=== PATIENT | female | born 1970 | race Caucasian/White ===

== ENCOUNTER 2021-08-21 13:29 | Outpatient (CLI) | payer MEDICARE, SELFPAY ==
--- NOTE | 2021-08-21 | MR_ITS ---
WS: [id number] MRI RIGHT SHOULDER NONCONTRAST TECHNIQUE: Sagittal T2, coronal T1, T2 and proton density imaging. Axial gradient PDE imaging. CLINICAL INFORMATION: RIGHT SHOULDER CUFF SYNDROME COMPARISON: None. FINDINGS: Prior postoperative changes rotator cuff anchors. Small serpiginous area superior humeral head suspic ious for small area of avascular necrosis measuring 17 x 9 mm. Associated thin rim of surrounding patrice ma. Minimal degenerative arthritis at the AC joint. Small amount of subacromial/subdeltoid fluid. Garima or repair of the supraspinatus tendon distally. No evidence of recurrent tear. Postoperative changes in the distal tendon. Normal infraspinatus. Normal teres minor. Normal subscapularis. Normal biceps tendon in the bicipital groove. Normal biceps labral anchor. Glenoid labrum appears grossly normal. MR/MR shoulder RT wo con* [id number] IMPRESSION: 1. Prior postoperative changes rotator cuff anchors with repair of the suprasp inatus tendon. No evidence of recurrent tear. 2. Rotator cuff is otherwise intact. 3. Normal biceps tendon in the bicipital groove. 4. Suspected area of avascular necrosis in the superior humeral head with a sm all thin rim of surrounding edema. 5. Minimal degenerative arthritis AC joint with a small amount of subacromial/ subdeltoid fluid.
== END 2021-08-21 13:30 | disposition home or self-care (01) ==
PROVIDERS: PCP Nurse Practitioner Family; Visit Provider Nurse Practitioner Family
DX: M75.101 Unspecified rotator cuff tear or rupture of right shoulder, not specified as traumatic (principal); M19.011 Primary osteoarthritis, right shoulder
CPT/HCPCS: 73221

== ENCOUNTER → 2021-08-23 10:42 | Outpatient (BNVA) | payer MEDICARE, SELFPAY | PROVIDERS: PCP Nurse Practitioner Family; Referring Provider Nurse Practitioner Family; Visit Provider Internal Medicine | DX: M85.80 Other specified disorders of bone density and structure, unspecified site (principal); F17.200 Nicotine dependence, unspecified, uncomplicated | CPT/HCPCS: 99204 ==

== ENCOUNTER → 2021-10-12 08:17 | Outpatient (BNVA) | payer MEDICARE, SELFPAY | PROVIDERS: PCP Nurse Practitioner Family; Referring Provider Nurse Practitioner Family; Visit Provider Anesthesiology Pain Medicine | DX: M54.2 Cervicalgia (principal); M25.511 Pain in right shoulder; G43.909 Migraine, unspecified, not intractable, without status migrainosus; Z98.890 Other specified postprocedural states; Z87.891 Personal history of nicotine dependence | CPT/HCPCS: 99204 ==

== ENCOUNTER → 2021-10-23 11:33 | Outpatient (BNVA) | payer MEDICARE, SELFPAY | PROVIDERS: PCP Nurse Practitioner Family; Visit Provider Nurse Practitioner Family | DX: R39.9 Unspecified symptoms and signs involving the genitourinary system (principal); R44.3 Hallucinations, unspecified | CPT/HCPCS: 81000 ==

== ENCOUNTER 2021-10-25 12:39 | Inpatient (IN) | payer MEDICARE, SELFPAY ==
[2021-10-25 12:48] VITALS: BP 149/72; PULSE 123; RESP 19; TEMP 36.9; O2SAT 95; BMI 21.9
--- NOTE | 2021-10-25 13:02 | ED.C_ITS ---
HPI - Psych General: Chief Complaint: Psychiatric Symptoms Stated Complaint: Anxiety, Insomnia Time Seen by Provider: 10/25/21 13:02 Limitations: altered mental status History of Present Illness: Ms. Edwards is a 51-year-old lady with significant past medical history of anxiety, fibromyalgia, and asthma who presents the emergency department due to hallucinations and mental status change. Apparently symptoms began approximately 2 weeks ago initially with visual disturbances including with the patient reports was flashes of different ads in her vision. She subsequently developed seeing shapes and also possibly hearing things. She was seen by primary care provider on the and at that time referred to [facility] ED. The exact ED course is somewhat unclear though apparently she did receive a head CT and was ultimately possibly diagnosed with sleep deprivation induced hallucinations. The patient reports at baseline she does not sleep much however this has been worse lately. She has not slept now for approximately 4 days. She did receive 1 sleeping pill out of a prescription for 12. Unclear exactly what sleeping pill this was. returned home yesterday to find the rest of the pills missing though the patient has not slept ever had any apparent symptoms. She has been out wandering at night and not acting herself. It is unclear whether she has similar episodes in the past. She otherwise denies medical complaints. No other specific known exacerbating, provoking, or alleviating factors identified. History is somewhat limited by patient's mental status. Onset (ago): week(s) Relieving factors: none Exacerbating factors: none Associated psychiatric symptoms: racing thoughts, visual hallucinations and delusions Associated symptoms: Reports delusions Review of Systems General: Reports: 10 or more systems reviewed and unremarkable except in HPI and below PFS ED PFSH: Medical History Anxiety Bone loss Chronic pain Fibromyalgia Migraine Surgical History H/O neck surgery H/O shoulder surgery History of back surgery Family History Father No problems noted. Mother COPD (chronic obstructive pulmonary disease) Chronic emphysema syndrome Social History Smoking and tobacco status: former smoker Second hand smoke exposure: Yes Alcohol intake: never Adopted: No Caregiver/support person: No Lives independently: Yes Household members: spouse Housing: House Marital status: Number of children: 2 Highest education level completed: Bachelor's Degree service: No Current occupational status: disabled History of recent travel: No Physical Exam Const: COMMON NORMALS: alert GENERAL APPEARANCE: cooperative, well developed and anxious HENMT: COMMON NORMALS: normocephalic and atraumatic HEAD & SCALP: normocephalic and atraumatic THROAT: posterior oropharynx normal Eye: COMMON NORMALS: conjunctivae normal CONJUNCTIVA: Yes conjunctivae normal SCLERA: sclerae normal Neck/C-Spine: COMMON NORMALS: supple GENERAL: Yes trachea midline Resp: COMMON NORMALS: normal respiratory effort EFFORT & INSPECTION: Yes able to speak in complete sentences Cardio: COMMON NORMALS: regular rate and regular rhythm RATE: regular rate RHYTHM: regular rhythm GI: COMMON NORMALS: Soft to palpation PALPATION: Yes Soft to palpation and No Tenderness to palpation present (GI) PERCUSSION: normal to percussion Extremity: GENERAL: Yes normal exam except as noted and No edema Neuro: COMMON NORMALS: moves all extremities SENSORIUM/ORIENTATION: Yes alert and No Orientation impaired Psych: MOOD & AFFECT: Yes anxious THOUGHT PROCESS: Tangential thought process present and racing thoughts THOUGHT CONTENT: Yes delusions INSIGHT: Fair insight present (Psych) JUDGEMENT: Poor judgement present (Psych) Skin: NARRATIVE SKIN EXAM: scattered scratches on BLE reportedly from wandering outside Course ED course: - Patient was seen and evaluated by me at bedside - Vital signs obtained - Initial evaluation notable for exam as above, abnormal psychiatric exam - IV fluid bolus ordered given tachycardia. - Once outside records obtained. The patient was started on Zyprexa 5 mg tablets which was the 14 tablets as noted in HPI, clinically patient certainly does not appear to have taken 13 tablets though somewhat uncertain. There is also no record of head CT/CT imaging in fax documents. - Labs notable for no leukocytosis. Metabolic panel with mild evidence of dehydration. Urinalysis does appear concerning for urinary tract infection, will plan to treat with Keflex. - Imaging notable for no acute intracranial hemorrhage or mass identified on he ad CT. - Upon serial reexamination after treatment the patient was improved - Based on patient history, evaluation, labs, and imaging as interpreted the most likely cause of the patient's condition is psychosis and hallucinations of unclear etiology - Case discussed with psychiatry service, patient to be admitted to psychiatry service for further definitive management and treatment. - Based on ED evaluation to this point there is no obvious condition that would preclude the patient from inpatient management of psychiatric concerns. Note: Click bubbles or prepopulated mclain in note writing are used for assistance with data collection and billing and are inherently more limited than narrative and other text portions of this note. Please use narrative for additional clinical history and defer to narrative/free test for any case of contradictory information. If information appears in only free text or click bubble it should be considered present or absent as reported. Please contact note promotion writer for clarifications of clinical information or contradictory information. MDM is a brief summary, contradictory or erroneous seeming information should be clarified and full note should be reviewed. Vital Signs: Vital signs: Vital Signs Temperature 98.4 F 10/29/21 16:45 Pulse Rate 89 10/29/21 16:45 Respiratory Rate 17 10/29/21 16:45 Blood Pressure 117/78 10/29/21 16:45 Pulse Oximetry 98 10/29/21 16:45 MDM - Psych Medical Decision Making 51-year-old lady presenting with psychosis and hallucinations. Admitted for definitive management and treatment. Plan to treat UTI though I do not believe that this is the cause of the patient's symptoms. Medical Records I reviewed the patient's medical records. Lab Data I reviewed the patient's lab results. : 10/25/21 13:18 10/25/21 13:[address] 10/25/21 15:03 IMPRESSION: 1. No evidence of intracranial hemorrhage or mass effect. 2. Mild periventricular and subcortical low-attenuation changes nonspecific but likely due to small vessel disease. This can be followed up with MRI on an elective basis. 3. No significant parenchymal volume loss. 4. Paranasal sinuses and mastoid air cells well aerated. 5. No other acute findings. Laboratory Results WBC 8.8 10^3/uL (4.0-10.0) 10/25/21 13:18 RBC 4.19 10^6/uL (4.1-5.3) 10/25/21 13:18 Hgb 13.8 g/dL (11.5-15.3) 10/25/21 13:18 Hct 39.1 % (37.0-47.0) 10/25/21 13:18 MCV 93.3 fl (81-99) 10/25/21 13:18 MCH 32.9 pg (28.0-34.0) 10/25/21 13:18 MCHC 35.3 g/dL (30.0-36.0) 10/25/21 13:18 RDW 14.1 % (12.1-15.1) 10/25/21 13:18 Plt Count 247 10^3/cmm (130-400) 10/25/21 13:18 MPV 11.6 fL (7.4-10.4) H 10/25/21 13:18 Neut % (Auto) 64.9 % 10/25/21 13:18 Lymph % (Auto) 25.1 % 10/25/21 13:18 [place] % (Auto) 9.2 % 10/25/21 13:18 Eos % (Auto) 0.1 % 10/25/21 13:18 Baso % (Auto) 0.5 % 10/25/21 13:18 Neut # (Auto) 5.72 10^3/uL (1.8-7.7) 10/25/21 13:18 Lymph # (Auto) 2.2 10^3/uL (0.8-4.8) 10/25/21 13:18 [place] # (Auto) 0.8 10^3/uL (0.2-0.9) 10/25/21 13:18 Eos # (Auto) 0.0 10^3/uL (0.0-0.8) 10/25/21 13:18 Baso # (Auto) 0.0 10^3/uL (0.0-0.1) 10/25/21 13:18 Nucleated RBC % (auto) 0 % 10/25/21 13:18 Nucleated RBCs # 0.0 /100WBC 10/25/21 13:18 Sodium 138 mmol/L (136-145) 10/25/21 13:18 Potassium 3.7 mmol/L (3.5-5.1) 10/25/21 13:18 Chloride 97 mmol/L (98-107) L 10/25/21 13:18 Carbon Dioxide 22 mmol/L (22-29) 10/25/21 13:18 Anion Gap 22.7 (5-19) H 10/25/21 13:18 BUN 22 mg/dL (6-20) H 10/25/21 13:18 Creatinine 0.7 mg/dL (0.5-0.9) 10/25/21 13:18 GFR Calculation 87.9 mL/min (90-130) L 10/25/21 13:18 Glucose 136 mg/dL (65-115) H 10/25/21 13:18 Calculated Osmolality 291 mOsm/kg (285-295) 10/25/21 13:18 Calcium 10.6 mg/dL (8.5-10.5) H 10/25/21 13:18 Total Bilirubin 0.6 mg/dL (0.15-1.2) 10/25/21 13:18 AST 24 U/L (0-32) 10/25/21 13:18 ALT 16 U/L (0-33) 10/25/21 13:18 Alkaline Phosphatase 122 IU/L (35-105) H 10/25/21 13:18 Total Protein 8.4 g/dL (6.6-8.7) 10/25/21 13:18 Albumin 5.0 g/dL (3.5-5.2) 10/25/21 13:18 Globulin 3.4 g/dL (1.3-4.6) 10/25/21 13:18 TSH 2.18 uIU/mL (0.27-4.20) 10/25/21 13:18 Urine Color Yellow (Yellow) 10/25/21 15:20 Urine Appearance Cloudy (CLEAR) 10/25/21 15:20 Urine pH 5 (5-7) 10/25/21 15:20 Ur Specific [place] 1.015 (1.005-1.030) 10/25/21 15:20 Urine Protein Neg (Negative) 10/25/21 15:20 Urine Glucose (UA) Norm (Normal) 10/25/21 15:20 Urine Ketones Negative (Negative) 10/25/21 15:20 Urine Blood 3+ (Negative) H 10/25/21 15:20 Urine Nitrate Positive (Negative) H 10/25/21 15:20 Urine Bilirubin Neg (Negative) 10/25/21 15:20 Urine Urobilinogen Norm mg/dL (Negative) 10/25/21 15:20 Ur Leukocyte Esterase 2+ (Negative) H 10/25/21 15:20 Urine RBC None /hpf (0-2) 10/25/21 15:20 Urine WBC 15-25 /hpf (0-5) H 10/25/21 15:20 Ur Squamous Epith Cells 0-4 /hpf (0-5) H 10/25/21 15:20 Amorphous Sediment Not Reportable 10/25/21 15:20 Urine Bacteria 2+ /hpf (NONE) H 10/25/21 15:20 Salicylates < 0.3 mg/dL (3-10) L 10/25/21 13:18 Urine Opiates Screen Negative ng/mL (Negative) 10/25/21 15:20 Acetaminophen < 5.0 ug/mL (10-30) L 10/25/21 13:18 Ur Barbiturates Screen Negative ng/mL (Negative) 10/25/21 15:20 Ur Phencyclidine Scrn Negative ng/mL (Negative) 10/25/21 15:20 Ur Amphetamines Screen Negative ng/mL (Negative) 10/25/21 15:20 U Benzodiazepines Scrn Positive ng/mL (Negative) H 10/25/21 15:20 Urine Cocaine Screen Negative ng/mL (Negative) 10/25/21 15:20 U Marijuana (THC) Screen Negative ng/mL (Negative) 10/25/21 15:20 Ethyl Alcohol < 10 mg/dL (0-10) 10/25/21 13:18 EKG Data EKG 1: I personally reviewed and interpreted this EKG as follows: EKG interpretation date: 10/25/21 EKG interpretation time: 13:59 Interpretation: Twelve-lead EKG shows a regular rhythm at a rate of 110. MA interval 131, QRS duration 92, QTc 422. Normal axis. Interpretation: Sinus rhythm. Tachycardia. Discharge Plan Discharge Patient Disposition: Admitted As Inpatient Admit Provider: Manolo Lisa Clinical Impression: Psychosis, Hallucinations Condition: Stable Discharge Diet: Regular Discharge Activity: Resume usual activity Coding Level of Care Code ED Senior Property Manager for Berniceg Fwd Exam Comprehensive
--- NOTE | 2021-10-25 13:27 | ECG_ITS ---
[facility] Test Date: 2021-10-25 Pat Name: Kaylie Edwards Department: Room: Gender: Female Dairy Nutritionist: : 1970 Requested By: Kevin Clay Order Number: [id number] Holly MD: Elieser Robert M.D. Measurements Intervals [place] Rate: 110 P: 81 [place]: 131 QRS: 31 QRSD: 92 T: 39 QT: 357 QTc: 483 Interpretive Statements SINUS TACHYCARDIA POSSIBLE LEFT ATRIAL ENLARGEMENT [-0.1mV P-WAVE IN V1/V2] No previous ECG available for comparison Electronically Signed On 10-25-2021 15:59:37 LEGAL BILLING SPECIALIST by Elieser Robert M.D. [email or web address] [id number]
[2021-10-25] MEDS: sodium chloride 0.9% 1,000 ML 999 ML IV (13:48)
[2021-10-25 13:57] LABS: Basophils % 0.5 %; Eosinophils % 0.1 %; Hematocrit 39.1 % (37.0-47.0); Hemoglobin 13.8 g/dL (11.5-15.3); Lymphocytes # 2.2 10^3/uL (0.8-4.8); Lymphocytes % 25.1 %; Mean Corpuscular HGB Conc 35.3 g/dL (30.0-36.0); Mean Corpuscular Hemoglobin 32.9 pg (28.0-34.0); Mean Corpuscular Volume 93.3 fl (81-99); Mean Platelet Volume 11.6 fL (7.4-10.4); Monocytes # 0.8 10^3/uL (0.2-0.9); Monocytes % 9.2 %; Neutrophils # 5.72 10^3/uL (1.8-7.7); Neutrophils % 64.9 %; Nucleated Red Blood Cells % 0 %; Platelet Count 247 10^3/cmm (130-400); Red Blood Count 4.19 10^6/uL (4.1-5.3); Red Cell Distribution Width 14.1 % (12.1-15.1); White Blood Count 8.8 10^3/uL (4.0-10.0)
[2021-10-25 14:31] LABS: Alanine Aminotransferase 16 U/L (0-33); Alkaline Phosphatase 122 IU/L (35-105); Anion Gap 22.7 (5-19); Aspartate Amino Transferase 24 U/L (0-32); Blood Urea Nitrogen 22 mg/dL (6-20); Calcium 10.6 mg/dL (8.5-10.5); Carbon Dioxide 22 mmol/L (22-29); Chloride 97 mmol/L (98-107); Globulin 3.4 g/dL (1.3-4.6); Glomerular Filtration Rate 87.9 mL/min (90-130); Glucose 136 mg/dL (65-115); Osmolality Calculated 291 mOsm/kg (285-295); Potassium 3.7 mmol/L (3.5-5.1); Sodium 138 mmol/L (136-145); Total Bilirubin 0.6 mg/dL (0.15-1.2); Total Protein 8.4 g/dL (6.6-8.7)
[2021-10-25 14:32] LABS: Acetaminophen < 5.0 ug/mL (10-30); Alcohol Level < 10 mg/dL (0-10); Salicylate < 0.3 mg/dL (3-10)
--- NOTE | 2021-10-25 15:03 | CT_ITS ---
WS: [id number] CT HEAD TECHNIQUE: Noncontrast CT of the head obtained from the skullbase to the vertex. CLINICAL INFORMATION: ams COMPARISON: None. DLP: 927.[address] scans at [facility] use at least one of these dose optimization techniques: automated e xposure control; mA and/or kV adjustment per patient size (includes targeted exams where dose is matc hed to clinical indication); or iterative reconstruction. FINDINGS: No evidence of intracranial hemorrhage or mass effect. Ventricular system and basal cisterns are prater nt. Mild periventricular and subcortical low-attenuation changes likely due to small vessel disease. No significant parenchymal volume loss. No extra-axial fluid collections. No evidence of mass or mass effect. Paranasal sinuses and mastoid air cells are well aerated. .Normal visualized soft tissues. CT/CT head wo con* [id number] IMPRESSION: 1. No evidence of intracranial hemorrhage or mass effect. 2. Mild periventricular and subcortical low-attenuation changes nonspecific bu t likely due to small vessel disease. This can be followed up with MRI on an el ective basis. 3. No significant parenchymal volume loss. 4. Paranasal sinuses and mastoid air cells well aerated. 5. No other acute findings.
[2021-10-25 15:24] VITALS: BP 150/100; PULSE 105; RESP 16; O2SAT 97
[2021-10-25 15:25] LABS: Thyroid Stimulating Hormone 2.18 uIU/mL (0.27-4.20)
[2021-10-25 17:34] LABS: Add Urine Microscopic? YES; Bilirubin Urine Neg (Negative); Blood Urine 3+ (Negative); Glucose Urine UA Norm (Normal); Ketones Urine Negative (Negative); Leukocyte Esterase Urine 2+ (Negative); Nitrate Urine Positive (Negative); Protein Urine Neg (Negative); Specific Gravity, Urine 1.015 (1.005-1.030); Urine Appearance Cloudy (CLEAR); Urine Color Yellow (Yellow); Urobilinogen Urine Norm (Negative); pH Urine 5 (5-7)
[2021-10-25 17:36] LABS: Add Urine Culture? Yes; Bacteria Urine 2+ /hpf; Squamous Epithelial Cell Urine 0-4 /hpf (0-5); WBC Urine 15-25 /hpf (0-5)
[2021-10-25 17:39] LABS: Amphetamines Screen Urine Negative (Negative); Barbiturates Screen Urine Negative (Negative); Benzodiazepines Screen Urine Positive (Negative); Cocaine Screen Urine Negative (Negative); Opiate Screen Urine Negative (Negative); PCP Screen Urine Negative (Negative); THC Screen Urine Negative (Negative)
[2021-10-25] MEDS: cephALEXin 500 mg Capsule PO ×2 (18:02→23:14)
--- NOTE | 2021-10-25 18:27 | PC.NURSE ---
REPORT TO ADELINE CISNEROS
[2021-10-25 18:48] VITALS: BP 134/84; PULSE 98; RESP 20; TEMP 36.6; O2SAT 95
[2021-10-25] MEDS: hyDROXYzine 25 mg Capsule 50 MG PO ×2 (19:31→20:54)
--- NOTE | 2021-10-25 19:33 | PC.NURSE ---
Patient with anxiety. Rapidly pacing halls. Flights of ideas. Tearful and trying to leave unit through single door. Confused asking people to come out of their rooms. PRN hydroxizine 50 mg given for this.
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
[2021-10-25] MEDS: trazodone 50 mg Tablet PO (20:15)
--- NOTE | 2021-10-25 21:43 | PC.NURSE ---
Patient wanted medication to help her sleep. When ask to come up to the nurses station for the medication she stated I want chocolate, do you have chocolate? and then laughed out loud. Trazodone was given at 2014. Later on patient was repeatedly up at the nurses station with garbled speech. She was very tearful and anxious. She believed someone was dying. Visteril was given at 2053.
[2021-10-25 22:00] VITALS: BP 135/84; PULSE 98; RESP 20; TEMP 36.6; O2SAT 96
[2021-10-26] MEDS: haloperidol 5 mg Tablet PO (00:03)
--- NOTE | 2021-10-26 00:03 | PC.NURSE ---
Addendum entered by Sylvia Baugh RN 10/26/21 04:19: Patient continues to become agitated, going into other patients room, and unsteady, nurse sitting one to one with patient for safety and redirection. Patient has begun hallucinating, seeing things on floor and responding to them and to things in air. Having nonsensical conversations, addressing staff by random names. Laughing, then yelling, then crying at times. Patient will lay down for a few minutes then get right back up and walking around and attempting to go into other patients rooms again. Continuing to redirect often with little success. Addendum entered by Sylvia Baugh RN 10/26/21 02:21: Patient continues to become agitated, pacing the halls, going into other patients rooms, with nonsensical speech, unable to be redirected for any amount of time. Previous interventions and medications unsuccessful. Given PRN haldol, ativan, and benadryl as ordered. Original Note: PRN Admin Patient up pacing the halls, hollering out and getting agitated. Attempted to redirect and reorient patient. Patient has nonsensical speech and does not respond appropriately to conversation. PRN trazodone given earlier, then PRN zyprexa approx an hr later, with no noted effectiveness. PRN haldol given.
[2021-10-26] MEDS: haloperidol inj 5 mg/mL INJ 1 mL IM (02:20)
[2021-10-26] MEDS: diphenhydrAMINE 50 mg/mL SDV 1mL IM (02:20)
[2021-10-26] MEDS: LORazepam 2 mg/mL INJ 1 mL IM ×2 (02:20→05:27)
--- NOTE | 2021-10-26 02:23 | PC.NURSE ---
Patient continues to be poor historian, confused, with nonsensical, disorganized speech, and responding inappropriately to conversation. Unable to obtain assessment information due to patient condition.
[2021-10-26] MEDS: ziprasidone 20 mg/mL SDV IM (03:45)
--- NOTE | 2021-10-26 04:19 | PC.NURSE ---
0328 Patient continues to be severely agitated and delusional. Call made to Dr. Lisa for further care. He gave an order for Geodon 20mg IM x1. With assistance of 2 nurses and security stand by the Geodon was given IM in the right dorsogluteal. Patient tolerated well. Patient is not safe to be by herself. She is a high fall risk and a danger to herself as she tried to eat her blanket. Will continue to monitor the patient while one on one.
[2021-10-26] MEDS: cephALEXin 500 mg Capsule PO ×2 (05:27→13:20)
--- NOTE | 2021-10-26 06:40 | PC.NURSE ---
0435 Patient is still awake even after all of the medication. She is delusional with psychotic features. She is seeing things that are not there like picking at air in front of her, scooping up things off the floor, and picking at the blankets and sheets. She is a two person assist due to her high fall risk and inability to be redirected. A call was made to Dr. Lisa. He gave an order to give her Ativan 2mg IM thinking maybe she is going through benzo withdrawals. The Ativan was given. Patient tolerated it well.
--- NOTE | 2021-10-26 06:48 | PC.NURSE ---
0450 Patient is settling down. She is actually laying on the bed trying to sleep. She has a very bad cough. It is wet, producing lots of sputum that the patient is having trouble clearing. She finally clears it and is able to rest comfortably. Sitter is at the bedside.
--- NOTE | 2021-10-26 09:51 | PC.OT ---
OT EVALUATION HELD THIS DATE PER NURSING REQUEST. SEE NOTES IN CHART REGARDING PATIENT BEHAVIOR LAST EVENING. NURSING REPORTS THAT PATIENT IS FINALLY SLEEPING AND REQUESTS TO ALLOW HER TO CONTINUE TO SLEEP. WILL ATTEMPT EVALUATION AT ANOTHER TIME.
[2021-10-26] MEDS: OLANZapine 5 mg TABLET PO (10:00)
[2021-10-26] MEDS: pregabalin 100 mg Capsule 200 MG PO ×3 (10:51→22:00)
[2021-10-26] MEDS: venlafaxine ER (24HR) 150 mg Capsule PO (10:51)
[2021-10-26] MEDS: LORazepam 2 mg Tablet PO (13:20)
[2021-10-26 14:00] VITALS: BP 104/68; PULSE 90; RESP 17; TEMP 36.6; O2SAT 96
--- NOTE | 2021-10-26 14:34 | PC.NURSE ---
ADMISSION PER ED Ms. Edwards is a 51-year-old lady with significant past medical history of anxiety, fibromyalgia, and asthma who presents the emergency department due to hallucinations and mental status change. Apparently symptoms began approximately 2 weeks ago initially with visual disturbances including with the patient reports was flashes of different ads in her vision. She subsequently developed seeing shapes and also possibly hearing things. She was seen by primary care provider on the and at that time referred to [facility] ED. The exact ED course is somewhat unclear though apparently she did receive a head CT and was ultimately possibly diagnosed with sleep deprivation induced hallucinations. The patient reports at baseline she does not sleep much however this has been worse lately. She has not slept now for approximately 4 days. She did receive 1 sleeping pill out of a prescription for 12. Unclear exactly what sleeping pill this was. returned home yesterday to find the rest of the pills missing though the patient has not slept ever had any apparent symptoms. She has been out wandering at night and not acting herself. It is unclear whether she has similar episodes in the past. She otherwise denies medical complaints. No other specific known exacerbating, provoking, or alleviating factors identified. NPU AT THIS TIME PATIENT IS AWAKE AGAIN. REMAINS DELUSIONAL AND NEEDS FREQUENT REDIRECTION. UNABLE TO ANSWER ASSESSMENT QUESTIONS. DID EAT AND DRINK. NEED FOR ONE TO ONE SITTER CONTINUES. ATTEMPTING TO GO INTO OTHERS ROOMS.
--- NOTE | 2021-10-26 14:35 | PC.NURSE ---
MEDS- PATIENT GAVE NEW ORDERS TO GIVE ATIVAN 2 MG PO OR IM IF REFUSES FOR DELUSIONAL BEHAVIORS, WANDERING, OR INTRUSIVE BEHAVIORS. PATIENT UP AND DOWN. THOUGHT PROCESS CONFUSED AND DISORGANIZED. TOOK PO DOSE AT 1320. CURRENTLY RESTING IN BED CALMLY. REMAINS WITH ONE TO ONE SITTER.
--- NOTE | 2021-10-26 14:43 | W.PM.NPUH&PS ---
Providers/Chief Complaint Admitting Physician: Manolo Lisa MD Primary Care Provider: HERIBERTO Meza Chief Complaint: Anxiety, Insomnia HPI NPU History of Present Illness Kaylie Edwards is a 51 year old female who presented to the outpatient hospital with reports of a 2 week history of visual hallucinations, people in the room speaking with her, and seeing deer in the road that were concerning to her and not knowing why it happened. She was sent from a local clinic and brought by her nephew to the ER at the clinic?s suggestion. The identified at that time the symptoms began 2 days ago, reporting that she had filled her medication in the last week and they had a similar issue of that about 2 months ago but the symptoms resolved after stopping some unknown anxiety medication though the current symptoms are seeming worse than last time. She had been sleeping less and he reported her ?being manic at night?. They deny any other changes or any suicidal or homicidal ideation. She was evaluated at the outside hospital, transferred to [facility] and admitted to the neuropsychiatric unit for definitive treatment of those issues. She had a medical evaluation and concerns for a UTI also existed so the outside hospital had initiated Keflex which she has essentially had a day?s worth of doses at this time. The patient presented to the unit and began significant aimless behavior, walking into people?s rooms, knocking on doors, pulling at things and ultimately received PRN medications. Review of her chart, as she had not seen this entry writer at that time, lead to a working diagnosis that she was having benzodiazepine withdrawal which is probably what happened a couple months ago when she had these hallucinations and not some bipolar episode of some sort. The dose of her Valium is reportedly 2 mg twice a day but there is significant concern of her being out of her medication between 9 days to 2 weeks too early which is likely causing some issues on the intoxication side and some issues on the withdrawal side. Ultimately, she was able to be calmed down with doses of Ativan, further supporting the idea that this is withdrawal. She was unable to participate in a give and take evaluation at this time. Psychiatric History: As above. Substance Abuse History: As above Family History: As above. Developmental History: As above. Psychosocial History: As above. Legal History: As above. Medical History: COPD and hysterectomy. Meds NPU Home Medications Medication Instructions Recorded Confirmed Last Taken Type diazepam 5 mg tablet 5 mg PO BID PRN #20 tab 10/06/21 10/25/21 Unknown Rx pregabalin 200 mg capsule 200 mg PO TID #90 cap 10/06/21 10/25/21 Unknown Rx albuterol sulfate 90 mcg/actuation 2 puff INHALATION QID PRN 10/25/21 10/25/21 Unknown History aerosol inhaler baclofen 10 mg tablet 10 mg PO TID PRN 10/25/21 10/25/21 Unknown History budesonide 160 mcg-glycopyr 9 2 inh INHALATION BID 10/25/21 10/25/21 Unknown History mcg-formot 4.8 mcg/actuation HFA inhaler (Breztri Aerosphere) omcfpqxmmb-gtelszngibghv-fgsndfok 1 tab PO Q8H PRN 10/25/21 10/25/21 Unknown History 50 mg-325 mg-40 mg tablet galcanezumab-gnlm 120 mg/mL 120 mg SUBCUT .Q30D DIRECTED 10/25/21 10/25/21 Unknown History subcutaneous pen injector (Emgality Pen) ibuprofen 200 mg tablet 800 - 1,000 mg PO Q6H PRN 10/25/21 10/25/21 Unknown History olanzapine 5 mg tablet 5 mg PO BEDTIME 10/25/21 10/25/21 Unknown History quetiapine 100 mg tablet 100 mg PO BEDTIME 10/25/21 10/25/21 Unknown History venlafaxine 150 mg 150 mg PO DAILY 10/25/21 10/25/21 Unknown History capsule,extended release 24 hr Allergies Allergy/AdvReac Type Severity Reaction Status Date / Time amitriptyline [From avil] Allergy hallucenate Verified 10/25/21 14:02 Sulfa (Sulfonamide Allergy hives Verified 10/25/21 14:02 Antibiotics) PFSH NPU PFSH: Medical History Anxiety Bone loss Chronic pain Fibromyalgia Migraine Surgical History H/O neck surgery H/O shoulder surgery History of back surgery Family History Father No problems noted. Mother COPD (chronic obstructive pulmonary disease) Chronic emphysema syndrome Social History Smoking and tobacco status: former smoker Second hand smoke exposure: Yes Alcohol intake: never Adopted: No Caregiver/support person: No Lives independently: Yes Household members: spouse Housing: House Marital status: Number of children: 2 Highest education level completed: Bachelor's Degree service: No Current occupational status: disabled History of recent travel: No Mental Status Exam MSE Comments: This is a well-nourished, well-developed white female looking older than her stated age in hospital scrubs with limited grooming and no eye contact. No abnormal movements except for psychomotor retardation. Uncooperative with exam in no distress. Speech was nonexistent. Patient mood not described, affect sleeping. Thought process, unable to be obtained. Thought content: patient was sleeping and did not respond to any other questions at this time. She was not arousable to have a formal evaluation. Vitals/I&O/Wt Last Vital Signs Temp 97.8 F 10/26/21 14:00 Pulse 90 10/26/21 14:00 Resp 17 10/26/21 14:00 BP 104/68 10/26/21 14:00 Pulse Ox 96 10/26/21 14:00 Weight last 48 hrs Weight 58.06 kg Data NPU : 10/25/21 13:18 10/25/21 13:18 A&P Assessment and plan (1) Psychosis: Status: Acute (2) Hallucinations: Status: Acute (3) H/O shoulder surgery: Status: Acute (4) Migraine: Status: Acute (5) Asthma: Status: Acute (6) Anxiety: Status: Acute (7) Fibromyalgia: Status: Acute (8) Osteopenia: Status: Acute (9) Altered mental status: Status: Acute (10) Delirium: Status: Acute Plan This is a 51 year old white female with a history of anxiety, what appears to be recent benzodiazepine abuse and sequelae from intoxication versus withdrawal who presents in a delirium state. Continue current medications except will put on CIWA and use benzodiazepines to manage any behavioral issues to assist her with this likely withdrawal. Encourage individual, group and milieu therapy Continue q-15 minute check for safety Recommend sober living treatment at the highest level of care to which the patient is willing to commit. Involuntary Hold Information 96 Hour Hold: 96 Hour Involuntary Admission: No Attestations NPU Medical Necessity Statement*: Inpatient hospitalization is medically necessary and the clinically appropriate intervention at this time. We will monitor medications and make changes as indicated. Patient will be in the hospital for over two midnights. Likely length of stay is four to six days. We will consider a 96 hour hold if she demands discharge. Coding Level of Care Code Acute Business Rules Developer for [facility] Fwd Diagnoses Psychosis F29 Hallucinations R44.3 H/O shoulder surgery Z98.890 Migraine G43.909 Asthma J45.909 Anxiety F41.9 Fibromyalgia M79.7 Osteopenia M85.80 Altered mental status R41.82 Delirium R41.0
[2021-10-26 21:52] VITALS: BP 109/69; PULSE 88; RESP 22; TEMP 36.7; O2SAT 94
[2021-10-26] MEDS: quetiapine 100 mg Tablet PO (22:00)
[2021-10-27] MEDS: cephALEXin 500 mg Capsule PO ×4 (02:06→17:40)
[2021-10-27 06:00] VITALS: BP 106/66; PULSE 80; RESP 18; TEMP 36.4; O2SAT 96
[2021-10-27 08:01] VITALS: PULSE 101; RESP 16; O2SAT 92
[2021-10-27] MEDS: pregabalin 100 mg Capsule 200 MG PO ×3 (08:09→20:30)
[2021-10-27] MEDS: venlafaxine ER (24HR) 150 mg Capsule PO (08:09)
[2021-10-27] MEDS: ibuprofen 200 mg Tablet 600 MG PO (10:06)
--- NOTE | 2021-10-27 11:30 | DCPLANNER ---
IMM COMPLETED WITH PATIENT AND PATIENT WAS GIVEN A COPY.
--- NOTE | 2021-10-27 11:33 | DCPLANNER ---
IMM COMPLETED WITH PATIENT ON 10/26/21. PATEINT WAS GIVEN A COPY OF HER RIGHTS.
[2021-10-27 14:00] VITALS: BP 115/79; PULSE 109; RESP 17; TEMP 36.2; O2SAT 94
--- NOTE | 2021-10-27 17:00 | P.NPUPN_ITS ---
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 She had earlier suggested to the treatment team that we had a discussion that she is going to be leaving and expressing being upset about the fact that it did not appear to going to happen. I sat down with her and she was shocked at my report of what her behavior has been like before we began purposeful treatment of benzodiazepine overuse and withdrawal. She did not have a comment about that assessment adding credence to the position. We discussed the fact that we n eeded to continue to assess her now that she seems more cogent and gaining some clarity. Mental Status Exam MSE Comments: This is a slender, well-developed white female looking older than her stated age in hospital scrubs with limited grooming and improving eye contact. No abnormal movements except for mild psychomotor retardation. More cooperative with exam in no distress. Speech was noted and decreased rate and volume. Patient mood described as okay, affect subdued. Thought process linear. Thought content: patient denied suicidal or homicidal ideation, there were no delusions reported or noted, she denied any auditory or visual hallucinations and did not recall her clearly delirious behavior. Attention and concentration were intact and memory skills is unreliable but none were formally tested. She was alert and oriented x3. Insight and judgment still impaired, impulse control improving. Vitals/I&O/Wt Last Vital Signs Temp 98.9 F 10/27/21 20:55 Pulse 85 10/27/21 20:55 Resp 17 10/27/21 20:55 BP 115/71 10/27/21 20:55 Pulse Ox 94 10/27/21 20:55 Data NPU : 10/25/21 13:18 10/25/21 13:18 Micro: Microbiology 10/25/21 15:20 Urine Culture - Preliminary Urine,Clean Catch Gram Negative Rods Microbiology 10/25/21 15:20 Urine,Clean Catch Urine Culture - Preliminary Gram Negative Rods A&P Assessment and plan (1) Delirium: Status: Acute (2) Altered mental status: Status: Acute (3) Psychosis: Status: Acute (4) Hallucinations: Status: Acute (5) H/O shoulder surgery: Status: Acute (6) Migraine: Status: Acute (7) Asthma: Status: Acute (8) Anxiety: Status: Acute (9) Fibromyalgia: Status: Acute (10) Osteopenia: Status: Acute Plan This is a 51 year old white female with a history of anxiety, what appears to be recent benzodiazepine abuse and sequelae from intoxication versus withdrawal who presents in a delirium state. Continue current medications except will put on CIWA and use benzodiazepines to manage any behavioral issues to assist her with this likely withdrawal. Encourage individual, group and milieu therapy Continue q-15 minute check for safety Recommend sober living treatment at the highest level of care to which the patient is willing to commit. Involuntary Hold Information 96 Hour Hold: 96 Hour Involuntary Admission: No Attestations NPU Medical Necessity Statement*: Inpatient hospitalization is medically necessary and the clinically appropriate intervention at this time. We will monitor medications and make changes as indicated. Likely length of stay 3 to 5 days. Coding Level of Care Code Acute School Library Media Specialist for [facility] Diagnoses Delirium R41.0 Altered mental status R41.82 Psychosis F29 Hallucinations R44.3 H/O shoulder surgery Z98.890 Migraine G43.909 Asthma J45.909 Anxiety F41.9 Fibromyalgia M79.7 Osteopenia M85.80
--- NOTE | 2021-10-27 17:25 | PC.NURSE ---
PATIENT HAS REMAINED CALM THROUGHOUT DAY. NO LONGER WANDERING OR GOING INTO OTHERS ROOMS. IS DIRECTABLE BY STAFF. HAS MET WITH PT. TEAM FEELS PT IS NOW APPROPRIATE TO DISCONTINUE ONE TO ONE SITTER. ONE TO ONE DISCONTINUED AT 1645. NO ISSUES NOTED AT THIS TIME.
[2021-10-27] MEDS: OLANZapine 5 mg TABLET PO (20:30)
[2021-10-27] MEDS: quetiapine 100 mg Tablet PO (20:31)
[2021-10-27 20:55] VITALS: BP 115/71; PULSE 85; RESP 17; TEMP 37.2; O2SAT 94
[2021-10-28] MEDS: cephALEXin 500 mg Capsule PO ×5 (00:44→23:16)
[2021-10-28 06:00] VITALS: BP 121/90; PULSE 81; RESP 16; TEMP 37; O2SAT 97
--- NOTE | 2021-10-28 07:57 | PC.NURSE ---
Am Assessment Patient is up in room for assessment. Patient is alert and oriented in all aspects. She denies SI, Hi or hallucinations. Hr regular with ppp x 2, no edema noted. Lungs are clear with breathing even and non labored. Bowel sounds are active in all quads. Denies pain with urination. Denies all other pain. Skin is warm and dry.
[2021-10-28] MEDS: pregabalin 100 mg Capsule 200 MG PO ×3 (09:00→20:00)
[2021-10-28] MEDS: venlafaxine ER (24HR) 150 mg Capsule PO (09:00)
--- NOTE | 2021-10-28 09:35 | P.NPUPN_ITS ---
Subjective NPU Subjective: Interval history: Patient presents today looking much different than her presentation. She had her hair done and looks refreshed and was able to talk about the fact that she has little to no recollection of the events leading up to her admission. She reports that this relationship with Valium has probably gone back a couple years of possibly problematic use but we discussed the likelihood of the interplay of her UTI as well as intoxication followed by withdrawal of benzodiazepines leading to her delirious state. We agreed that we would talk to her and evaluate for discharge in the next 48 hours. Mental Status Exam MSE Comments: This is a slender, well-developed white female looking appropriate for age in hospital scrubs with appropriate grooming and eye contact. No abnormal movements.? Cooperative with exam in no distress. Speech was normal rate and volume. Patient mood described as better but a little confused, affect congruent. Thought process organized. Thought content: patient denied suicidal or homicidal ideation, there were no delusions reported or noted, she denied any auditory or visual hallucinations and did not recall her clearly delirious behavior.? Attention and concentration were intact and memory skills is unreliable but none were formally tested.? She was alert and oriented x3.? Insight and judgment is improving, impulse control improving. Vitals/I&O/Wt Last Vital Signs Temp 98.6 F 10/28/21 06:00 Pulse 81 10/28/21 06:00 Resp 16 10/28/21 06:00 BP 121/90 10/28/21 06:00 Pulse Ox 97 10/28/21 06:00 Data NPU : 10/25/21 13:18 10/25/21 13:18 Micro: Microbiology 10/25/21 15:20 Urine Culture - Preliminary Urine,Clean Catch Gram Negative Rods Microbiology 10/25/21 15:20 Urine,Clean Catch Urine Culture - Preliminary Gram Negative Rods A&P Assessment and plan (1) Delirium: Status: Acute (2) Altered mental status: Status: Acute (3) Psychosis: Status: Acute (4) Hallucinations: Status: Acute (5) H/O shoulder surgery: Status: Acute (6) Migraine: Status: Acute (7) Asthma: Status: Acute (8) Anxiety: Status: Acute (9) Fibromyalgia: Status: Acute (10) Osteopenia: Status: Acute Plan This is a 51 year old white female with a history of anxiety, what appears to be recent benzodiazepine abuse and sequelae from intoxication versus withdrawal who presents in a delirium state. Continue current medications. We will introduce propranolol 20 mg p.o. 3 times daily as needed and BuSpar 10 mg p.o. twice daily for anxiety. Encourage individual, group and milieu therapy Continue q-15 minute check for safety Recommend sober living treatment at the highest level of care to which the patient is willing to commit. Involuntary Hold Information 96 Hour Hold: 96 Hour Involuntary Admission: No Attestations NPU Medical Necessity Statement*: Inpatient hospitalization is medically necessary and the clinically appropriate intervention at this time. We will monitor medications and make changes as indicated.? Likely length of stay 1-3 days. Coding Level of Care Code Acute Secondary Set Up Man for [facility] Fwd Diagnoses Delirium R41.0 Altered mental status R41.82 Psychosis F29 Hallucinations R44.3 H/O shoulder surgery Z98.890 Migraine G43.909 Asthma J45.909 Anxiety F41.9 Fibromyalgia M79.7 Osteopenia M85.80
[2021-10-28 10:05] VITALS: PULSE 93; RESP 18; O2SAT 93
[2021-10-28 14:00] VITALS: BP 105/69; PULSE 87; RESP 17; TEMP 36.8; O2SAT 96
[2021-10-28] MEDS: OLANZapine 5 mg TABLET PO (20:00)
[2021-10-28] MEDS: quetiapine 100 mg Tablet PO (20:00)
[2021-10-28 20:23] VITALS: BP 102/66; PULSE 104; RESP 16; TEMP 37.2; O2SAT 94
[2021-10-29 05:26] VITALS: BP 102/66; PULSE 104; RESP 16; TEMP 37.2; O2SAT 94
[2021-10-29] MEDS: cephALEXin 500 mg Capsule PO ×2 (06:19→11:32)
[2021-10-29 06:40] VITALS: BP 113/64; PULSE 68; RESP 16; TEMP 36.5; O2SAT 94
[2021-10-29] MEDS: pregabalin 100 mg Capsule 200 MG PO ×2 (08:44→15:58)
[2021-10-29] MEDS: venlafaxine ER (24HR) 150 mg Capsule PO (08:44)
[2021-10-29 09:06] VITALS: PULSE 82; RESP 16; O2SAT 95
[2021-10-29] MEDS: BuSPIRONE 10 mg Tablet PO (11:31)
[2021-10-29 14:00] VITALS: BP 117/78; PULSE 89; RESP 17; TEMP 36.9; O2SAT 98
--- NOTE | 2021-10-29 16:42 | P.NPUDS_ITS ---
Diagnoses at Discharge Discharge Diagnosis (1) Delirium: Status: Resolved (2) Altered mental status: Status: Resolved (3) Psychosis: Status: Resolved (4) Hallucinations: Status: Resolved (5) H/O shoulder surgery: Status: Acute (6) Migraine: Status: Acute (7) Asthma: Status: Acute (8) Anxiety: Status: Acute (9) Fibromyalgia: Status: Acute (10) Osteopenia: Status: Acute Reason for Visit Reason for Visit: Anxiety, Insomnia Brief History: History of Present Illness Kaylie Edwards is a 51 year old female who presented to the outpatient hospital with reports of a 2 week history of visual hallucinations, people in the room speaking with her, and seeing deer in the road that were concerning to her and not knowing why it happened. She was sent from a local clinic and brought by her nephew to the ER at the clinic?s suggestion. The identified at that time the symptoms began 2 days ago, reporting that she had filled her medication in the last week and they had a similar issue of that about 2 months ago but the symptoms resolved after stopping some unknown anxiety medication though the current symptoms are seeming worse than last time. She had been sleeping less and he reported her ?being manic at night?. They deny any other changes or any suicidal or homicidal ideation. She was evaluated at the outside hospital, transferred to [facility] and admitted to the neuropsychiatric unit for definitive treatment of those issues. She had a medical evaluation and concerns for a UTI also existed so the outside hospital had initiated Keflex which she has essentially had a day?s worth of doses at this time. The patient presented to the unit and began significant aimless behavior, walking into people?s rooms, knocking on doors, pulling at things and ultimately received PRN medications. 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 The dose of her Valium is reportedly 2 mg twice a day but there is significant concern of her being out of her medication between 9 days to 2 weeks too early which is likely causing some issues on the intoxication side and some issues on the withdrawal side. Ultimately, she was able to be calmed down with doses of Ativan, further supporting the idea that this is withdrawal. She was unable to participate in a give and take evaluation at this time. Psychiatric History: As above. Substance Abuse History: As above Family History: As above. Developmental History: As above. Psychosocial History: As above. Legal History: As above. Medical History: COPD and hysterectomy. Hospital Course Hospital Course She slowly acclimated to the individual, group and milieu therapies provided. Initially she was quite delirious and even now has no recollection of the first days when she was needing as needed medication and walking around aimlessly trying to go into different peoples rooms. We identified the benzodiazepine/Valium as the offending agent and switch to a strategy to managing benzodiazepine withdrawal with significant success. She had medic improvement and we did not restart a benzodiazepine while she was inpatient. We advised against benzodiazepines for her moving forward for anxiety or any other circumstance. BuSpar as a scheduled medication and propranolol as a as needed medication was started and added to her regimen. She was able to contract for safety outside the hospital prior to discharge. During the hospitalization, patient had routine laboratory studies which were within normal limits except for few outliers. Additionally there was a general medical evaluation which was also within normal limits and revealed no new acute processes. Discharge Summary: At the time of discharge, she denied psychosis or lethality. Mood and anxiety were well managed. Patient endorsed a plan to avoid all drugs of abuse and follow-up with the aftercare recommendations of the treatment team. Patient was evaluated and deemed to be absent credible lethality, and had achieved the maximum benefit from an inpatient hospitalization, so was discharged. Involuntary Hold Information 96 Hour Hold: 96 Hour Involuntary Admission: No Mental Status Exam MSE Comments: This is a slender, well-developed white female looking appropriate for age in hospital scrubs with appropriate grooming and eye contact. No abnormal movements.? Cooperative with exam in no distress. Speech was normal rate and volume. Patient mood described as better, affect congruent. Thought process organized. Thought content: patient denied suicidal or homicidal ideation, there were no delusions reported or noted, she denied any auditory or visual hallucinations and did not recall her clearly delirious behavior.? Attention and concentration were intact and memory appears reliable but none were formally tested.? She was alert and oriented x3.? Insight and judgment is improving, impulse control improving. Discharge Data Studies Completed and Pending: Completed Studies During Hospitalization Category Date Time Status CT head wo con* [id number] Urgent Cat Scan 10/25/21 15:03 Completed Radiology Impressions Head CT 10/25/21 15:03 IMPRESSION: 1. No evidence of intracranial hemorrhage or mass effect. 2. Mild periventricular and subcortical low-attenuation changes nonspecific but likely due to small vessel disease. This can be followed up with MRI on an elective basis. 3. No significant parenchymal volume loss. 4. Paranasal sinuses and mastoid air cells well aerated. 5. No other acute findings. Laboratory Results WBC 8.8 10^3/uL (4.0- 10.0) 10/25/21 13:18 RBC 4.19 10^6/uL (4.1 -5.3) 10/25/21 13:18 Hgb 13.8 g/dL (11.5-1 5.3) 10/25/21 13:18 Hct 39.1 % (37.0-47.0 ) 10/25/21 13:18 MCV 93.3 fl (81-99) 10/25/21 13:18 MCH 32.9 pg (28.0-34. 0) 10/25/21 13:18 MCHC 35.3 g/dL (30.0-3 6.0) 10/25/21 13:18 RDW 14.1 % (12.1-15.1 ) 10/25/21 13:18 Plt Count 247 10^3/cmm (130 -400) 10/25/21 13:18 MPV 11.6 fL (7.4-10.4 ) H 10/25/21 13:18 Neut % (Auto) 64.9 % 10/25/21 13:18 Lymph % (Auto) 25.1 % 10/25/21 13:18 [place] % (Auto) 9.2 % 10/25/21 13:18 Eos % (Auto) 0.1 % 10/25/21 13:18 Baso % (Auto) 0.5 % 10/25/21 13:18 Neut # (Auto) 5.72 10^3/uL (1.8 -7.7) 10/25/21 13:18 Lymph # (Auto) 2.2 10^3/uL (0.8- 4.8) 10/25/21 13:18 [place] # (Auto) 0.8 10^3/uL (0.2- 0.9) 10/25/21 13:18 Eos # (Auto) 0.0 10^3/uL (0.0- 0.8) 10/25/21 13:18 Baso # (Auto) 0.0 10^3/uL (0.0- 0.1) 10/25/21 13:18 Nucleated RBC % (a uto) 0 % 10/25/21 13:18 Nucleated RBCs # 0.0 /100WBC 10/25/21 13:18 Sodium 138 mmol/L (136-1 45) 10/25/21 13:18 Potassium 3.7 mmol/L (3.5-5 .1) 10/25/21 13:18 Chloride 97 mmol/L (98-107 ) L 10/25/21 13:18 Carbon Dioxide 22 mmol/L (22-29) 10/25/21 13:18 Anion Gap 22.7 (5-19) H 10/25/21 13:18 BUN 22 mg/dL (6-20) H 10/25/21 13:18 Creatinine 0.7 mg/dL (0.5-0. 9) 10/25/21 13:18 GFR Calculation 87.9 mL/min (90-1 30) L 10/25/21 13:18 Glucose 136 mg/dL (65-115 ) H 10/25/21 13:18 Calculated Osmolal ity 291 mOsm/kg (285- 295) 10/25/21 13:18 Calcium 10.6 mg/dL (8.5-1 0.5) H 10/25/21 13:18 Total Bilirubin 0.6 mg/dL (0.15-1 .2) 10/25/21 13:18 AST 24 U/L (0-32) 10/25/21 13:18 ALT 16 U/L (0-33) 10/25/21 13:18 Alkaline Phosphata se 122 IU/L (35-105) H 10/25/21 13:18 Total Protein 8.4 g/dL (6.6-8.7 ) 10/25/21 13:18 Albumin 5.0 g/dL (3.5-5.2 ) 10/25/21 13:18 Globulin 3.4 g/dL (1.3-4.6 ) 10/25/21 13:18 TSH 2.18 uIU/mL (0.27 -4.20) 10/25/21 13:18 Urine Color Yellow (Yellow) 10/25/21 15:20 Urine Appearance Cloudy (CLEAR) 10/25/21 15:20 Urine pH 5 (5-7) 10/25/21 15:20 Ur Specific Gravit y 1.015 (1.005-1.0 30) 10/25/21 15:20 Urine Protein Neg (Negative) 10/25/21 15:20 Urine Glucose (UA) Norm (Normal) 10/25/21 15:20 Urine Ketones Negative (Negati ve) 10/25/21 15:20 Urine Blood 3+ (Negative) H 10/25/21 15:20 Urine Nitrate Positive (Negati ve) H 10/25/21 15:20 Urine Bilirubin Neg (Negative) 10/25/21 15:20 Urine Urobilinogen Norm mg/dL (Negat cari) 10/25/21 15:20 Ur Leukocyte Michelle ase 2+ (Negative) H 10/25/21 15:20 Urine RBC None /hpf (0-2) 10/25/21 15:20 Urine WBC 15-25 /hpf (0-5) H 10/25/21 15:20 Ur Squamous Epith Cells 0-4 /hpf (0-5) H 10/25/21 15:20 Amorphous Sediment Not Reportable 10/25/21 15:20 Urine Bacteria 2+ /hpf (NONE) H 10/25/21 15:20 Salicylates < 0.3 mg/dL (3-10 ) L 10/25/21 13:18 Urine Opiates Scre en Negative ng/mL (N egative) 10/25/21 15:20 Acetaminophen < 5.0 ug/mL (10-3 0) L 10/25/21 13:18 Ur Barbiturates Sc reen Negative ng/mL (N egative) 10/25/21 15:20 Ur Phencyclidine S crn Negative ng/mL (N egative) 10/25/21 15:20 Ur Amphetamines Sc reen Negative ng/mL (N egative) 10/25/21 15:20 U Benzodiazepines Scrn Positive ng/mL (N egative) H 10/25/21 15:20 Urine Cocaine Scre en Negative ng/mL (N egative) 10/25/21 15:20 U Marijuana (THC) Screen Negative ng/mL (N egative) 10/25/21 15:20 Ethyl Alcohol < 10 mg/dL (0-10) 10/25/21 13:18 Vitals: Last Vital Signs Temp 98.4 F 10/29/21 14:00 Pulse 89 10/29/21 14:00 Resp 17 10/29/21 14:00 BP 117/78 10/29/21 14:00 Pulse Ox 98 10/29/21 14:00 Discharge Plan Discharge Patient Disposition: Home Condition: Stable Prescriptions: New trazodone 50 mg Tablet 50 mg PO BEDTIME PRN (Reason: Sleep) 30 Days Qty: 30 1RF cephalexin 500 mg Capsule 500 mg PO Q6H 7 Days Qty: 26 0RF buspirone 10 mg Tablet 10 mg PO 0900,2100 30 Days Qty: 60 1RF propranolol 20 mg Tablet 20 mg PO TID PRN (Reason: Anxiety) 30 Days Qty: 90 1RF Continued pregabalin 200 mg capsule 200 mg PO TID Qty: 90 0RF olanzapine 5 mg tablet 5 mg PO BEDTIME 0RF venlafaxine 150 mg capsule,extended release 24hr 150 mg PO DAILY 0RF quetiapine 100 mg tablet 100 mg PO BEDTIME 0RF llkeqgunvh-iqfukkaaksrix-watl 50-325-40 mg tablet 1 tab PO Q8H PRN (Reason: Migraine Headache) 0RF baclofen 10 mg tablet 10 mg PO TID PRN (Reason: Muscle Pain) 0RF ibuprofen 200 mg Tablet 800 - 1,000 mg PO Q6H PRN (Reason: Pain) 0RF albuterol sulfate 90 mcg/actuation HFA aerosol inhaler 2 puff INHALATION QID PRN (Reason: Shortness Of Breath) 0RF Emgality Pen 120 mg/mL pen injector 120 mg SUBCUT .Q30D DIRECTED 0RF Breztri Aerosphere 160-9-4.8 mcg/actuation Hfa Aerosol Inhaler 2 inh INHALATION BID 0RF Discontinued diazepam 5 mg tablet 5 mg PO BID PRN (Reason: anxiety) Qty: 20 0RF Discharge Orders: Discharge Order (Routine); Ordered 10/29/21 Ordered By: Manolo Lisa Referrals: Renea Flood FNP [Primary Care Provider] - Discharge Diet: Regular Discharge Activity: Resume usual activity Patient Instructions: Cephalexin (By mouth), Propranolol (By mouth), Buspirone (By mouth), Trazodone (By mouth), Opioid Safety Discharge Attestations NPU Time Spent in Discharge Care*: less than 30 min Specific Discharge Activities: Specific discharge activities: educating patient, discussing with lining caser/social workers/dc planners, documenting/other paperwork and evaluating patient/reviewing data Coding Level of Care Code Acute g DC note Diagnoses Delirium R41.0 Altered mental status R41.82 Psychosis F29 Hallucinations R44.3 H/O shoulder surgery Z98.890 Migraine G43.909 Asthma J45.909 Anxiety F41.9 Fibromyalgia M79.7 Osteopenia M85.80
[2021-10-29 16:45] VITALS: BP 117/78; PULSE 89; RESP 17; TEMP 36.9; O2SAT 98
--- NOTE | 2021-10-30 09:27 | PC.OT ---
OT EVALUATION ORDERS RECEIVED. OT EVALUATION ATTEMPTED BUT PATIENT DISCHARGED BEFORE EVALUATION COULD BE COMPLETED.
== END 2021-10-29 16:53 | disposition home or self-care (01) | DRG 897 ==
LOC: ER 18:09 → NP 18:24
PROVIDERS: Admitting Provider Psychiatry & Neurology Psychiatry; Emergency Provider Emergency Medicine; PCP Nurse Practitioner Family; Visit Provider Psychiatry & Neurology Psychiatry
DX: F13.131 Sedative, hypnotic or anxiolytic abuse with withdrawal delirium (principal); N39.0 Urinary tract infection, site not specified; F41.9 Anxiety disorder, unspecified; M79.7 Fibromyalgia; J45.909 Unspecified asthma, uncomplicated; G89.29 Other chronic pain; Z87.891 Personal history of nicotine dependence; Z79.51 Long term (current) use of inhaled steroids
CPT/HCPCS: 70450; 80053; 80306; 80307; 81000; 81001; 84443; 85025; 87077; 87086; 87186; 93005; 96372; 99285; J1200; J1630; J2060; J3486; J7030

== ENCOUNTER 2021-11-12 15:11 | Inpatient (IN) | payer MEDICARE, SELFPAY ==
[2021-11-12] VITALS (36 sets, daily range): BP systolic 89–205; BP diastolic 63–113; PULSE 48–70; RESP 16–22; TEMP 35.7–36.2; O2SAT 95–100; BMI 24.0
[2021-11-12] MEDS: propofol 1,000 MG/100 ML INJ 1.91 MG IV (15:23)
--- NOTE | 2021-11-12 15:23 | XRR_ITS ---
PROCEDURE INFORMATION: Exam: XR Chest Exam date and time: 11/12/2021 2:24 PM Age: 51 years old Clinical indication: Device placement; Other: Et and ng placement; Additional info: Tube placement TECHNIQUE: Imaging protocol: XR of the chest. Views: 1 view. COMPARISON: MR shoulder RT wo con* [id number] 08/21/2021 2:04 PM FINDINGS: Tubes, catheters and devices: Endotracheal tube terminates 4.2 cm above the tani. Enteric tube terminates in the stomach. Lungs: Unremarkable. No consolidation. Pleural spaces: Unremarkable. No pleural effusion. No pneumothorax. Heart/Mediastinum: Unremarkable. No cardiomegaly. Bones/joints: Posterior spinal fusion hardware noted in the mid/lower cervical spine. Visualized osseous structures are intact. XR/XR chest 1V portable [id number] IMPRESSION: Proper positioning of endotracheal and enteric tubes.
--- NOTE | 2021-11-12 15:33 | W.ED.OVERDOS ---
HPI - Overdose General: Chief Complaint: Overdose Stated Complaint: OVERDOSE Time Seen by Provider: 11/12/21 15:31 Source: EMS Mode of arrival: EMS Limitations: altered mental status History of Present Illness: This patient was transported to our emergency department by air care. The patient apparently and allegedly took an unknown amount of an unknown substance at an unknown time. Apparently she was discovered by significant other who called ground EMS. Ground EMS discovered her to be somnolent and not responsive and notified air care for assistance. Air care transported the patient and accordingly in route had difficulty with airway protection and attempted to intubate at arrival at The patient is not able to provide history and we have no one else available other than EMS to provide us history at this time. MD complaint: intentional overdose Intent: unknown Treatments Prior to Arrival: oxygen, narcan and IV fluids Review of Systems General: Reports: ROS unobtainable due to mental status [facility] ED PFSH: Medical History Anxiety Bone loss Chronic pain Fibromyalgia Migraine Surgical History H/O neck surgery H/O shoulder surgery History of back surgery Family History Father No problems noted. Mother COPD (chronic obstructive pulmonary disease) Chronic emphysema syndrome Social History Smoking and tobacco status: former smoker Second hand smoke exposure: Yes Alcohol intake: never Adopted: No Caregiver/support person: No Lives independently: Yes Household members: spouse Housing: House Marital status: Number of children: 2 Highest education level completed: Bachelor's Degree service: No Current occupational status: disabled History of recent travel: No Physical Exam Narrative: EXAM NARRATIVE: Upon arrival the patient was noted to be unresponsive. She was receiving assisted bag mask ventilation. Const: EXAM LIMITATIONS: altered mental status NUTRITIONAL APPEARANCE: thin HENMT: COMMON NORMALS: normocephalic, atraumatic and Normal external nose present HEAD & SCALP: normocephalic and atraumatic FACE & SINUS: normal facial exam NOSE: Normal external nose present MOUTH: Normal oral and palatal mucosa present Eye: COMMON NORMALS: Equal, round and reactive pupils present and conjunctivae normal CONJUNCTIVA: Yes conjunctivae normal PUPIL: Yes Equal, round and reactive pupils present Neck/C-Spine: COMMON NORMALS: supple, no JVD and No carotid bruits Chest: COMMONS NORMALS: normal inspection of the chest and normal palpation of entire chest wall Resp: AUSCULTATION: rhonchi throughout Cardio: COMMON NORMALS: no JVD, regular rhythm and No murmurs present (Cardio) RHYTHM: regular rhythm GI: COMMON NORMALS: Normal to inspection, nondistended, normoactive bowel sounds present and Soft to palpation PALPATION: Yes Soft to palpation : COMMON NORMALS: Yes normal external appearance Back/Pelvis: THORACIC SPINE/UPPER BACK: Yes normal to inspection LUMBAR SPINE/LOWER BACK: Yes normal to inspection PELVIS: Yes buttocks normal Extremity: COMMON NORMALS: normal to inspection, capillary refill normal and no pedal edema Neuro: GAIL COMA SCALE: document GCS findings (It should be noted that the patient had received ketamine as well as rocuronium) Gail coma scale eye opening: None Gail coma scale verbal response: None Donahue coma scale motor response: None Donahue coma scale total score: 3 SENSORIUM/ORIENTATION: Yes obtunded Skin: WOUNDS: Yes wounds noted (Multiple superficial linear lacerations to her wrist bilaterally.) Procedures Intubation Time out performed: Yes sedative: other (Pt had received ketamine+rocuronium in aircraft prior to arrival in ED) Laryngoscope: fiber optic video scope ET Tube Size: 7.5 ET Tube Uncuffed: No Tube Secured Depth (cm): 22 Tube Secured Location: lips Tube Placement Confirmation: visualized tube passing through cords, equal breath sounds bilaterally and no breath sounds over epigastrium Intubation Complications: difficult intubation (Using initial video laryngoscope poor visualization but switching to glide scope improved visualization of the cords) Course Reevaluation(s): Reevaluation #1: Assumed care from EMS crew. The patient was given initial evaluation and was in need of airway control. Using visual laryngoscope initial attempt was made and it was abandoned due to fogging of the video screen. A second video laryngoscope system was used were able to visualize the cords. Was able to pass a 7.5 ET tube. It should be noted that she had a significant amount of liquid emesis that was suctioned before and during intubation. Bilateral breath sounds were noted. Fogging the tube was noted. Post intubation chest x-ray revealed the end of the ET tube was at the tani. She was started on mechanical ventilation and a propofol drip and started. Time: 15:47 Reevaluation #2: I spent some time discussing current presentation with her by telephone. He states that she had been feeling sad and depressed over the last several days and felt like that her last treatment of behavioral health was not improving her. He states he came home from work today and she shared with him that she was still feeling sad and depressed. He noted that she had cut her wrist and then she finally admitted him that if she had taken some pills she did not share exactly the names of those pills but he did fine propranolol quetiapine and baclofen close by but there were still pills remaining in those bottles. He did not see her other prescriptions. I shared with him her current clinical condition. He acknowledged discussion and was appreciative of the telephone call. Time: 16:32 Consultations: Consultation #1: Consulted with the hospitalist who agreed to accept the patient Time: 16:49 Vital Signs: Vital signs: Vital Signs Temperature 96.3 F L 11/12/21 20:00 Pulse Rate 55 L 11/12/21 20:15 Respiratory Rate 16 11/12/21 19:49 Blood Pressure 123/79 11/12/21 20:15 Pulse Oximetry 97 11/12/21 20:15 MDM - Overdose Medical Decision Making This patient with a history of depression is brought in with a unknown drug overdose. She received airway protection in the emergency department as well as a fluid medication administration and further diagnostic work-up. Her vital signs remained stable at this time but the concern is of the unknown quantity and type of medication that she has ingested. She did have some mild borderline bradycardia suggesting a possible beta-chiquita overdose and she does take beta-blockers prescribed for her on a regular basis. We will continue to provide supportive care and resuscitation and she will be admitted to the intensive care unit by the hospitalist. She will need additional mental health evaluation after she recovers from her overdose. Medical Records I reviewed the patient's medical records. Lab Data I reviewed the patient's lab results. : 11/12/21 14:10 11/12/21 14:10 Radiology Impressions Chest X-Ray 11/12/21 15:23 IMPRESSION: Proper positioning of endotracheal and enteric tubes. Head CT 11/12/21 15:38 IMPRESSION: No acute intracranial abnormality. Laboratory Results WBC Cancelled 11/12/21 15:19 Corrected WBC Cancelled 11/12/21 15:19 RBC Cancelled 11/12/21 15:19 Hgb Cancelled 11/12/21 15:19 Hct Cancelled 11/12/21 15:19 MCV Cancelled 11/12/21 15:19 MCH Cancelled 11/12/21 15:19 MCHC Cancelled 11/12/21 15:19 RDW Cancelled 11/12/21 15:19 Plt Count Cancelled 11/12/21 15:19 MPV Cancelled 11/12/21 15:19 Gran % Cancelled 11/12/21 15:19 Neut % (Auto) Cancelled 11/12/21 15:19 Lymph % (Auto) Cancelled 11/12/21 15:19 Hood % (Auto) Cancelled 11/12/21 15:19 Eos % (Auto) Cancelled 11/12/21 15:19 Baso % (Auto) Cancelled 11/12/21 15:19 Neut # (Auto) Cancelled 11/12/21 15:19 Lymph # (Auto) Cancelled 11/12/21 15:19 Hood # (Auto) Cancelled 11/12/21 15:19 Eos # (Auto) Cancelled 11/12/21 15:19 Baso # (Auto) Cancelled 11/12/21 15:19 Absolute Gran (auto) Cancelled 11/12/21 15:19 Nucleated RBC % (auto) Cancelled 11/12/21 15:19 Nucleated RBCs # Cancelled 11/12/21 15:19 Specimen Type Arterial 11/12/21 15:55 Sample Site Brachial, right 11/12/21 15:55 ABG pH 7.34 (7.35-7.45) L 11/12/21 15:55 ABG pCO2 54.1 mmHg (35-45) H 11/12/21 15:55 ABG pO2 226.0 mmHg (80.0-100.0) H 11/12/21 15:55 ABG HCO3 29.2 mmol/L (22-26) H 11/12/21 15:55 ABG O2 Saturation > 100.0 11/12/21 15:55 ABG Base Excess 2.2 mmol/L (-2.0-2.0) H 11/12/21 15:55 Fabrizio Test Pos 11/12/21 15:55 A-a O2 Gradient 17.4 mmHg (5-10) H 11/12/21 15:55 Hematocrit 43.0 % (37-47) 11/12/21 15:55 Hgb O2 Saturation 91.1 % (95-100) L 11/12/21 15:55 Carboxyhemoglobin 7.9 %THgb (0.4-20.1) 11/12/21 15:55 Methemoglobin 1.1 % (0.4-1.5) 11/12/21 15:55 Total Hemoglobin 14.0 g/dL (12-16) 11/12/21 15:55 Sodium 144.0 mmol/L (131-143) H 11/12/21 15:55 Potassium 3.6 mmol/L (3.5-5.0) 11/12/21 15:55 Glucose 127.0 mg/dL (70-115) H 11/12/21 15:55 Ionized Calcium 1.2 mmol/L (1.1-1.4) 11/12/21 15:55 O2 Delivery Device Vent 11/12/21 15:55 FiO2 60.0 % 11/12/21 15:55 Tidal Volume 0.40 11/12/21 15:55 PEEP 8.0 cmH20 11/12/21 15:55 Butcher Scullion ID Bd 11/12/21 15:55 Sodium Cancelled 11/12/21 15:19 Potassium Cancelled 11/12/21 15:19 Chloride Cancelled 11/12/21 15:19 Carbon Dioxide Cancelled 11/12/21 15:19 Anion Gap Cancelled 11/12/21 15:19 BUN Cancelled 11/12/21 15:19 Creatinine Cancelled 11/12/21 15:19 GFR Calculation Cancelled 11/12/21 15:19 Glucose Cancelled 11/12/21 15:19 Calculated Osmolality Cancelled 11/12/21 15:19 Calcium Cancelled 11/12/21 15:19 Total Bilirubin Cancelled 11/12/21 15:19 AST Cancelled 11/12/21 15:19 ALT Cancelled 11/12/21 15:19 Alkaline Phosphatase Cancelled 11/12/21 15:19 Total Protein Cancelled 11/12/21 15:19 Albumin Cancelled 11/12/21 15:19 Globulin Cancelled 11/12/21 15:19 HCG, Qual Negative (Negative) 11/12/21 15:39 Urine Color Yellow (Yellow) 11/12/21 15:39 Urine Appearance Clear (CLEAR) 11/12/21 15:39 Urine pH 6 (5-7) 11/12/21 15:39 Ur Specific Russell 1.015 (1.005-1.030) 11/12/21 15:39 Urine Protein Neg (Negative) 11/12/21 15:39 Urine Glucose (UA) Norm (Normal) 11/12/21 15:39 Urine Ketones Negative (Negative) 11/12/21 15:39 Urine Blood 2+ (Negative) H 11/12/21 15:39 Urine Nitrate Negative (Negative) 11/12/21 15:39 Urine Bilirubin Neg (Negative) 11/12/21 15:39 Urine Urobilinogen Norm mg/dL (Negative) 11/12/21 15:39 Ur Leukocyte Esterase Negative (Negative) 11/12/21 15:39 Urine RBC 5-10 /hpf (0-2) H 11/12/21 15:39 Urine WBC Rare /hpf (0-5) 11/12/21 15:39 Ur Squamous Epith Cells Rare /hpf (0-5) 11/12/21 15:39 Amorphous Sediment Not Reportable 11/12/21 15:39 Urine Bacteria Trace /hpf (NONE) 11/12/21 15:39 Hyaline Casts 0-4 /lpf H 11/12/21 15:39 Urine Mucus Trace /hpf 11/12/21 15:39 Salicylates Cancelled 11/12/21 15:19 Urine Opiates Screen Negative ng/mL (Negative) 11/12/21 15:39 Acetaminophen Cancelled 11/12/21 15:19 Ur Barbiturates Screen Positive ng/mL (Negative) H 11/12/21 15:39 Ur Phencyclidine Scrn Negative ng/mL (Negative) 11/12/21 15:39 Ur Amphetamines Screen Negative ng/mL (Negative) 11/12/21 15:39 U Benzodiazepines Scrn Negative ng/mL (Negative) 11/12/21 15:39 Urine Cocaine Screen Negative ng/mL (Negative) 11/12/21 15:39 U Marijuana (THC) Screen Negative ng/mL (Negative) 11/12/21 15:39 Ethyl Alcohol Cancelled 11/12/21 15:19 EKG Data EKG 1: I personally reviewed and interpreted this EKG as follows: Interpretation: Resting EKG reveals a ventricular rate of 45 bpm. Consistent with sinus bradycardia. He has normal MI interval normal QRS duration. Her QTC is less than 500 ms at 468 ms. She has normal axis. No acute ST-T wave changes noted. Critical Care Time Critical Care Time: Critical Care Time: Yes Total Critical Care Time: 45 (45 minutes of time was spent in ICU and critical care with evaluating the patient, talking to consultants, managing ventilator and other resuscitative interventions, speaking with family.) Attestation: Critical care time inclusive of management of airway, management of fluid resuscitation, consultation with family as well as management of ventilator, interpretation of laboratory values. 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
[2021-11-12] MEDS: ipratropium-albuterol 3 mL Neb INHALATION (15:34)
--- NOTE | 2021-11-12 15:38 | CTR_ITS ---
PROCEDURE INFORMATION: Exam: CT Head Without Contrast Exam date and time: 11/12/2021 4:14 PM Age: 51 years old Clinical indication: Other: Overdose; Additional info: AMS TECHNIQUE: Imaging protocol: Computed tomography of the head without contrast. Radiation optimization: All CT scans at this facility use at least one of these dose optimization techniques: automated exposure control; mA and/or kV adjustment per patient size (includes targeted exams where dose is matched to clinical indication); or iterative reconstruction. COMPARISON: CT head wo con* [id number] 10/25/2021 3:12 PM RADIATION DOSE METRICS: Total DLP (mGy-cm): 604.55 FINDINGS: Brain: No hemorrhage. Similar mild periventricular and deep white matter hypoattenuation likely secondary to chronic small vessel ischemic disease. No mass effect. Cerebral ventricles: No ventriculomegaly. Paranasal sinuses: Visualized sinuses are unremarkable. No fluid levels. Mastoid air cells: Visualized mastoid air cells are well aerated. Bones/joints: Unremarkable. No acute fracture. Soft tissues: Unremarkable. CT/CT head wo con* [id number] IMPRESSION: No acute intracranial abnormality.
[2021-11-12 15:56] LABS: ABG PCO2 54.1 mmHg (35-45); ABG PH Result 7.34 (7.35-7.45); Alveolar-Arterial Oxygen Gradi 17.4 mmHg (5-10); Base Excess ABG 2.2 mmol/L (-2.0-2.0); Blood Gas Allen Test Pos; Blood Gas Operator Identificat BD; Blood Gas Sample Site Brachial, right; Blood Gas Sample Type Arterial; Carboxyhemoglobin 7.9 %THgb (0.4-20.1); HCO3 ABG 29.2 mmol/L (22-26); HGB O2 Sat 91.1 % (95-100); Ionized Calcium Level - ABG 1.2 mmol/L (1.1-1.4); Methemoglobin 1.1 % (0.4-1.5); Oxygen Device VENT; Oxygen Saturation ABG > 100.0; Potassium Level - ABG 3.6 mmol/L (3.5-5.0)
[2021-11-12 16:02] LABS: HCG Qualitative Urine. Negative (Negative)
[2021-11-12 16:09] LABS: Add Urine Microscopic? YES; Bilirubin Urine Neg (Negative); Blood Urine 2+ (Negative); Glucose Urine UA Norm (Normal); Ketones Urine Negative (Negative); Leukocyte Esterase Urine Negative (Negative); Nitrate Urine Negative (Negative); Protein Urine Neg (Negative); Specific Gravity, Urine 1.015 (1.005-1.030); Urine Appearance Clear (CLEAR); Urine Color Yellow (Yellow); Urobilinogen Urine Norm (Negative); pH Urine 6 (5-7)
[2021-11-12 16:10] LABS: Amphetamines Screen Urine Negative (Negative); Barbiturates Screen Urine Positive (Negative); Benzodiazepines Screen Urine Negative (Negative); Cocaine Screen Urine Negative (Negative); Opiate Screen Urine Negative (Negative); PCP Screen Urine Negative (Negative); THC Screen Urine Negative (Negative)
[2021-11-12 16:11] LABS: Bacteria Urine TRACE /hpf; Hyaline Casts Urine 0-4 /lpf; Mucus Urine TRACE /hpf; Squamous Epithelial Cell Urine RARE /hpf (0-5); WBC Urine RARE /hpf (0-5)
[2021-11-12] MEDS: sodium chloride 0.9% 1,000 ML 200 ML IV (16:11)
[2021-11-12 16:12] LABS: Add Urine Culture? No
[2021-11-12] MEDS: calcium gluconate 0.9% NaCL 1 GM/50 ML PREMIX IV (16:30)
--- NOTE | 2021-11-12 16:54 | PM.HP ---
Providers/Chief Complaint Admitting Physician: Coleman Gonzalez MD Primary Care Provider: Peg Titus PACKING LINE WORKER-C Chief Complaint: OVERDOSE History of Present Illness Kaylie Edwards is a 51 year old female with past medical history of depression , anxiety , chronic pain, migraine, was brought in by air care after called the ambulance. I had a long conversation with his who works as a site project manager at [employer], according to him the patient was very upset today as he was experiencing severe mood swings after being discharged from the npu On sixth of this month, she wanted to see the psychiatrist today again, while the was trying to bring her to the hospital to see the psychiatrist, she told her that she has taken a bunch of pills, She also had injured her arms today by using glass, is not sure about what all pills she took At home she is on buspirone, baclofen, propanolol, quetiapine, Lyrica. While he was trying to get her to the hospital, she became extremely confused , initially ground ambulance was called but, she had to be transported finally with air ambulance because of the severity of the, paramedics of air ambulance try to secure her airway is en route as there was concern that she is not protecting her airways, but we are not able to do so. Patient was finally intubated upon arrival in the ER by the ER physician: Pertinent imaging studies: CT head without contrast; no acute intracranial pathology X-ray chest: No infiltrates no effusion no pneumothorax ET tube in place EKG: Pertinent labs: WBC : 12.8 H&H :13.9/41 PLT , 275 Serum Na: 144 k: 4.7 BUN/SCR : 12/0.6 ABG: pH 7.34 PCO2 54 PO2 226, FiO2:60% U tox positive for barbiturates Review of Systems General: Reports: ROS unobtainable due to endotracheal tube Medications/Allergies Home Medications Medication Instructions Recorded Confirmed Last Taken Type albuterol sulfate 90 mcg/actuation 2 puff INHALATION QID PRN 10/25/21 11/12/21 Unknown History aerosol inhaler baclofen 10 mg tablet 10 mg PO TID PRN 10/25/21 11/12/21 Unknown History budesonide 160 mcg-glycopyr 9 2 inh INHALATION BID 10/25/21 11/12/21 Unknown History mcg-formot 4.8 mcg/actuation HFA inhaler (Breztri Aerosphere) galcanezumab-gnlm 120 mg/mL 120 mg SUBCUT .Q30D DIRECTED 10/25/21 11/12/21 Unknown History subcutaneous pen injector (Emgality Pen) ibuprofen 200 mg tablet 800 - 1,000 mg PO Q6H PRN 10/25/21 11/12/21 Unknown History olanzapine 5 mg tablet 5 mg PO BEDTIME 10/25/21 11/12/21 Unknown History quetiapine 100 mg tablet 100 mg PO BEDTIME 10/25/21 11/12/21 Unknown History venlafaxine 150 mg 150 mg PO DAILY 10/25/21 11/12/21 Unknown History capsule,extended release 24 hr propranolol 20 mg tablet 20 mg PO TID PRN 30 Days #90 tab 10/29/21 11/12/21 Unknown Rx trazodone 50 mg tablet 50 mg PO BEDTIME PRN 30 Days #30 10/29/21 11/12/21 Unknown Rx tab scmscibryh-dmxdhvvrtybqq-tlkaxlcq 1 tab PO Q8H PRN #30 tab 11/06/21 11/12/21 Unknown Rx 50 mg-325 mg-40 mg tablet pregabalin 200 mg capsule 200 mg PO TID #90 cap 11/06/21 11/12/21 Unknown Rx buspirone 10 mg tablet 10 mg PO BID@0900,2100 11/12/21 11/12/21 Unknown History Allergies Allergy/AdvReac Type Severity Reaction Status Date / Time amitriptyline [From Elavil] Allergy hallucenate Verified 11/06/21 10:33 Sulfa (Sulfonamide Allergy hives Verified 11/06/21 10:33 Antibiotics) PFSH Acute PFSH: Medical History Anxiety Bone loss Chronic pain Fibromyalgia Migraine Surgical History H/O neck surgery H/O shoulder surgery History of back surgery Family History Father No problems noted. Mother COPD (chronic obstructive pulmonary disease) Chronic emphysema syndrome Social History Smoking and tobacco status: former smoker Second hand smoke exposure: Yes Alcohol intake: never Adopted: No Caregiver/support person: No Lives independently: Yes Household members: spouse Housing: House Marital status: Number of children: 2 Highest education level completed: Bachelor's Degree service: No Current occupational status: disabled History of recent travel: No Vitals/I&O/Wt Last Vital Signs Temp 97.2 F L 11/12/21 15:27 Pulse 58 L 11/12/21 15:59 Resp 16 11/12/21 15:59 BP 146/79 11/12/21 15:59 Pulse Ox 97 11/12/21 15:59 Weight last 48 hrs Weight 63.503 kg Physical Exam Narrative: Intubated sedated and on mechanical ventilation HENMT: COMMON NORMALS: normocephalic and atraumatic HEAD & SCALP: normocephalic and atraumatic Eye: GENERAL EYE: appearance normal, both eyes and all related structures Chest: COMMONS NORMALS: normal inspection of the chest and normal palpation of entire chest wall CHEST: Yes Symmetrical chest wall rise Resp: COMMON NORMALS: normal respiratory effort, No retractions, No use of accessory muscles and clear to auscultation bilaterally EFFORT & INSPECTION: Yes symmetric chest movement AUSCULTATION: clear to auscultation bilaterally Cardio: COMMON NORMALS: regular rate, regular rhythm, S1 normal heart sound present, S2 normal heart sound present, No gallops present (Cardio), No murmurs present (Cardio), No rub (Cardio) and Peripheral pulses 2+ throughout RATE: regular rate RHYTHM: regular rhythm HEART SOUNDS: S1 normal heart sound present and S2 normal heart sound present PERIPHERAL PULSES: Peripheral pulses 2+ throughout GI: COMMON NORMALS: Normal to inspection, nondistended, normoactive bowel sounds present, Soft to palpation, non-tender, No hepatosplenomegaly present and no masses AUSCULTATION: Yes normoactive bowel sounds PALPATION: Yes Soft to palpation and Yes No hepatosplenomegaly present RECTAL EXAM: deferred Extremity: COMMON NORMALS: no clubbing, cyanosis or edema and no pedal edema Neuro: COMMON NORMALS: patient oriented x3 Urinary Catheter Management: Rhodes: Cath Placed During This Visit: yes Urinary Catheter Date of Insertion: 11/12/21 Urinary Catheter Time of Insertion: 15:38 Data : 11/12/21 14:10 11/12/21 14:10 A&P Assessment and plan (1) Drug overdose: Status: Acute (2) Asthma: Status: Acute (3) Fibromyalgia: Status: Acute (4) Depression: Status: Acute (5) Migraine: Status: Acute (6) Anxiety: Status: Acute (7) Acute encephalopathy: Status: Acute Plan 51 year old female with past medical history of depression , anxiety , chronic pain, migraine. #Acute metabolic encephalopathy secondary to drug overdose: Neuro check every 2 hours Fall precaution Telemetry monitoring Continue IV hydration with normal saline #Intentional drug overdose: #History of depression: We will consult psych once she is extubated, for n.p.u. transfer #History of chronic pain #CODE STATUS: Full code #DVT PPX : On Lovenox Attestations Medical Necessity Statement*: Patient needs to be in hospital for the management of above defined problems.Anticipated LOS Greater then 2 midnights. Time Spent in Patient Care: Greater than 35 minutes (>than 50% of time spent in counselling and/or direct pt care on unit). 50 Critical Care Time: The high probability of a clinically significant, sudden or life threatening deterioration of the patient's [] system(s) required my full and direct attention, intervention and personal management. The critical care time is as shown. This time is in addition to time spent performing any reported procedures but includes the following: [x] Data and vital sign review and interpretation [x] Patient assessment, examination and intervention [x] Documentation [x] Medication orders and management Coding Level of Care Code Acute Plate Slitter And Inspector for [facility] Fwd Exam Comprehensive Diagnoses Drug overdose T50.901A Asthma J45.909 Fibromyalgia M79.7 Depression F32.A Migraine G43.909 Anxiety F41.9 Acute encephalopathy G93.40
[2021-11-12 17:08] LABS: Alanine Aminotransferase 17 U/L (0-33); Albumin Level 4.7 g/dL (3.5-5.2); Alkaline Phosphatase 112 IU/L (35-105); Anion Gap 17.7 (5-19); Aspartate Amino Transferase 20 U/L (0-32); Blood Urea Nitrogen 12 mg/dL (6-20); Carbon Dioxide 27 mmol/L (22-29); Chloride 104 mmol/L (98-107); Globulin 2.4 g/dL (1.3-4.6); Glucose 124 mg/dL (65-115); Osmolality Calculated 299 mOsm/kg (285-295); Potassium 4.7 mmol/L (3.5-5.1); Sodium 144 mmol/L (136-145); Total Bilirubin 0.2 mg/dL (0.15-1.2); Total Protein 7.1 g/dL (6.6-8.7)
[2021-11-12 17:09] LABS: Acetaminophen < 5.0 ug/mL (10-30); Alcohol Level < 10 mg/dL (0-10); Salicylate < 0.3 mg/dL (3-10)
--- NOTE | 2021-11-12 17:14 | ECG_ITS ---
[facility] Test Date: 2021-11-12 Pat Name: Kaylie Edwards Department: Room: [facility]05 Gender: Female Rib Knitter: : 1970 Requested By: Coleman Gonzalez Order Number: [id number] Avni MD: Sonia Murrell M.D. Measurements Intervals [place] Rate: 45 P: 76 NV: 134 QRS: 70 QRSD: 97 T: 68 QT: 513 QTc: 447 Interpretive Statements SINUS BRADYCARDIA POSSIBLE LEFT ATRIAL ENLARGEMENT [-0.1mV P-WAVE IN V1/V2] PROLONGED QT INTERVAL Compared to ECG 10/25/2021 13:56:43 Prolonged QT interval now present Sinus tachycardia no longer present Electronically Signed On 11-12-2021 17:47:33 CDT by Sonia Murrell M.D. [id number] f
[2021-11-12 17:29] LABS: Basophils # 0.1 10^3/uL (0.0-0.1); Basophils % 0.8 %; Eosinophils # 0.5 10^3/uL (0.0-0.8); Eosinophils % 3.8 %; Hematocrit 41.8 % (37.0-47.0); Hemoglobin 13.9 g/dL (11.5-15.3); Lymphocytes # 3.5 10^3/uL (0.8-4.8); Lymphocytes % 27.6 %; Mean Corpuscular HGB Conc 33.3 g/dL (30.0-36.0); Mean Corpuscular Hemoglobin 31.9 pg (28.0-34.0); Mean Corpuscular Volume 95.9 fl (81-99); Mean Platelet Volume 11.8 fL (7.4-10.4); Monocytes # 0.5 10^3/uL (0.2-0.9); Monocytes % 3.8 %; Neutrophils # 8.12 10^3/uL (1.8-7.7); Neutrophils % 63.5 %; Nucleated Red Blood Cells % 0 %; Platelet Count 275 10^3/cmm (130-400); Red Blood Count 4.36 10^6/uL (4.1-5.3); White Blood Count 12.8 10^3/uL (4.0-10.0)
[2021-11-12] MEDS: enoxaparin 40 mg/0.4 mL Syringe SUBCUT (18:14)
[2021-11-12] MEDS: dextrose 5%-sod chloride 0.9% 1,000 ML 75 ML IV (18:14)
--- NOTE | 2021-11-12 18:37 | PC.NURSE ---
Patient arrived to ICU via stretcher intubated, see RT note for vent settings and mar for sedation needs. RT and other nursing staff to assist with transfer at bedside. Patient transferred to bed in room 5, IV noted to be intact. Dr. Gonzalez at bedside. Superficial cuts to bilateral wrist noted. Heart rhythm noted to be SB with a BP WNL. Will continue to monitor closely.
[2021-11-12] MEDS: propofol 1,000 MG/100 ML INJ 11.43 MG IV (23:10)
[2021-11-13] VITALS (98 sets, daily range): BP systolic 75–152; BP diastolic 46–81; PULSE 37–80; RESP 16–27; TEMP 36–36.6; O2SAT 91–100; BMI 24.0
--- NOTE | 2021-11-13 00:30 | PC.NURSE ---
Change in Condition Went in with help from staff to turn/reposition patient, upon turning patient on right side blood pressure and MAP decreased. Titrated Propofol down, please see MAR for titration rates. Once blood pressure and MAP WNL, restarted Propofol. Upon restarting Propofol the blood pressure/MAP decreased again, Propofol held at this time.
--- NOTE | 2021-11-13 03:15 | ECG_ITS ---
[facility] Test Date: 2021-11-13 Pat Name: Kaylie Edwards Department: Room: [facility]05 Gender: Female Office Asst: : 1970 Requested By: Yang Miles Order Number: [id number] Reading MD: Sonia Murrell M.D. Measurements Intervals [place] Rate: 64 P: 86 PA: 150 QRS: 87 QRSD: 93 T: 83 QT: 462 QTc: 477 Interpretive Statements SINUS RHYTHM WITH SINUS ARRHYTHMIA PROLONGED QT INTERVAL Compared to ECG 11/12/2021 15:53:28 Sinus bradycardia no longer present Electronically Signed On 11-13-2021 20:17:17 CDT by Sonia Murrell M.D. [id number]
--- NOTE | 2021-11-13 03:18 | XRR_ITS ---
PROCEDURE INFORMATION: Exam: XR Chest Exam date and time: 11/13/2021 4:23 AM Age: 51 years old Clinical indication: Patient HX: Possible aspiration et and og in place; Additional info: Poss aspiration TECHNIQUE: Imaging protocol: XR of the chest. Views: 1 view. COMPARISON: CR XR chest 1V portable [id number] 11/12/2021 2:24 PM FINDINGS: Tubes, catheters and devices: Endotracheal tube terminates approximately 4.7 cm above the tani. NG tube passes into the stomach. Lungs: Unremarkable. No consolidation. Pleural spaces: Unremarkable. No pleural effusion. No pneumothorax. Heart/Mediastinum: Unremarkable. No cardiomegaly. Bones/joints: Unremarkable. XR/XR chest 1V portable [id number] IMPRESSION: 1. Endotracheal tube terminates approximately 4.7 cm above the tani. 2. NG tube passes into the stomach. 3. No focal airspace disease.
[2021-11-13] MEDS: lactated ringers 500 ML 999 ML IV (03:20)
[2021-11-13 03:32] LABS: ABG PCO2 48.3 mmHg (35-45); ABG PH Result 7.39 (7.35-7.45); Arterial Blood Gas Hematocrit 39.2 % (37-47); Base Excess ABG 3.3 mmol/L (-2.0-2.0); Blood Gas Allen Test Pos; Blood Gas Sample Site Radial, left; Blood Gas Sample Type Arterial; HCO3 ABG 29.1 mmol/L (22-26); Oxygen Device VENT; PO2 ABG 86.6 mmHg (80.0-100.0)
[2021-11-13 04:31] LABS: Basophils # 0.1 10^3/uL (0.0-0.1); Basophils % 0.6 %; Eosinophils # 0.3 10^3/uL (0.0-0.8); Eosinophils % 3.5 %; Hematocrit 33.1 % (37.0-47.0); Hemoglobin 12.4 g/dL (11.5-15.3); Lymphocytes # 4.3 10^3/uL (0.8-4.8); Lymphocytes % 43.4 %; Mean Corpuscular HGB Conc 37.5 g/dL (30.0-36.0); Mean Corpuscular Hemoglobin 38.2 pg (28.0-34.0); Mean Corpuscular Volume 101.8 fl (81-99); Mean Platelet Volume 12.1 fL (7.4-10.4); Monocytes # 0.6 10^3/uL (0.2-0.9); Monocytes % 6.4 %; Neutrophils # 4.52 10^3/uL (1.8-7.7); Neutrophils % 45.8 %; Nucleated Red Blood Cells % 0 %; Platelet Count 213 10^3/cmm (130-400); Red Blood Count 3.25 10^6/uL (4.1-5.3); Red Cell Distribution Width 14.3 % (12.1-15.1); White Blood Count 9.9 10^3/uL (4.0-10.0)
[2021-11-13 04:36] LABS: INR 0.96 (0.8-1.2)
[2021-11-13 04:38] LABS: Partial Thromboplastin Time 23.2 SECONDS (23.9-36.7)
[2021-11-13 04:45] LABS: Lactic Sepsis W/Reflex 3.2 mmol/L (0.5-2.2)
[2021-11-13] MEDS: piperacillin-tazobactam 3.375 GM in sodium chloride 0.9% (plus) 50 ML IV (04:54)
[2021-11-13] MEDS: lactated ringers 1,000 ML 500 ML (04:55)
--- NOTE | 2021-11-13 05:00 | PC.NURSE ---
New Orders Received new orders to perform NICOM while administering 500 ml LR bolus. NICOM results showed patient was not fluid responsive, provider informed. Also received new orders to perform EKG, discontinue continuous IVF, and flush meyer catheter. Orders given to start Levophed to maintain a MAP of 65.
[2021-11-13 05:19] LABS: Procalcitonin 0.02 ng/mL (0-0.5); Thyroid Stimulating Hormone 2.68 uIU/mL (0.27-4.20)
[2021-11-13 05:30] LABS: Alanine Aminotransferase 14 U/L (0-33); Albumin Level 3.8 g/dL (3.5-5.2); Alkaline Phosphatase 99 IU/L (35-105); Aspartate Amino Transferase 19 U/L (0-32); Blood Urea Nitrogen 14 mg/dL (6-20); Calcium 9.4 mg/dL (8.5-10.5); Carbon Dioxide 23 mmol/L (22-29); Chloride 105 mmol/L (98-107); Globulin 2.4 g/dL (1.3-4.6); Glomerular Filtration Rate 129.6 mL/min (90-130); Glucose 113 mg/dL (65-115); Magnesium 1.9 mg/dL (1.7-2.3); Osmolality Calculated 291 mOsm/kg (285-295); Phosphorus 3.7 mg/dL (2.5-4.5); Sodium 140 mmol/L (136-145); Total Bilirubin 0.2 mg/dL (0.15-1.2); Total Protein 6.2 g/dL (6.6-8.7)
[2021-11-13 05:32] LABS: Anion Gap 16.1 (5-19); Potassium 4.1 mmol/L (3.5-5.1)
--- NOTE | 2021-11-13 05:33 | PC.NURSE ---
Shift Note Frequent safety and comfort rounds continue. Orders and/or nursing care completed as indicated. Patient monitored for response to intervention and treatment(s). Education provided includes medications and vent compliance. Patient needs reinforcement teaching. Patient had an eventful shift, please see previous notes. Remains on ventilator settings are as follows; FiO2-35%, VT 400, PEEP-5, rate-16. Versed, Fentanyl, and Zosyn are infusing per protocol please see MAR for infusion rates. Rhodes catheter drained 400 mls of urine overnight. Patient has superficial cuts noted to bilateral wrists, open to air. Will continue to monitor.
[2021-11-13 05:41] LABS: Troponin(5th) Baseline 9 ng/L (0-10)
[2021-11-13 06:12] LABS: Reflex Lactate Order REFLEX LACTIC ORDERD
[2021-11-13 06:25] LABS: Troponin 5 2HR 8.87 ng/L (0-10)
[2021-11-13 06:30] LABS: Troponin 5 2HR Delta -0.13 ABS# (0-10)
[2021-11-13] MEDS: propofol 1,000 MG/100 ML INJ 11.44 MG IV ×2 (07:42→13:52)
--- NOTE | 2021-11-13 08:22 | PC.NURSE ---
Skin assessment Previous skin graft to left shoulder and left thigh with skin in tact.
--- NOTE | 2021-11-13 09:15 | ECG_ITS ---
[facility] Test Date: 2021-11-13 Pat Name: Kaylie Edwards Department: Room: [facility] Gender: Female Lead Electrical Engineer: : 1970 Requested By: Yang Miles Order Number: [id number] Avni MD: Sonia Murrell M.D. Measurements Intervals Roberts Rate: 42 P: 79 IN: 141 QRS: 82 QRSD: 91 T: 82 QT: 566 QTc: 475 Interpretive Statements SINUS BRADYCARDIA PROLONGED QT INTERVAL CRITICAL TEST RESULT Compared to ECG 11/13/2021 03:51:01 Sinus rhythm no longer present Sinus arrhythmia no longer present Electronically Signed On 11-13-2021 20:29:53 CDT by Sonia Murrell M.D. [email or web address]/[id number]
--- NOTE | 2021-11-13 09:50 | PC.CHAP ---
Pastoral Care Encounter/Spiritual Assessment Type of Contact [] Declined collection teller visit [] Patient/Family/Request visit [] Outpatient visit [] Follow-up visit [] Physician referral [] Code/Alert [x] Routine visit [] Staff referral [] Actively dying [] Patient sleeping [] Family support [] [] Out of room [] Palliative care [] [] Receiving care in room [] Pre-surgical visit [] Trauma [] Long length of stay [x] ICU visit [] Other: vent Relational/Emotional Strength [] Patient feels connected with others/family/visitors/staff [] Distress [] Loneliness/isolation [] Abandonment Spirituality of Patient [] Person of Gavi [] Attends Nondenominational of their Gavi [] Believes in Prayer [] Reads Bible or Scientology materials [] There are Spiritual issues to be addressed Space Systems Operations Craftsman Interventions [x] Prayer [] Active listening [] Non-anxious presence [] Spiritual/emotional support [] Crisis/trauma care [] Spiritual counseling [] Bereavement support [] Provided bereavement packet [] Provided Bible/devotional materials [] Provided toy/stuffed animal, coloring book to patient or family member [] Provided Communion [] Anointing/[place] [] Salvation [x] Completed spiritual assessment [] Other: Impact on Illness or Injury [] Angry [] Fearful [] Anxious [] Often cries [] Exhaustion [] Unable to work [] Unable to attend baptism [] Unable to walk/stand [] Unable to read [] Unable to drive [] Unable to eat/drink [] Unable to sleep [] Unable to be with family [] Patient intubated [] Other: Summary Time spent with patient
[2021-11-13] MEDS: amoxicillin-clav 875-125 mg Tablet 1 TAB PO ×2 (10:23→17:43)
[2021-11-13 10:29] LABS: Lactic Acid level (Lactate) 1.7 mmol/L (0.5-2.2)
[2021-11-13 10:31] LABS: Troponin 5 6HR 7.74 ng/L (0-10)
--- NOTE | 2021-11-13 10:41 | P.PN_ITS ---
Subjective Subjective: Patient was seen and examined this morning, continue to be intubated sedated on mechanical ventilation. off Sedation GCS is 20. Repeat chest x-ray done this morning: Shows no airspace disease. WBC count is coming down. Serial EKG done has shown; sinus bradycardia, corrected QTC of: 447-483 Medications: Medication Review Details: Generic Name Dose Route Start Last Admin Trade Name Jaeq PRN Reason Stop Dose Admin Amoxicillin/Clavul anate Potassium 1 tab 11/13/21 09:00 11/13/21 10:23 Amoxicillin-Clav 875-125 Mg Tablet PO 1 tab BID PORFIRIO Administration Protocol Enoxaparin Sodium 40 mg 11/12/21 17:00 11/12/21 18:14 Enoxaparin 40 Mg /0.4 Ml Syringe SUBCUT 40 mg Q24H PORFIRIO Administration Midazolam HCl 100 mg/ Sodium 100 mls @ 0 mls/h r 11/12/21 17:45 11/13/21 08:25 Chloride IV 0 mg/hr .Q0M PORFIRIO 0 mls/hr Titration Protocol Per Protocol Fentanyl 2,500 mcg / Sodium 250 mls @ 0 mls/h r 11/12/21 17:45 11/13/21 07:15 Chloride IV 75 mcg/hr .Q0M PORFIRIO 7.5 mls/hr Titration Protocol Per Protocol Norepinephrine Bit artrate 4 mg 254 mls @ 0 mls/h r 11/13/21 04:30 11/13/21 10:15 / Dextrose IV 2 mcg/min .Q0M PORFIRIO 7.62 mls/hr Titration Protocol Per Protocol Propofol 1,000 mg in 100 m ls @ 0 mls/hr 11/13/21 07:30 11/13/21 07:42 Diprivan IV 30 mcg/kg/min .Q0M PORFIRIO 11.44 mls/hr Administration Protocol Per Protocol Vitals/I&O/Wt Last Vital Signs Temp 97.5 F L 11/13/21 07:15 Pulse 44 L 11/13/21 10:00 Resp 16 11/13/21 09:36 BP 120/67 11/13/21 10:00 Pulse Ox 96 11/13/21 10:00 11/12/21 11/13/21 11/13/21 22:59 06:59 14:59 Intake Total 405.712 / 429.456 7123.821 / 2198.533 174.953 / 174.953 Output Total 400 / 400 300 / 300 Balance 405.712 / 179.393 1259.821 / 1798.533 -125.047 / -125.047 Weight last 48 hrs Weight 63.56 kg Weight 63.503 kg Weight 63.503 kg Physical Exam Narrative: Intubated sedated and on mechanical ventilation HENMT: COMMON NORMALS: normocephalic and atraumatic HEAD & SCALP: normocephalic and atraumatic Eye: GENERAL EYE: appearance normal, both eyes and all related structures Chest: COMMONS NORMALS: normal inspection of the chest and normal palpation of entire chest wall CHEST: Yes Symmetrical chest wall rise Resp: COMMON NORMALS: normal respiratory effort, No retractions, No use of accessory muscles and clear to auscultation bilaterally EFFORT & INSPECTION: Yes symmetric chest movement AUSCULTATION: clear to auscultation bilaterally Cardio: COMMON NORMALS: regular rate, regular rhythm, S1 normal heart sound present, S2 normal heart sound present, No gallops present (Cardio), No murmurs present (Cardio), No rub (Cardio) and Peripheral pulses 2+ throughout RATE: regular rate RHYTHM: regular rhythm HEART SOUNDS: S1 normal heart sound present and S2 normal heart sound present PERIPHERAL PULSES: Peripheral pulses 2+ throughout GI: COMMON NORMALS: Normal to inspection, nondistended, normoactive bowel sounds present, Soft to palpation, non-tender, No hepatosplenomegaly present and no masses AUSCULTATION: Yes normoactive bowel sounds PALPATION: Yes Soft to palpation and Yes No hepatosplenomegaly present RECTAL EXAM: deferred Extremity: COMMON NORMALS: no clubbing, cyanosis or edema and no pedal edema Urinary Catheter Management: Rhodes: Cath Placed During This Visit: yes Reason for Continuing Indwelling Catheter: Accurate Measurement of Urinary Output in Critically Ill Patients Urinary Catheter Date of Insertion: 11/12/21 Urinary Catheter Time of Insertion: 15:38 Data : 11/13/21 03:36 11/13/21 03:36 Micro: Microbiology 11/12/21 15:45 Gram Stain - Final Sputum - Endotracheal Wash Sputum Culture - Preliminary 11/12/21 18:28 Blood Culture - Preliminary Blood SPECIMEN COLLECTED 11/12/21 15:19 Blood Culture - Preliminary Blood SPECIMEN COLLECTED A&P Assessment and plan (1) Drug overdose: Status: Acute (2) Asthma: Status: Acute (3) Fibromyalgia: Status: Acute (4) Depression: Status: Acute (5) Migraine: Status: Acute (6) Anxiety: Status: Acute (7) Acute encephalopathy: Status: Acute Plan 51 year old female with past medical history of depression , anxiety , chronic pain, migraine. #Acute metabolic encephalopathy secondary to drug overdose: Currently she is intubated sedated on mechanical ventilation. On Augmentin for aspiration precaution Neuro check every 2 hours Telemetry monitoring Continue IV hydration with normal saline Patient is currently requiring little bit of Levophed likely secondary to propofol. Current plan is to try and extubate her tomorrow in the morning. Postextubation we will consult psychiatry. #Sinus bradycardia: Likely secondary to drug overdose #Prolonged QTc interval: Likely secondary to drug overdose Continue telemetry monitoring Continue EKG monitoring #Intentional drug overdose: #History of depression: We will consult psych once she is extubated, for n.p.u. transfer #History of chronic pain #CODE STATUS: Full code #DVT PPX : On Lovenox Attestations Medical Necessity Statement*: Patient is still in hospital for management of acute metabolic encephalopathy secondary to drug overdose. Time Spent in Patient Care: Greater than 35 minutes (>than 50% of time spent in counselling and/or direct pt care on unit) . 40 Critical Care Time: The high probability of a clinically significant, sudden or life threatening deterioration of the patient's [] system(s) required my full and direct attention, intervention and personal management. The critical care time is as shown. This time is in addition to time spent performing any reported procedures but includes the following: [x] Data and vital sign review and interpretation [x] Patient assessment, examination and intervention [x] Documentation [x] Medication orders and management Coding Level of Care Code Acute Technical Applications Scientist for g Fwd Exam Detailed Diagnoses Drug overdose T50.901A Asthma J45.909 Fibromyalgia M79.7 Depression F32.A Migraine G43.909 Anxiety F41.9 Acute encephalopathy G93.40
[2021-11-13 10:51] LABS: Troponin 5 6HR Delta -1.26 ng/L (0-12)
[2021-11-13] MEDS: enoxaparin 40 mg/0.4 mL Syringe SUBCUT (17:43)
[2021-11-13] MEDS: sodium chloride 0.9% 1,000 ML 100 ML IV (17:48)
[2021-11-13] MEDS: propofol 1,000 MG/100 ML INJ 19.07 MG IV (20:04)
[2021-11-14] VITALS (36 sets, daily range): BP systolic 114–173; BP diastolic 66–92; PULSE 37–78; RESP 16; TEMP 36.1–37.1; O2SAT 90–100; BMI 24.4; BMI 21.4
[2021-11-14] MEDS: propofol 1,000 MG/100 ML INJ 15.25 MG IV (00:30)
[2021-11-14] MEDS: sodium chloride 0.9% 1,000 ML 100 ML IV (03:11)
--- NOTE | 2021-11-14 05:00 | ECG_ITS ---
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 Measurements Intervals Sarah Rate: 75 P: 74 FL: 126 QRS: 61 QRSD: 102 T: 57 QT: 417 QTc: 467 Interpretive Statements SINUS RHYTHM Compared to ECG 11/13/2021 09:04:06 Sinus bradycardia no longer present Prolonged QT interval no longer present Electronically Signed On 11-14-2021 16:45:10 CDT by Althea Canales M.D. [id number]
[2021-11-14 05:12] LABS: Basophils # 0.1 10^3/uL (0.0-0.1); Basophils % 0.5 %; Eosinophils # 0.4 10^3/uL (0.0-0.8); Eosinophils % 4.2 %; Hematocrit 34.4 % (37.0-47.0); Hemoglobin 12.3 g/dL (11.5-15.3); Lymphocytes # 5.5 10^3/uL (0.8-4.8); Lymphocytes % 54.9 %; Mean Corpuscular HGB Conc 35.8 g/dL (30.0-36.0); Mean Corpuscular Hemoglobin 35.2 pg (28.0-34.0); Mean Corpuscular Volume 98.6 fl (81-99); Mean Platelet Volume 11.7 fL (7.4-10.4); Monocytes # 0.7 10^3/uL (0.2-0.9); Monocytes % 7.4 %; Neutrophils # 3.25 10^3/uL (1.8-7.7); Neutrophils % 32.8 %; Nucleated Red Blood Cells % 0 %; Platelet Count 246 10^3/cmm (130-400); Red Blood Count 3.49 10^6/uL (4.1-5.3); Red Cell Distribution Width 14.5 % (12.1-15.1); White Blood Count 9.9 10^3/uL (4.0-10.0)
[2021-11-14 05:30] LABS: Alanine Aminotransferase 15 U/L (0-33); Albumin Level 3.6 g/dL (3.5-5.2); Blood Urea Nitrogen 10 mg/dL (6-20); Glomerular Filtration Rate 129.6 mL/min (90-130); Osmolality Calculated 292 mOsm/kg (285-295); Sodium 141 mmol/L (136-145); Total Bilirubin 0.2 mg/dL (0.15-1.2)
[2021-11-14 05:33] LABS: Lactate (Lactic Acid level) 1.2 mmol/L (0.5-2.2)
[2021-11-14 05:39] LABS: Alkaline Phosphatase 100 IU/L (35-105); Anion Gap 14.5 (5-19); Aspartate Amino Transferase 16 U/L (0-32); Calcium 8.9 mg/dL (8.5-10.5); Carbon Dioxide 24 mmol/L (22-29); Chloride 106 mmol/L (98-107); Glucose 110 mg/dL (65-115); Potassium 3.5 mmol/L (3.5-5.1); Total Protein 5.6 g/dL (6.6-8.7)
[2021-11-14] MEDS: propofol 1,000 MG/100 ML INJ 11.44 MG IV (06:57)
--- NOTE | 2021-11-14 06:59 | PC.NURSE ---
Shift Note Frequent safety and comfort rounds continue. Orders and/or nursing care completed as indicated. Patient monitored for response to intervention and treatment(s). Education provided includes vent management. Patient needs reinforcement teaching. Patient had an uneventful shift. Vent settings are as follows; mode-VC-AC, FiO2-25%, Peep-5, rate-16, Vt-400. Propofol, Fentanyl, Levophed and NS are infusing per protocol. Please see MAR for infusion rates. Patient will open eyes and withdrawals from painful stimuli. Will continue to monitor.
--- NOTE | 2021-11-14 07:56 | PC.NURSE ---
Extubate Pt did well with the weaning trial and following commands. Per DR order; pt extubated with the help of RT and nursing staff. Pt placed on 2L/NC, is setting up and coughing well. Pt denies pain. Call light within reach.
[2021-11-14] MEDS: amoxicillin-clav 875-125 mg Tablet 1 TAB PO (09:48)
--- NOTE | 2021-11-14 10:24 | PC.NURSE ---
Room Air Pt placed on room air at 1015. Pt currently satting between 93-95%. Pt denied shortness of breath or pain.
--- NOTE | 2021-11-14 12:09 | PM.PN ---
Subjective Subjective: Patient was seen and examined this morning, no acute events overnight, vitals and labs are reviewed. She was successfully extubated, initially kept on 2 Ls oxygen through nasal cannula and later transitioned to room air. Patient currently denies any suicidal ideation, she wants to go to [facility] Medications: Medication Review Details: Generic Name Dose Route Start Last Admin Trade Name Marquise PRN Reason Stop Dose Admin Amoxicillin/Clavul anate Potassium 1 tab 11/13/21 09:00 11/13/21 10:23 Amoxicillin-Clav 875-125 Mg Tablet PO 1 tab BID PORFIRIO Administration Protocol Enoxaparin Sodium 40 mg 11/12/21 17:00 11/12/21 18:14 Enoxaparin 40 Mg /0.4 Ml Syringe SUBCUT 40 mg Q24H PORFIRIO Administration Midazolam HCl 100 mg/ Sodium 100 mls @ 0 mls/h r 11/12/21 17:45 11/13/21 08:25 Chloride IV 0 mg/hr .Q0M PORFIRIO 0 mls/hr Titration Protocol Per Protocol Fentanyl 2,500 mcg / Sodium 250 mls @ 0 mls/h r 11/12/21 17:45 11/13/21 07:15 Chloride IV 75 mcg/hr .Q0M PORFIRIO 7.5 mls/hr Titration Protocol Per Protocol Norepinephrine Bit artrate 4 mg 254 mls @ 0 mls/h r 11/13/21 04:30 11/13/21 10:15 / Dextrose IV 2 mcg/min .Q0M PORFIRIO 7.62 mls/hr Titration Protocol Per Protocol Propofol 1,000 mg in 100 m ls @ 0 mls/hr 11/13/21 07:30 11/13/21 07:42 Diprivan IV 30 mcg/kg/min .Q0M PORFIRIO 11.44 mls/hr Administration Protocol Per Protocol Vitals/I&O/Wt Last Vital Signs Temp 97.5 F L 11/14/21 10:00 Pulse 78 11/14/21 10:00 Resp 16 11/14/21 10:00 BP 132/74 11/14/21 10:00 Pulse Ox 98 11/14/21 10:00 11/13/21 11/14/21 11/14/21 22:59 06:59 14:59 Intake Total 217.477 / 295.142 2949.116 / 1828.093 0 / 0 Output Total 250 / 550 500 / 1050 250 / 250 Balance -32.523 / -87.023 865.116 / 778.093 -250 / -250 Weight last 48 hrs Weight 64.495 kg Weight 63.56 kg Weight 63.503 kg Weight 63.503 kg Physical Exam Narrative: Intubated sedated and on mechanical ventilation Const: COMMON NORMALS: patient oriented x3 HENMT: COMMON NORMALS: normocephalic and atraumatic HEAD & SCALP: normocephalic and atraumatic Eye: GENERAL EYE: appearance normal, both eyes and all related structures Chest: COMMONS NORMALS: normal inspection of the chest and normal palpation of entire chest wall CHEST: Yes Symmetrical chest wall rise Resp: COMMON NORMALS: normal respiratory effort, No retractions, No use of accessory muscles and clear to auscultation bilaterally EFFORT & INSPECTION: Yes symmetric chest movement AUSCULTATION: clear to auscultation bilaterally Cardio: COMMON NORMALS: regular rate, regular rhythm, S1 normal heart sound present, S2 normal heart sound present, No gallops present (Cardio), No murmurs present (Cardio), No rub (Cardio) and Peripheral pulses 2+ throughout RATE: regular rate RHYTHM: regular rhythm HEART SOUNDS: S1 normal heart sound present and S2 normal heart sound present PERIPHERAL PULSES: Peripheral pulses 2+ throughout GI: COMMON NORMALS: Normal to inspection, nondistended, normoactive bowel sounds present, Soft to palpation, non-tender, No hepatosplenomegaly present and no masses AUSCULTATION: Yes normoactive bowel sounds PALPATION: Yes Soft to palpation and Yes No hepatosplenomegaly present RECTAL EXAM: deferred Extremity: COMMON NORMALS: no clubbing, cyanosis or edema and no pedal edema Neuro: COMMON NORMALS: patient oriented x3 Urinary Catheter Management: Rhodes: Cath Placed During This Visit: yes Reason for Continuing Indwelling Catheter: Accurate Measurement of Urinary Output in Critically Ill Patients Urinary Catheter Date of Insertion: 11/12/21 Urinary Catheter Time of Insertion: 15:38 Data : 11/15/21 07:30 11/15/21 07:30 Micro: Microbiology 11/12/21 15:45 Gram Stain - Final Sputum - Endotracheal Wash Sputum Culture - Final 11/12/21 18:28 Blood Culture - Preliminary Blood NEGATIVE TO DATE 11/12/21 15:19 Blood Culture - Preliminary Blood NEGATIVE TO DATE A&P Assessment and plan (1) Drug overdose: Status: Acute (2) Asthma: Status: Acute (3) Fibromyalgia: Status: Acute (4) Depression: Status: Acute (5) Migraine: Status: Acute (6) Anxiety: Status: Acute (7) Acute encephalopathy: Status: Resolved Plan 51 year old female with past medical history of depression , anxiety , chronic pain, migraine. #Acute metabolic encephalopathy secondary to drug overdose: Currently she is intubated sedated on mechanical ventilation. On Augmentin for aspiration precaution Neuro check every 2 hours Telemetry monitoring Continue IV hydration with normal saline Patient is currently requiring little bit of Levophed likely secondary to propofol. Current plan is to try and extubate her tomorrow in the morning. Postextubation we will consult psychiatry. #Sinus bradycardia: Likely secondary to drug overdose #Prolonged QTc interval: Likely secondary to drug overdose Continue telemetry monitoring Continue EKG monitoring #Intentional drug overdose: #History of depression: We will consult psych once she is extubated, for n.p.u. transfer #History of chronic pain #CODE STATUS: Full code #DVT PPX : On Lovenox Attestations Medical Necessity Statement*: Patient is being transferred to [facility]. Coding Level of Care Code Acute Aoc Operations Intelligence Officer for Berniceg Fwd Exam Comprehensive Diagnoses Drug overdose T50.901A Asthma J45.909 Fibromyalgia M79.7 Depression F32.A Migraine G43.909 Anxiety F41.9 Acute encephalopathy G93.40
--- NOTE | 2021-11-14 13:33 | PC.NURSE ---
Report Pt has orders for transfer to [facility]. Pt is agreeable. Report called to Lacho in [facility], Pt will go to 153-2. Rhodes and IVs have been removed.
[2021-11-14] MEDS: trazodone 50 mg Tablet PO (21:31)
[2021-11-15 02:49] VITALS: BP 153/84; PULSE 70; RESP 19; TEMP 36.7; O2SAT 96
[2021-11-15] MEDS: acetaminophen 325 mg Tablet 650 MG PO (03:56)
--- NOTE | 2021-11-15 04:09 | PC.NURSE ---
0356 c/o headache tylenol given po
[2021-11-15 06:00] VITALS: BP 153/84; PULSE 70; RESP 19; TEMP 36.7; O2SAT 96; BMI 21.4
[2021-11-15 07:39] LABS: Basophils # 0.1 10^3/uL (0.0-0.1); Basophils % 0.8 %; Eosinophils # 0.2 10^3/uL (0.0-0.8); Eosinophils % 2.7 %; Hematocrit 37.9 % (37.0-47.0); Hemoglobin 14.2 g/dL (11.5-15.3); Lymphocytes # 2.1 10^3/uL (0.8-4.8); Lymphocytes % 27.7 %; Mean Corpuscular HGB Conc 37.5 g/dL (30.0-36.0); Mean Corpuscular Hemoglobin 36.2 pg (28.0-34.0); Mean Corpuscular Volume 96.7 fl (81-99); Mean Platelet Volume 10.9 fL (7.4-10.4); Monocytes # 0.4 10^3/uL (0.2-0.9); Monocytes % 5.5 %; Neutrophils # 4.66 10^3/uL (1.8-7.7); Nucleated Red Blood Cells % 0 %; Platelet Count 236 10^3/cmm (130-400); Red Blood Count 3.92 10^6/uL (4.1-5.3); Red Cell Distribution Width 14.1 % (12.1-15.1); White Blood Count 7.4 10^3/uL (4.0-10.0)
[2021-11-15 08:28] LABS: Alanine Aminotransferase 22 U/L (0-33); Albumin Level 4.6 g/dL (3.5-5.2); Alkaline Phosphatase 123 IU/L (35-105); Anion Gap 17.4 (5-19); Aspartate Amino Transferase 29 U/L (0-32); Blood Urea Nitrogen 9 mg/dL (6-20); Calcium 10.3 mg/dL (8.5-10.5); Carbon Dioxide 25 mmol/L (22-29); Chloride 99 mmol/L (98-107); Globulin 2.8 g/dL (1.3-4.6); Glomerular Filtration Rate 129.6 mL/min (90-130); Glucose 105 mg/dL (65-115); Osmolality Calculated 285 mOsm/kg (285-295); Potassium 3.4 mmol/L (3.5-5.1); Sodium 138 mmol/L (136-145); Total Bilirubin 0.5 mg/dL (0.15-1.2); Total Protein 7.4 g/dL (6.6-8.7)
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
[2021-11-15] MEDS: venlafaxine ER (24HR) 75 mg Capsule PO (10:21)
--- NOTE | 2021-11-15 11:36 | NPU.GN ---
[facility] Unit Group Topic:Positive Thoughts/ Negative Thoughts General Mood of Group:Kaylie did not attend group. Kaylie did meet with [facility] and discussed [facility] services after group. Kaylie was aided in completing the [facility] paperwork for [facility] services.
[2021-11-15 14:00] VITALS: BP 154/92; PULSE 69; RESP 16; TEMP 36.5; O2SAT 99
[2021-11-15 21:35] VITALS: BP 146/85; PULSE 79; RESP 16; TEMP 36.6; O2SAT 95
[2021-11-16 06:00] VITALS: BP 137/85; PULSE 74; RESP 17; TEMP 36.6; O2SAT 96; BMI 21.2
[2021-11-16] MEDS: venlafaxine ER (24HR) 75 mg Capsule PO (09:11)
--- NOTE | 2021-11-16 12:11 | NPU.GN ---
[facility] Unit Group Topic:Whine Barrel Activity General Mood of Group: Hemant did not attend group today.
[2021-11-16 14:00] VITALS: BP 168/92; PULSE 72; RESP 17; TEMP 36.2; O2SAT 98
[2021-11-16] MEDS: acetaminophen 325 mg Tablet 650 MG PO (15:28)
--- NOTE | 2021-11-16 15:41 | P.NPUPN_ITS ---
Subjective NPU Subjective: Patient known to this appeals writer through previous hospitalizations who presents after another suicide attempt this when causing an ICU stent prior to transfer to the neuropsychiatric unit. Patient resents today reporting that she is feeling somewhat better. Could not get a real explanation that was rational about what led up to the attempt. She reports that she think she is going to be fine. She gotten frustrated about her 's work schedule and lack of time to spend with her. She did not stand the concerned about such an arbitrary moment to do something that profound. We agreed we would speak with her tomorrow and start talk about safety plan. She endorsed some difficulty with sleep at night. Mental Status Exam MSE Comments: This is a slender, well-developed white female looking appropriate for age in hospital scrubs with appropriate grooming and eye contact. No abnormal movements.? Cooperative with exam in no distress. Speech was normal rate and volume. Patient mood described as better, affect congruent. Thought process organized. Thought content: patient denied suicidal or homicidal ideation, there were no delusions reported or noted, she denied any auditory or visual hallucinations.? Attention and concentration were intact and memory appears reliable but none were formally tested.? She was alert and oriented x3.? Insight and judgment is improving, impulse control limited. Vitals/I&O/Wt Last Vital Signs Temp 97.9 F 11/16/21 06:00 Pulse 74 11/16/21 06:00 Resp 17 11/16/21 06:00 BP 137/85 11/16/21 06:00 Pulse Ox 96 11/16/21 06:00 Weight last 48 hrs Weight 56.245 kg Weight 56.699 kg Physical Exam Urinary Catheter Management: Rhodes: Cath Placed During This Visit: yes Reason for Continuing Indwelling Catheter: Accurate Measurement of Urinary Output in Critically Ill Patients Urinary Catheter Date of Insertion: 11/12/21 Urinary Catheter Time of Insertion: 15:38 Data NPU : 11/15/21 07:30 11/15/21 07:30 A&P Assessment and plan (1) PTSD (post-traumatic stress disorder): Status: Acute (2) Benzodiazepine withdrawal with delirium: Status: Acute (3) Acute encephalopathy: Status: Acute (4) Drug overdose: Status: Acute (5) Depression: Status: Acute Plan This is a 51 year old white female with a history of anxiety, who presents after an overdose attempt which led to ICU level of care. Continue current medications.? We will consider additional sleep medicine possibilities. But likely will avoid benzodiazepines secondary to past hospitalizations. Encourage individual, group and milieu therapy Continue q-15 minute check for safety Recommend sober living treatment at the highest level of care to which the patient is willing to commit. Involuntary Hold Information 96 Hour Hold: 96 Hour Involuntary Admission: No Attestations NPU Medical Necessity Statement*: Inpatient hospitalization is medically necessary and the clinically appropriate intervention at this time.? We will initiate medications and make changes as indicated.? Likely length of stay 3-5 days Coding Level of Care Code Acute Sprayer Insecticide for g Fwd Diagnoses PTSD (post-traumatic stress disorder) F43.10 Benzodiazepine withdrawal with delirium F13.231 Acute encephalopathy G93.40 Drug overdose T50.901A Depression F32.A
--- NOTE | 2021-11-16 16:03 | PC.NURSE ---
PRN MEdication C/O neck pain 01/02 at 1525. Tylenol given as ordered at 1528. Reassessed 30 minutes later and reports medication is effective.
[2021-11-16 20:27] VITALS: BP 159/91; PULSE 70; RESP 14; O2SAT 95
[2021-11-16] MEDS: trazodone 50 mg Tablet PO (21:26)
--- NOTE | 2021-11-16 21:33 | PC.NURSE ---
50mg Trazodone given as requested by patient for sleep.
[2021-11-17 05:45] VITALS: BMI 21.2
[2021-11-17 06:00] VITALS: BP 130/87; PULSE 70; RESP 70; TEMP 36.6; O2SAT 98
[2021-11-17] MEDS: venlafaxine ER (24HR) 75 mg Capsule PO (09:29)
[2021-11-17 14:00] VITALS: BP 144/75; PULSE 75; RESP 17; TEMP 36.8; O2SAT 99
--- NOTE | 2021-11-17 15:14 | DCPLANNER ---
IMM was given to and explained to pt.
--- NOTE | 2021-11-17 15:31 | P.NPUPN_ITS ---
Subjective NPU Subjective: Patient presents today reporting that she is continuing to feel better and spent much of the time talking about her plans for how she will keep her self busy and active and hopefully prevent a repeat of what led to this hospitalization. was present and asked some fairly provocative qu estions to drug to the heart of what happened. We discussed his availability over the weekend and the possibility of discharge in the next 48 hours. Mental Status Exam MSE Comments: This is a slender, well-developed white female looking appropriate for age in hospital scrubs with appropriate grooming and eye contact. No abnormal movements.? Cooperative with exam in no distress. Speech was normal rate and volume. Patient mood described as pretty good, affect congruent. Thought process organized. Thought content: patient denied suicidal or homicidal ideation, there were no delusions reported or noted, she denied any auditory or visual hallucinations.? Attention and concentration were intact and memory appears reliable but none were formally tested.? She was alert and oriented x3.? Insight and judgment is improving, impulse control limited Vitals/I&O/Wt Last Vital Signs Temp 98.2 F 11/17/21 14:00 Pulse 75 11/17/21 14:00 Resp 17 11/17/21 14:00 BP 144/75 11/17/21 14:00 Pulse Ox 99 11/17/21 14:00 Weight last 48 hrs Weight 56.245 kg Weight 56.245 kg Physical Exam Urinary Catheter Management: Rhodes: Cath Placed During This Visit: yes Reason for Continuing Indwelling Catheter: Accurate Measurement of Urinary Output in Critically Ill Patients Urinary Catheter Date of Insertion: 11/12/21 Urinary Catheter Time of Insertion: 15:38 Data NPU : 11/15/21 07:30 11/15/21 07:30 Micro: Microbiology 11/12/21 18:28 Blood Culture - Final Blood NO GROWTH AFTER 5 DAYS 11/12/21 15:19 Blood Culture - Final Blood NO GROWTH AFTER 5 DAYS Microbiology 11/12/21 18:28 Blood Blood Culture - Final NO GROWTH AFTER 5 DAYS 11/12/21 15:19 Blood Blood Culture - Final NO GROWTH AFTER 5 DAYS A&P Assessment and plan (1) PTSD (post-traumatic stress disorder): Status: Acute (2) Benzodiazepine withdrawal with delirium: Status: Acute (3) Acute encephalopathy: Status: Acute (4) Drug overdose: Status: Acute (5) Depression: Status: Acute (6) H/O shoulder surgery: Status: Acute (7) Migraine: Status: Acute (8) Asthma: Status: Acute (9) Anxiety: Status: Acute (10) Fibromyalgia: Status: Acute (11) Osteopenia: Status: Acute Plan This is a 51 year old white female with a history of anxiety, who presents after an overdose attempt which led to ICU level of care. Continue current medications.? We will consider additional sleep medicine possibilities.? But likely will avoid benzodiazepines secondary to past hospitalizations. Encourage individual, group and milieu therapy Continue q-15 minute check for safety Recommend sober living treatment at the highest level of care to which the patient is willing to commit. We will consider discharge tomorrow. Involuntary Hold Information 96 Hour Hold: 96 Hour Involuntary Admission: No Attestations NPU Medical Necessity Statement*: Inpatient hospitalization is medically necessary and the clinically appropriate intervention at this time.? We will initiate medications and make changes as indicated.? Likely length of stay 1-3 days Coding Level of Care Code Acute Supervisor Stave Finishing for [facility] Fwd Diagnoses PTSD (post-traumatic stress disorder) F43.10 Benzodiazepine withdrawal with delirium F13.231 Acute encephalopathy G93.40 Drug overdose T50.901A Depression F32.A H/O shoulder surgery Z98.890 Migraine G43.909 Asthma J45.909 Anxiety F41.9 Fibromyalgia M79.7 Osteopenia M85.80
[2021-11-17] MEDS: trazodone 50 mg Tablet PO (20:20)
[2021-11-17 20:46] VITALS: BP 142/89; PULSE 63; RESP 18; TEMP 36.6; O2SAT 98
[2021-11-18 05:59] VITALS: BP 131/81; PULSE 77; RESP 18; TEMP 36.9; O2SAT 98
[2021-11-18 06:00] VITALS: BMI 21.2
[2021-11-18] MEDS: venlafaxine ER (24HR) 75 mg Capsule PO (08:55)
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
[2021-11-18 13:20] VITALS: BP 131/81; PULSE 77; RESP 18; TEMP 36.9; O2SAT 98
--- NOTE | 2021-11-18 13:46 | PC.NURSE ---
[employer] SALESPERSON CONTACTED PT'S REGARDING HER DISCHARGE. PT'S VOICES THAT HE IS AGREEABLE TO PT RETURNING TO THEIR HOME AND THAT HE WILL BE IN CONTROL OF DISPENSING HER MEDICATIONS AND THAT THE PT WILL NOT HAVE ACCESS TO THEM. PT'S WILL BE PICKING HER UP AROUND 1500 TODAY.
== END 2021-11-18 15:15 | disposition home or self-care (01) | DRG 917 ==
LOC: ER 16:49 → ICU 17:07 → NP 11-14 23:26 → ICU 11-16 11:33 → NP 11-16 11:33
PROVIDERS: Internal Medicine; Admitting Provider Internal Medicine; Emergency Provider Emergency Medicine; PCP Nurse Practitioner Family; Visit Provider Psychiatry & Neurology Psychiatry
DX: T50.902A Poisoning by unspecified drugs, medicaments and biological substances, intentional self-harm, initial encounter (principal); G92.8 Other toxic encephalopathy; F13.231 Sedative, hypnotic or anxiolytic dependence with withdrawal delirium; F43.10 Post-traumatic stress disorder, unspecified; M79.7 Fibromyalgia; Z87.891 Personal history of nicotine dependence; G89.29 Other chronic pain; J45.909 Unspecified asthma, uncomplicated; G43.909 Migraine, unspecified, not intractable, without status migrainosus
CPT/HCPCS: 36415; 36600; 51702; 70450; 71045; 80051; 80053; 80306; 80307; 81001; 81025; 82330; 82533; 82803; 82805; 83605; 83735; 84100; 84145; 84443; 84484; 85025; 85610; 85730; 87040; 87070; 87205; 93005; 94002; 94003; 94640; 94799; 96365; 96366; 96367; 96372; 97150; 97165; 99291; J0610; J1650; J2250; J2543; J2704; J3010; J7030; J7050

== ENCOUNTER → 2021-12-18 12:35 | Outpatient (BNVA) | payer MEDICARE, SELFPAY | PROVIDERS: PCP Nurse Practitioner Family; Visit Provider Nurse Practitioner Psychiatric/Mental Health | DX: F33.2 Major depressive disorder, recurrent severe without psychotic features (principal); F41.1 Generalized anxiety disorder | CPT/HCPCS: 90792 ==

== ENCOUNTER → 2022-02-20 14:42 | Outpatient (BNVA) | payer MEDICARE, SELFPAY | PROVIDERS: PCP Nurse Practitioner Family; Visit Provider Nurse Practitioner Psychiatric/Mental Health | DX: F32.A Depression, unspecified (principal); F41.9 Anxiety disorder, unspecified | CPT/HCPCS: 99213 ==

== ENCOUNTER → 2022-03-07 08:57 | Outpatient (BNVA) | payer MEDICARE, OTHER, SELFPAY | PROVIDERS: PCP Nurse Practitioner Family; Visit Provider Nurse Practitioner Psychiatric/Mental Health | DX: Z79.899 Other long term (current) drug therapy (principal) | CPT/HCPCS: 80053; 80061; 83036 ==

== ENCOUNTER 2022-07-15 20:40 | Inpatient (IN) | payer MEDICARE, SELFPAY ==
[2022-07-15 20:43] VITALS: BP 143/79; PULSE 58; RESP 13; O2SAT 96
[2022-07-15 20:44] VITALS: BMI 19.7
--- NOTE | 2022-07-15 20:50 | ECG_ITS ---
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 Measurements Intervals [place] Rate: 62 P: 79 TX: 136 QRS: 77 QRSD: 102 T: 73 QT: 424 QTc: 434 Interpretive Statements SINUS RHYTHM POSSIBLE LEFT ATRIAL ENLARGEMENT [-0.1mV P-WAVE IN V1/V2] MODERATE T-WAVE ABNORMALITY, CONSIDER INFERIOR ISCHEMIA [-0.1+ mV T-WAVE IN II/aVF] Compared to ECG 11/14/2021 09:25:09 T-wave abnormality now present Possible ischemia now present Electronically Signed On 07-16-2022 17:09:05 [employer]TING [employer] TENDER by Elieser Robert M.D. [email or web address]
--- NOTE | 2022-07-15 20:57 | ED_ITS ---
Documented by User: Bobby Vargas MD 07/16/22 10:05 HPI - Overdose General: Chief Complaint: Overdose Stated Complaint: OD Time Seen by Provider: 07/15/22 20:42 History of Present Illness: 52-year-old female presents by EMS with report of taking an excessive amount of Fioricet. The patient was minimally cooperative but states she did take all of them today. All of them consists of up to 90 tablets. It was filled on the and contained 220 pills. There are currently 30 pills left in the bottle. The patient was reported to be altered for EMS. She was maintaining her airway and oxygen saturation but had slurred speech and her interaction was slightly altered. They went ahead and gave Narcan as a precaution. The patient is not coming out and saying that she intended to commit suicide but did admit that its not reasonable to take 90 tabl ets even if you are having a severe headache. She denies any coingestants including alcohol. If she took 90 tablets of Fioricet which contains 50 mg of butalbital, 325 mg of Tylenol, and 40 mg of caffeine each that would equate to 4500 mg of butalbital, 29,250 mg of Tylenol, and 3600 mg of caffeine. The patient's heart rate is in the 50s and her respiratory rate is slow. Despite the butalbital, I would think that the caffeine would cause increased respiratory rate and heart rate. I went ahead and ordered a dose of N- acetylcysteine until we can obtain a Tylenol level and check to see if the patient truly did ingest a potentially lethal amount of acetaminophen. Patient doesn't know when she took the pills. Very likely to be >60 min since ingestion. Review of Systems General: Reports: ROS unobtainable due to medical condition and Other (poorly cooperative) [facility] ED PFSH: Medical History Anxiety Bone loss Chronic pain Fibromyalgia Migraine Psychiatric care Surgical History H/O neck surgery H/O shoulder surgery History of back surgery Family History Father No problems noted. Mother COPD (chronic obstructive pulmonary disease) Chronic emphysema syndrome Social History Smoking and tobacco status: current every day smoker Second hand smoke exposure: Yes Alcohol intake: never Adopted: No Caregiver/support person: No Lives independently: Yes Household members: spouse Housing: House Marital status: Number of children: 2 Highest education level completed: Bachelor's Degree service: No Current occupational status: disabled History of recent travel: No Physical Exam Const: COMMON NORMALS: patient oriented x3 and well nourished HENMT: COMMON NORMALS: normocephalic, atraumatic and external ears normal HEAD & SCALP: normocephalic and atraumatic EXTERNAL EAR: Yes external ears normal MOUTH: no muffled voice Eye: COMMON NORMALS: EOMs intact bilaterally, conjunctivae normal and no scleral icterus CONJUNCTIVA: Yes conjunctivae normal OTHER: Small, symmetric pupils Neck/C-Spine: COMMON NORMALS: no meningeal signs and no JVD GENERAL: Yes normal visual inspection and Yes trachea midline Resp: OTHER: bradypnea, no resp distress Cardio: COMMON NORMALS: no JVD and regular rhythm RATE: bradycardic RHYTHM: regular rhythm PERIPHERAL PULSES: other (1+ pulse) GI: COMMON NORMALS: Soft to palpation PALPATION: Yes Soft to palpation, No Tenderness to palpation present (GI) and No Guarding due to palpation present (GI) Extremity: COMMON NORMALS: normal to inspection Neuro: COMMON NORMALS: patient oriented x3 SENSORIUM/ORIENTATION: Yes somnolent MENINGEAL SIGNS: Yes no meningeal signs SPEECH: abnormal speech Details: slurred Skin: COMMON NORMALS: no rashes or lesions noted, turgor normal and no jaundice GENERAL SKIN EXAM: no rashes or lesions noted and turgor normal Course Vital Signs: Vital signs: Vital Signs Pulse Rate 77 07/17/22 10:30 Respiratory Rate 16 07/17/22 10:30 Blood Pressure 133/81 07/17/22 10:30 Pulse Oximetry 95 07/17/22 10:30 Oxygen Delivery Me thod 07/17/22 10:30 MDM - Overdose Medical Decision Making Potential overdose. The most imminent threat would be the acetaminophen, up to 29.25g total if she really took 90 tabs. N-acetylcysteine will be given empirically for the first dose until Tylenol level comes back. The patient will not give us the time that she took the medication but it has been at least 60 minutes. It is noted that the patient appeared drowsy, had slurred speech, and slow mentation on arrival with small pupils. Naloxone has already been given by EMS. Poison control will be contacted. Labs/ekg/uds pending. UPDATE: Tylenol level 14 (within normal parameters). Timing of ingestion unknown. However, this means it is quite unlikely that she took 90 tabs of fioricet. Will repeat level at 0100 (4 hrs) to be sure. Salicylates neg Alcohol neg UDS pending LFTs normal K, mild low. TSH normal Lab Data 07/15/22 20:53 07/15/22 20:53 Laboratory Results WBC 6.1 10^3/uL (4.0-10.0) 07/15/22 20:53 RBC 5.05 10^6/uL (4.1-5.3) 07/15/22 20:53 Hgb 16.3 g/dL (11.5-15.3) H 07/15/22 20:53 Hct 48.8 % (37.0-47.0) H 07/15/22 20:53 MCV 96.6 fl (81-99) 07/15/22 20:53 MCH 32.3 pg (28.0-34.0) 07/15/22 20:53 MCHC 33.4 g/dL (30.0-36.0) 07/15/22 20:53 RDW 12.3 % (12.1-15.1) 07/15/22 20:53 Plt Count 224 10^3/cmm (130-400) 07/15/22 20:53 MPV 11.1 fL (7.4-10.4) H 07/15/22 20:53 Neut % (Auto) 50.5 % 07/15/22 20:53 Lymph % (Auto) 35.3 % 07/15/22 20:53 [place] % (Auto) 10.1 % 07/15/22 20:53 Eos % (Auto) 2.8 % 07/15/22 20:53 Baso % (Auto) 1.1 % 07/15/22 20:53 Neut # (Auto) 3.10 10^3/uL (1.8-7.7) 07/15/22 20:53 Lymph # (Auto) 2.2 10^3/uL (0.8-4.8) 07/15/22 20:53 [place] # (Auto) 0.6 10^3/uL (0.2-0.9) 07/15/22 20:53 Eos # (Auto) 0.2 10^3/uL (0.0-0.8) 07/15/22 20:53 Baso # (Auto) 0.1 10^3/uL (0.0-0.1) 07/15/22 20:53 Nucleated RBC % (auto) 0 % 07/15/22 20:53 Nucleated RBCs # 0.0 /100WBC 07/15/22 20:53 Sodium 135 mmol/L (136-145) L 07/15/22 20:53 Potassium 3.2 mmol/L (3.5-5.1) L 07/15/22 20:53 Chloride 99 mmol/L (98-107) 07/15/22 20:53 Carbon Dioxide 24 mmol/L (22-29) 07/15/22 20:53 Anion Gap 15.2 (5-19) 07/15/22 20:53 BUN 20 mg/dL (6-20) 07/15/22 20:53 Creatinine 0.7 mg/dL (0.5-0.9) 07/15/22 20:53 GFR Calculation 87.5 mL/min (90-130) L 07/15/22 20:53 Glucose 150 mg/dL (65-115) H 07/15/22 20:53 Calculated Osmolality 285 mOsm/kg (285-295) 07/15/22 20:53 Calcium 9.5 mg/dL (8.5-10.5) 07/15/22 20:53 Total Bilirubin 0.2 mg/dL (0.15-1.2) 07/15/22 20:53 AST 20 U/L (0-32) 07/15/22 20:53 ALT 9 U/L (0-33) 07/15/22 20:53 Alkaline Phosphatase 132 U/L (35-105) H 07/15/22 20:53 Total Protein 7.0 g/dL (6.6-8.7) 07/15/22 20:53 Albumin 4.2 g/dL (3.5-5.2) 07/15/22 20:53 Globulin 2.8 g/dL (1.3-4.6) 07/15/22 20:53 TSH 2.49 uIU/mL (0.27-4.20) 07/15/22 20:53 Salicylates < 0.3 mg/dL (3-10) L 07/15/22 20:53 Urine Opiates Screen Negative ng/mL (Negative) 07/16/22 00:27 Acetaminophen < 5.0 ug/mL (10-30) L 07/16/22 00:58 Ur Barbiturates Screen Positive ng/mL (Negative) H 07/16/22 00:27 Ur Phencyclidine Scrn Negative ng/mL (Negative) 07/16/22 00:27 Ur Amphetamines Screen Negative ng/mL (Negative) 07/16/22 00:27 U Benzodiazepines Scrn Negative ng/mL (Negative) 07/16/22 00:27 Urine Cocaine Screen Negative ng/mL (Negative) 07/16/22 00:27 U Marijuana (THC) Screen Negative ng/mL (Negative) 07/16/22 00:27 Ethyl Alcohol < 10 mg/dL (0-10) 07/15/22 20:53 SARS-CoV-2 Ag (Rapid) negative (Negative) 07/16/22 12:20 Discharge Plan Discharge Patient Disposition: Admitted As Inpatient Clinical Impression: Intentional overdose, Suicide attempt by multiple drug overdose, Depression, PTSD (post-traumatic stress disorder) Condition: Stable Sign Out Sign Out Data: Patient Sign Out occurred on 07/16/22 at 07:27. Patient's care was discussed, and care was transferred from to Donaldo Kramer DO. Coding Level of Care Code ED Gas Or Petroleum Operator for Chg Fwd Exam Comprehensive Documented by User: Felice Jansen DO 07/16/22 03:55 HPI - Overdose General: Chief Complaint: Overdose Stated Complaint: OD Time Seen by Provider: 07/15/22 20:42 [facility] ED PFS: Medical History Anxiety Bone loss Chronic pain Fibromyalgia Migraine Psychiatric care Surgical History H/O neck surgery H/O shoulder surgery History of back surgery Family History Father No problems noted. Mother COPD (chronic obstructive pulmonary disease) Chronic emphysema syndrome Social History Smoking and tobacco status: current every day smoker Second hand smoke exposure: Yes Alcohol intake: never Adopted: No Caregiver/support person: No Lives independently: Yes Household members: spouse Housing: House Marital status: Number of children: 2 Highest education level completed: Bachelor's Degree service: No Current occupational status: disabled History of recent travel: No Course Vital Signs: Vital signs: Vital Signs Pulse Rate 77 07/17/22 10:30 Respiratory Rate 16 07/17/22 10:30 Blood Pressure 133/81 07/17/22 10:30 Pulse Oximetry 95 07/17/22 10:30 Oxygen Delivery Me thod 07/17/22 10:30 MDM - Overdose Medical Decision Making Potential overdose. The most imminent threat would be the acetaminophen, up to 29.25g total if she really took 90 tabs. N-acetylcysteine will be given empirically for the first dose until Tylenol level comes back. The patient will not give us the time that she took the medication but it has been at least 60 minutes. It is noted that the patient appeared drowsy, had slurred speech, and slow mentation on arrival with small pupils. Naloxone has already been given by EMS. Poison control will be contacted. Labs/ekg/uds pending. UPDATE: Tylenol level 14 (within normal parameters). Timing of ingestion unknown. However, this means it is quite unlikely that she took 90 tabs of fioricet. Will repeat level at 0100 (4 hrs) to be sure. Salicylates neg Alcohol neg UDS pending LFTs normal K, mild low. TSH normal 2:08 AM:52-year-old female checked out to me by the previous physician at shift change. This lady stated that she had taken multiple Fioricet which contains acetaminophen, caffeine, and butalbital. Her 4-hour Tylenol level is nondetectable indicating that she did no such thing. She still is exercising poor judgment. She will require admission to a neuropsychiatric facility. She is quite medically stable. No evidence of coingestions. Potassium was low, but was repleted prior. No beds are available at our facility in the neuropsychiatric unit. We have attempted to call around the state for other facility beds, but as a previous this evening/morning there has not been any availability in the state. 3:54 AM: Still no beds available. Patient will be checked out at shift change to the oncoming physician pending placement either here or somewhere else appropriate. She remains clinically stable. Lab Data 07/15/22 20:53 07/15/22 20:53 Laboratory Results WBC 6.1 10^3/uL (4.0-10.0) 07/15/22 20:53 RBC 5.05 10^6/uL (4.1-5.3) 07/15/22 20:53 Hgb 16.3 g/dL (11.5-15.3) H 07/15/22 20:53 Hct 48.8 % (37.0-47.0) H 07/15/22 20:53 MCV 96.6 fl (81-99) 07/15/22 20:53 MCH 32.3 pg (28.0-34.0) 07/15/22 20:53 MCHC 33.4 g/dL (30.0-36.0) 07/15/22 20:53 RDW 12.3 % (12.1-15.1) 07/15/22 20:53 Plt Count 224 10^3/cmm (130-400) 07/15/22 20:53 MPV 11.1 fL (7.4-10.4) H 07/15/22 20:53 Neut % (Auto) 50.5 % 07/15/22 20:53 Lymph % (Auto) 35.3 % 07/15/22 20:53 [place] % (Auto) 10.1 % 07/15/22 20:53 Eos % (Auto) 2.8 % 07/15/22 20:53 Baso % (Auto) 1.1 % 07/15/22 20:53 Neut # (Auto) 3.10 10^3/uL (1.8-7.7) 07/15/22 20:53 Lymph # (Auto) 2.2 10^3/uL (0.8-4.8) 07/15/22 20:53 [place] # (Auto) 0.6 10^3/uL (0.2-0.9) 07/15/22 20:53 Eos # (Auto) 0.2 10^3/uL (0.0-0.8) 07/15/22 20:53 Baso # (Auto) 0.1 10^3/uL (0.0-0.1) 07/15/22 20:53 Nucleated RBC % (auto) 0 % 07/15/22 20:53 Nucleated RBCs # 0.0 /100WBC 07/15/22 20:53 Sodium 135 mmol/L (136-145) L 07/15/22 20:53 Potassium 3.2 mmol/L (3.5-5.1) L 07/15/22 20:53 Chloride 99 mmol/L (98-107) 07/15/22 20:53 Carbon Dioxide 24 mmol/L (22-29) 07/15/22 20:53 Anion Gap 15.2 (5-19) 07/15/22 20:53 BUN 20 mg/dL (6-20) 07/15/22 20:53 Creatinine 0.7 mg/dL (0.5-0.9) 07/15/22 20:53 GFR Calculation 87.5 mL/min (90-130) L 07/15/22 20:53 Glucose 150 mg/dL (65-115) H 07/15/22 20:53 Calculated Osmolality 285 mOsm/kg (285-295) 07/15/22 20:53 Calcium 9.5 mg/dL (8.5-10.5) 07/15/22 20:53 Total Bilirubin 0.2 mg/dL (0.15-1.2) 07/15/22 20:53 AST 20 U/L (0-32) 07/15/22 20:53 ALT 9 U/L (0-33) 07/15/22 20:53 Alkaline Phosphatase 132 U/L (35-105) H 07/15/22 20:53 Total Protein 7.0 g/dL (6.6-8.7) 07/15/22 20:53 Albumin 4.2 g/dL (3.5-5.2) 07/15/22 20:53 Globulin 2.8 g/dL (1.3-4.6) 07/15/22 20:53 TSH 2.49 uIU/mL (0.27-4.20) 07/15/22 20:53 Salicylates < 0.3 mg/dL (3-10) L 07/15/22 20:53 Urine Opiates Screen Negative ng/mL (Negative) 07/16/22 00:27 Acetaminophen < 5.0 ug/mL (10-30) L 07/16/22 00:58 Ur Barbiturates Screen Positive ng/mL (Negative) H 07/16/22 00:27 Ur Phencyclidine Scrn Negative ng/mL (Negative) 07/16/22 00:27 Ur Amphetamines Screen Negative ng/mL (Negative) 07/16/22 00:27 U Benzodiazepines Scrn Negative ng/mL (Negative) 07/16/22 00:27 Urine Cocaine Screen Negative ng/mL (Negative) 07/16/22 00:27 U Marijuana (THC) Screen Negative ng/mL (Negative) 07/16/22 00:27 Ethyl Alcohol < 10 mg/dL (0-10) 07/15/22 20:53 SARS-CoV-2 Ag (Rapid) negative (Negative) 07/16/22 12:20 Discharge Plan Discharge Patient Disposition: Admitted As Inpatient Clinical Impression: Intentional overdose, Suicide attempt by multiple drug overdose, Depression, PTSD (post-traumatic stress disorder) Condition: Stable Sign Out Sign Out Data: Patient Sign Out occurred on 07/16/22 at 07:27. Patient's care was discussed, and care was transferred from to Donaldo Kramer DO. Coding Level of Care Code ED Gas Or Petroleum Operator for Nasima Fwalma Exam Comprehensive Documented by User: Donaldo Kramer DO 07/17/22 13:12 HPI - Overdose General: Chief Complaint: Overdose Stated Complaint: OD Time Seen by Provider: 07/15/22 20:42 [facility] ED PFSH: Medical History Anxiety Bone loss Chronic pain Fibromyalgia Migraine Psychiatric care Surgical History H/O neck surgery H/O shoulder surgery History of back surgery Family History Father No problems noted. Mother COPD (chronic obstructive pulmonary disease) Chronic emphysema syndrome Social History Smoking and tobacco status: current every day smoker Second hand smoke exposure: Yes Alcohol intake: never Adopted: No Caregiver/support person: No Lives independently: Yes Household members: spouse Housing: House Marital status: Number of children: 2 Highest education level completed: Bachelor's Degree service: No Current occupational status: disabled History of recent travel: No Course Vital Signs: Vital signs: Vital Signs Pulse Rate 77 07/17/22 10:30 Respiratory Rate 16 07/17/22 10:30 Blood Pressure 133/81 07/17/22 10:30 Pulse Oximetry 95 07/17/22 10:30 Oxygen Delivery Me thod 07/17/22 10:30 MDM - Overdose Medical Decision Making Potential overdose. The most imminent threat would be the acetaminophen, up to 29.25g total if she really took 90 tabs. N-acetylcysteine will be given empirically for the first dose until Tylenol level comes back. The patient will not give us the time that she took the medication but it has been at least 60 minutes. It is noted that the patient appeared drowsy, had slurred speech, and slow mentation on arrival with small pupils. Naloxone has already been given by EMS. Poison control will be contacted. Labs/ekg/uds pending. UPDATE: Tylenol level 14 (within normal parameters). Timing of ingestion unknown. However, this means it is quite unlikely that she took 90 tabs of fioricet. Will repeat level at 0100 (4 hrs) to be sure. Salicylates neg Alcohol neg UDS pending LFTs normal K, mild low. TSH normal 2:08 AM:52-year-old female checked out to me by the previous physician at shift change. This lady stated that she had taken multiple Fioricet which contains acetaminophen, caffeine, and butalbital. Her 4-hour Tylenol level is nondetectable indicating that she did no such thing. She still is exercising poor judgment. She will require admission to a neuropsychiatric facility. She is quite medically stable. No evidence of coingestions. Potassium was low, but was repleted prior. No beds are available at our facility in the neuropsychiatric unit. We have attempted to call around the state for other facility beds, but as a previous this evening/morning there has not been any availability in the state. 3:54 AM: Still no beds available. Patient will be checked out at shift change to the oncoming physician pending placement either here or somewhere else appropriate. She remains clinically stable. 07/17/2022. 1312. Bed became available in our MPU unit. I discussed Dr. torres is willing to take the patient she has been well behaved and shows an no sign of toxidrome while in the emergency room. Reviewed findings with Dr. Torres orders written. Medical Records I reviewed the patient's medical records. Lab Data I reviewed the patient's lab results. 07/15/22 20:53 07/15/22 20:53 Laboratory Results WBC 6.1 10^3/uL (4.0-10.0) 07/15/22 20:53 RBC 5.05 10^6/uL (4.1-5.3) 07/15/22 20:53 Hgb 16.3 g/dL (11.5-15.3) H 07/15/22 20:53 Hct 48.8 % (37.0-47.0) H 07/15/22 20:53 MCV 96.6 fl (81-99) 07/15/22 20:53 MCH 32.3 pg (28.0-34.0) 07/15/22 20:53 MCHC 33.4 g/dL (30.0-36.0) 07/15/22 20:53 RDW 12.3 % (12.1-15.1) 07/15/22 20:53 Plt Count 224 10^3/cmm (130-400) 07/15/22 20:53 MPV 11.1 fL (7.4-10.4) H 07/15/22 20:53 Neut % (Auto) 50.5 % 07/15/22 20:53 Lymph % (Auto) 35.3 % 07/15/22 20:53 [place] % (Auto) 10.1 % 07/15/22 20:53 Eos % (Auto) 2.8 % 07/15/22 20:53 Baso % (Auto) 1.1 % 07/15/22 20:53 Neut # (Auto) 3.10 10^3/uL (1.8-7.7) 07/15/22 20:53 Lymph # (Auto) 2.2 10^3/uL (0.8-4.8) 07/15/22 20:53 [place] # (Auto) 0.6 10^3/uL (0.2-0.9) 07/15/22 20:53 Eos # (Auto) 0.2 10^3/uL (0.0-0.8) 07/15/22 20:53 Baso # (Auto) 0.1 10^3/uL (0.0-0.1) 07/15/22 20:53 Nucleated RBC % (auto) 0 % 07/15/22 20:53 Nucleated RBCs # 0.0 /100WBC 07/15/22 20:53 Sodium 135 mmol/L (136-145) L 07/15/22 20:53 Potassium 3.2 mmol/L (3.5-5.1) L 07/15/22 20:53 Chloride 99 mmol/L (98-107) 07/15/22 20:53 Carbon Dioxide 24 mmol/L (22-29) 07/15/22 20:53 Anion Gap 15.2 (5-19) 07/15/22 20:53 BUN 20 mg/dL (6-20) 07/15/22 20:53 Creatinine 0.7 mg/dL (0.5-0.9) 07/15/22 20:53 GFR Calculation 87.5 mL/min (90-130) L 07/15/22 20:53 Glucose 150 mg/dL (65-115) H 07/15/22 20:53 Calculated Osmolality 285 mOsm/kg (285-295) 07/15/22 20:53 Calcium 9.5 mg/dL (8.5-10.5) 07/15/22 20:53 Total Bilirubin 0.2 mg/dL (0.15-1.2) 07/15/22 20:53 AST 20 U/L (0-32) 07/15/22 20:53 ALT 9 U/L (0-33) 07/15/22 20:53 Alkaline Phosphatase 132 U/L (35-105) H 07/15/22 20:53 Total Protein 7.0 g/dL (6.6-8.7) 07/15/22 20:53 Albumin 4.2 g/dL (3.5-5.2) 07/15/22 20:53 Globulin 2.8 g/dL (1.3-4.6) 07/15/22 20:53 TSH 2.49 uIU/mL (0.27-4.20) 07/15/22 20:53 Salicylates < 0.3 mg/dL (3-10) L 07/15/22 20:53 Urine Opiates Screen Negative ng/mL (Negative) 07/16/22 00:27 Acetaminophen < 5.0 ug/mL (10-30) L 07/16/22 00:58 Ur Barbiturates Screen Positive ng/mL (Negative) H 07/16/22 00:27 Ur Phencyclidine Scrn Negative ng/mL (Negative) 07/16/22 00:27 Ur Amphetamines Screen Negative ng/mL (Negative) 07/16/22 00:27 U Benzodiazepines Scrn Negative ng/mL (Negative) 07/16/22 00:27 Urine Cocaine Screen Negative ng/mL (Negative) 07/16/22 00:27 U Marijuana (THC) Screen Negative ng/mL (Negative) 07/16/22 00:27 Ethyl Alcohol < 10 mg/dL (0-10) 07/15/22 20:53 SARS-CoV-2 Ag (Rapid) negative (Negative) 07/16/22 12:20 Discharge Plan Discharge Patient Disposition: Admitted As Inpatient Clinical Impression: Intentional overdose, Suicide attempt by multiple drug overdose, Depression, PTSD (post-traumatic stress disorder) Condition: Stable Sign Out Sign Out Data: Patient Sign Out occurred on 07/16/22 at 07:27. Patient's care was discussed, and care was transferred from to Donaldo Kramer DO. Coding Level of Care Code ED Gas Or Petroleum Operator for Berniceg Fwd Exam Comprehensive
[2022-07-15] MEDS: sodium chloride 0.9% 1,000 ML 999 ML IV (21:10)
[2022-07-15 21:17] VITALS: BP 123/58; PULSE 66; RESP 17; O2SAT 96
--- NOTE | 2022-07-15 21:26 | PC.NURSE ---
Poison controlled contacted for pt tracking purposes
[2022-07-15 21:38] LABS: Acetaminophen 14.6 ug/mL (10-30); Alanine Aminotransferase 9 U/L (0-33); Albumin Level 4.2 g/dL (3.5-5.2); Alcohol Level < 10 mg/dL (0-10); Alkaline Phosphatase 132 U/L (35-105); Anion Gap 15.2 (5-19); Aspartate Amino Transferase 20 U/L (0-32); Blood Urea Nitrogen 20 mg/dL (6-20); Calcium 9.5 mg/dL (8.5-10.5); Carbon Dioxide 24 mmol/L (22-29); Chloride 99 mmol/L (98-107); Creatinine Clr Calc Pharmacy 78.7702; Globulin 2.8 g/dL (1.3-4.6); Glomerular Filtration Rate 87.5 mL/min (90-130); Glucose 150 mg/dL (65-115); Osmolality Calculated 285 mOsm/kg (285-295); Potassium 3.2 mmol/L (3.5-5.1); Salicylate < 0.3 mg/dL (3-10); Sodium 135 mmol/L (136-145); Thyroid Stimulating Hormone 2.49 uIU/mL (0.27-4.20); Total Bilirubin 0.2 mg/dL (0.15-1.2)
[2022-07-15 21:56] LABS: Basophils # 0.1 10^3/uL (0.0-0.1); Basophils % 1.1 %; Eosinophils # 0.2 10^3/uL (0.0-0.8); Eosinophils % 2.8 %; Hematocrit 48.8 % (37.0-47.0); Hemoglobin 16.3 g/dL (11.5-15.3); Lymphocytes # 2.2 10^3/uL (0.8-4.8); Lymphocytes % 35.3 %; Mean Corpuscular HGB Conc 33.4 g/dL (30.0-36.0); Mean Corpuscular Hemoglobin 32.3 pg (28.0-34.0); Mean Corpuscular Volume 96.6 fl (81-99); Mean Platelet Volume 11.1 fL (7.4-10.4); Monocytes # 0.6 10^3/uL (0.2-0.9); Monocytes % 10.1 %; Neutrophils % 50.5 %; Nucleated Red Blood Cells % 0 %; Platelet Count 224 10^3/cmm (130-400); Red Blood Count 5.05 10^6/uL (4.1-5.3); Red Cell Distribution Width 12.3 % (12.1-15.1); White Blood Count 6.1 10^3/uL (4.0-10.0)
[2022-07-15 22:30] VITALS: BP 133/82; PULSE 59; RESP 13; O2SAT 97
[2022-07-15 23:30] VITALS: BP 122/50; PULSE 61; RESP 15; O2SAT 97
[2022-07-16] VITALS (51 sets, daily range): BP systolic 104–149; BP diastolic 59–85; PULSE 69–99; RESP 13–25; O2SAT 91–100
[2022-07-16 01:05] LABS: Amphetamines Screen Urine Negative (Negative); Barbiturates Screen Urine Positive (Negative); Benzodiazepines Screen Urine Negative (Negative); Cocaine Screen Urine Negative (Negative); Opiate Screen Urine Negative (Negative); PCP Screen Urine Negative (Negative); THC Screen Urine Negative (Negative)
[2022-07-16 01:40] LABS: Acetaminophen < 5.0 ug/mL (10-30)
[2022-07-16] MEDS: potassium bicarb 25 mEq Tablet 50 MEQ PO (08:17)
--- NOTE | 2022-07-16 08:25 | PC.NURSE ---
pt sitting in bed, watching TV. Calm and cooperative. Remains in line of sight of sitter
--- NOTE | 2022-07-16 11:56 | PC.PHAR ---
pt states she takes care of her own medications-pt states still taking venlafaxine er 150mg and 37.5mg qayoung-[facility] states last filled 05/07/22 30d/s states has rx on hold from 06/15/22 14d/s-rx written 06/15/22 for quetiapine 100mg hs-ext med history shows 06/25/22 30/s for 100mg bid pt states was changed to 100mg hs-pt states still uses breztri 2p bid ext med history shows last filled 11/02/21 90d/s-notes are made in the pharmacy comments
[2022-07-16 12:46] LABS: SARS Covid-2 Antigen negative (Negative)
--- NOTE | 2022-07-16 19:03 | PC.NURSE ---
report given to ADELINE Lott to assume care
[2022-07-17] VITALS (22 sets, daily range): BP systolic 99–184; BP diastolic 67–100; PULSE 72–88; RESP 16–30; TEMP 36.6; O2SAT 89–99
--- NOTE | 2022-07-17 06:30 | PC.NURSE ---
pt resting in bed at this time. Denies needs. Pt has been calm and cooperative throughout shift. Sitter at bedside.
[2022-07-17] MEDS: venlafaxine 75 mg Tablet 187.5 MG PO (10:05)
[2022-07-17] MEDS: ondansetron 2 mg/ML SDV 2 mL 4 MG IVP (11:02)
--- NOTE | 2022-07-17 13:21 | PC.NURSE ---
report called to ADELINE Coleman on NPU
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
[2022-07-17] MEDS: pregabalin 100 mg Capsule 200 MG PO ×2 (14:34→20:43)
[2022-07-17] MEDS: nicotine 2 mg Gum BUCCAL ×2 (14:58→18:33)
[2022-07-17] MEDS: quetiapine 100 mg Tablet PO (20:43)
[2022-07-18 06:00] VITALS: BP 109/81; PULSE 93; RESP 19; TEMP 36.7; O2SAT 93
[2022-07-18] MEDS: nicotine 2 mg Gum BUCCAL ×7 (06:21→20:26)
[2022-07-18] MEDS: pregabalin 100 mg Capsule 200 MG PO ×3 (09:03→20:26)
[2022-07-18] MEDS: venlafaxine ER (24HR) 75 mg Capsule 225 MG PO (09:03)
[2022-07-18] MEDS: acetaminophen 325 mg Tablet 650 MG PO (11:51)
[2022-07-18 14:00] VITALS: BP 111/73; PULSE 85; RESP 18; TEMP 36.4; O2SAT 96
--- NOTE | 2022-07-18 15:14 | W.PM.NPUPNS ---
Subjective NPU Subjective: Kaylie is a 52-year-old white female admitted with an overdose with a history of PTSD generalized anxiety disorder and major depressive disorder. The patient had continued to minimize any suicidal thoughts at this time. She reports that she had not intended on overdosing but had simply sought to take those medications to manage her pain. Patient did not endorse any PTSD related triggers that had caused her to engage in the behavior that led to her hospitalization. She had reported an extended history of separate depressive episodes in the past that at times had complete remission but reports recurrence had occurred frequently over the last several years. She had reported pain as a significant trigger for her depression. She had been able to attend groups today and appeared to be appropriately engaged in her self-care. She had reported having chronic difficulties with managing her worry. Mental Status Exam MSE Comments: She is a casually dressed white female who appeared somewhat nonchalant in regards to her overdose and her reason for hospitalization. She was friendly and cooperative on interview. Her hygiene was good there was no evidence of any abnormal involuntary motor movements or tics appreciated. Her thought process was linear logical and goal-directed. Her thought content minimized any suicidal ideation and denied any homicidal ideation. She did not appear to be responding to internal stimuli. There was no evidence of any delusional thinking. Her attention was fair. Her concentration was adequate. Her insight is poor. Her judgment is poor. Her impulse control is poor as well. Vitals/I&O/Wt Last Vital Signs Temp 98.1 F 07/18/22 06:00 Pulse 93 07/18/22 06:00 Resp 19 H 07/18/22 06:00 BP 109/81 07/18/22 06:00 Pulse Ox 93 07/18/22 06:00 O2 Del Method 07/17/22 14:04 Data NPU 07/15/22 20:53 07/15/22 20:53 A&P Assessment and plan (1) Major depressive disorder, recurrent: (2) Fibromyalgia: (3) Generalized anxiety disorder: Plan The patient has a 52-year-old white female with depression and anxiety admitted after an overdose on medications with evidence of suicidal intent and continued evidence of worsening depression with poor impulse control and inability to manage her moods. She will continue to require inpatient psychiatric hospitalization. #1. Continue Seroquel 100mg at night and Effexor XR at 225 mg daily. #2. Encourage individual group and milieu therapy. #3. Continue 15-minute med minute checks for safety on the unit. #4. Recommend sober living treatment at the highest level of care to which the patient is willing to commit. Involuntary Hold Information 96 Hour Hold: 96 Hour Involuntary Admission: No Attestations NPU Medical Necessity Statement*: Inpatient hospitalization is medically necessary and clinically appropriate intervention at this time. Continue with medication changes and observation with a likely length of stay 4 to 6 days. 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
[2022-07-18] MEDS: hyDROXYzine 25 mg Capsule 50 MG PO (20:26)
[2022-07-18] MEDS: quetiapine 100 mg Tablet PO (20:26)
[2022-07-18 22:00] VITALS: BP 105/69; PULSE 83; RESP 18; TEMP 37.1; O2SAT 95
[2022-07-19 06:00] VITALS: BP 104/71; PULSE 81; RESP 15; TEMP 36.8; O2SAT 92
[2022-07-19] MEDS: nicotine 2 mg Gum BUCCAL ×6 (06:58→16:45)
[2022-07-19] MEDS: acetaminophen 325 mg Tablet 650 MG PO (06:58)
[2022-07-19] MEDS: venlafaxine ER (24HR) 75 mg Capsule 225 MG PO (08:05)
[2022-07-19] MEDS: pregabalin 100 mg Capsule 200 MG PO ×3 (08:05→19:21)
--- NOTE | 2022-07-19 12:45 | W.PM.NPUPNS ---
Subjective NPU Subjective: Kaylie is a 52-year-old white female admitted with an overdose with a history of PTSD generalized anxiety disorder and major depressive disorder. She had reported continued depressed mood but reported not having thoughts currently of hurting herself. She had reported a seasonal component to her depression stating that the winter months were marked by more severe and more frequent depressive episodes. Patient had reported considerable triggers to her depression including pain. She continued to minimize the significance of her overdose at this time. She reported having frequent flashbacks regarding trauma and reported occasional feelings of hopelessness. She stated occasional use of marijuana. She had been compliant and redirectable on the milieu. Mental Status Exam MSE Comments: She is a casually dressed white female who appeared to minimize the significance of her hospitalization. She was friendly and cooperative on interview. Her hygiene was good there was no evidence of any abnormal involuntary motor movements or tics appreciated. Her thought process was linear logical and goal-directed. Her thought content minimized any suicidal ideation and denied any homicidal ideation. Her thought content was superficial. She did not appear to be responding to internal stimuli. There was no evidence of any delusional thinking. Her attention was fair. Her concentration was adequate. Her insight is poor. Her judgment is poor. Her impulse control is poor as well. Vitals/I&O/Wt Last Vital Signs Temp 98.2 F 07/19/22 06:00 Pulse 81 07/19/22 06:00 Resp 15 07/19/22 06:00 BP 104/71 07/19/22 06:00 Pulse Ox 92 07/19/22 06:00 O2 Del Method 07/19/22 06:00 Data NPU 07/15/22 20:53 07/15/22 20:53 A&P Assessment and plan (1) Major depressive disorder, recurrent: (2) Fibromyalgia: (3) Generalized anxiety disorder: Plan The patient has a 52-year-old white female with depression and anxiety admitted after an overdose on medications with evidence of suicidal intent and continued evidence of worsening depression with poor impulse control and inability to manage her moods. She will continue to require inpatient psychiatric hospitalization. #1. Change to Seroquel XR 150mg at night and continue Effexor XR at 225 mg daily. #2. Encourage individual group and milieu therapy. #3. Continue 15-minute med minute checks for safety on the unit. #4. Recommend sober living treatment at the highest level of care to which the patient is willing to commit. Involuntary Hold Information 96 Hour Hold: 96 Hour Involuntary Admission: No Attestations NPU Medical Necessity Statement*: Inpatient hospitalization is medically necessary and clinically appropriate intervention at this time. Continue with medication changes and observation with a likely length of stay 4 to 6 days. Coding Level of Care Code Established Pt Acute Youth Corrections Officer for g Fwd Patient Type Established History Problem Focused Exam Problem Focused Medical Decision Making Straight Forward Diagnoses Major depressive disorder, recurrent F33.9 Fibromyalgia M79.7 Generalized anxiety disorder F41.1
[2022-07-19] MEDS: OLANZapine 5 mg ODT PO (13:02)
[2022-07-19 14:00] VITALS: BP 109/73; PULSE 77; RESP 18; TEMP 36.7; O2SAT 93
[2022-07-19] MEDS: hyDROXYzine 25 mg Capsule 50 MG PO (19:21)
[2022-07-19] MEDS: quetiapine XR (24HR) 50 mg Tablet 150 MG PO (19:21)
[2022-07-19 19:36] VITALS: BP 109/72; PULSE 96; RESP 16; TEMP 37; O2SAT 91
[2022-07-20] MEDS: nicotine 2 mg Gum BUCCAL ×6 (05:58→19:36)
[2022-07-20 06:00] VITALS: BP 103/71; PULSE 103; RESP 18; TEMP 36.7; O2SAT 90
[2022-07-20] MEDS: acetaminophen 325 mg Tablet 650 MG PO (06:04)
--- NOTE | 2022-07-20 06:30 | PC.NURSE ---
pt o2 running between 88-91%. listened to lung sounds left lower lobe crackles. pt has a wet cough with no results of mucus.
[2022-07-20 08:15] LABS: Influenza A by IFA Negative (Negative); Influenza B by IFA Negative (Negative)
[2022-07-20] MEDS: venlafaxine ER (24HR) 75 mg Capsule 225 MG PO (08:31)
[2022-07-20] MEDS: pregabalin 100 mg Capsule 200 MG PO ×3 (08:31→19:36)
[2022-07-20 09:31] LABS: Adenovirus Not Detected (NOT DETECT); Chlamydia Pneumoniae Not Detected (NOT DETECT); Coronavirus 229E,HKU1,NL63,OC4 Not Detected (NOT DETECT); Human Metapneumovirus Not Detected (NOT DETECT); Human Rhinovirus/Enterovirus Not Detected (NOT DETECT); Influenza A Not Detected (NOT DETECT); Influenza A H1 Not Detected (NOT DETECT); Influenza A H1-2009 Not Detected (NOT DETECT); Influenza A H3 Not Detected (NOT DETECT); Influenza B Not Detected (NOT DETECT); Mycoplasma Pneumoniae Not Detected (NOT DETECT); Parainfluenza Virus Type 1 Detected (NOT DETECT); Parainfluenza Virus Type 2 Not Detected (NOT DETECT); Parainfluenza Virus Type 3 Not Detected (NOT DETECT); Parainfluenza Virus Type 4 Not Detected (NOT DETECT); Respiratory Syncytial Virus A Not Detected (NOT DETECT); Respiratory Syncytial Virus B Not Detected (NOT DETECT); SARS-COV-2 Not Detected (NOT DETECT)
[2022-07-20 09:42] LABS: Parainfluenza Virus Type 1 Detected (NOT DETECT); Parainfluenza Virus Type 2 Not Detected (NOT DETECT); Parainfluenza Virus Type 3 Not Detected (NOT DETECT); Parainfluenza Virus Type 4 Not Detected (NOT DETECT); Results from Genmark
--- NOTE | 2022-07-20 09:58 | XRR_ITS ---
PROCEDURE INFORMATION: Exam: XR Chest Exam date and time: 07/20/2022 10:08 AM Age: 52 years old Clinical indication: Cough and wheezing; Additional info: Cough, wheezing TECHNIQUE: Imaging protocol: Radiologic exam of the chest. Views: 2 views. Total images: 1 COMPARISON: CR XR chest 1V portable [id number] 11/13/2021 4:23 AM FINDINGS: Lungs: Multiple small pulmonary nodules throughout the lungs bilaterally. Findings may represent pneumoconioses or old granulomatous disease (TB, fungal). Nodules appear slightly more numerous than on the prior exam. Density of nodule suggest granulomas but CT could be performed to further evaluate. No acute focal pulmonary opacities are detected. Pleural spaces: Unremarkable. No pleural effusion. No pneumothorax. Heart/Mediastinum: Unremarkable. No cardiomegaly. Bones/joints: Spinal fusion hardware noted. XR/XR chest 2V* [id number] IMPRESSION: 1. Multiple small pulmonary nodules throughout the lungs bilaterally. Findings may represent pneumoconioses or old granulomatous disease (TB, fungal). Nodules appear slightly more numerous than on the prior exam. Density of nodule suggest granulomas but CT could be performed to further evaluate. 2. No acute focal pulmonary opacities are detected.
[2022-07-20] MEDS: guaiFENesin 100 mg/5 mL UDC 10 mL 400 MG PO (10:19)
--- NOTE | 2022-07-20 12:21 | CT_ITS ---
WS: [id number] CT CHEST WITHOUT INTRAVENOUS CONTRAST HISTORY: sob TECHNIQUE: Contiguous 5 mm axial imaging performed on the thorax. Coronal and sagittal reformats are submitted. All CT scans at [facility] use at least one of these dose optimization techniques: automated exposure control; mA and/or kV adjustment per patient size (includes targeted exams where dose is matched to clinical indication); or iterative reconstruction. CONTRAST: None DLP: 247.65 mGy.cm COMPARISON: Chest radiograph 07/20/2022 Lungs and central airway: Lungs are reviewed. There are numerous very small, 2 to 3 mm calcified nodu les throughout both lungs. Some of these nodules are not definitely calcified. There is no mass. No s piculated mass or nodule. Pleura: Normal. No pleural effusion. Heart and pericardium: Normal size heart with no pericardial effusion. Mediastinum and carlitos: No mediastinum or hilar adenopathy. Vessels: Normal size aortic and pulmonary artery. No coronary artery calcifications. Chest wall and lower neck: No soft tissue masses. Upper abdomen: There is a large amount of food in the stomach. Mild atherosclerosis in the aorta. Non obstructing calcifications within each kidney. Osseous structures: No destructive process. CT/CT chest wo con [id number] IMPRESSION: 1. No pneumonia. 2. Nodules described on recent chest radiograph correspond to tiny granulomato us. No mass. No adenopathy.
--- NOTE | 2022-07-20 12:27 | P.HP_ITS ---
Providers/Chief Complaint Admitting Physician: Nicolas Madsen MD Primary Care Provider: Harpal Gross Chief Complaint: OD History of Present Illness Kaylie Edwards is a 52 year old female with a past medical history of COPD, smoker, who presents to [facility] admitted to [facility], who has complaints of shortness of breath, cough, wheezing. She tells me that since she has been here in [facility], she continues to have cough, shortness of breath, wheezing. She has a history of COPD, no fevers, she was parainfluenza positive. No chest pain, no palpitations, hemoptysis, no calf ankle or calf swelling Review of Systems Const: Reports: fever(s), chills, fatigue and malaise Resp: Reports: dyspnea and productive cough GI: Denies: abdominal pain : Denies: dysuria Skin/Breast: Denies: rash Medications/Allergies Home Medications Medication Instructions Recorded Confirmed Last Taken Type albuterol sulfate 90 mcg/actuation 2 puff inhalation QID PRN 10/25/21 07/16/22 Unknown History aerosol inhaler Shortness Of Breath budesonide 160 mcg-glycopyr 9 2 inh inhalation BID 10/25/21 07/16/22 Unknown History mcg-formot 4.8 mcg/actuation HFA inhaler (Breztri Aerosphere) ibuprofen 200 mg tablet 800 - 1,000 mg PO Q6H PRN Pain 10/25/21 07/16/22 Unknown History pregabalin 200 mg capsule 200 mg PO TID #90 caps 12/15/21 07/16/22 Unknown Rx trazodone 50 mg tablet 50 mg PO BEDTIME PRN Sleep #14 tabs 06/15/22 07/16/22 Unknown Rx baclofen 10 mg tablet 10 mg PO TID PRN Pain 07/16/22 07/16/22 Unknown History kcsfgsnzzf-snsszcvocvjvk-fmtiaiis 1 tab PO Q6H PRN Migraine Headache 07/16/22 07/16/22 07/15/22 History 50 mg-325 mg-40 mg tablet quetiapine 100 mg tablet 100 mg PO BEDTIME 07/16/22 07/16/22 Unknown History venlafaxine 150 mg 150 mg PO QAM 07/16/22 07/16/22 Unknown History capsule,extended release 24 hr venlafaxine 37.5 mg 37.5 mg PO QAM 07/16/22 07/16/22 Unknown History capsule,extended release 24 hr Allergies Allergy/AdvReac Type Severity Reaction Status Date / Time amitriptyline [From Elavil] Allergy hallucenate Verified 07/16/22 11:49 Sulfa (Sulfonamide Allergy hives Verified 07/16/22 11:49 Antibiotics) PFSH Acute PFSH: Medical History Anxiety Bone loss Chronic pain Fibromyalgia Migraine Psychiatric care Surgical History H/O neck surgery H/O shoulder surgery History of back surgery Family History Father No problems noted. Mother COPD (chronic obstructive pulmonary disease) Chronic emphysema syndrome Social History Smoking and tobacco status: current every day smoker Second hand smoke exposure: Yes Alcohol intake: never Adopted: No Caregiver/support person: No Lives independently: Yes Household members: spouse Housing: House Marital status: Number of children: 2 Highest education level completed: Bachelor's Degree service: No Current occupational status: disabled History of recent travel: No Vitals/I&O/Wt Last Vital Signs Temp 98.1 F 07/20/22 06:00 Pulse 103 H 07/20/22 06:00 Resp 18 07/20/22 06:00 BP 103/71 07/20/22 06:00 Pulse Ox 90 07/20/22 06:00 O2 Del Method 07/19/22 06:00 Physical Exam Const: COMMON NORMALS: no acute distress and patient oriented x3 HENMT: COMMON NORMALS: normocephalic HEAD & SCALP: normocephalic Resp: COMMON NORMALS: normal respiratory effort, No retractions and No use of accessory muscles AUSCULTATION: wheezes Cardio: COMMON NORMALS: no JVD, regular rate, regular rhythm, S1 normal heart sound present and S2 normal heart sound present RATE: regular rate RHYTHM: regular rhythm HEART SOUNDS: S1 normal heart sound present and S2 normal heart sound present GI: COMMON NORMALS: Normal to inspection, nondistended, normoactive bowel sounds present, Soft to palpation, non-tender, no masses and no bruits PALPATION: Yes Soft to palpation Extremity: COMMON NORMALS: no calf tenderness and no pedal edema Neuro: COMMON NORMALS: patient oriented x3, CN's II-XII intact bilaterally and moves all extremities Psych: COMMON NORMALS: mental status grossly normal Data 07/15/22 20:53 07/15/22 20:53 A&P Assessment and plan (1) COPD exacerbation: Plan COPD exacerbation 1. Multiple small pulmonary nodules throughout the lungs bilaterally. Findings may represent pneumoconioses or old granulomatous disease (TB, fungal). Nodules appear slightly more numerous than on the prior exam. Density of nodule suggest granulomas but CT could be performed to further evaluate. 2. No acute focal pulmonary opacities are detected. Parainfluenza positive Plan -We will do CT of the chest -CBC, CMP Pro-Royce, CRP -Prednisone, nebulizer treatments, budesonide, doxycycline -We will continue to monitor respiratory status -Afebrile not requiring oxygen Attestations Medical Necessity Statement*: Patient requires hospitalization patient requires hospitalization for COPD exacerbation Coding Level of Care Code Acute Carton Machine Operator for Nasima Sheriff Diagnoses COPD exacerbation J44.1
[2022-07-20] MEDS: predniSONE 20 mg Tablet 40 MG PO (12:31)
[2022-07-20] MEDS: hyDROXYzine 25 mg Capsule 50 MG PO ×2 (12:32→19:35)
[2022-07-20] MEDS: doxycycline 100 mg Tablet PO ×2 (12:32→19:35)
[2022-07-20 13:02] LABS: Procalcitonin 0.04 ng/mL (0-0.5)
[2022-07-20 13:11] LABS: Alanine Aminotransferase 38 U/L (0-33); Albumin Level 4.1 g/dL (3.5-5.2); Alkaline Phosphatase 125 U/L (35-105); Aspartate Amino Transferase 43 U/L (0-32); Blood Urea Nitrogen 14 mg/dL (6-20); Calcium 9.4 mg/dL (8.5-10.5); Carbon Dioxide 30 mmol/L (22-29); Chloride 95 mmol/L (98-107); Globulin 3.1 g/dL (1.3-4.6); Glomerular Filtration Rate 104.6 mL/min (90-130); Glucose 69 mg/dL (65-115); Osmolality Calculated 281 mOsm/kg (285-295); Sodium 136 mmol/L (136-145); Total Bilirubin 0.2 mg/dL (0.15-1.2); Total Protein 7.2 g/dL (6.6-8.7)
[2022-07-20 13:22] LABS: Anion Gap 15.4 (5-19); Potassium 4.4 mmol/L (3.5-5.1)
[2022-07-20 13:56] VITALS: BP 114/76; PULSE 87; RESP 16; TEMP 36.8; O2SAT 95
[2022-07-20 14:09] LABS: Basophils % 0.3 %; Eosinophils % 0.6 %; Hematocrit 50.7 % (37.0-47.0); Hemoglobin 16.6 g/dL (11.5-15.3); Lymphocytes # 2.7 10^3/uL (0.8-4.8); Lymphocytes % 41.5 %; Mean Corpuscular HGB Conc 32.7 g/dL (30.0-36.0); Mean Corpuscular Hemoglobin 31.8 pg (28.0-34.0); Mean Corpuscular Volume 97.1 fl (81-99); Mean Platelet Volume 12.7 fL (7.4-10.4); Monocytes # 0.4 10^3/uL (0.2-0.9); Monocytes % 6.2 %; Neutrophils # 3.31 10^3/uL (1.8-7.7); Neutrophils % 51.2 %; Nucleated Red Blood Cells % 0 %; Platelet Count 115 10^3/cmm (130-400); Red Blood Count 5.22 10^6/uL (4.1-5.3); White Blood Count 6.5 10^3/uL (4.0-10.0)
--- NOTE | 2022-07-20 15:12 | W.PM.NPUPNS ---
Subjective NPU Subjective: Kaylie is a 52-year-old white female admitted with an overdose with a history of PTSD generalized anxiety disorder and major depressive disorder. The patient had reported less frequent feelings of intense sadness. She had reported feeling somewhat sick today and had complained of a cough that she had recently developed. She reported low motivation and low energy but stated that she felt more optimistic with the medication change. She had continue to report some pain issues but stated that she was trying to work through it through distraction. She reported having spoken with her without incident. She continued to minimize the significance of her overdose and stated that she did not intend on hurting herself but was simply trying to manage pain. Mental Status Exam MSE Comments: She is a casually dressed white female who appeared to minimize the significance of her hospitalization. She was friendly and cooperative on interview. Her hygiene was good there was no evidence of any abnormal involuntary motor movements or tics appreciated. Her mood was described as okay. Her affect remained somewhat restricted in range. Her thought process was linear logical and goal-directed. Her thought content minimized any suicidal ideation and denied any homicidal ideation. Her thought content was superficial. She did not appear to be responding to internal stimuli. There was no evidence of any delusional thinking. Her attention was fair. Her concentration was adequate. Her insight is poor. Her judgment is poor. Her impulse control is poor as well. Vitals/I&O/Wt Last Vital Signs Temp 98.2 F 07/20/22 13:56 Pulse 87 07/20/22 13:56 Resp 16 07/20/22 13:56 BP 114/76 07/20/22 13:56 Pulse Ox 95 07/20/22 13:56 O2 Del Method 07/20/22 13:56 Data NPU 07/20/22 12:25 07/20/22 12:25 A&P Assessment and plan (1) Major depressive disorder, recurrent: (2) Fibromyalgia: (3) Generalized anxiety disorder: Plan The patient has a 52-year-old white female with depression and anxiety admitted after an overdose on medications with evidence of suicidal intent and continued evidence of worsening depression with poor impulse control and inability to manage her moods. She will continue to require inpatient psychiatric hospitalization. #1. Continue Seroquel XR 150mg at night and continue Effexor XR at 225 mg daily. #2. Encourage individual group and milieu therapy. #3. Continue 15-minute med minute checks for safety on the unit. #4. Recommend sober living treatment at the highest level of care to which the patient is willing to commit. #5. CXR completed, appreciate help from Medical team regarding current respiratory infection. Involuntary Hold Information 96 Hour Hold: 96 Hour Involuntary Admission: No Attestations NPU Medical Necessity Statement*: Inpatient hospitalization is medically necessary and clinically appropriate intervention at this time. Continue with medication changes and observation with a likely length of stay 3 to 5 days. Coding Level of Care Code Established Pt Acute Accredited Legal Secretary for Chg Fwd Patient Type Established History Problem Focused Exam Problem Focused Medical Decision Making Straight Forward Diagnoses Major depressive disorder, recurrent F33.9 Fibromyalgia M79.7 Generalized anxiety disorder F41.1
[2022-07-20 16:59] VITALS: PULSE 80; RESP 18; O2SAT 91
[2022-07-20] MEDS: ipratropium-albuterol 3 mL Neb INHALATION ×2 (16:59→22:12)
[2022-07-20 17:05] VITALS: PULSE 78
[2022-07-20] MEDS: OLANZapine 5 mg ODT PO (17:50)
[2022-07-20] MEDS: quetiapine XR (24HR) 50 mg Tablet 150 MG PO (19:35)
[2022-07-20 20:28] VITALS: BP 103/68; PULSE 85; RESP 17; TEMP 37; O2SAT 92
[2022-07-20 21:00] VITALS: PULSE 70; RESP 16; O2SAT 97
[2022-07-20] MEDS: budesonide 0.5 mg/2 mL Neb INHALATION (22:12)
[2022-07-21 06:00] VITALS: BP 92/60; PULSE 83; RESP 18; TEMP 36.4; O2SAT 94
[2022-07-21] MEDS: nicotine 2 mg Gum BUCCAL ×7 (06:22→19:56)
[2022-07-21] MEDS: budesonide 0.5 mg/2 mL Neb INHALATION (07:47)
[2022-07-21 07:48] VITALS: PULSE 74; RESP 16; O2SAT 96
[2022-07-21] MEDS: ipratropium-albuterol 3 mL Neb INHALATION ×3 (07:48→16:13)
[2022-07-21] MEDS: predniSONE 20 mg Tablet 40 MG PO (08:14)
[2022-07-21] MEDS: pregabalin 100 mg Capsule 200 MG PO ×3 (08:14→19:55)
[2022-07-21] MEDS: venlafaxine ER (24HR) 75 mg Capsule 225 MG PO (08:14)
[2022-07-21] MEDS: OLANZapine 5 mg ODT PO (10:36)
[2022-07-21 11:47] VITALS: PULSE 73; RESP 16; O2SAT 94
--- NOTE | 2022-07-21 11:47 | W.PM.NPUPNS ---
Subjective NPU Subjective: Kaylie is a 52-year-old white female admitted with an overdose with a history of PTSD, generalized anxiety disorder, and major depressive disorder. The patient reports improved mood. She reported no difficulties with sleep. She had reported that she had spoken with her and stated that she would be able to continue her medications. She had not reported any side effects from her increase in Effexor. She was informed of potential problems with immediate discontinuation of Effexor with withdrawal symptoms as a possibility. She reports that she continues at times to struggle with managing pain but states that she has no interest in consideration of opiates but would consider medical consultation for managing her pain. Patient has been cooperative on the milieu and reported having no suicidal thoughts today. Mental Status Exam MSE Comments: She is a casually dressed white female who appeared to minimize the significance of her hospitalization. She was friendly and cooperative on interview. Her hygiene was fair. There was no evidence of any abnormal involuntary motor movements or tics appreciated. Her mood was described as good. Her affect remained brighter. Her thought process was linear logical and goal-directed. Her thought content minimized any suicidal ideation and denied any homicidal ideation. Her thought content was superficial. She did not appear to be responding to internal stimuli. There was no evidence of any delusional thinking. Her attention was fair. Her concentration was adequate. Her insight is poor. Her judgment is poor. Her impulse control is poor as well. Vitals/I&O/Wt Last Vital Signs Temp 97.6 F 07/21/22 06:00 Pulse 74 07/21/22 07:48 Resp 16 07/21/22 07:48 BP 92/60 07/21/22 06:00 Pulse Ox 96 07/21/22 07:48 O2 Del Method 07/21/22 07:48 O2 Flow Rate 0 07/21/22 08:00 Data NPU 07/20/22 12:25 07/20/22 12:25 A&P Assessment and plan (1) Major depressive disorder, recurrent: (2) Fibromyalgia: (3) Generalized anxiety disorder: Plan The patient has a 52-year-old white female with depression and anxiety admitted after an overdose on medications with evidence of suicidal intent and continued evidence of worsening depression with poor impulse control and inability to manage her moods. She will continue to require inpatient psychiatric hospitalization. #1. Continue Seroquel XR 150mg at night and continue Effexor XR at 225 mg daily. #2. Encourage individual group and milieu therapy. #3. Continue 15-minute med minute checks for safety on the unit. #4. Recommend sober living treatment at the highest level of care to which the patient is willing to commit. #5. CXR completed, appreciate help from Medical team regarding current respiratory infection. Involuntary Hold Information 96 Hour Hold: 96 Hour Involuntary Admission: No Attestations NPU Medical Necessity Statement*: Inpatient hospitalization is medically necessary and clinically appropriate intervention at this time. Continue with medication changes and observation with a likely length of stay 1-3 days. Coding Level of Care Code Established Pt Acute Security Auditor for Nasima Sheriff Patient Type Established History Problem Focused Exam Problem Focused Medical Decision Making Straight Forward Diagnoses Major depressive disorder, recurrent F33.9 Fibromyalgia M79.7 Generalized anxiety disorder F41.1
[2022-07-21] MEDS: doxycycline 100 mg Tablet PO (12:59)
[2022-07-21 14:00] VITALS: BP 116/76; PULSE 91; RESP 17; TEMP 36.4; O2SAT 90
[2022-07-21] MEDS: hyDROXYzine 25 mg Capsule 50 MG PO ×2 (14:36→19:56)
--- NOTE | 2022-07-21 15:56 | PM.PN ---
Subjective Subjective: States that her breathing is improving today. CT of her chest without any consolidation. Perhaps old granulomatous disease, no acute events ongoing. Wheezing is better to auscultation today. Medications: Reviewed: Yes Vitals/I&O/Wt Last Vital Signs Temp 97.5 F L 07/21/22 14:00 Pulse 91 07/21/22 14:00 Resp 17 07/21/22 14:00 BP 116/76 07/21/22 14:00 Pulse Ox 90 07/21/22 14:00 O2 Del Method 07/21/22 11:47 O2 Flow Rate 0 07/21/22 08:00 Physical Exam Narrative: General: No acute distress, AO x3 HEENT: PERRLA, pupils bilaterally equal and reactive, pallors not present Chest: Normal vesicular breath sounds, no added sounds, equal good air entry bilaterally CVS: S1-S2 regular, no murmurs, no tachycardia, no gallops, no rubs Abdomen: Soft, nontender, no organomegaly, bowel sounds present Neuro: No focal deficits, no facial deformity, AO x3, power 5/5 in all limbs Data 07/20/22 12:25 07/20/22 12:25 A&P Assessment and plan (1) COPD exacerbation: (2) Parainfluenza infection: (3) Parainfluenza virus bronchitis: Plan COPD exacerbation likely as a result of acute viral illness with parainfluenza. CT chest without any gross consolidation or pneumonitis. No acute issues. Continue inhalation with budesonide 0.5 mg twice daily, DuoNeb inhalation 4 times a day. Discontinue doxycycline as no evidence of acute bacterial infection. Continue prednisone 40 mg daily for a short 5-day course. States that her breathing is improved today. No gross wheezing on auscultation noted today. She is saturating 94 to 97% on room air. Will order her a nebulizer for home use as patient has only been using inhalers on and off at home. She has used nebulizers in times of COPD flares in the past, however currently she is living of the grade therefore has not been using her nebulizer. She is requesting a battery-operated nebulizer. We will put in a request for DME, preferentially battery-operated if not available should be okay using and electrically operated nebulizer. Recommend home O2 evaluation prior to discharge to a certain any additional need for supplemental O2. Attestations Medical Necessity Statement*: per admitting Coding Level of Care Code Acute Attending Radiologist for g Fwd Diagnoses COPD exacerbation J44.1 Parainfluenza infection B34.8 Parainfluenza virus bronchitis J20.4
[2022-07-21 16:14] VITALS: PULSE 68; RESP 16; O2SAT 94
[2022-07-21] MEDS: quetiapine XR (24HR) 50 mg Tablet 150 MG PO (19:55)
[2022-07-21 20:38] VITALS: BP 119/79; PULSE 82; RESP 18; TEMP 36.4; O2SAT 91
[2022-07-22] VITALS (9 sets, daily range): BP systolic 104–129; BP diastolic 68–78; PULSE 76–102; RESP 16–18; TEMP -13.3–36.7; O2SAT 87–94
[2022-07-22] MEDS: nicotine 2 mg Gum BUCCAL ×7 (06:19→19:01)
[2022-07-22] MEDS: pregabalin 100 mg Capsule 200 MG PO ×3 (08:24→20:21)
[2022-07-22] MEDS: predniSONE 20 mg Tablet 40 MG PO (08:24)
[2022-07-22] MEDS: venlafaxine ER (24HR) 75 mg Capsule 225 MG PO (08:24)
[2022-07-22] MEDS: budesonide 0.5 mg/2 mL Neb INHALATION ×2 (08:58→19:55)
[2022-07-22] MEDS: ipratropium-albuterol 3 mL Neb INHALATION ×4 (08:58→19:55)
[2022-07-22] MEDS: OLANZapine 5 mg ODT PO (13:01)
[2022-07-22] MEDS: hyDROXYzine 25 mg Capsule 50 MG PO ×2 (14:10→20:21)
[2022-07-22] MEDS: calcium carbonate 500 mg Chew Tablet 1000 MG PO (16:26)
--- NOTE | 2022-07-22 17:29 | P.NPUPN_ITS ---
Subjective NPU Subjective: Kaylie is a 52-year-old white female admitted with an overdose with a history of PTSD, generalized anxiety disorder, and major depressive disorder. The patient had reported adequate sleep and reported no side effects from her Effexor. She reported improved mood. She states that she has not had any side effects from her sleep medication as well. She had endorsed a history of stress that had often led her to take excessive amounts of medication. She had expressed concern that she may hurt herself by taking too many medications and stated that she continues to need observation or support at home to help her better manage her mood. Mental Status Exam MSE Comments: She is a casually dressed white female who appeared in no acute distress. She was friendly and cooperative on interview. Her hygiene was fair. There was no evidence of any abnormal involuntary motor movements or tics appreciated. Her mood was described as better. Her affect remained brighter. Her thought process was linear logical and goal-directed. Her thought content minimized any suicidal ideation and denied any homicidal ideation. Her thought content was linear and logical. She did not appear to be responding to internal stimuli. There was no evidence of any delusional thinking. Her attention was fair. Her concentration was adequate. Her insight is poor. Her judgment is improving. Her impulse control also appears to be improving. Vitals/I&O/Wt Last Vital Signs Temp 8.1 F L 07/22/22 14:00 Pulse 89 07/22/22 15:27 Resp 16 07/22/22 15:27 BP 116/68 07/22/22 14:00 Pulse Ox 92 07/22/22 15:27 O2 Del Method 07/22/22 15:27 O2 Flow Rate 0 07/22/22 08:00 Weight last 48 hrs Weight 59.988 kg Data NPU 07/20/22 12:25 07/20/22 12:25 A&P Assessment and plan (1) Major depressive disorder, recurrent: (2) Fibromyalgia: (3) Generalized anxiety disorder: Plan The patient has a 52-year-old white female with depression and anxiety admitted after an overdose on medications with evidence of suicidal intent and continued evidence of worsening depression with poor impulse control and inability to manage her moods. She will continue to require inpatient psychiatric hospitalization. #1. Continue Seroquel XR 150mg at night and continue Effexor XR at 225 mg daily. #2. Encourage individual group and milieu therapy. #3. Continue 15-minute med minute checks for safety on the unit. #4. Recommend sober living treatment at the highest level of care to which the patient is willing to commit. #5. CXR completed, appreciate help from Medical team regarding current respiratory infection. Involuntary Hold Information 96 Hour Hold: 96 Hour Involuntary Admission: No Attestations NPU Medical Necessity Statement*: Inpatient hospitalization is medically necessary and clinically appropriate intervention at this time. Continue with medication changes and observation with a likely length of stay 1-3 days.-likely discharge tommorow. Coding Level of Care Code Established Pt Acute Music Minister for Berniceg Fwd Patient Type Established History Problem Focused Exam Problem Focused Medical Decision Making Straight Forward Diagnoses Major depressive disorder, recurrent F33.9 Fibromyalgia M79.7 Generalized anxiety disorder F41.1
[2022-07-22] MEDS: quetiapine XR (24HR) 50 mg Tablet 150 MG PO (20:21)
[2022-07-23 06:00] VITALS: BP 97/57; PULSE 83; RESP 14; TEMP 36.4; O2SAT 91
[2022-07-23] MEDS: nicotine 2 mg Gum BUCCAL ×4 (06:06→13:19)
[2022-07-23] MEDS: hyDROXYzine 25 mg Capsule 50 MG PO (08:21)
[2022-07-23] MEDS: predniSONE 20 mg Tablet 40 MG PO (08:21)
[2022-07-23] MEDS: venlafaxine ER (24HR) 75 mg Capsule 225 MG PO (08:22)
[2022-07-23] MEDS: pregabalin 100 mg Capsule 200 MG PO (08:22)
[2022-07-23] MEDS: budesonide 0.5 mg/2 mL Neb INHALATION (08:30)
[2022-07-23] MEDS: ipratropium-albuterol 3 mL Neb INHALATION ×2 (08:30→12:04)
[2022-07-23 08:32] VITALS: PULSE 87; RESP 19; O2SAT 91
[2022-07-23 08:40] VITALS: PULSE 84
--- NOTE | 2022-07-23 10:00 | DCPLANNER ---
IMM completed on 07/23/22 @ 8503. Pt stated she understood her rights and was given a copy of rights.
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
[2022-07-23 12:05] VITALS: PULSE 81; RESP 18; O2SAT 95
[2022-07-23 12:42] VITALS: PULSE 81; RESP 18; O2SAT 95
[2022-07-23] MEDS: calcium carbonate 500 mg Chew Tablet 1000 MG PO (13:15)
== END 2022-07-23 13:53 | disposition home or self-care (01) | DRG 918 ==
LOC: ER 07-17 12:31 → NP 07-17 13:16
PROVIDERS: Emergency Medicine; Family Medicine; Psychiatry & Neurology Psychiatry; Admitting Provider Psychiatry & Neurology Psychiatry; Emergency Provider Family Medicine; PCP Family Medicine; Visit Provider Psychiatry & Neurology Psychiatry
DX: T50.992A Poisoning by other drugs, medicaments and biological substances, intentional self-harm, initial encounter (principal); F33.9 Major depressive disorder, recurrent, unspecified; J44.1 Chronic obstructive pulmonary disease with (acute) exacerbation; J44.0 Chronic obstructive pulmonary disease with (acute) lower respiratory infection; M79.7 Fibromyalgia; F41.1 Generalized anxiety disorder; J20.4 Acute bronchitis due to parainfluenza virus; F17.200 Nicotine dependence, unspecified, uncomplicated
CPT/HCPCS: 36415; 51701; 71046; 71250; 80053; 80306; 80307; 84145; 84443; 85025; 86140; 87426; 87631; 87635; 87804; 93005; 94640; 94760; 97150; 97165; 99285; J0132; J2405; J7030; J7060; J7512; J7626

== ENCOUNTER 2022-07-27 18:35 | Inpatient (IN) | payer MEDICARE, SELFPAY ==
[2022-07-27 18:39] VITALS: BP 127/67; PULSE 106; RESP 14; TEMP 36.6; O2SAT 92; BMI 21.4
--- NOTE | 2022-07-27 19:09 | XRR_ITS ---
PROCEDURE INFORMATION: Exam: XR Chest Exam date and time: 07/27/2022 7:18 PM Age: 52 years old Clinical indication: Cough and shortness of breath; Additional info: Cough SOB TECHNIQUE: Imaging protocol: Radiologic exam of the chest. Views: 1 view. COMPARISON: CT chest con [id number] 07/20/2022 12:51 PM FINDINGS: Lungs: There are scattered tiny calcified pulmonary nodules corresponding to the findings on chest CT. There are large lung volumes consistent emphysema. There is no consolidation. Pleural spaces: There is no pleural effusion or pneumothorax. Heart/Mediastinum: Cardiomediastinal contours are unremarkable. Bones/joints: Bones are unremarkable. XR/XR chest 1V portable [id number] IMPRESSION: No acute findings.
--- NOTE | 2022-07-27 19:38 | ED.C_ITS ---
HPI - Psych General: Chief Complaint: Pediatric General Medical Stated Complaint: SI Time Seen by Provider: 07/27/22 18:45 Source: patient History of Present Illness: 52-year-old female who was recently discharged from the neuropsychiatric unit at this facility. She returns to the emergency department stating that she is still having problems, and is feeling like harming her self. She believes she would cut her wrist this time. She has had attempts in the past evidently, and has a significant history. She also states that she was diagnosed with the flu here, and has been on antibiotics and steroids, and is still having some coughing and wheezing. No fever. MD complaint: suicidal ideation and feels depressed Onset (ago): day(s) Duration: constant History of same: Yes Relieving factors: none Exacerbating factors: none Context: significant life stressor and other Associated psychiatric symptoms: depression Associated symptoms: Reports depression and suicidal ideation; Deny auditory hallucinations, visual hallucinations or homicidal ideation Treatments prior to arrival: none If self harm: admits thoughts of self harm Review of Systems Const: Denies: fever(s) or chills Eyes: Denies: change in vision ENMT: Denies: throat pain Card: Denies: chest pain Resp: Reports: dyspnea, non-productive cough and wheezing GI: Denies: abdominal pain, nausea or vomiting : Denies: flank pain Musc: Denies: neck pain Skin/Breast: Denies: rash Neuro: Denies: headache(s) Psych: Reports: depression and suicidal ideation; Denies: visual hallucinations, auditory hallucinations or homicidal ideation [facility] ED PFSH: Medical History Anxiety Bone loss Chronic pain Fibromyalgia Migraine Psychiatric care Surgical History H/O neck surgery H/O shoulder surgery History of back surgery Family History Father No problems noted. Mother COPD (chronic obstructive pulmonary disease) Chronic emphysema syndrome Social History Smoking and tobacco status: current every day smoker Second hand smoke exposure: Yes Alcohol intake: never Adopted: No Caregiver/support person: No Lives independently: Yes Household members: spouse Housing: House Marital status: Number of children: 2 Highest education level completed: Bachelor's Degree service: No Current occupational status: disabled History of recent travel: No Physical Exam Const: COMMON NORMALS: no acute distress GENERAL APPEARANCE: cooperative HENMT: COMMON NORMALS: normocephalic, atraumatic and Normal external nose present HEAD & SCALP: normocephalic and atraumatic FACE & SINUS: normal facial exam and face symmetric NOSE: Normal external nose present Eye: COMMON NORMALS: Equal, round and reactive pupils present and EOMs intact bilaterally PUPIL: Yes Equal, round and reactive pupils present Neck/C-Spine: GENERAL: Yes trachea midline Chest: CHEST: Yes Symmetrical chest wall rise Resp: COMMON NORMALS: normal respiratory effort, No retractions, No use of accessory muscles and clear to auscultation bilaterally AUSCULTATION: clear to auscultation bilaterally Cardio: COMMON NORMALS: regular rate and regular rhythm RATE: regular rate RHYTHM: regular rhythm GI: COMMON NORMALS: Normal to inspection, nondistended, normoactive bowel sounds present Extremity: COMMON NORMALS: no pedal edema Neuro: GAIL COMA SCALE: document GCS findings [place] coma scale eye opening: Spontaneous [place] coma scale verbal response: Orientated [place] coma scale motor response: Obey commands [place] coma scale total score: 15 SENSORY EXAM: Yes extremities (intact) Psych: COMMON NORMALS: speech normal SPEECH: Yes normal speech Skin: COMMON NORMALS: no rashes or lesions noted GENERAL SKIN EXAM: no rashes or lesions noted Course Vital Signs: Vital signs: Vital Signs Temperature 97.8 F 07/27/22 18:39 Pulse Rate 106 H 07/27/22 18:39 Respiratory Rate 14 07/27/22 18:39 Blood Pressure 127/67 07/27/22 18:39 Pulse Oximetry 92 07/27/22 18:39 Oxygen Delivery Me thod 07/27/22 18:39 MDM - Psych Medical Decision Making 52-year-old female here with suicidal ideation. She had recent psychiatric admission. She is medically quite stable. She is not hypoxic. She was given a breathing treatment here with some improvement in her wheezing White blood cell count is 12.3. Hemoglobin 15. Urine drug screen is positive for barbiturates which she is prescribed. Leukocyte Estrace is negative on her urine. CMP is not remarkable. We have a call out to psychiatry. Spoke with psychiatry. They are willing to admit. Orders are written. We will continue DuoNeb treatments on as-needed basis Lab Data 07/27/22 19:07/27/22: Radiology Impressions Chest X-Ray 07/27/22 19:09 IMPRESSION: No acute findings. Laboratory Results WBC 12.3 10^3/uL (4.0-10.0) H 07/27/22: RBC 4.14 10^6/uL (4.1-5.3) 07/27/22: Hgb 15.5 g/dL (11.5-15.3) H 07/27/22: Hct 41.7 % (37.0-47.0) 07/27/22: MCV 100.7 fl (81-99) H 07/27/22: MCH 37.4 pg (28.0-34.0) H 07/27/22: MCHC 37.2 g/dL (30.0-36.0) H 07/27/22: RDW 13.8 % (12.1-15.1) 07/27/22: Plt Count 274 10^3/cmm (130-400) 07/27/22: MPV 11.5 fL (7.4-10.4) H 07/27/22: Neut % (Auto) 53.1 % 07/27/22: Lymph % (Auto) 36.6 % 07/27/22: [place] % (Auto) 8.2 % 07/27/22: Eos % (Auto) 1.5 % 07/27/22: Baso % (Auto) 0.3 % 07/27/22: Neut # (Auto) 6.53 10^3/uL (1.8-7.7) 07/27/22 Lymph # (Auto) 4.5 10^3/uL (0.8-4.8) 07/27/22: [place] # (Auto) 1.0 10^3/uL (0.2-0.9) H 07/27/22: Eos # (Auto) 0.2 10^3/uL (0.0-0.8) 07/27/22 19:27 Baso # (Auto) 0.0 10^3/uL (0.0-0.1) 07/27/22 19: Nucleated RBC % (auto) 0 % 07/27/22 19: Nucleated RBCs # 0.0 /100WBC 07/27/22 19:27 Sodium 138 mmol/L (136-145) 07/27/22 19: Potassium 4.4 mmol/L (3.5-5.1) 07/27/22 19: Chloride 100 mmol/L (98-107) 07/27/22 19: Carbon Dioxide 26 mmol/L (22-29) 07/27/22: Anion Gap 16.4 (5-19) 07/27/22 19: BUN 17 mg/dL (6-20) 07/27/22 19: Creatinine 0.5 mg/dL (0.5-0.9) 07/27/22: GFR Calculation 129.1 mL/min (90-130) 07/27/22 19: Glucose 134 mg/dL (65-115) H 07/27/22 19: Calculated Osmolality 290 mOsm/kg (285-295) 07/27/22: Calcium 9.6 mg/dL (8.5-10.5) 07/27/22 19: Total Bilirubin 0.2 mg/dL (0.15-1.2) 07/27/22 19: AST 15 U/L (0-32) 07/27/22: ALT 18 U/L (0-33) 07/27/22 19: Alkaline Phosphatase 158 U/L (35-105) H 07/27/22 19:27 Total Protein 7.4 g/dL (6.6-8.7) 07/27/22 19: Albumin 3.6 g/dL (3.5-5.2) 07/27/22 19: Globulin 3.8 g/dL (1.3-4.6) 07/27/22 19:27 HCG, Qual Negative (Negative) 07/27/22 19:15 Urine Color Yellow (Yellow) 07/27/22 19:15 Urine Appearance Clear (CLEAR) 07/27/22 19:15 Urine pH 7 (5-7) 07/27/22 19:15 Ur Specific [place] 1.005 (1.005-1.030) 07/27/22 19:15 Urine Protein Neg (Negative) 07/27/22 19:15 Urine Glucose (UA) Norm (Normal) 07/27/22 19:15 Urine Ketones Negative (Negative) 07/27/22 19:15 Urine Blood 2+ (Negative) H 07/27/22 19:15 Urine Nitrate Negative (Negative) 07/27/22 19:15 Urine Bilirubin Neg (Negative) 07/27/22 19:15 Urine Urobilinogen Norm mg/dL (Negative) 07/27/22 19:15 Ur Leukocyte Esterase Negative (Negative) 07/27/22 19:15 Urine RBC 0-4 /hpf (0-2) H 07/27/22 19:15 Urine WBC 10-15 /hpf (0-5) H 07/27/22 19:15 Ur Squamous Epith Cells 5-10 /hpf (0-5) H 07/27/22 19:15 Amorphous Sediment Trace /hpf 07/27/22 19:15 Urine Bacteria None /hpf (NONE) 07/27/22 19:15 Salicylates < 0.3 mg/dL (3-10) L 07/27/22 19:27 Urine Opiates Screen Negative ng/mL (Negative) 07/27/22 19:15 Acetaminophen < 5.0 ug/mL (10-30) L 07/27/22 19:27 Ur Barbiturates Screen Positive ng/mL (Negative) H 07/27/22 19:15 Ur Phencyclidine Scrn Negative ng/mL (Negative) 07/27/22 19:15 Ur Amphetamines Screen Negative ng/mL (Negative) 07/27/22 19:15 U Benzodiazepines Scrn Negative ng/mL (Negative) 07/27/22 19:15 Urine Cocaine Screen Negative ng/mL (Negative) 07/27/22 19:15 U Marijuana (THC) Screen Negative ng/mL (Negative) 07/27/22 19:15 Ethyl Alcohol < 10 mg/dL (0-10) 07/27/22 19:27 Discharge Plan Discharge Patient Disposition: Admitted As Inpatient Clinical Impression: Major depressive disorder, recurrent, Suicidal ideation Condition: Stable Prescriptions: No Action pregabalin 200 mg capsule 200 mg PO TID Qty: 90 0RF ibuprofen 200 mg Tablet 800 - 1,000 mg PO Q6H PRN (Reason: Pain) albuterol sulfate 90 mcg/actuation HFA aerosol inhaler 2 puff INHALATION QID PRN (Reason: Shortness Of Breath) Breztri Aerosphere 160-9-4.8 mcg/actuation Hfa Aerosol Inhaler 2 inh INHALATION BID baclofen 10 mg tablet 10 mg PO TID PRN (Reason: Pain) gvdmlgkqsf-ksfkengrlimoq-kqpm 50-325-40 mg tablet 1 tab PO Q6H MDD 4 tabs PRN (Reason: Migraine Headache) venlafaxine 75 mg Capsule,Extended Release 24hr 225 mg PO DAILY 30 Days Qty: 90 1RF quetiapine 50 mg Tablet Extended Release 24 Hr 150 mg PO BEDTIME 30 Days Qty: 90 1RF Ventolin HFA 90 mcg/actuation Hfa Aerosol Inhaler 1 puff inhalation Q4H PRN (Reason: wheezing) Qty: 6.7 1RF budesonide 0.5 mg/2 mL Suspension For Nebulization 0.5 mg inhalation BID.RESPIRATORY 7 Days Qty: 28 0RF pregabalin 100 mg Capsule 200 mg PO TID 30 Days Qty: 90 1RF Referrals: Harpal Gross [Primary Care Provider] - Patient Instructions: Opioid Safety, Pain Management Coding Level of Care Code ED Wrapper Selector for Berniceg Fwd Exam Comprehensive
[2022-07-27 19:42] LABS: Basophils % 0.3 %; Eosinophils # 0.2 10^3/uL (0.0-0.8); Eosinophils % 1.5 %; Hematocrit 41.7 % (37.0-47.0); Hemoglobin 15.5 g/dL (11.5-15.3); Lymphocytes # 4.5 10^3/uL (0.8-4.8); Lymphocytes % 36.6 %; Mean Corpuscular HGB Conc 37.2 g/dL (30.0-36.0); Mean Corpuscular Hemoglobin 37.4 pg (28.0-34.0); Mean Corpuscular Volume 100.7 fl (81-99); Mean Platelet Volume 11.5 fL (7.4-10.4); Monocytes % 8.2 %; Neutrophils # 6.53 10^3/uL (1.8-7.7); Neutrophils % 53.1 %; Nucleated Red Blood Cells % 0 %; Platelet Count 274 10^3/cmm (130-400); Red Blood Count 4.14 10^6/uL (4.1-5.3); Red Cell Distribution Width 13.8 % (12.1-15.1); White Blood Count 12.3 10^3/uL (4.0-10.0)
[2022-07-27 19:45] LABS: HCG Qualitative Urine. Negative (Negative)
[2022-07-27 19:59] LABS: Alanine Aminotransferase 18 U/L (0-33); Albumin Level 3.6 g/dL (3.5-5.2); Alkaline Phosphatase 158 U/L (35-105); Aspartate Amino Transferase 15 U/L (0-32); Blood Urea Nitrogen 17 mg/dL (6-20); Calcium 9.6 mg/dL (8.5-10.5); Carbon Dioxide 26 mmol/L (22-29); Chloride 100 mmol/L (98-107); Globulin 3.8 g/dL (1.3-4.6); Glomerular Filtration Rate 129.1 mL/min (90-130); Glucose 134 mg/dL (65-115); Osmolality Calculated 290 mOsm/kg (285-295); Sodium 138 mmol/L (136-145); Total Bilirubin 0.2 mg/dL (0.15-1.2); Total Protein 7.4 g/dL (6.6-8.7)
[2022-07-27 20:04] LABS: Acetaminophen < 5.0 ug/mL (10-30); Alcohol Level < 10 mg/dL (0-10); Anion Gap 16.4 (5-19); Potassium 4.4 mmol/L (3.5-5.1); Salicylate < 0.3 mg/dL (3-10)
[2022-07-27 20:07] LABS: Bilirubin Urine Neg (Negative); Blood Urine 2+ (Negative); Glucose Urine UA Norm (Normal); Ketones Urine Negative (Negative); Leukocyte Esterase Urine Negative (Negative); Nitrate Urine Negative (Negative); Protein Urine Neg (Negative); Specific Gravity, Urine 1.005 (1.005-1.030); Urine Appearance Clear (CLEAR); Urine Color Yellow (Yellow); Urobilinogen Urine Norm (Negative); pH Urine 7 (5-7)
[2022-07-27 20:08] LABS: Add Urine Microscopic? YES; Amphetamines Screen Urine Negative (Negative); Barbiturates Screen Urine Positive (Negative); Benzodiazepines Screen Urine Negative (Negative); Cocaine Screen Urine Negative (Negative); Opiate Screen Urine Negative (Negative); PCP Screen Urine Negative (Negative); RBC Urine 0-4 /hpf (0-2); THC Screen Urine Negative (Negative)
[2022-07-27 20:09] LABS: Add Urine Culture? No; Amorphous Sediment Urine TRACE /hpf
[2022-07-27] MEDS: LORazepam 2 mg Tablet PO (20:59)
[2022-07-27 22:46] VITALS: BP 116/75; PULSE 88; RESP 16; O2SAT 90
[2022-07-27 23:29] VITALS: BP 112/79; PULSE 89; RESP 16; O2SAT 90
[2022-07-27 23:57] VITALS: BP 131/79; PULSE 87; RESP 16; TEMP 36.7; O2SAT 92
[2022-07-28] VITALS (10 sets, daily range): BP systolic 100–136; BP diastolic 61–81; PULSE 77–90; RESP 16–18; TEMP 36.4–36.7; O2SAT 90–97
[2022-07-28] MEDS: ipratropium-albuterol 3 mL Neb INHALATION ×4 (01:02→15:45)
[2022-07-28] MEDS: budesonide 0.5 mg/2 mL Neb INHALATION (07:30)
[2022-07-28] MEDS: pregabalin 100 mg Capsule 200 MG PO ×3 (08:27→21:58)
[2022-07-28] MEDS: venlafaxine ER (24HR) 75 mg Capsule PO (08:27)
[2022-07-28] MEDS: nicotine 2 mg Gum BUCCAL ×5 (08:27→18:13)
[2022-07-28] MEDS: acetaminophen 325 mg Tablet 650 MG PO (11:43)
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
[2022-07-28] MEDS: hyDROXYzine 25 mg Capsule 50 MG PO ×2 (14:41→22:00)
--- NOTE | 2022-07-28 14:43 | PC.NURSE ---
Addendum entered by Jaz Don RN 07/28/22 14:45: Pt rated anxiety 03/04 Original Note: Pt asking for something for anxiety; medicated with vistaril; pt non-specific about reason for anxiety; said it was just everything.
[2022-07-28] MEDS: guaiFENesin-dextromethorphan UDC 10 mL PO ×2 (15:29→22:01)
[2022-07-28] MEDS: venlafaxine ER (24HR) 150 mg Capsule PO (15:54)
[2022-07-28] MEDS: quetiapine XR (24HR) 50 mg Tablet 150 MG PO (21:58)
[2022-07-28] MEDS: baclofen 10 mg Tablet PO (22:00)
[2022-07-28] MEDS: trazodone 50 mg Tablet PO (22:00)
--- NOTE | 2022-07-28 22:50 | PC.NURSE ---
Patient given ordered Trazadone 50mg PO and Vistaril 50 mg PO for sleep and anxiety; Respectively, with good results. Patient was also given Baclofen 10mg PO for muscle spasams and Robitussin cough syrup for caugh. Also with good results.
[2022-07-29] VITALS (7 sets, daily range): BP systolic 106–130; BP diastolic 72–82; PULSE 80–99; RESP 16–18; TEMP 36.4–36.6; O2SAT 88–94
[2022-07-29] MEDS: nicotine 2 mg Gum BUCCAL ×6 (06:22→17:42)
[2022-07-29] MEDS: acetaminophen 325 mg Tablet 650 MG PO ×2 (06:35→13:03)
[2022-07-29] MEDS: ipratropium-albuterol 3 mL Neb INHALATION ×3 (07:47→15:16)
[2022-07-29] MEDS: budesonide 0.5 mg/2 mL Neb INHALATION (07:47)
[2022-07-29] MEDS: venlafaxine ER (24HR) 75 mg Capsule 225 MG PO (08:35)
[2022-07-29] MEDS: pregabalin 100 mg Capsule 200 MG PO ×3 (08:35→19:30)
[2022-07-29] MEDS: hyDROXYzine 25 mg Capsule 50 MG PO ×2 (11:09→19:31)
--- NOTE | 2022-07-29 13:59 | P.NPUPN_ITS ---
Subjective NPU Subjective: Patient presented today reporting that she is feeling better. Once again discussed her previous episodes during this time of year. Discussed considering using light box during the start of the year for presumptive SAD or at least exacerbation during the season. We will work with the treatment team in the morning to figure out the best options for discharge planning. Mental Status Exam MSE Comments: This is a slender, well-developed white female looking appropriate for age in hospital scrubs with appropriate grooming and eye contact. No abnormal movements except for mild psychomotor retardation.? Cooperative with exam in no acute distress. Speech was slightly decreased rate and volume. Mood described as a little better than yesterday, affect congruent. Thought process organized. Thought content: patient denied current suicidal or homicidal ideation, there were no delusions reported or noted, she denied any auditory or visual hallucinations.? Attention and concentration were intact and memory appears reliable but none were formally tested.? She was alert and oriented x3.? Insight and judgment appear fair, impulse control limited. Vitals/I&O/Wt Last Vital Signs Temp 97.7 F 07/29/22 06:00 Pulse 99 07/29/22 06:00 Resp 17 07/29/22 06:00 BP 130/82 07/29/22 06:00 Pulse Ox 88 L 07/29/22 06:00 O2 Del Method 07/29/22 06:00 Weight last 48 hrs Weight 58.604 kg Weight 56.699 kg Data NPU 07/27/22 19:27 07/27/22 19:27 A&P Assessment and plan (1) Major depressive disorder, recurrent: (2) Fibromyalgia: (3) Generalized anxiety disorder: Plan The patient has a 52-year-old white female with depression and anxiety admitted after thoughts to overdose after a discharge last week with an overdose on m edications with evidence of suicidal intent with reports that her depression and suicidality returned and she wanted to avoid allowing things to worsen to a dangerous place. 1. Continue current medication; continue Seroquel XR 150mg at night and continue Effexor XR at 225 mg daily. 2. Encourage individual group and milieu therapy. 3. Continue 15-minute med minute checks for safety on the unit. 4. Recommend sober living treatment at the highest level of care to which the patient is willing to commit. 5. Obtain collateral information on the triggering issues and consider initiation of light box therapy to investigate whether this has a seasonal component. Involuntary Hold Information 96 Hour Hold: 96 Hour Involuntary Admission: No Attestations NPU Medical Necessity Statement*: Inpatient hospitalization is medically necessary and clinically appropriate intervention at this time. We will monitor medications and make changes as indicated. Likely length of stay 2-4 days. Coding Level of Care Code Acute Passenger Service Representative for [facility] Fwd Diagnoses Major depressive disorder, recurrent F33.9 Fibromyalgia M79.7 Generalized anxiety disorder F41.1
[2022-07-29] MEDS: ibuprofen 800 mg tablet PO (16:11)
[2022-07-29] MEDS: quetiapine XR (24HR) 50 mg Tablet 150 MG PO (19:31)
[2022-07-30] VITALS (10 sets, daily range): BP systolic 103–119; BP diastolic 70–81; PULSE 84–109; RESP 16–22; TEMP 36.3–36.5; O2SAT 91–96
[2022-07-30] MEDS: nicotine 2 mg Gum BUCCAL ×7 (06:02→20:19)
[2022-07-30] MEDS: pregabalin 100 mg Capsule 200 MG PO ×3 (08:27→20:18)
[2022-07-30] MEDS: venlafaxine ER (24HR) 75 mg Capsule 225 MG PO (08:27)
[2022-07-30] MEDS: ipratropium-albuterol 3 mL Neb INHALATION ×4 (09:40→21:26)
[2022-07-30] MEDS: budesonide 0.5 mg/2 mL Neb INHALATION ×2 (09:40→21:26)
[2022-07-30] MEDS: ibuprofen 800 mg tablet PO (10:19)
[2022-07-30] MEDS: hyDROXYzine 25 mg Capsule 50 MG PO ×2 (12:33→20:20)
--- NOTE | 2022-07-30 18:48 | W.PM.NPUPNS ---
Subjective NPU Subjective: Patient presented today reporting that she is feeling better. She reports she has spoken to her and he is being supportive and wanting her to just get better. He is reportedly trying to obtain a light box for her but she reports that she will make sure that happens as soon as possible. We discussed see how she was doing into morning and the likelihood of discharge then. Mental Status Exam MSE Comments: This is a slender, well-developed white female looking appropriate for age in hospital scrubs with appropriate grooming and eye contact. No abnormal movements except for mild psychomotor retardation.? Cooperative with exam in no acute distress. Speech was slightly decreased rate and volume. Mood described as feeling better, affect congruent. Thought process organized. Thought content: patient denied current suicidal or homicidal ideation, there were no delusions reported or noted, she denied any auditory or visual hallucinations.? Attention and concentration were intact and memory appears reliable but none were formally tested.? She was alert and oriented x3.? Insight and judgment appear fair, impulse control limited. Vitals/I&O/Wt Last Vital Signs Temp 97.7 F 07/30/22 20:12 Pulse 87 07/30/22 21:26 Resp 16 07/30/22 21:26 BP 103/71 07/30/22 20:12 Pulse Ox 96 07/30/22 21:26 O2 Del Method 07/30/22 21:26 Data NPU 07/27/22 19:27 07/27/22 19:27 A&P Assessment and plan (1) Major depressive disorder, recurrent: (2) Fibromyalgia: (3) Generalized anxiety disorder: Plan The patient has a 52-year-old white female with depression and anxiety admitted after thoughts to overdose after a discharge last week with an overdose on medications with evidence of suicidal intent with reports that her depression and suicidality returned and she wanted to avoid allowing things to worsen to a dangerous place. 1. Continue current medication; continue Seroquel XR 150mg at night and continue Effexor XR at 225 mg daily. 2. Encourage individual group and milieu therapy. 3. Continue 15-minute med minute checks for safety on the unit. 4. Recommend sober living treatment at the highest level of care to which the patient is willing to commit. 5. Obtain collateral information on the triggering issues and consider initiation of light box therapy to investigate whether this has a seasonal component. Involuntary Hold Information 96 Hour Hold: 96 Hour Involuntary Admission: No Attestations NPU Medical Necessity Statement*: Inpatient hospitalization is medically necessary and clinically appropriate intervention at this time. We will monitor medications and make changes as indicated. Likely length of stay 1-3 days. 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
[2022-07-30] MEDS: quetiapine XR (24HR) 50 mg Tablet 150 MG PO (20:19)
[2022-07-31 06:00] VITALS: BP 107/71; PULSE 86; RESP 16; TEMP 36.4; O2SAT 93
[2022-07-31] MEDS: nicotine 2 mg Gum BUCCAL ×3 (06:20→10:28)
[2022-07-31] MEDS: ipratropium-albuterol 3 mL Neb INHALATION (07:50)
[2022-07-31] MEDS: budesonide 0.5 mg/2 mL Neb INHALATION (07:50)
[2022-07-31 07:52] VITALS: PULSE 80; RESP 18; O2SAT 92
[2022-07-31] MEDS: pregabalin 100 mg Capsule 200 MG PO (08:47)
[2022-07-31] MEDS: venlafaxine ER (24HR) 75 mg Capsule 225 MG PO (08:47)
[2022-07-31] MEDS: baclofen 10 mg Tablet PO (08:47)
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
--- NOTE | 2022-07-31 10:21 | DCPLANNER ---
IMM completed with pt. Pt was given a copy of rights and she stated she understood her rights.
[2022-07-31 11:01] VITALS: PULSE 80; RESP 18; O2SAT 92
== END 2022-07-31 12:40 | disposition home or self-care (01) | DRG 885 ==
LOC: ER 21:57 → NP 22:28
PROVIDERS: Admitting Provider Psychiatry & Neurology Psychiatry; Emergency Provider Emergency Medicine; PCP Family Medicine; Visit Provider Psychiatry & Neurology Psychiatry
DX: F33.9 Major depressive disorder, recurrent, unspecified (principal); R45.851 Suicidal ideations; M79.7 Fibromyalgia; F41.1 Generalized anxiety disorder; F17.200 Nicotine dependence, unspecified, uncomplicated; Z88.2 Allergy status to sulfonamides
CPT/HCPCS: 71045; 80053; 80306; 80307; 81001; 81025; 85025; 94640; 97150; 97165; 99285; J7626

== ENCOUNTER 2022-09-30 09:10 | Inpatient (IN) | payer MEDICARE, SELFPAY ==
[2022-09-30] VITALS (7 sets, daily range): BP systolic 118–142; BP diastolic 72–85; PULSE 75–93; RESP 14–18; TEMP 36.2–36.9; O2SAT 92–98; BMI 22.3
--- NOTE | 2022-09-30 09:24 | ECG_ITS ---
[facility] Test Date: 2022-09-30 Pat Name: Kaylie Edwards Department: Room: Gender: Female Financial Coordinator: : 1970 Requested By: Donaldo Alejandre Order Number: [id number] Avni MD: Althea Canales M.D. Measurements Intervals [place] Rate: 75 P: 71 [place]: 139 QRS: 67 QRSD: 92 T: 61 QT: 377 QTc: 424 Interpretive Statements SINUS RHYTHM POSSIBLE LEFT ATRIAL ENLARGEMENT [-0.1mV P-WAVE IN V1/V2] Compared to ECG 07/15/2022 20:52:57 T-wave abnormality no longer present Possible ischemia no longer present Electronically Signed On 10-01-2022 20:54:06 FEED WEIGHER by Althea Canales M.D. [email or web address]
--- NOTE | 2022-09-30 09:27 | ED_ITS ---
HPI - Overdose General: Chief Complaint: ER Hold Stated Complaint: possible OD Time Seen by Provider: 09/30/22 09:19 Source: patient Mode of arrival: ambulatory History of Present Illness: 52-year-old female presents emergency room after having taking Xarelto in 20-25 5 or 10 mg baclofen tablets last night around 1030. Patient is denying she did this in attempt to harm herself states she was just very anxious could not sleep and wanted to be able to sleep she is been hospitalized in the past after similar episodes which she admits were attempts to harm her self she has also done this in the past where she was not hospitali [facility]. She denies any injury at this time she is awake and alert answers questions appropriately. She denies taking anything else to harm herself complaint: intentional overdose Onset (ago): hour(s) Time: 22:30 Intent: wanted to go to sleep and wanted to escape Associated symptoms: depression Treatments Prior to Arrival: none Review of Systems Const: Denies: fever(s), chills, body aches, change in appetite, fatigue or malaise ENMT: Denies: throat pain, ear or mastoid pain, nasal discharge or nasal congestion Card: Denies: chest pain, edema, dyspnea on exertion or orthopnea Resp: Denies: dyspnea, productive cough or non-productive cough GI: Denies: abdominal pain, nausea, vomiting, hematemesis, coffee ground emesis, diarrhea, constipation, bloating, hematochezia or melena : Denies: flank pain, difficulty voiding, dysuria, urinary frequency or urinary urgency Skin/Breast: Denies: rash or pruritus PFSH ED PFSH: Medical History Anxiety Bone loss Chronic pain Fibromyalgia Migraine Psychiatric care Surgical History H/O neck surgery H/O shoulder surgery History of back surgery Family History Father No problems noted. Mother COPD (chronic obstructive pulmonary disease) Chronic emphysema syndrome Social History Smoking and tobacco status: current every day smoker Second hand smoke exposure: Yes Alcohol intake: never Adopted: No Caregiver/support person: No Lives independently: Yes Household members: spouse Housing: House Marital status: Number of children: 2 Highest education level completed: Bachelor's Degree service: No Current occupational status: disabled History of recent travel: No Physical Exam Const: COMMON NORMALS: no acute distress GENERAL APPEARANCE: cooperative and comfortable ORIENTATION/CONSCIOUSNESS: Yes awake, Yes oriented to person, Yes oriented to place and Yes oriented to time HENMT: COMMON NORMALS: normocephalic, atraumatic and hearing grossly normal bilaterally HEAD & SCALP: normocephalic and atraumatic Resp: COMMON NORMALS: normal respiratory effort, No retractions, No use of accessory muscles and clear to auscultation bilaterally AUSCULTATION: clear to auscultation bilaterally Cardio: COMMON NORMALS: regular rate, regular rhythm and No murmurs present (Cardio) RATE: regular rate RHYTHM: regular rhythm GI: COMMON NORMALS: Soft to palpation and No hepatosplenomegaly present AUSCULTATION: Yes normoactive bowel sounds PALPATION: Yes Soft to palpation, No Tenderness to palpation present (GI), No Guarding due to palpation present (GI) and Yes No hepatosplenomegaly present Extremity: COMMON NORMALS: normal to inspection, capillary refill normal, no clubbing, cyanosis or edema, no calf tenderness and no pedal edema Neuro: SENSORIUM/ORIENTATION: Yes oriented to person, Yes oriented to place and Yes oriented to time Skin: COMMON NORMALS: no rashes or lesions noted GENERAL SKIN EXAM: no rashes or lesions noted Course Vital Signs: Vital signs: Vital Signs Temperature 97.1 F L 09/30/22 09:15 Pulse Rate 76 09/30/22 09:30 Respiratory Rate 17 09/30/22 09:30 Blood Pressure 118/80 09/30/22 09:30 Pulse Oximetry 98 09/30/22 09:30 Oxygen Delivery Me thod 09/30/22 09:15 MDM - Overdose Medical Decision Making Patient presents with intentional overdose. No toxidrome noted she was observed for period of time in the emergency room reviewed with poison control they concur at this point she is 4-5 from ingestion no significant medical concerns. Patient agrees with admission. Discussed with Sloan monsalve written Medical Records I reviewed the patient's medical records. Lab Data I reviewed the patient's lab results. 09/30/22 09:20 09/30/22 09:20 Laboratory Results WBC 9.0 10^3/uL (4.0-10.0) 09/30/22 09:20 RBC 4.93 10^6/uL (4.1-5.3) 09/30/22 09:20 Hgb 15.9 g/dL (11.5-15.3) H 09/30/22 09:20 Hct 48.0 % (37.0-47.0) H 09/30/22 09:20 MCV 97.4 fl (81-99) 09/30/22 09:20 MCH 32.3 pg (28.0-34.0) 09/30/22 09:20 MCHC 33.1 g/dL (30.0-36.0) 09/30/22 09:20 RDW 12.5 % (12.1-15.1) 09/30/22 09:20 Plt Count 234 10^3/cmm (130-400) 09/30/22 09:20 MPV 11.4 fL (7.4-10.4) H 09/30/22 09:20 Neut % (Auto) 51.7 % 09/30/22 09:20 Lymph % (Auto) 37.1 % 09/30/22 09:20 Camp % (Auto) 7.4 % 09/30/22 09:20 Eos % (Auto) 2.8 % 09/30/22 09:20 Baso % (Auto) 0.7 % 09/30/22 09:20 Neut # (Auto) 4.66 10^3/uL (1.8-7.7) 09/30/22 09:20 Lymph # (Auto) 3.3 10^3/uL (0.8-4.8) 09/30/22 09:20 Camp # (Auto) 0.7 10^3/uL (0.2-0.9) 09/30/22 09:20 Eos # (Auto) 0.3 10^3/uL (0.0-0.8) 09/30/22 09:20 Baso # (Auto) 0.1 10^3/uL (0.0-0.1) 09/30/22 09:20 Nucleated RBC % (auto) 0 % 09/30/22 09:20 Nucleated RBCs # 0.0 /100WBC 09/30/22 09:20 Sodium 135 mmol/L (136-145) L 09/30/22 09:20 Potassium 3.7 mmol/L (3.5-5.1) 09/30/22 09:20 Chloride 96 mmol/L (98-107) L 09/30/22 09:20 Carbon Dioxide 32 mmol/L (22-29) H 09/30/22 09:20 Anion Gap 10.7 (5-19) 09/30/22 09:20 BUN 15 mg/dL (6-20) 09/30/22 09:20 Creatinine 0.5 mg/dL (0.5-0.9) 09/30/22 09:20 GFR Calculation 129.1 mL/min (90-130) 09/30/22 09:20 Glucose 62 mg/dL (65-115) L 09/30/22 09:20 Calculated Osmolality 279 mOsm/kg (285-295) L 09/30/22 09:20 Calcium 10.2 mg/dL (8.5-10.5) 09/30/22 09:20 Total Bilirubin 0.3 mg/dL (0.15-1.2) 09/30/22 09:20 AST 17 U/L (0-32) 09/30/22 09:20 ALT 10 U/L (0-33) 09/30/22 09:20 Alkaline Phosphatase 140 U/L (35-105) H 09/30/22 09:20 Total Protein 7.2 g/dL (6.6-8.7) 09/30/22 09:20 Albumin 4.5 g/dL (3.5-5.2) 09/30/22 09:20 Globulin 2.7 g/dL (1.3-4.6) 09/30/22 09:20 Urine Color Dark yellow (Yellow) 09/30/22 10:06 Urine Appearance Cloudy (CLEAR) A 09/30/22 10:06 Urine pH 7 (5-7) 09/30/22 10:06 Ur Specific [place] 1.010 (1.005-1.030) 09/30/22 10:06 Urine Protein Neg (Negative) 09/30/22 10:06 Urine Glucose (UA) Norm (Normal) 09/30/22 10:06 Urine Ketones Negative (Negative) 09/30/22 10:06 Urine Blood 3+ (Negative) H 09/30/22 10:06 Urine Nitrate Negative (Negative) 09/30/22 10:06 Urine Bilirubin Neg (Negative) 09/30/22 10:06 Urine Urobilinogen Norm mg/dL (Negative) 09/30/22 10:06 Ur Leukocyte Esterase Negative (Negative) 09/30/22 10:06 Urine RBC 0-4 /hpf (0-2) H 09/30/22 10:06 Urine WBC None /hpf (0-5) 09/30/22 10:06 Ur Squamous Epith Cells None /hpf (0-5) 09/30/22 10:06 Amorphous Sediment 3+ /hpf 09/30/22 10:06 Urine Bacteria Trace /hpf (NONE) 09/30/22 10:06 Salicylates < 0.3 mg/dL (3-10) L 09/30/22 09:20 Urine Opiates Screen Negative ng/mL (Negative) 09/30/22 10:06 Acetaminophen < 5.0 ug/mL (10-30) L 09/30/22 09:20 Ur Barbiturates Screen Negative ng/mL (Negative) 09/30/22 10:06 Ur Phencyclidine Scrn Negative ng/mL (Negative) 09/30/22 10:06 Ur Amphetamines Screen Negative ng/mL (Negative) 09/30/22 10:06 U Benzodiazepines Scrn Negative ng/mL (Negative) 09/30/22 10:06 Urine Cocaine Screen Negative ng/mL (Negative) 09/30/22 10:06 U Marijuana (THC) Screen Negative ng/mL (Negative) 09/30/22 10:06 Discharge Plan Discharge Patient Disposition: Admitted As Inpatient Admit Provider: Manolo Lisa Clinical Impression: Suicide attempt, Intentional overdose of baclofen Condition: Stable Coding Level of Care Code ED Professor Of Law for Nasima Sheriff
--- NOTE | 2022-09-30 09:30 | PC.NURSE ---
spoke with Caitlin RN at Poison Control. States typically with the dosage pt is reporting to have taken, pt would mostly likely be comatose. Reports expectant to be drowsy and have n/v. recommends pt to be on the monitoring tech and to monitor pt for the next couple hours. r/o co-ingestants with ASA and Tylenol lab test and urine drug screen. If labs and VS stable after a couple hours can try a PO challenge. Caitlin states she will fax information on medication. Dr. Kramer notified of conversation
[2022-09-30 09:52] LABS: Alanine Aminotransferase 10 U/L (0-33); Albumin Level 4.5 g/dL (3.5-5.2); Alkaline Phosphatase 140 U/L (35-105); Anion Gap 10.7 (5-19); Aspartate Amino Transferase 17 U/L (0-32); Blood Urea Nitrogen 15 mg/dL (6-20); Calcium 10.2 mg/dL (8.5-10.5); Carbon Dioxide 32 mmol/L (22-29); Chloride 96 mmol/L (98-107); Globulin 2.7 g/dL (1.3-4.6); Glomerular Filtration Rate 129.1 mL/min (90-130); Glucose 62 mg/dL (65-115); Osmolality Calculated 279 mOsm/kg (285-295); Potassium 3.7 mmol/L (3.5-5.1); Sodium 135 mmol/L (136-145); Total Bilirubin 0.3 mg/dL (0.15-1.2); Total Protein 7.2 g/dL (6.6-8.7)
[2022-09-30 10:01] LABS: Acetaminophen < 5.0 ug/mL (10-30); Salicylate < 0.3 mg/dL (3-10)
[2022-09-30 10:11] LABS: Basophils # 0.1 10^3/uL (0.0-0.1); Basophils % 0.7 %; Eosinophils # 0.3 10^3/uL (0.0-0.8); Eosinophils % 2.8 %; Hemoglobin 15.9 g/dL (11.5-15.3); Lymphocytes # 3.3 10^3/uL (0.8-4.8); Lymphocytes % 37.1 %; Mean Corpuscular HGB Conc 33.1 g/dL (30.0-36.0); Mean Corpuscular Hemoglobin 32.3 pg (28.0-34.0); Mean Corpuscular Volume 97.4 fl (81-99); Mean Platelet Volume 11.4 fL (7.4-10.4); Monocytes # 0.7 10^3/uL (0.2-0.9); Monocytes % 7.4 %; Neutrophils # 4.66 10^3/uL (1.8-7.7); Neutrophils % 51.7 %; Nucleated Red Blood Cells % 0 %; Platelet Count 234 10^3/cmm (130-400); Red Blood Count 4.93 10^6/uL (4.1-5.3); Red Cell Distribution Width 12.5 % (12.1-15.1)
[2022-09-30 10:48] LABS: Bilirubin Urine Neg (Negative); Blood Urine 3+ (Negative); Glucose Urine UA Norm (Normal); Ketones Urine Negative (Negative); Leukocyte Esterase Urine Negative (Negative); Nitrate Urine Negative (Negative); Protein Urine Neg (Negative); Urine Appearance Cloudy (CLEAR); Urine Color Dark Yellow (Yellow); Urobilinogen Urine Norm (Negative); pH Urine 7 (5-7)
[2022-09-30 10:49] LABS: Add Urine Culture? No; Add Urine Microscopic? YES; Amorphous Sediment Urine 3+ /hpf; Bacteria Urine TRACE /hpf; RBC Urine 0-4 /hpf (0-2)
--- NOTE | 2022-09-30 10:49 | PC.NURSE ---
took pts wallet,3 rings and phone
[2022-09-30 11:53] LABS: Amphetamines Screen Urine Negative (Negative); Barbiturates Screen Urine Negative (Negative); Benzodiazepines Screen Urine Negative (Negative); Cocaine Screen Urine Negative (Negative); Opiate Screen Urine Negative (Negative); PCP Screen Urine Negative (Negative); THC Screen Urine Negative (Negative)
[2022-09-30 13:25] LABS: Adenovirus Not Detected (NOT DETECT); Chlamydia Pneumoniae Not Detected (NOT DETECT); Coronavirus 229E,HKU1,NL63,OC4 Not Detected (NOT DETECT); Human Metapneumovirus Not Detected (NOT DETECT); Human Rhinovirus/Enterovirus Not Detected (NOT DETECT); Influenza A Not Detected (NOT DETECT); Influenza A H1 Not Detected (NOT DETECT); Influenza A H1-2009 Not Detected (NOT DETECT); Influenza A H3 Not Detected (NOT DETECT); Influenza B Not Detected (NOT DETECT); Mycoplasma Pneumoniae Not Detected (NOT DETECT); Parainfluenza Virus Type 1 Not Detected (NOT DETECT); Parainfluenza Virus Type 2 Not Detected (NOT DETECT); Parainfluenza Virus Type 3 Not Detected (NOT DETECT); Parainfluenza Virus Type 4 Not Detected (NOT DETECT); Respiratory Syncytial Virus A Not Detected (NOT DETECT); Respiratory Syncytial Virus B Not Detected (NOT DETECT); SARS-COV-2 Not Detected (NOT DETECT)
--- NOTE | 2022-09-30 16:48 | PC.NURSE ---
pt rested and watched TV all day, no problems
[2022-09-30] MEDS: nicotine 2 mg Gum BUCCAL ×2 (18:36→20:46)
[2022-09-30] MEDS: trazodone 50 mg Tablet PO (20:46)
[2022-09-30] MEDS: quetiapine 100 mg Tablet PO (21:16)
[2022-09-30] MEDS: pregabalin 100 mg Capsule 200 MG PO (21:16)
[2022-10-01] VITALS (8 sets, daily range): BP systolic 109–115; BP diastolic 66–81; PULSE 76–83; RESP 16–18; TEMP 36.6–36.8; O2SAT 90–98
[2022-10-01] MEDS: nicotine 2 mg Gum BUCCAL ×7 (05:35→20:00)
[2022-10-01] MEDS: acetaminophen 325 mg Tablet 650 MG PO (07:49)
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
[2022-10-01] MEDS: venlafaxine ER (24HR) 150 mg Capsule PO (09:24)
[2022-10-01] MEDS: pregabalin 100 mg Capsule 200 MG PO ×3 (09:24→20:00)
[2022-10-01] MEDS: venlafaxine ER (24HR) 75 mg Capsule PO (09:24)
[2022-10-01] MEDS: albuterol 2.5 mg/3 mL Neb INHALATION ×3 (11:39→20:02)
[2022-10-01] MEDS: ipratropium 0.5 mg/2.5 mL Neb INHALATION ×3 (11:39→20:02)
[2022-10-01] MEDS: quetiapine 100 mg Tablet PO (20:00)
[2022-10-01] MEDS: trazodone 50 mg Tablet PO (20:00)
[2022-10-02] VITALS (8 sets, daily range): BP systolic 110–137; BP diastolic 60–86; PULSE 80–92; RESP 16–18; TEMP 36.4–36.6; O2SAT 93–96
[2022-10-02] MEDS: nicotine 2 mg Gum BUCCAL (05:49)
[2022-10-02] MEDS: ipratropium 0.5 mg/2.5 mL Neb INHALATION ×3 (08:16→15:32)
[2022-10-02] MEDS: albuterol 2.5 mg/3 mL Neb INHALATION ×3 (08:16→15:32)
[2022-10-02] MEDS: venlafaxine ER (24HR) 150 mg Capsule PO (08:37)
[2022-10-02] MEDS: pregabalin 100 mg Capsule 200 MG PO ×3 (08:37→21:23)
[2022-10-02] MEDS: venlafaxine ER (24HR) 75 mg Capsule PO (08:37)
[2022-10-02] MEDS: nicotine 4 mg lozenge MUCOUS MEM ×5 (09:47→21:32)
--- NOTE | 2022-10-02 16:18 | P.NPUPN_ITS ---
Subjective NPU Subjective: Patient presented today reporting that she is feeling little better. We discussed how she is managing her symptoms at home including the light box. She now is less than regular adherence to using a light box for take in the morning and we reviewed ways that people often strategize to make sure they do it appropriately. She continues to have limited appreciation of the concerns surrounding her overdose. We discussed the risks, benefits alternatives of increasing her Effexor XR to 300 mg p.o. every morning and she understood and agreed to proceed as is documented in this note. Mental Status Exam MSE Comments: This is a slender, well-developed white female looking appropriate for age in hospital scrubs with appropriate grooming and eye contact. No abnormal movements except for mild psychomotor retardation.? Cooperative with exam in mild distress. Speech was slightly decreased rate and volume. Mood described as a little better, affect congruent. Thought process organized. Thought content: patient denied current suicidal or homicidal ideation, there were no delusions reported or noted, she denied any auditory or visual hallucinations.? Attention and concentration were intact and memory appears reliable but none were formally tested.? She was alert and oriented x3.? Insight and judgment appear fair, impulse control limited. Vitals/I&O/Wt Last Vital Signs Temp 97.8 F 10/02/22 14:00 Pulse 92 10/02/22 14:00 Resp 18 10/02/22 14:00 BP 112/76 10/02/22 14:00 Pulse Ox 96 10/02/22 14:00 O2 Del Method 10/02/22 14:00 Data NPU 09/30/22 09:20 09/30/22 09:20 A&P Assessment and plan (1) Major depressive disorder, recurrent: (2) Fibromyalgia: (3) Generalized anxiety disorder: Plan The patient has a 52-year-old white female with depression and anxiety admitted after thoughts to overdose after a discharge last week with an overdose on medications with evidence of suicidal intent with reports that her depression and suicidality returned and she wanted to avoid allowing things to worsen to a dangerous place. 1. Continue current medications. Except increase Effexor XR to 300 mg p.o. every morning. 2. Encourage individual group and milieu therapy. 3. Continue 15-minute med minute checks for safety on the unit. 4. Recommend sober living treatment at the highest level of care to which the patient is willing to commit. 5. Obtain collateral information on the triggering issues and consider ini tiation of light box therapy to investigate whether this has a seasonal component. Involuntary Hold Information 96 Hour Hold: 96 Hour Involuntary Admission: No Attestations NPU Medical Necessity Statement*: Inpatient hospitalization is medically necessary and clinically appropriate intervention at this time. We will monitor medications and make changes as indicated. Likely length of stay 3-5 days. Coding Level of Care Code Acute Code for [facility] Fwd Diagnoses Major depressive disorder, recurrent F33.9 Fibromyalgia M79.7 Generalized anxiety disorder F41.1
[2022-10-02] MEDS: cetylpyridinium Lozenge 1 EACH MUCOUS MEM (19:34)
[2022-10-02] MEDS: acetaminophen 325 mg Tablet 650 MG PO (19:34)
[2022-10-02] MEDS: ibuprofen 600 mg Tablet PO (20:50)
[2022-10-02] MEDS: trazodone 50 mg Tablet PO (21:23)
[2022-10-02] MEDS: quetiapine 100 mg Tablet PO (21:24)
--- NOTE | 2022-10-03 02:52 | PC.NURSE ---
pt has been refusing RT breathing treatments, pt reports sore throat. pt education provided on inhalers and rinsing her mouth and spitting out after each use. pt verbalized understanding.
[2022-10-03 06:00] VITALS: BP 79/53; PULSE 68; RESP 18; TEMP 36.3; O2SAT 96
[2022-10-03] MEDS: nicotine 2 mg Gum BUCCAL ×2 (06:58→09:02)
[2022-10-03] MEDS: pregabalin 100 mg Capsule 200 MG PO ×3 (09:00→20:38)
[2022-10-03] MEDS: venlafaxine ER (24HR) 150 mg Capsule 300 MG PO (09:01)
[2022-10-03 10:18] VITALS: PULSE 96; RESP 18; O2SAT 95
[2022-10-03] MEDS: acetaminophen 325 mg Tablet 650 MG PO (11:19)
[2022-10-03] MEDS: nicotine 4 mg lozenge MUCOUS MEM ×5 (11:19→19:32)
[2022-10-03 14:00] VITALS: BP 118/56; PULSE 85; RESP 17; TEMP 36.4; O2SAT 98
--- NOTE | 2022-10-03 18:53 | P.NPUPN_ITS ---
Subjective NPU Subjective: Patient presented today reporting that she is feeling somewhat better. We discussed the paradox of her presentations after the suicide since and how it does not seem to make sense that she is at such a level of despair and intolerance at the moment of the overdoses but seems to very quickly return to her place of seeming all right. Began a discussion about the possibility of cluster B pathology. She endorses tolerating the increase in Effexor XR to 300 mg. Mental Status Exam MSE Comments: This is a slender, well-developed white female looking appropriate for age in hospital scrubs with appropriate grooming and eye contact. No abnormal movements except for mild psychomotor retardation.? C ooperative with exam in mild distress. Speech was slightly decreased rate and volume. Mood described as okay, affect congruent. Thought process organized. Thought content: patient denied current suicidal or homicidal ideation, there were no delusions reported or noted, she denied any auditory or visual hallucinations.? Attention and concentration were intact and memory appears reliable but none were formally tested.? She was alert and oriented x3.? Insight and judgment appear fair, impulse control limited. Vitals/I&O/Wt Last Vital Signs Temp 97.8 F 10/03/22 21:27 Pulse 83 10/03/22 21:27 Resp 17 10/03/22 21:27 BP 110/73 10/03/22 21:27 Pulse Ox 96 10/03/22 21:27 O2 Del Method 10/03/22 21:27 Data NPU 09/30/22 09:20 09/30/22 09:20 A&P Assessment and plan (1) Major depressive disorder, recurrent: (2) Fibromyalgia: (3) Generalized anxiety disorder: Plan The patient has a 52-year-old white female with depression and anxiety admitted after thoughts to overdose after a discharge last week with an overdose on med ications with evidence of suicidal intent with reports that her depression and suicidality returned and she wanted to avoid allowing things to worsen to a dangerous place. 1. Continue current medications. Except increase Effexor XR to 300 mg p.o. every morning. 2. Encourage individual group and milieu therapy. 3. Continue 15-minute med minute checks for safety on the unit. 4. Recommend sober living treatment at the highest level of care to which the patient is willing to commit. 5. Obtain collateral information on the triggering issues and consider initiation of light box therapy to investigate whether this has a seasonal component. Involuntary Hold Information 96 Hour Hold: 96 Hour Involuntary Admission: No Attestations NPU Medical Necessity Statement*: Inpatient hospitalization is medically necessary and clinically appropriate intervention at this time. We will monitor medications and make changes as indicated. Likely length of stay 2-4 days. Coding Level of Care Code Acute Code for Chg Fwd Diagnoses Major depressive disorder, recurrent F33.9 Fibromyalgia M79.7 Generalized anxiety disorder F41.1
[2022-10-03] MEDS: quetiapine 100 mg Tablet PO (20:38)
[2022-10-03] MEDS: trazodone 50 mg Tablet PO (20:38)
[2022-10-03 21:27] VITALS: BP 110/73; PULSE 83; RESP 17; TEMP 36.6; O2SAT 96
[2022-10-04] MEDS: nicotine 4 mg lozenge MUCOUS MEM ×8 (05:55→20:23)
[2022-10-04 06:00] VITALS: BP 99/62; PULSE 105; RESP 18; TEMP 36.3; O2SAT 93
[2022-10-04 08:55] VITALS: PULSE 102; RESP 18; O2SAT 98
[2022-10-04] MEDS: pregabalin 100 mg Capsule 200 MG PO ×3 (09:05→20:19)
[2022-10-04] MEDS: venlafaxine ER (24HR) 150 mg Capsule 300 MG PO (09:05)
[2022-10-04] MEDS: hyDROXYzine 25 mg Capsule 50 MG PO (12:01)
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
[2022-10-04] MEDS: BuSPIRONE 10 mg Tablet PO ×2 (13:11→18:01)
[2022-10-04 14:00] VITALS: BP 115/80; PULSE 83; RESP 13; TEMP 36.9; O2SAT 98
[2022-10-04] MEDS: acetaminophen 325 mg Tablet 650 MG PO (16:45)
--- NOTE | 2022-10-04 17:28 | PC.NURSE ---
Pt reports acetaminophen is starting to help her neck pain.
[2022-10-04] MEDS: quetiapine 100 mg Tablet PO (20:19)
[2022-10-04] MEDS: trazodone 50 mg Tablet PO (20:19)
[2022-10-04 21:32] VITALS: BP 120/81; PULSE 64; RESP 18; TEMP 36.6; O2SAT 98
[2022-10-05] MEDS: nicotine 4 mg lozenge MUCOUS MEM ×9 (04:16→20:35)
[2022-10-05 06:00] VITALS: BP 112/74; PULSE 86; RESP 16; TEMP 37; O2SAT 96
[2022-10-05] MEDS: pregabalin 100 mg Capsule 200 MG PO ×3 (08:38→20:35)
[2022-10-05] MEDS: acetaminophen 325 mg Tablet 650 MG PO (08:38)
[2022-10-05] MEDS: venlafaxine ER (24HR) 150 mg Capsule 300 MG PO (08:38)
[2022-10-05] MEDS: BuSPIRONE 10 mg Tablet PO ×2 (08:38→18:21)
[2022-10-05 10:04] VITALS: PULSE 89; RESP 18
[2022-10-05] MEDS: hyDROXYzine 25 mg Capsule 50 MG PO (12:11)
[2022-10-05 14:00] VITALS: BP 113/78; PULSE 86; RESP 18; TEMP 36.6; O2SAT 97
--- NOTE | 2022-10-05 14:44 | W.PM.NPUPNS ---
Subjective NPU Subjective: Patient presented today she tolerated her first couple doses of the also cutting Effexor. He continues to struggle by the triggers that we have so quickly moved to the suicide attempts associated with her recent hospitalizations. She continues to report anxiety but we agreed it would take some time to efficacy. Mental Status Exam MSE Comments: This is a slender, well-developed white female looking appropriate for age in hospital scrubs with appropriate grooming and eye contact. No abnormal movements except for moderate psychomotor retardation.? Cooperative with exam in mild distress. Speech was slightly decreased rate and decrease in volume. Mood described as anxious. Her affect was incongruent and flat. Thought process organized. Thought content: patient denied current suicidal or homicidal ideation, there were no delusions reported or noted, she denied any auditory or visual hallucinations.? Attention and concentration were intact and memory appears reliable but none were formally tested.? She was alert and oriented x3.? Insight and judgment appear fair, impulse control limited. Vitals/I&O/Wt Last Vital Signs Temp 97.9 F 10/05/22 14:00 Pulse 86 10/05/22 14:00 Resp 18 10/05/22 14:00 BP 113/78 10/05/22 14:00 Pulse Ox 97 10/05/22 14:00 O2 Del Method 10/05/22 14:00 O2 Flow Rate 0 10/05/22 14:00 Data NPU 09/30/22 09:20 09/30/22 09:20 A&P Assessment and plan (1) Major depressive disorder, recurrent: (2) Fibromyalgia: (3) Generalized anxiety disorder: Plan The patient has a 52-year-old white female with depression and anxiety admitted after thoughts to overdose after a discharge last week with an overdose on medications with evidence of suicidal intent with reports that her depression and suicidality returned and she wanted to avoid allowing things to worsen to a dangerous place. 1. Continue current medications. Except increased Effexor XR to 300 mg p.o. every morning and start BuSpar 10 mg p.o. twice daily. 2. Encourage individual group and milieu therapy. 3. Continue 15-minute med minute checks for safety on the unit. 4. Recommend sober living treatment at the highest level of care to which the patient is willing to commit. 5. Obtain collateral information on the triggering issues and consider initiation of light box therapy to investigate whether this has a seasonal component. Involuntary Hold Information 96 Hour Hold: 96 Hour Involuntary Admission: No Attestations NPU Medical Necessity Statement*: Inpatient hospitalization is medically necessary and clinically appropriate intervention at this time. We will monitor medications and make changes as indicated. Likely length of stay 2-3 days. Coding Level of Care Code Acute Code for Chg Fwd Diagnoses Major depressive disorder, recurrent F33.9 Fibromyalgia M79.7 Generalized anxiety disorder F41.1
[2022-10-05 20:26] VITALS: BP 114/79; PULSE 82; RESP 17; TEMP 36.6; O2SAT 96
[2022-10-05] MEDS: quetiapine 100 mg Tablet PO (20:36)
[2022-10-05] MEDS: trazodone 50 mg Tablet PO (20:58)
--- NOTE | 2022-10-05 21:52 | PC.NURSE ---
PRN MED PT GIVEN 50MG TRAZADONE FOR INSOMNIA WILL CONTINUE TO MONITOR.
[2022-10-06] MEDS: nicotine 4 mg lozenge MUCOUS MEM ×7 (05:47→18:26)
[2022-10-06 05:49] VITALS: BP 115/70; PULSE 81; RESP 16; TEMP 36.3; O2SAT 96
[2022-10-06] MEDS: BuSPIRONE 10 mg Tablet PO ×2 (08:16→18:17)
[2022-10-06] MEDS: pregabalin 100 mg Capsule 200 MG PO ×3 (08:16→19:54)
[2022-10-06] MEDS: venlafaxine ER (24HR) 150 mg Capsule 300 MG PO (08:17)
[2022-10-06] MEDS: ibuprofen 600 mg Tablet PO (09:39)
[2022-10-06] MEDS: hyDROXYzine 25 mg Capsule 50 MG PO ×2 (11:18→19:54)
[2022-10-06 14:00] VITALS: BP 117/80; PULSE 73; RESP 17; TEMP 36.6; O2SAT 95
--- NOTE | 2022-10-06 18:28 | W.PM.NPUPNS ---
Subjective NPU Subjective: Patient presented today reporting that she is doing little better. Still having some anxiety but possibly little better. We talked about her medical safety plan and clarity with discharge planning given these suicide attempts. We discussed the fact that Dr. Madsen would be here tomorrow and he decisions regarding her discharge before I return. Mental Status Exam MSE Comments: This is a slender, well-developed white female looking appropriate for age in hospital scrubs with appropriate grooming and eye contact. No abnormal movements except for mild psychomotor retardation.? Cooperative with exam in mild distress. Speech was slightly decreased rate and decrease in volume. Mood described as anxious, but a little better. Her affect was incongruent and flat. Thought process organized. Thought content: patient denied current suicidal or homicidal ideation, there were no delusions reported or noted, she denied any auditory or visual hallucinations.? Attention and concentration were intact and memory appears reliable but none were formally tested.? She was alert and oriented x3.? Insight and judgment appear fair, impulse control limited. Vitals/I&O/Wt Last Vital Signs Temp 97.8 F 10/06/22 14:00 Pulse 81 10/06/22 21:00 Resp 16 10/06/22 21:00 BP 119/82 10/06/22 21:00 Pulse Ox 96 10/06/22 21:00 O2 Del Method 10/06/22 21:00 O2 Flow Rate 0 10/06/22 20:00 Weight last 48 hrs Weight 67.188 kg Weight 67.188 kg Data NPU 09/30/22 09:20 09/30/22 09:20 A&P Assessment and plan (1) Major depressive disorder, recurrent: (2) Fibromyalgia: (3) Generalized anxiety disorder: Plan The patient has a 52-year-old white female with depression and anxiety admitted after thoughts to overdose after a discharge last week with an overdose on medications with evidence of suicidal intent with reports that her depression and suicidality returned and she wanted to avoid allowing things to worsen to a dangerous place. 1. Continue current medications. Except increased Effexor XR to 300 mg p.o. every morning and started BuSpar 10 mg p.o. twice daily. 2. Encourage individual group and milieu therapy. 3. Continue 15-minute med minute checks for safety on the unit. 4. Recommend sober living treatment at the highest level of care to which the patient is willing to commit.. Involuntary Hold Information 96 Hour Hold: 96 Hour Involuntary Admission: No Attestations NPU Medical Necessity Statement*: Inpatient hospitalization is medically necessary and clinically appropriate intervention at this time. We will monitor medications and make changes as indicated. Likely length of stay 2-3 days. Coding Level of Care Code Acute Code for Chg Fwd Diagnoses Major depressive disorder, recurrent F33.9 Fibromyalgia M79.7 Generalized anxiety disorder F41.1
[2022-10-06] MEDS: nicotine 2 mg Gum BUCCAL (19:54)
[2022-10-06] MEDS: trazodone 50 mg Tablet PO (19:54)
[2022-10-06] MEDS: quetiapine 100 mg Tablet PO (19:55)
[2022-10-06 21:00] VITALS: BP 119/82; PULSE 81; RESP 16; O2SAT 96
--- NOTE | 2022-10-06 21:00 | PC.NURSE ---
PT REQUESTED MEDICATION FOR INSOMNIA AND ANXIETY REDUCTION. TRAZADONE AND VISTARIL WAS GIVEN ORDERED. SEE MAR FOR DETAILS.
[2022-10-07] MEDS: nicotine 4 mg lozenge MUCOUS MEM ×8 (03:07→20:38)
[2022-10-07 04:50] VITALS: BMI 25.4
[2022-10-07 06:00] VITALS: BP 105/74; PULSE 77; RESP 18; TEMP 37.6; O2SAT 97
[2022-10-07] MEDS: BuSPIRONE 10 mg Tablet PO ×2 (09:21→17:30)
[2022-10-07] MEDS: pregabalin 100 mg Capsule 200 MG PO ×3 (09:21→20:34)
[2022-10-07] MEDS: venlafaxine ER (24HR) 150 mg Capsule 300 MG PO (09:21)
[2022-10-07] MEDS: OLANZapine 5 mg ODT PO ×2 (09:21→13:49)
[2022-10-07 13:58] VITALS: BP 105/72; PULSE 84; RESP 16; TEMP 36.7; O2SAT 96
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
[2022-10-07] MEDS: trazodone 50 mg Tablet PO (20:34)
[2022-10-07] MEDS: quetiapine 100 mg Tablet PO (20:34)
[2022-10-07 22:00] VITALS: BP 117/80; PULSE 80; RESP 20; TEMP 36.5; O2SAT 96
[2022-10-08] MEDS: nicotine 4 mg lozenge MUCOUS MEM ×10 (03:46→23:50)
[2022-10-08 06:00] VITALS: BP 106/75; PULSE 86; RESP 18; TEMP 37.4; O2SAT 97
[2022-10-08] MEDS: pregabalin 100 mg Capsule 200 MG PO ×3 (07:53→19:58)
[2022-10-08] MEDS: venlafaxine ER (24HR) 150 mg Capsule 300 MG PO (07:54)
[2022-10-08] MEDS: BuSPIRONE 10 mg Tablet PO ×2 (07:54→17:17)
[2022-10-08] MEDS: ibuprofen 600 mg Tablet PO (12:55)
[2022-10-08 13:30] VITALS: BP 112/76; PULSE 85; RESP 17; TEMP 36.4; O2SAT 96
[2022-10-08] MEDS: hyDROXYzine 25 mg Capsule 50 MG PO (14:17)
--- NOTE | 2022-10-08 14:17 | PC.NURSE ---
prn VISTARIL 50 MG GIVEN PO PER PT C/O STATED ANXIETY
--- NOTE | 2022-10-08 15:10 | P.NPUPN_ITS ---
Subjective NPU Subjective: Is a 52-year-old white female admitted 3 times over the last year with impulsive overdose on medications with a history of major depressive disorder. She continues to report having struggles with identifying triggers that lead her to overdose. She reports that she is motivated to receive more intensive and frequent psychotherapy. Patient reports no side effects from her combination of Seroquel BuSpar and Effexor. She had been compliant and able to attend groups on the unit. She had continue to report feeling depressed but reports that she had not had any thoughts of hurting herself. She reports having good support from her stated that she was ready to go home. She had reported sleep had been adequate although she had reported having some pain at night. She had reported occasional headaches as well. Mental Status Exam MSE Comments: This is a slender, well-developed white female looking appropriate for age in hospital scrubs with appropriate grooming and eye contact. No abnormal movements except for moderate psychomotor retardation.? Cooperative with exam in mild distress. Speech was slightly decreased in rate and normal in volume. Mood described as okay. Her affect was incongruent and restricted in range. Thought process is linear and organized. Thought content: patient denied current suicidal or homicidal ideation, there were no delusions reported or noted, she denied any auditory or visual hallucinations.? Attention and concentration were intact and memory appears reliable but none were formally tested.? She was alert and oriented x3.? Insight and judgment appear fair, impulse control limited. Vitals/I&O/Wt Last Vital Signs Temp 97.5 F L 10/08/22 13:30 Pulse 85 10/08/22 13:30 Resp 17 10/08/22 13:30 BP 112/76 10/08/22 13:30 Pulse Ox 96 10/08/22 13:30 O2 Del Method 10/08/22 06:00 O2 Flow Rate 0 10/08/22 07:35 Weight last 48 hrs Weight 67.188 kg Weight 67.188 kg Data NPU 09/30/22 09:20 09/30/22 09:20 A&P Assessment and plan (1) Major depressive disorder, recurrent: (2) Fibromyalgia: (3) Generalized anxiety disorder: Plan The patient has a 52-year-old white female with depression and anxiety admitted after thoughts to overdose after a discharge last week with an overdose on medications with evidence of suicidal intent with reports that her depression and suicidality returned and she wanted to avoid allowing things to worsen to a dangerous place. 1. Continue current medications. Continue Effexor XR to 300 mg p.o. every morning and continue BuSpar 10 mg p.o. twice daily with increase in seroquel to 150mg at night. 2. Encourage individual group and milieu therapy. 3. Continue 15-minute med minute checks for safety on the unit. 4. Recommend sober living treatment at the highest level of care to which the patient is willing to commit. 5. Obtain collateral information on the triggering issues and consider initiation of light box therapy to investigate whether this has a seasonal component. Involuntary Hold Information 96 Hour Hold: 96 Hour Involuntary Admission: No Attestations NPU Medical Necessity Statement*: Inpatient hospitalization is medically necessary and clinically appropriate intervention at this time. We will monitor medica tions and make changes as indicated. Likely length of stay 3-5 days. Coding Level of Care Code Acute Code for Chg Fwd Diagnoses Major depressive disorder, recurrent F33.9 Fibromyalgia M79.7 Generalized anxiety disorder F41.1
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
[2022-10-08 19:55] VITALS: BP 123/80; PULSE 74; RESP 18; O2SAT 96
[2022-10-08] MEDS: trazodone 50 mg Tablet PO (19:59)
[2022-10-08] MEDS: quetiapine 100 mg Tablet 150 MG PO (19:59)
[2022-10-09] MEDS: nicotine 4 mg lozenge MUCOUS MEM ×9 (05:30→23:21)
[2022-10-09 06:00] VITALS: BP 121/76; PULSE 88; RESP 18; TEMP 36.6; O2SAT 95
[2022-10-09] MEDS: BuSPIRONE 10 mg Tablet PO ×2 (08:18→17:30)
[2022-10-09] MEDS: pregabalin 100 mg Capsule 200 MG PO ×3 (08:18→21:46)
[2022-10-09] MEDS: venlafaxine ER (24HR) 150 mg Capsule 300 MG PO (08:18)
[2022-10-09 14:00] VITALS: BP 104/66; PULSE 85; RESP 17; TEMP 36.3; O2SAT 98
--- NOTE | 2022-10-09 14:38 | P.NPUPN_ITS ---
Subjective NPU Subjective: Is a 52-year-old white female admitted 3 times over the last year with impulsive overdose on medications with a history of major depressive disorder. Patient had minimized any suicidal thoughts at this time. She had reported continued depression. Patient reported worsening depression in the winter months and had reported that she had a bright light therapy which she seen at home but she had not used it. She had reported that her previous overdoses had occurred when her was at work and she had reported that she had contemplated in groups about having her medications being managed by her to avoid the patient taking excessive amounts of medicine on overdose. She had reported having struggles with managing her mood and stated that case management services had been helpful. She did report having brief periods of time with intense anxiety here on the unit but states that she was able to manage it with without requiring any as needed medications yesterday. Mental Status Exam MSE Comments: This is a slender, well-developed white female looking appropriate for age in hospital scrubs with appropriate grooming and eye contact. No abnormal movements except for moderate psychomotor retardation.? Cooperative with exam in mild distress. Speech was slightly decreased in rate and normal in volume. Mood described as allright. Her affect was incongruent and restricted in range. Thought process is linear and organized. Thought content: patient denied current suicidal or homicidal ideation, there were no delusions reported or noted, she denied any auditory or visual hallucinations.? Attention and concentration were intact and memory appears reliable but none were formally tested.? She was alert and oriented x3.? Insight and judgment appear fair, impulse control limited. Vitals/I&O/Wt Last Vital Signs Temp 97.4 F L 10/09/22 14:00 Pulse 85 10/09/22 14:00 Resp 17 10/09/22 14:00 BP 104/66 10/09/22 14:00 Pulse Ox 98 10/09/22 14:00 O2 Del Method 10/08/22 06:00 O2 Flow Rate 0 10/09/22 08:00 10/08/22 10/09/22 10/09/22 22:59 06:59 14:59 Intake Total 900 / 900 Balance 900 / 900 Data NPU 09/30/22 09:20 09/30/22 09:20 A&P Assessment and plan (1) Major depressive disorder, recurrent: (2) Fibromyalgia: (3) Generalized anxiety disorder: Plan The patient has a 52-year-old white female with depression and anxiety admitted after thoughts to overdose after a discharge last week with an overdose on medications with evidence of suicidal intent with reports that her depression and suicidality returned and she wanted to avoid allowing things to worsen to a dangerous place. 1. Continue current medications. Continue Effexor XR to 300 mg p.o. every morning and continue BuSpar 10 mg p.o. twice daily and increase Seroquel to 2 00mg at night. Patient not candidate for lesser level of care such as partial program or IOP as suggested by Medical insurance peer reviewer as there is none available. 2. Encourage individual group and milieu therapy. 3. Continue 15-minute med minute checks for safety on the unit. 4. Recommend sober living treatment at the highest level of care to which the patient is willing to commit. 5. Obtain collateral information on the triggering issues and consider initiation of light box therapy to investigate whether this has a seasonal component. Involuntary Hold Information 96 Hour Hold: 96 Hour Involuntary Admission: No Attestations NPU Medical Necessity Statement*: Inpatient hospitalization is medically necessary and clinically appropriate intervention at this time. We will monitor medications and make changes as indicated. The patient's likely length of stay 1-2 days. Coding Level of Care Code Acute Code for [facility] Fwd Diagnoses Major depressive disorder, recurrent F33.9 Fibromyalgia M79.7 Generalized anxiety disorder F41.1
[2022-10-09] MEDS: trazodone 50 mg Tablet PO (19:44)
[2022-10-09] MEDS: quetiapine 100 mg Tablet 200 MG PO (21:46)
[2022-10-09 22:00] VITALS: BP 120/79; PULSE 75; RESP 18; TEMP 36.4; O2SAT 96
[2022-10-10] MEDS: nicotine 4 mg lozenge MUCOUS MEM ×6 (03:57→15:03)
[2022-10-10 06:00] VITALS: BP 102/70; PULSE 82; RESP 18; TEMP 36.6; O2SAT 94
[2022-10-10] MEDS: BuSPIRONE 10 mg Tablet PO (08:32)
[2022-10-10] MEDS: venlafaxine ER (24HR) 150 mg Capsule 300 MG PO (08:32)
[2022-10-10] MEDS: pregabalin 100 mg Capsule 200 MG PO ×2 (08:32→15:03)
--- NOTE | 2022-10-10 11:35 | DCPLANNER ---
IMM was printed and given to pt and a copy was placed in pts file.
--- NOTE | 2022-10-10 12:24 | W.PM.NPUDCS ---
Diagnoses at Discharge Discharge Diagnosis (1) Major depressive disorder, recurrent: Status: Acute (2) Fibromyalgia: Status: Resolved (3) Generalized anxiety disorder: Status: Acute Reason for Visit Reason for Visit: possible OD Brief History: History of Present Illness Kaylie Edwards is a 52 year old female who presented to the emergency department with the following report: Chief Complaint: ER Hold Stated Complaint: possible OD Time Seen by Provider: 09/30/22 09:19 Source: patient Mode of arrival: ambulatory History of Present Illness:?? 52-year-old female presents emergency room after having taking Xarelto in - 5 or 10 mg baclofen tablets last night around 1030.? Patient is denying she did this in attempt to harm herself states she was just very anxious could not sleep and wanted to be able to sleep she is been hospitalized in the past after similar episodes which she admits were attempts to harm her self she has also done this in the past where she was not hospitalized.? She denies any injury at this time she is awake and alert answers questions appropriately.? She denies taking anything else to harm herself MD complaint: intentional overdose Onset (ago): hour(s) Time: 22:30 ? Intent: wanted to go to sleep and wanted to escape? Associated symptoms: depression? Treatments Prior to Arrival: none She was admitted to the neuropsychiatric unit for definitive treatment of those issues. She is currently on Lyrica, Venlafaxine, Seroquel, Trazodone, and Baclofen three times a day. She presents today after her took her to the hospital after she told that she took a bunch of pills again and was presenting physical symptoms of an overdose. She has been psychiatrically hospitalized 4 times, last of which was July 2022 a week after she reports taking a bunch of pills. She has been to [facility] [place] for outpatient services, and has been on medications in the past. She endorses a pack of tobacco a day, denies alcohol, denies marijuana, and endorses opiates for 10 years before she quit in 2008. She has been to rehab 2 times, endorses having a DUI, and denies any other drug and alcohol related charges. Her specific mental health issues began presenting a week ago, and she reports being really down, irritated, and angry for no reason. She reports that her brain doesn?t shut off when she forgoes sleep for a few days. She endorses that the reason that she took so many pills was that she wanted to sleep and denies suicidal intent behind her recent overdose. She reports taking a quick look at the handful that she poured out and estimating it was about 20 pills before she threw them in her mouth at once. She denies telling her how many pills she took but thinks that he could tell that she was not feeling good and that she was having physical symptoms. She reports admitting that she had taken a lot of pills after which he took her to the hospital because he was worried. She endorses that her mind is always thinking negatively and she has a hard time being positive, and that her mind stays negative until it?s too late. She reports that her geriatric case manager is suggesting journaling to find out what?s triggering her. She reports that she lives in a camper with her and that living in such a confined space in the winter can be a stressor, but that they are moving into a cabin next week for more room. Excerpt from July, below for context denying substantive changes.. Psychiatric History: As above. Substance Abuse History: As above. Per her 07/31/2022 [facility] inpatient psychiatric discharge summary: Discharge Diagnosis (1) Major depressive disorder, recurrent: ? ? ? Status: Acute (2) Fibromyalgia: ? ? ? Status: Resolved (3) Generalized anxiety disorder: ? ? ? Status: Acute Reason for Visit Reason for Visit:?? SI? Brief History: History of Present Illness Kaylie Edwards is a 52 year old female who presented to the emergency department with the following report: Chief Complaint: Pediatric General Medical Stated Complaint: SI Time Seen by Provider: 07/27/22 18:45 Source: patient History of Present Illness:?? 52-year-old female who was recently discharged from the neuropsychiatric unit at this facility.? She returns to the emergency department stating that she is still having problems, and is feeling like harming her self.? She believes she would cut her wrist this time.? She has had attempts in the past evidently, and has a significant history. She also states that she was diagnosed with the flu here, and has been on antibiotics and steroids, and is still having some coughing and wheezing.? No fever. MD complaint: suicidal ideation and feels depressed Onset (ago): day(s) Duration: constant History of same: Yes Relieving factors: none Exacerbating factors: none Context: significant life stressor and other Associated psychiatric symptoms: depression Associated symptoms: Reports depression and suicidal ideation; Deny auditory hallucinations, visual hallucinations or homicidal ideation Treatments prior to arrival: none If self harm: admits thoughts of self harm. She was admitted to the neuropsychiatric unit for definitive treatment of those issues.? She is known to this production underwriter from past inpatient hospitalization earlier this year.? And had just left the hospital less than a week ago.? She presents today reporting that she continues to live in a camper with her off the grid. ? She reports that she was doing okay when she first left the hospital but very quickly she started having thoughts to commit suicide.? She reports she is having thoughts of taking her pills and that when she contacted a friend who suggested that she come back.? She referred to the geriatric case manager and a therapist.? Her is employed and she denies any clear marital or financial stressors.? She reports that she struggles this time of year currently.? We discussed people having seasonal aspects to the depression and the possibility of a light box.? Additionally we agreed to get some collateral information to try to understand why she is struggling with her depression and feelings and thoughts of lethality.? She denied any addiction issues and denied any substantive changes since her last day and so an excerpt of her discharge summary from last week is included below for context. Hospital Course Hospital Course Discharge Summary: During the hospitalization, patient had routine laboratory studies which were within normal limits except for few outliers. Additionally there was a general medical evaluation which was also within normal limits and revealed no new acute processes. At the time of discharge, lethality was denied and psychosis was resolving. Mood and anxiety were well managed. Patient endorsed a plan to avoid all drugs of abuse and follow-up with the aftercare recommendations of the treatment team. Patient was evaluated and deemed to be absent credible lethality, and had achieved the maximum benefit from an inpatient hospitalization, so was discharged. Changes made during her hospital stay was increasing Effexor to 300mg daily, adding Buspar 10mg twice a day and increasing Seroquel to 200mg at night. It was also recommended that the patient increase communication with geriatric case manager and increased attendance in afternoon program to help manage loneliness. Involuntary Hold Information 96 Hour Hold: 96 Hour Involuntary Admission: No Mental Status Exam MSE Comments: This is a slender, well-developed white female looking appropriate for age in hospital scrubs with appropriate grooming and eye contact. No abnormal involuntary motor movements were appreciated.? He was cooperative with exam in no acute distress. Speech was normal in rate and normal in volume. Mood described as good. Her affect was mood congruent and brighter. Thought process is linear and organized. Thought content: patient denied current suicidal or homicidal ideation, there were no delusions reported or noted, she denied any auditory or visual hallucinations.? Attention and concentration were intact and memory appears reliable but none were formally tested.? She was alert and oriented x3.? Insight and judgment appear fair, impulse control appeared fair on discharge. Discharge Data Studies Completed and Pending: Laboratory Results WBC 9.0 10^3/uL (4.0- 10.0) 09/30/22 09:20 RBC 4.93 10^6/uL (4.1 -5.3) 09/30/22 09:20 Hgb 15.9 g/dL (11.5-1 5.3) H 09/30/22 09:20 Hct 48.0 % (37.0-47.0 ) H 09/30/22 09:20 MCV 97.4 fl (81-99) 09/30/22 09:20 MCH 32.3 pg (28.0-34. 0) 09/30/22 09:20 MCHC 33.1 g/dL (30.0-3 6.0) 09/30/22 09:20 RDW 12.5 % (12.1-15.1 ) 09/30/22 09:20 Plt Count 234 10^3/cmm (130 -400) 09/30/22 09:20 MPV 11.4 fL (7.4-10.4 ) H 09/30/22 09:20 Neut % (Auto) 51.7 % 09/30/22 09:20 Lymph % (Auto) 37.1 % 09/30/22 09:20 [place] % (Auto) 7.4 % 09/30/22 09:20 Eos % (Auto) 2.8 % 09/30/22 09:20 Baso % (Auto) 0.7 % 09/30/22 09:20 Neut # (Auto) 4.66 10^3/uL (1.8 -7.7) 09/30/22 09:20 Lymph # (Auto) 3.3 10^3/uL (0.8- 4.8) 09/30/22 09:20 [place] # (Auto) 0.7 10^3/uL (0.2- 0.9) 09/30/22 09:20 Eos # (Auto) 0.3 10^3/uL (0.0- 0.8) 09/30/22 09:20 Baso # (Auto) 0.1 10^3/uL (0.0- 0.1) 09/30/22 09:20 Nucleated RBC % (a uto) 0 % 09/30/22 09:20 Nucleated RBCs # 0.0 /100WBC 09/30/22 09:20 Sodium 135 mmol/L (136-1 45) L 09/30/22 09:20 Potassium 3.7 mmol/L (3.5-5 .1) 09/30/22 09:20 Chloride 96 mmol/L (98-107 ) L 09/30/22 09:20 Carbon Dioxide 32 mmol/L (22-29) H 09/30/22 09:20 Anion Gap 10.7 (5-19) 09/30/22 09:20 BUN 15 mg/dL (6-20) 09/30/22 09:20 Creatinine 0.5 mg/dL (0.5-0. 9) 09/30/22 09:20 GFR Calculation 129.1 mL/min (90- 130) 09/30/22 09:20 Glucose 62 mg/dL (65-115) L 09/30/22 09:20 Calculated Osmolal ity 279 mOsm/kg (285- 295) L 09/30/22 09:20 Calcium 10.2 mg/dL (8.5-1 0.5) 09/30/22 09:20 Total Bilirubin 0.3 mg/dL (0.15-1 .2) 09/30/22 09:20 AST 17 U/L (0-32) 09/30/22 09:20 ALT 10 U/L (0-33) 09/30/22 09:20 Alkaline Phosphata se 140 U/L (35-105) H 09/30/22 09:20 Total Protein 7.2 g/dL (6.6-8.7 ) 09/30/22 09:20 Albumin 4.5 g/dL (3.5-5.2 ) 09/30/22 09:20 Globulin 2.7 g/dL (1.3-4.6 ) 09/30/22 09:20 Urine Color Dark yellow (Yel low) 09/30/22 10:06 Urine Appearance Cloudy (CLEAR) A 09/30/22 10:06 Urine pH 7 (5-7) 09/30/22 10:06 Ur Specific Gravit y 1.010 (1.005-1.0 30) 09/30/22 10:06 Urine Protein Neg (Negative) 09/30/22 10:06 Urine Glucose (UA) Norm (Normal) 09/30/22 10:06 Urine Ketones Negative (Negati ve) 09/30/22 10:06 Urine Blood 3+ (Negative) H 09/30/22 10:06 Urine Nitrate Negative (Negati ve) 09/30/22 10:06 Urine Bilirubin Neg (Negative) 09/30/22 10:06 Urine Urobilinogen Norm mg/dL (Negat cari) 09/30/22 10:06 Ur Leukocyte Michelle ase Negative (Negati ve) 09/30/22 10:06 Urine RBC 0-4 /hpf (0-2) H 09/30/22 10:06 Urine WBC None /hpf (0-5) 09/30/22 10:06 Ur Squamous Epith Cells None /hpf (0-5) 09/30/22 10:06 Amorphous Sediment 3+ /hpf 09/30/22 10:06 Urine Bacteria Trace /hpf (NONE) 09/30/22 10:06 Salicylates < 0.3 mg/dL (3-10 ) L 09/30/22 09:20 Urine Opiates Scre en Negative ng/mL (N egative) 09/30/22 10:06 Acetaminophen < 5.0 ug/mL (10-3 0) L 09/30/22 09:20 Ur Barbiturates Sc reen Negative ng/mL (N egative) 09/30/22 10:06 Ur Phencyclidine S crn Negative ng/mL (N egative) 09/30/22 10:06 Ur Amphetamines Sc reen Negative ng/mL (N egative) 09/30/22 10:06 U Benzodiazepines Scrn Negative ng/mL (N egative) 09/30/22 10:06 Urine Cocaine Scre en Negative ng/mL (N egative) 09/30/22 10:06 U Marijuana (THC) Screen Negative ng/mL (N egative) 09/30/22 10:06 Coronavirus 229E ( PCR) Not detected (NO T DETECT) 09/30/22 11:03 SARS-CoV-2 (PCR) Not detected (NO T DETECT) 09/30/22 11:03 Vitals: Last Vital Signs Temp 97.8 F 10/10/22 06:00 Pulse 82 10/10/22 06:00 Resp 18 10/10/22 06:00 BP 102/70 10/10/22 06:00 Pulse Ox 94 10/10/22 06:00 O2 Del Method 10/10/22 06:00 O2 Flow Rate 0 10/09/22 20:00 Discharge Plan Discharge Patient Disposition: Home Condition: Stable Prescriptions: New quetiapine 100 mg Tablet 200 mg PO BEDTIME 30 Days Qty: 60 1RF venlafaxine 150 mg Capsule,Extended Release 24hr 300 mg PO DAILY 30 Days Qty: 60 1RF buspirone 10 mg Tablet 10 mg PO BID 30 Days Qty: 60 1RF Continued pregabalin 200 mg capsule 200 mg PO TID Qty: 90 0RF albuterol sulfate 90 mcg/actuation HFA aerosol inhaler 2 puff INHALATION QID PRN (Reason: Shortness Of Breath) Breztri Aerosphere 160-9-4.8 mcg/actuation Hfa Aerosol Inhaler 2 inh INHALATION BID baclofen 10 mg tablet 10 mg PO TID PRN (Reason: Pain) beitauphwb-lqmbgjpbyplhw-spdb 50-325-40 mg tablet 1 tab PO Q6H MDD 4 tabs PRN (Reason: Migraine Headache) albuterol sulfate [Ventolin HFA] 90 mcg/actuation Hfa Aerosol Inhaler 1 puff inhalation Q4H PRN (Reason: wheezing) Qty: 6.7 1RF trazodone 50 mg Tablet 50 mg PO BEDTIME PRN (Reason: Sleep) 30 Days Qty: 30 1RF Discontinued venlafaxine 150 mg capsule,extended release 24hr 150 mg PO DAILY quetiapine 100 mg tablet 100 mg PO BEDTIME venlafaxine 75 mg capsule,extended release 24hr 75 mg PO DAILY 30 Days Qty: 90 1RF Discharge Orders: Discharge Order (Routine); Ordered 10/10/22 Ordered By: Nicolas Madsen Referrals: Yanci Hennessy APRN [Nurse Practitioner] - 10/15/22 1:45 pm (Follow up) Ezekiel Ibrahim LPC [Therapist] - 10/18/22 9:45 am (Appointment scheduled for 10/18/22 at 9:45 am.) Harpal Gross [Primary Care Provider] - 10/11/22 2:20 am (This visit is at [address] [place] [address]) Discharge Diet: Usual diet Discharge Activity: Resume usual activity Patient Instructions: Depression, Buspirone (By mouth), Venlafaxine (By mouth) (Effexor, Effexor XR), Quetiapine (By mouth) (Seroquel, Seroquel XR, Seroquel XR 14-Day..., Anxiety (DC), Opioid Safety Discharge Attestations NPU Time Spent in Discharge Care*: less than 30 min Coding Level of Care Code Acute Chg FW DC note Diagnoses Major depressive disorder, recurrent F33.9 Fibromyalgia M79.7 Generalized anxiety disorder F41.1
[2022-10-10 12:26] VITALS: BP 102/70; PULSE 82; RESP 18; TEMP 36.6; O2SAT 94
[2022-10-10 14:00] VITALS: BP 125/76; PULSE 79; RESP 18; TEMP 36.7; O2SAT 97
--- NOTE | 2022-10-10 16:47 | PC.NURSE ---
discharge instructions discussed with patient. pt left with spouse in pov.
== END 2022-10-10 16:48 | disposition home or self-care (01) | DRG 885 ==
LOC: ER 10:53 → ER IP 12:32 → NP 17:39
PROVIDERS: Admitting Provider Psychiatry & Neurology Psychiatry; Emergency Provider Family Medicine; PCP Family Medicine; Visit Provider Psychiatry & Neurology Psychiatry
DX: F33.9 Major depressive disorder, recurrent, unspecified (principal); R45.851 Suicidal ideations; T42.8X2A Poisoning by antiparkinsonism drugs and other central muscle-tone depressants, intentional self-harm, initial encounter; T45.512A Poisoning by anticoagulants, intentional self-harm, initial encounter; F41.1 Generalized anxiety disorder; M79.7 Fibromyalgia; F17.200 Nicotine dependence, unspecified, uncomplicated; Z91.51 Personal history of suicidal behavior; Z62.819 Personal history of unspecified abuse in childhood; Z62.898 Other specified problems related to upbringing
CPT/HCPCS: 80053; 80306; 80307; 81001; 85025; 87635; 90935; 93005; 94640; 97150; 97165; 99238; 99285; J7613; J7644

== ENCOUNTER → 2023-01-02 14:28 | Outpatient (BNVA) | payer OTHER, SELFPAY | PROVIDERS: PCP Family Medicine; Visit Provider Nurse Practitioner Psychiatric/Mental Health | DX: Z79.899 Other long term (current) drug therapy (principal) | CPT/HCPCS: 80061; 83036 ==

== ENCOUNTER 2023-03-08 15:31 | Inpatient (IN) | payer MEDICARE, SELFPAY ==
[2023-01-08 13:33] VITALS: BP 123/79; BMI 23.6
[2023-03-08] VITALS (28 sets, daily range): BP systolic 71–159; BP diastolic 47–85; PULSE 53–92; RESP 11–21; TEMP 37.2; O2SAT 78–98
--- NOTE | 2023-03-08 15:39 | XRR_ITS ---
PROCEDURE INFORMATION: Exam: XR Chest Exam date and time: 03/08/2023 5:17 PM Age: 52 years old Clinical indication: Pain; Other: Od; Additional info: Overdose TECHNIQUE: Imaging protocol: Radiologic exam of the chest. Views: 1 view. COMPARISON: CR XR chest 1V portable [id number] 07/27/2022 7:18 PM FINDINGS: Lungs: No consolidation. Pleural spaces: No pleural effusion. No pneumothorax. Heart/Mediastinum: No cardiomegaly. Bones/joints: Unremarkable. XR/XR chest 1V portable [id number] IMPRESSION: No acute abnormality demonstrated.
--- NOTE | 2023-03-08 15:44 | ECG_ITS ---
[facility] Test Date: 2023-03-08 Pat Name: Kaylie Edwards Department: Room: Gender: Female Oncology Social Work: : 1970 Requested By: Carlos Gallego Order Number: [id number] Holly MD: Althea Canales M.D. Measurements Intervals Edwards Rate: 83 P: 69 NV: 137 QRS: 76 QRSD: 94 T: 67 QT: 385 QTc: 454 Interpretive Statements SINUS RHYTHM POSSIBLE LEFT ATRIAL ENLARGEMENT [-0.1mV P-WAVE IN V1/V2] NONSPECIFIC T-WAVE ABNORMALITY Compared to ECG 09/30/2022 09:24:23 T-wave abnormality now present Electronically Signed On 03-08-2023 21:30:14 CDT by Althea Canales M.D. [email or web address]
--- NOTE | 2023-03-08 15:44 | W.ED.OVERDOS ---
HPI - Overdose General: Chief Complaint: Overdose Stated Complaint: overdose Time Seen by Provider: 03/08/23 15:39 History of Present Illness: Patient presents to the ER by EMS with complaints of baclofen overdose. This was called for patient for shortness of breath. When they arrived there they were told that patient took approximately 30 10 mg baclofen because she was anxious. EMS states patient did walk to the ambulance but when she got in the ambulance she started getting agitated and having abnormal behaviors. EMS then gave her 50 mg of ketamine IV to calm her down. When patient arrived at the ER she was in a sedated state. Patient is responsive to sternal rub and moves all extremities. Previous records show patient does have a history of acute encephalopathy, drug overdose, COPD, Review of Systems General: Reports: ROS unobtainable due to mental status [facility] ED PFSH: Medical History (Updated 03/08/23 @ 18:19 by Carlos Gallego DO) Anxiety Bone loss Chronic pain Fibromyalgia Major depressive disorder, recurrent episode, in partial remission Migraine Psychiatric care Surgical History H/O neck surgery H/O shoulder surgery History of back surgery Family History Father No problems noted. Mother COPD (chronic obstructive pulmonary disease) Chronic emphysema syndrome Social History Smoking and tobacco status: current every day smoker Second hand smoke exposure: Yes Alcohol intake: never Substance/Drug Use: never Adopted: No Caregiver/support person: No Lives independently: Yes Household members: spouse Housing: House Marital status: Number of children: 2 Highest education level completed: Bachelor's Degree service: No Current occupational status: disabled Physical Exam Const: EXAM LIMITATIONS: altered mental status HENMT: COMMON NORMALS: normocephalic, atraumatic, external ears normal, Normal external nose present and moist oral mucous membranes HEAD & SCALP: normocephalic and atraumatic NOSE: Normal external nose present EXTERNAL EAR: Yes external ears normal Neck/C-Spine: COMMON NORMALS: no JVD Chest: COMMONS NORMALS: normal inspection of the chest and normal palpation of entire chest wall Resp: COMMON NORMALS: normal respiratory effort, No retractions, No use of accessory muscles and clear to auscultation bilaterally AUSCULTATION: clear to auscultation bilaterally Cardio: COMMON NORMALS: no JVD, regular rate, regular rhythm, S1 normal heart sound present, S2 normal heart sound present, No gallops present (Cardio), No clicks present (Cardio), No murmurs present (Cardio) and No rub (Cardio) RATE: regular rate RHYTHM: regular rhythm HEART SOUNDS: S1 normal heart sound present and S2 normal heart sound present GI: COMMON NORMALS: Normal to inspection, nondistended, normoactive bowel sounds present, Soft to palpation, non-tender, No hepatosplenomegaly present and no masses PALPATION: Yes Soft to palpation and Yes No hepatosplenomegaly present Course Vital Signs: Vital signs: Vital Signs Temperature 98.9 F 03/08/23 15:41 Pulse Rate 61 03/08/23 16:36 Respiratory Rate 14 03/08/23 16:06 Blood Pressure 146/73 03/08/23 16:36 Pulse Oximetry 90 03/08/23 16:36 Oxygen Delivery Me thod Room Air 03/08/23 15:41 MDM - Overdose Medical Decision Making Patient presents to the ED by EMS with baclofen overdose. 3 to 400 mg of baclofen intentionally patient was responsive to sternal rub. And is alert and enough to keep her airway open. Patient is trying to crawl out of bed. Lab work was obtained as well as EKG chest x-ray and head CT. was consulted and agreed to take the patient for further evaluation and treatment. Patient be placed in the ICU secondary to her overdose. Differential Diagnosis Likely drug overdose; Unlikely cocaine intoxication, suicide attempt by multiple drug overdose, poisoning by opiate or related narcotic, acetaminophen overdose or accidental drug ingestion Medical Records I reviewed the patient's medical records. Lab Data I reviewed the patient's lab results. 03/08/23 16:05 03/08/23 16:05 Radiology Impressions Chest X-Ray 03/08/23 15:39 IMPRESSION: No acute abnormality demonstrated. Head CT 03/08/23 17:00 IMPRESSION: 1. Right frontal scalp swelling. No associated calvarial fracture. 2. No acute intracranial abnormality demonstrated. 3. There is no interval change from the prior examination. Laboratory Results WBC 11.8 10^3/uL (4.0-10.0) H 03/08/23 16:05 RBC 5.09 10^6/uL (4.1-5.3) 03/08/23 16:05 Hgb 16.3 g/dL (11.5-15.3) H 03/08/23 16:05 Hct 50.1 % (37.0-47.0) H 03/08/23 16:05 MCV 98.4 fl (81-99) 03/08/23 16:05 MCH 32.0 pg (28.0-34.0) 03/08/23 16:05 MCHC 32.5 g/dL (30.0-36.0) 03/08/23 16:05 RDW 14.1 % (12.1-15.1) 03/08/23 16:05 Plt Count 215 10^3/cmm (130-400) 03/08/23 16:05 MPV 12.1 fL (7.4-10.4) H 03/08/23 16:05 Neut % (Auto) 71.8 % 03/08/23 16:05 Lymph % (Auto) 18.9 % 03/08/23 16:05 Sutton % (Auto) 5.8 % 03/08/23 16:05 Eos % (Auto) 2.3 % 03/08/23 16:05 Baso % (Auto) 0.9 % 03/08/23 16:05 Neut # (Auto) 8.49 10^3/uL (1.8-7.7) H 03/08/23 16:05 Lymph # (Auto) 2.2 10^3/uL (0.8-4.8) 03/08/23 16:05 Sutton # (Auto) 0.7 10^3/uL (0.2-0.9) 03/08/23 16:05 Eos # (Auto) 0.3 10^3/uL (0.0-0.8) 03/08/23 16:05 Baso # (Auto) 0.1 10^3/uL (0.0-0.1) 03/08/23 16:05 Nucleated RBC % (auto) 0 % 03/08/23 16:05 Nucleated RBCs # 0.0 /100WBC 03/08/23 16:05 Sodium 141 mmol/L (136-145) 03/08/23 16:05 Potassium 4.8 mmol/L (3.5-5.1) 03/08/23 16:05 Chloride 101 mmol/L (98-107) 03/08/23 16:05 Carbon Dioxide 24 mmol/L (22-29) 03/08/23 16:05 Anion Gap 20.8 (5-19) H 03/08/23 16:05 BUN 24 mg/dL (6-20) H 03/08/23 16:05 Creatinine 0.7 mg/dL (0.5-0.9) 03/08/23 16:05 GFR Calculation 87.5 mL/min (90-130) L 03/08/23 16:05 Glucose 95 mg/dL (65-115) 03/08/23 16:05 Calculated Osmolality 296 mOsm/kg (285-295) H 03/08/23 16:05 Calcium 9.3 mg/dL (8.5-10.5) 03/08/23 16:05 Magnesium 2.5 mg/dL (1.7-2.3) H 03/08/23 16:05 Total Bilirubin 0.3 mg/dL (0.15-1.2) 03/08/23 16:05 AST 18 U/L (0-32) 03/08/23 16:05 ALT 13 U/L (0-33) 03/08/23 16:05 Alkaline Phosphatase 115 U/L (35-105) H 03/08/23 16:05 Creatine Kinase 46 U/L (26-192) 03/08/23 16:05 Total Protein 7.0 g/dL (6.6-8.7) 03/08/23 16:05 Albumin 4.1 g/dL (3.5-5.2) 03/08/23 16:05 Globulin 2.9 g/dL (1.3-4.6) 03/08/23 16:05 Salicylates < 0.3 mg/dL (3-10) L 03/08/23 16:05 Acetaminophen < 5.0 ug/mL (10-30) L 03/08/23 16:05 Ethyl Alcohol < 10 mg/dL (0-10) 03/08/23 16:05 EKG Data EKG 1: I personally reviewed and interpreted this EKG as follows: EKG interpretation date: 03/08/23 EKG interpretation time: 15:44 Prior EKG tracings: not available for review Interpretation: EKG reveals ventricular rate 83 bpm, AR interval 137, QRS duration, 94, QTc 425, sinus rhythm, nonspecific T wave abnormality Discharge Plan Discharge Patient Disposition: Admitted As Inpatient Clinical Impression: Baclofen overdose Condition: Stable Coding Level of Care Code ED Power System Electrical Engineer for Nasima Sheriff
--- NOTE | 2023-03-08 16:00 | PC.NURSE ---
POISON CONTROL CONTACTED REGARDING PT TAKING 300-400MG BACLOFEN. JOHN PHARMACIST STATES THAT OVER 120MG IS TOXIC LEVEL INGESTION AMOUNT. JOHN STATES PEAK 2-3 HOURS. MONITOR FOR DROWSINESS, LIGHTHEADEDNESS, SEIZURE ACTIVITY, TREMORS, N/V, AND POSSIBLE COMA LASTING 5-7 DAYS. PT CAN ALSO HAVE HALLUCINATIONS, DELUSIONS AND CARDIAC DEPRESSION. PHYSICIAN NOTIFIED.
[2023-03-08 16:35] LABS: Basophils # 0.1 10^3/uL (0.0-0.1); Basophils % 0.9 %; Eosinophils # 0.3 10^3/uL (0.0-0.8); Eosinophils % 2.3 %; Hematocrit 50.1 % (37.0-47.0); Hemoglobin 16.3 g/dL (11.5-15.3); Lymphocytes # 2.2 10^3/uL (0.8-4.8); Lymphocytes % 18.9 %; Mean Corpuscular HGB Conc 32.5 g/dL (30.0-36.0); Mean Corpuscular Volume 98.4 fl (81-99); Mean Platelet Volume 12.1 fL (7.4-10.4); Monocytes # 0.7 10^3/uL (0.2-0.9); Monocytes % 5.8 %; Neutrophils # 8.49 10^3/uL (1.8-7.7); Neutrophils % 71.8 %; Nucleated Red Blood Cells % 0 %; Platelet Count 215 10^3/cmm (130-400); Red Blood Count 5.09 10^6/uL (4.1-5.3); Red Cell Distribution Width 14.1 % (12.1-15.1); White Blood Count 11.8 10^3/uL (4.0-10.0)
[2023-03-08 16:42] LABS: Alanine Aminotransferase 13 U/L (0-33); Albumin Level 4.1 g/dL (3.5-5.2); Alkaline Phosphatase 115 U/L (35-105); Blood Urea Nitrogen 24 mg/dL (6-20); Calcium 9.3 mg/dL (8.5-10.5); Carbon Dioxide 24 mmol/L (22-29); Chloride 101 mmol/L (98-107); Creatine Phosphokinase 46 U/L (26-192); Globulin 2.9 g/dL (1.3-4.6); Glomerular Filtration Rate 87.5 mL/min (90-130); Glucose 95 mg/dL (65-115); Magnesium 2.5 mg/dL (1.7-2.3); Osmolality Calculated 296 mOsm/kg (285-295); Sodium 141 mmol/L (136-145); Total Bilirubin 0.3 mg/dL (0.15-1.2)
[2023-03-08 16:44] LABS: Acetaminophen < 5.0 ug/mL (10-30); Alcohol Level < 10 mg/dL (0-10); Salicylate < 0.3 mg/dL (3-10)
[2023-03-08 16:48] LABS: Anion Gap 20.8 (5-19); Potassium 4.8 mmol/L (3.5-5.1)
[2023-03-08 16:49] LABS: Aspartate Amino Transferase 18 U/L (0-32)
--- NOTE | 2023-03-08 16:57 | PC.NURSE ---
UNABLE TO ASSESS FALL RISK. PT UNABLE TO VERIFY FALL HX
--- NOTE | 2023-03-08 17:00 | CTR_ITS ---
PROCEDURE INFORMATION: Exam: CT Head Without Contrast Exam date and time: 03/08/2023 5:08 PM Age: 52 years old Clinical indication: Injury or trauma; Fall; Blunt trauma (contusions or hematomas); Consciousness not specified; Additional info: Fall, head trauma TECHNIQUE: Imaging protocol: Computed tomography of the head without contrast. Radiation optimization: All CT scans at this facility use at least one of these dose optimization techniques: automated exposure control; mA and/or kV adjustment per patient size (includes targeted exams where dose is matched to clinical indication); or iterative reconstruction. REPORTING DATA: Count of CT and Cardiac NM exams in prior 12 months: This patient has received [address] and 0 known cardiac nuclear medicine studies in the 12 months prior to the current study. COMPARISON: CT head wo con* [id number] 11/12/2021 4:14 PM RADIATION DOSE METRICS: Total DLP (mGy-cm): 1112.88 FINDINGS: Brain: Mild parenchymal volume loss noted. There is decreased attenuation of the periventricular white matter, consistent with mild chronic microangiopathic white matter disease. No parenchymal edema identified. No intracranial hemorrhage noted. Cerebral ventricles: No ventriculomegaly. Paranasal sinuses: Visualized sinuses are unremarkable. No air fluid levels. Mastoid air cells: Unremarkable as visualized. No mastoid effusion. Bones/joints: Unremarkable. No acute fracture. Soft tissues: Right frontal scalp swelling. CT/CT head wo con* [id number] IMPRESSION: 1. Right frontal scalp swelling. No associated calvarial fracture. 2. No acute intracranial abnormality demonstrated. 3. There is no interval change from the prior examination.
[2023-03-08] MEDS: sodium chloride 0.9% 1,000 ML 999 ML IV ×2 (17:25→23:35)
--- NOTE | 2023-03-08 18:08 | PM.HP ---
Providers/Chief Complaint Primary Care Provider: Harpal Gross Chief Complaint: overdose History of Present Illness Kaylie Edwards is a 52 year old female with history of anxiety took 30 tablets of 10mg baclofen, EMS had to give ketamine because for constant hyperactive delirium, she is arousable but drowsy in the ER. Review of Systems General: Reports: ROS unobtainable due to medical condition Medications/Allergies Home Medications Medication Instructions Recorded Confirmed Last Taken Type albuterol sulfate 90 mcg/actuation 2 puff inhalation QID PRN 10/25/21 03/08/23 Unknown History aerosol inhaler Shortness Of Breath budesonide 160 mcg-glycopyr 9 2 inh inhalation BID 10/25/21 03/08/23 09/29/22 History mcg-formot 4.8 mcg/actuation HFA inhaler (Breztri Aerosphere) pregabalin 200 mg capsule 200 mg PO TID #90 caps 12/15/21 03/08/23 09/29/22 Rx baclofen 10 mg tablet 10 mg PO TID PRN Pain 07/16/22 03/08/23 09/30/22 History 20-25 albuterol sulfate 90 mcg/actuation 1 puff inhalation Q4H PRN wheezing 07/23/22 03/08/23 Unknown Rx aerosol inhaler (Ventolin HFA) #6.7 grams buspirone 10 mg tablet 10 mg PO BID #60 tabs 02/14/23 03/08/23 Unknown Rx quetiapine 100 mg tablet 200 mg PO BEDTIME #60 tabs 02/14/23 03/08/23 Unknown Rx trazodone 50 mg tablet 50 mg PO BEDTIME PRN Sleep #30 tabs 02/14/23 03/08/23 Unknown Rx venlafaxine 150 mg 300 mg PO DAILY #60 caps 02/14/23 03/08/23 Unknown Rx capsule,extended release 24 hr Allergies Allergy/AdvReac Type Severity Reaction Status Date / Time amitriptyline [From Elavil] Allergy hallucenate Verified 02/14/23 12:54 Sulfa (Sulfonamide Allergy hives Verified 02/14/23 12:54 Antibiotics) PFSH Acute PFSH: Medical History Anxiety Bone loss Chronic pain Fibromyalgia Major depressive disorder, recurrent episode, in partial remission Migraine Psychiatric care Surgical History H/O neck surgery H/O shoulder surgery History of back surgery Family History Father No problems noted. Mother COPD (chronic obstructive pulmonary disease) Chronic emphysema syndrome Social History Smoking and tobacco status: current every day smoker Second hand smoke exposure: Yes Alcohol intake: never Substance/Drug Use: never Adopted: No Caregiver/support person: No Lives independently: Yes Household members: spouse Housing: House Marital status: Number of children: 2 Highest education level completed: Bachelor's Degree service: No Current occupational status: disabled Vitals/I&O/Wt Last Vital Signs Temp 98.9 F 03/08/23 15:41 Pulse 61 03/08/23 16:36 Resp 14 03/08/23 16:06 BP 146/73 03/08/23 16:36 Pulse Ox 90 03/08/23 16:36 O2 Del Method Room Air 03/08/23 15:41 Physical Exam Narrative: Thin lean female Agitated Received sedatives, drowsy Arousable to sternal rub Able to protect airway in the ER Saturating well Abdomen soft S1, S2 Hemodynamically stable Neuro exam is limited Data 03/09/23 00:40 03/09/23 00:40 A&P Assessment and plan (1) Baclofen overdose: Qualifiers: Encounter type: initial encounter (2) Major depressive disorder, recurrent episode, in partial remission: (3) Generalized anxiety disorder: (4) Major depressive disorder, recurrent: Qualifiers: Active/Remission status: currently active Major depression episode severity: moderate Qualified Code(s): F33.1 - Major depressive disorder, recurrent, moderate (5) PTSD (post-traumatic stress disorder): (6) Drug overdose: Plan Baclofen accidental overdose Monitor in icu Pt was given Ketamine by the EMS for agitation, able to protect airways Npo IVF overnight Frequent neuro checks DVT PPX GI PPX Aspiration precaution/: Empiric rx with zosyn Precedex for PRN USE Echo and series troponin Full code Check TSH Obtain UA Monitor QTc interval Most of the information has been taken from the collaterals Close monitoring is needed overnight with frequent neurochecks as patient is high risk for intubation, for now she is able to protect airway which might change in next few hours, will update the hand crown pouncer Attestations Medical Necessity Statement*: more than 2 midnights anticipated Coding Level of Care Code Critical Care >/= 30 minutes Critical care time (in minutes): 35 The high probability of a clinically significant, sudden or life threatening deterioration, as referenced in this documentation, required my full and direct attention, intervention and personal management. The critical care time shown is in addition to time spent performing any reported separately billable procedures and includes the following: [x] Data and vital sign review and interpretation [x] Patient assessment, examination and intervention [x] Medication orders and management [x] Patient/Family updates as able [x] Care Coordination and Documentation. Diagnoses Baclofen overdose T42.8X1A Encounter type: initial encounter Major depressive disorder, recurrent episode, in partial remission F33.41 Generalized anxiety disorder F41.1 Major depressive disorder, recurrent F33.1 Active/Remission status: currently active Major depression episode severity: moderate PTSD (post-traumatic stress disorder) F43.10 Drug overdose T50.901A
--- NOTE | 2023-03-08 18:21 | ECG_ITS ---
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 Measurements Intervals [place] Rate: 73 P: 78 ME: 147 QRS: 81 QRSD: 98 T: 66 QT: 368 QTc: 406 Interpretive Statements SINUS RHYTHM POSSIBLE LEFT ATRIAL ENLARGEMENT [-0.1mV P-WAVE IN V1/V2] NONSPECIFIC T-WAVE ABNORMALITY Compared to ECG 03/08/2023 15:44:05 No significant changes Electronically Signed On 03-08-2023 21:29:42 CDT by Althea Canales M.D. [id number]
[2023-03-08 18:43] LABS: Magnesium 2.6 mg/dL (1.7-2.3)
[2023-03-08 18:44] LABS: Troponin(5th) Baseline 8 ng/L (0-10)
[2023-03-08] MEDS: ziprasidone 20 mg/mL SDV IM (19:09)
[2023-03-08] MEDS: dexmedetomidine 400 MCG in sodium chloride 0.9% (100 ml) 100 ML IV (19:29)
[2023-03-08 19:57] LABS: Thyroid Stimulating Hormone 1.45 uIU/mL (0.27-4.20)
[2023-03-08] MEDS: dextrose 5%-sod chloride 0.9% 1,000 ML 100 ML IV (20:08)
--- NOTE | 2023-03-08 20:13 | ECG_ITS ---
[facility] Test Date: 2023-03-08 Pat Name: Kaylie Edwards Department: Room: [facility] Gender: Female Health Aid: : 1970 Requested By: Mckay Woods Order Number: [id number] Avni MD: Althea Canales M.D. Measurements Intervals [place] Rate: 60 P: 79 CO: 154 QRS: 80 QRSD: 90 T: 82 QT: 461 QTc: 463 Interpretive Statements SINUS RHYTHM POSSIBLE LEFT ATRIAL ENLARGEMENT [-0.1mV P-WAVE IN V1/V2] Compared to ECG 03/08/2023 18:21:29 T-wave abnormality no longer present Electronically Signed On 03-08-2023 21:33:01 CDT by Althea Canales M.D. [id number]
[2023-03-08 20:14] LABS: Amphetamines Screen Urine Negative (Negative); Barbiturates Screen Urine Negative (Negative); Benzodiazepines Screen Urine Negative (Negative); Cocaine Screen Urine Negative (Negative); Opiate Screen Urine Negative (Negative); PCP Screen Urine Negative (Negative); THC Screen Urine Positive (Negative)
[2023-03-08 20:25] LABS: Add Urine Microscopic? YES; Bilirubin Urine 1+ (Negative); Blood Urine 2+ (Negative); Glucose Urine UA Trace (Normal); Ketones Urine Negative (Negative); Leukocyte Esterase Urine 2+ (Negative); Nitrate Urine Positive (Negative); Protein Urine 2+ (Negative); Specific Gravity, Urine 1.025 (1.005-1.030); Urine Appearance Clear (CLEAR); Urine Color Yellow (Yellow); Urobilinogen Urine 1 mg/dL (Negative); pH Urine 6.5 (5-7)
--- NOTE | 2023-03-08 20:26 | PM.CCNAC ---
Critical Care Event Note Got call from the nurse that patient is agitated and trying to climb up the bed and bite people, pull on the lines. Patient was given Geodon 20 mg IM. After getting Geodon patient having apneic spells with heart rate down of 60. On review patient's blood pressure 92 systolic. Patient not waking up to sternal rub. Decision made to intubate to protect airway as once Geodon's effect wears off patient is globally agitated again given baclofen overdose. While waiting for intubation patient waking up with increased oral secretions with gurgling sounds with concerns for unsafe airway. Plan: Intubation. Requested ER physician for mechanical ventilation. Propofol, fentanyl for sedation. ABG postintubation along with chest x-ray. ABG in a.m., chest x-ray a.m. NPO. Give 1.5 L IV fluid bolus. Continue D5 NS at 100 cc/h. Sputum culture The high probability of a clinically significant, sudden or life threatening deterioration of the patient's [] system(s) required my full and direct attention, intervention and personal management. The critical care time is as shown. This time is in addition to time spent performing any reported procedures but includes the following: [x] Data and vital sign review and interpretation [x] Patient assessment, examination and intervention [x] Documentation [x] Medication orders and management Critical Care Time Code activated: No Critical Care Time (min): 50 Coding Level of Care Code Critical Care Other Coding Information Prolonged care (total time indicated above or notated here)
[2023-03-08 20:28] LABS: Mucus Urine 4+ /hpf
[2023-03-08 20:29] LABS: Add Urine Culture? Yes
[2023-03-08] MEDS: succinylcholine 20 mg/mL SDV 10mL 100 MG IVP (20:29)
[2023-03-08] MEDS: etomidate 2 mg/mL INJ SDV 10 mL 20 MG IVP (20:30)
[2023-03-08 20:41] LABS: Troponin 5 2HR Delta -2 ABS# (0-10)
--- NOTE | 2023-03-08 21:04 | XRR_ITS ---
PROCEDURE INFORMATION: Exam: XR Chest Exam date and time: 03/08/2023 8:48 PM Age: 52 years old Clinical indication: Device placement; Ett placement (vent status); Patient HX: Check S/P ett placement; Additional info: Intubation TECHNIQUE: Imaging protocol: Radiologic exam of the chest. Views: 1 view. COMPARISON: CR (CHEST, ) 03/08/2023 5:17 PM FINDINGS: Tubes, catheters and devices: There is an endotracheal tube present, with distal tip 3 cm above the tani. Nasogastric tube with distal tip in the stomach. The side port is approximally 5 cm above the GE junction. Lungs: No consolidative pulmonary infiltrates are noted. Pleural spaces: No pleural effusion. No pneumothorax. Heart/Mediastinum: No cardiomegaly. Bones/joints: Unremarkable. XR/XR chest 1V portable [id number] IMPRESSION: 1. There is an endotracheal tube present, with distal tip 3 cm above the tani. 2. Nasogastric tube with distal tip in the stomach. The side port is approximally 5 cm above the GE junction. 3. No consolidative pulmonary infiltrates are noted. The lungs appear unchanged from the previous study.
[2023-03-08] MEDS: propofol 1,000 MG/100 ML INJ 1.78 MG IV (21:07)
[2023-03-08] MEDS: heparin 5,000 unit/mL INJ 1 mL 5000 UNIT SUBCUT (21:17)
[2023-03-08] MEDS: piperacillin-tazobactam 3.375 GM in sodium chloride 0.9% (plus) 50 ML IV (21:26)
[2023-03-08] MEDS: ipratropium-albuterol 3 mL Neb INHALATION (21:34)
[2023-03-08 22:20] LABS: ABG PH Result 7.26 (7.35-7.45); Alveolar-Arterial Oxygen Gradi 14.4 mmHg (5-10); Arterial Blood Gas Hematocrit 42.8 % (37-47); Base Excess ABG -1.2 mmol/L (-2.0-2.0); Blood Gas Operator Identificat JB; Blood Gas Sample Site Brachial, left; Blood Gas Sample Type Arterial; Carboxyhemoglobin 6.3 %THgb (0.4-20.1); HCO3 ABG 27.2 mmol/L (22-26); HGB O2 Sat 84.2 % (95-100); Ionized Calcium Level - ABG 1.2 mmol/L (1.1-1.4); Methemoglobin 0.8 % (0.4-1.5); Oxygen Device VENT; Oxygen Saturation ABG 90.6; PO2 ABG 64.1 mmHg (80.0-100.0)
--- NOTE | 2023-03-08 23:21 | XRR_ITS ---
PROCEDURE INFORMATION: Exam: XR Chest Exam date and time: 03/08/2023 11:27 PM Age: 52 years old Clinical indication: Device placement; Patient HX: Check S/P picc placement TECHNIQUE: Imaging protocol: Radiologic exam of the chest. Views: 1 view. COMPARISON: CR XR chest 1V portable [id number] 03/08/2023 8:48 PM FINDINGS: Tubes, catheters and devices: Right-sided PICC line with distal tip overlying SVC. Endotracheal tube and nasogastric tube are unchanged. Lungs: No infiltrates are demonstrated. Pleural spaces: No pleural effusion. No pneumothorax. Heart/Mediastinum: No cardiomegaly. Bones/joints: Unremarkable. XR/XR chest 1V portable [id number] IMPRESSION: 1. New right-sided PICC line with distal tip overlying SVC. 2. No infiltrates are demonstrated. The lungs are unchanged.
--- NOTE | 2023-03-08 23:55 | PC.NURSE ---
Consulted for PICC placement on a pt who has poor peripheral veins and many drips ordered. Upon arrival pt is intubated and sedated and staff cannot locate a guardian, therefore, physician okayed placement and ER physician signed consent. Assessed RUE and noted brachial vein is good target vessel at 5.6 mm in diameter and free of evidence of thrombus or stenosis. Using US guidance, MST, and sterile technique the R brachial vein was accessed x 1 stick. Device fed easily. All 3 ports aspirate and flush. Device secured and dressed. EBL 5 ml. Pt tolerated well. Device length 38 cm. At skin line is at 0 janett. RUE is 28 cm in circumference. Chest xray ordered and performed. Report to ADELINE Bazan.
[2023-03-09] VITALS (73 sets, daily range): BP systolic 75–123; BP diastolic 51–81; PULSE 48–97; RESP 16–24; TEMP 35.7–37.1; O2SAT 93–100
[2023-03-09 00:49] LABS: Basophils % 0.4 %; Eosinophils # 0.2 10^3/uL (0.0-0.8); Eosinophils % 1.9 %; Hematocrit 39.9 % (37.0-47.0); Hemoglobin 12.9 g/dL (11.5-15.3); Lymphocytes # 2.4 10^3/uL (0.8-4.8); Lymphocytes % 28.3 %; Mean Corpuscular HGB Conc 32.3 g/dL (30.0-36.0); Mean Corpuscular Hemoglobin 31.8 pg (28.0-34.0); Mean Corpuscular Volume 98.3 fl (81-99); Mean Platelet Volume 11.2 fL (7.4-10.4); Monocytes # 0.6 10^3/uL (0.2-0.9); Monocytes % 7.3 %; Neutrophils # 5.21 10^3/uL (1.8-7.7); Neutrophils % 61.9 %; Nucleated Red Blood Cells % 0 %; Platelet Count 183 10^3/cmm (130-400); Red Blood Count 4.06 10^6/uL (4.1-5.3); Red Cell Distribution Width 13.9 % (12.1-15.1); White Blood Count 8.4 10^3/uL (4.0-10.0)
[2023-03-09 01:05] LABS: Alanine Aminotransferase 10 U/L (0-33); Albumin Level 3.2 g/dL (3.5-5.2); Alkaline Phosphatase 80 U/L (35-105); Anion Gap 8.9 (5-19); Aspartate Amino Transferase 13 U/L (0-32); Blood Urea Nitrogen 21 mg/dL (6-20); Calcium 7.3 mg/dL (8.5-10.5); Carbon Dioxide 24 mmol/L (22-29); Chloride 113 mmol/L (98-107); Globulin 1.8 g/dL (1.3-4.6); Glomerular Filtration Rate 129.1 mL/min (90-130); Glucose 97 mg/dL (65-115); Osmolality Calculated 297 mOsm/kg (285-295); Potassium 3.9 mmol/L (3.5-5.1); Sodium 142 mmol/L (136-145); Total Bilirubin 0.3 mg/dL (0.15-1.2)
[2023-03-09 01:09] LABS: Troponin 5 6HR Delta -2 ng/L (0-12)
--- NOTE | 2023-03-09 01:44 | PM.CCN ---
Critical Care Event Note Called to bedside regarding the need for patient intubation due to low GCS. The patient was in ICU 4, for baclofen overdose. Intubation proceeded without complication. RSI technique was used. Critical Care Time Code activated: No Critical Care Time (min): 0 Procedures Intubation Time out performed: No Sedative: etomidate Mg given: 20 Paralytic: succinylcholine Mg given: 100 ET tube size: 8 ET tube uncuffed: No Tube secured depth (cm): 24 Tube secured location: lips Tube placement confirmation: visualized tube passing through cords, equal breath sounds bilaterally and color change noted Patient tolerated procedure: well and no complications Intubation complications: none Coding Level of Care Code Acute Code for Chg Fwd
[2023-03-09] MEDS: sodium chloride 0.9% 1,000 ML 999 ML IV (01:47)
--- NOTE | 2023-03-09 02:44 | PC.NURSE ---
Patient arrived in the ICU at 184 from ER after patient overdosed on Baclofen. Patient had on bilateral soft wrist restraints. Patient was trying to kick and also trying to get out of bed. Patient recieved 20 mg of Geodon for agitation and that helped the patient to calm down. Patient was not maintaining airway protection and was starting to form a lot of sputum. Hospitalist examined patient and determined intubation was needed for the protection of airway. Patient was successfully intubated at 2031. Patient recieved 20 mg of etomidate and 100 mg of succinylcholine. ET tube measures 25 to the lip with no complications. ET and OG placement was confirmed by X-ray.
--- NOTE | 2023-03-09 03:10 | PC.NURSE ---
Addendum entered by Beni Cordero RN 03/09/23 03:16: 38 Baclofen tablets counted with Beni Cárdenas RN and placed in pyxis Original Note: Patient arrived with 38 tabs of Baclofen. Confirmed with this nurse and another nurse. Medication placed in pixis.
[2023-03-09] MEDS: ipratropium-albuterol 3 mL Neb INHALATION ×6 (03:15→23:29)
[2023-03-09] MEDS: piperacillin-tazobactam 3.375 GM in sodium chloride 0.9% (plus) 50 ML IV ×3 (04:15→19:46)
[2023-03-09 05:07] LABS: ABG PCO2 60.6 mmHg (35-45)
[2023-03-09 05:40] LABS: ABG PCO2 56.7 mmHg (35-45); ABG PH Result 7.24 (7.35-7.45); Alveolar-Arterial Oxygen Gradi 18.6 mmHg (5-10); Arterial Blood Gas Hematocrit 44.7 % (37-47); Base Excess ABG -3.9 mmol/L (-2.0-2.0); Blood Gas Allen Test Pos; Blood Gas Operator Identificat JB; Blood Gas Sample Site Radial, right; Blood Gas Sample Type Arterial; Carboxyhemoglobin 3.4 %THgb (0.4-20.1); HCO3 ABG 24.4 mmol/L (22-26); HGB O2 Sat 88.6 % (95-100); Ionized Calcium Level - ABG 1.2 mmol/L (1.1-1.4); Methemoglobin 0.7 % (0.4-1.5); Oxygen Device VENT; Oxygen Saturation ABG 92.4; PO2 ABG 72.2 mmHg (80.0-100.0); Potassium Level - ABG 3.6 mmol/L (3.5-5.0); Total Hemoglobin 14.6 g/dL (12-16)
--- NOTE | 2023-03-09 06:00 | XRR_ITS ---
PROCEDURE INFORMATION: Exam: XR Chest Exam date and time: 03/09/2023 6:18 AM Age: 52 years old Clinical indication: Device placement; Ett placement (vent status); Additional info: Intubated TECHNIQUE: Imaging protocol: Radiologic exam of the chest. Views: 1 view. COMPARISON: CR (CHEST, ) 03/08/2023 11:27 PM FINDINGS: Tubes, catheters and devices: ET tube present, tip about 4 cm above the tani. Gastric tube passes beneath the diaphragm, tip probably in the fundus of the stomach, just below the GE junction. The side port of the tube is still in the lower esophagus, not significantly changed. Essentially stable position of right arm PICC catheter. Lungs: No CHF/pulmonary edema. Visible lungs appear essentially clear. Pleural spaces: No visible pneumothorax. No definite pleural fluid. Heart/Mediastinum: Heart size is within normal limits. Bones/joints: No significant acute finding. XR/XR chest 1V portable [id number] IMPRESSION: 1. Tube documentation as above. 2. No definite pneumonia or CHF. 3. Other findings discussed above.
[2023-03-09] MEDS: propofol 1,000 MG/100 ML INJ 8.91 MG IV ×2 (06:36→13:55)
[2023-03-09] MEDS: dextrose 5%-sod chloride 0.9% 1,000 ML 100 ML IV ×2 (06:51→13:54)
[2023-03-09] MEDS: heparin 5,000 unit/mL INJ 1 mL 5000 UNIT SUBCUT ×2 (06:53→17:50)
[2023-03-09] MEDS: pantoprazole 40 mg SDV IVP ×2 (08:57→17:50)
[2023-03-09 09:55] LABS: ABG PCO2 49.4 mmHg (35-45); ABG PH Result 7.29 (7.35-7.45); Arterial Blood Gas Hematocrit 42.1 % (37-47); Base Excess ABG -3.3 mmol/L (-2.0-2.0); Blood Gas Allen Test Pos; Blood Gas Operator Identificat MONRO; Blood Gas Sample Site Radial, right; Blood Gas Sample Type Arterial; HCO3 ABG 23.7 mmol/L (22-26); Oxygen Device VENT; PO2 ABG 79.5 mmHg (80.0-100.0)
[2023-03-09 15:09] LABS: ABG PCO2 41.2 mmHg (35-45); ABG PH Result 7.35 (7.35-7.45); Arterial Blood Gas Hematocrit 42.5 % (37-47); Base Excess ABG -2.9 mmol/L (-2.0-2.0); Blood Gas Allen Test Pos; Blood Gas Operator Identificat MONRO; Blood Gas Sample Site Radial, left; Blood Gas Sample Type Arterial; Blood Gas Tidal Volume 0.45; Carboxyhemoglobin 1.3 %THgb (0.4-20.1); HCO3 ABG 22.7 mmol/L (22-26); HGB O2 Sat 95.8 % (95-100); Ionized Calcium Level - ABG 1.2 mmol/L (1.1-1.4); Methemoglobin 0.4 % (0.4-1.5); Oxygen Device VENT; Oxygen Saturation ABG 97.5; PO2 ABG 90.2 mmHg (80.0-100.0); Potassium Level - ABG 3.3 mmol/L (3.5-5.0); Total Hemoglobin 13.9 g/dL (12-16)
--- NOTE | 2023-03-09 15:15 | P.PN_ITS ---
Subjective Subjective: This morning patient is intubated and sedated Overnight events noted Patient is on 2 sedatives As per the nursing staff she was still agitated trying to get up No fever Patient was given succinylcholine along sedative Patient is also requiring Levophed at 4 mics Her sedatives dose has been increased to ventilator 160 and propofol running at 40 Vitals/I&O/Wt Last Vital Signs Temp 96.9 F L 03/09/23 07:00 Pulse 54 L 03/09/23 15:00 Resp 17 03/09/23 15:00 BP 98/63 03/09/23 11:00 Pulse Ox 100 03/09/23 15:00 O2 Del Method Mechanical Ventilation 03/09/23 15:00 O2 Flow Rate 40 03/09/23 03:00 FiO2 35 03/09/23 15:00 03/09/23 03/09/23 03/09/23 06:59 14:59 22:59 Intake Total 3043.804 / 3056.543 1093.317 / 1093.317 Output Total 400 / 400 Balance 2643.804 / 2656.543 1093.317 / 1093.317 Weight last 48 hrs Weight 59.421 kg Physical Exam Narrative: Patient is intubated and sedated Dependent on mechanical ventilator Riding the vent Clinically looks euvolemic Bilateral assisted breath sounds Abdomen soft Rhodes catheter with dilute urine Neuro exam limited Currently on sedatives, Urinary Catheter Management: Rhodes: Cath Placed During This Visit: yes Reason for Continuing Indwelling Catheter: Accurate Measurement of Urinary Output in Critically Ill Patients Urinary Catheter Date of Insertion: 03/08/23 Urinary Catheter Time of Insertion: 18:32 Data 03/09/23 00:40 03/09/23 00:40 A&P Assessment and plan (1) Baclofen overdose: Qualifiers: Encounter type: initial encounter (2) Major depressive disorder, recurrent episode, in partial remission: (3) Generalized anxiety disorder: (4) Drug overdose: (5) Depression: (6) Migraine: Plan Respiratory failure for airway protection Requiring mechanical ventilation We had to increase her sedatives because patient was still agitated breathing above the vent however with increased dose of sedatives now she is riding the vent and ABG shows improvement as well I have escalated antibiotics at the time of admission to [facility] because my concern is related to aspiration pneumonia she has not spiked fever so far Her low blood pressure seems to be related to polypharmacy use of propofol with underlying baclofen overdose There is also concern for UTI Baclofen: Poison control has been notified today as well I have not seen myoclonus during my examination on 2 sedatives patient is afebrile Hypotension related to polypharmacy Wean off Levophed I have asked ICU nurse to increase fentanyl dose so we can t itrate off propofol slowly Patient is intubated for airway protection my plan is to do a weaning trial tomorrow morning and by that time hopefully her mentation would improve as well I do not see any myoclonus to put neuro malignant syndrome in my differentials. UTI continue antibiotics Blood and urine culture will be obtained Acute hyperactive delirium related to baclofen overdose Drug screen positive for marijuana Most of the information has been taken from the collaterals, has been has been notified Full code Started D5 half-normal saline IV fluid hydration for now Avoid tube feeds because patient is on 4 mics of levo, weaning trial tomorrow Bradycardia: Sinus in rhythm TSH normal Likely related to polypharmacy as well Monitor closely for now QTc is not prolonged Full code N.p.o. Attestations Medical Necessity Statement*: Continue ICU management Coding Level of Care Code Critical Care >/= 30 minutes Critical care time (in minutes): 40 The high probability of a clinically significant, sudden or life threatening deterioration, as referenced in this documentation, required my full and direct attention, intervention and personal management. The critical care time shown is in addition to time spent performing any reported separately billable procedures and includes the following: [x] Data and vital sign review and interpretation [x ] Patient assessment, examination and intervention [x] Medication orders and management [x] Patient/Family updates as able [x] Care Coordination and Documentation. Diagnoses Baclofen overdose T42.8X1A Encounter type: initial encounter Major depressive disorder, recurrent episode, in partial remission F33.41 Generalized anxiety disorder F41.1 Drug overdose T50.901A Depression F32.A Migraine G43.909
--- NOTE | 2023-03-09 18:58 | USCV_ITS ---
Kaylie Edwards Age: 52 Gender: F : 1970 Exam Date: 03/09/2023 12:52 Ordering Phys: Mckay Woods MD Technologist: CHRISTINA [place] [facility] [place]: od BP: / HR: 54 Rhythm: Sinus Technical Quality: Adequate MEASUREMENTS (Male / Female) Normal Values 2D ECHO LV Diastolic Diameter PLAX 4.2 cm 4.2 - 5.9 / 3.9 - 5.3 cm LV Systolic Diameter PLAX 3.1 cm IVS Diastolic Thickness 0.7 cm 0.6 - 1.0 / 0.6 - 0.9 cm IVS Systolic Thickness 1.1 cm LVPW Diastolic Thickness 0.8 cm 0.6 - 1.0 / 0.6 - 0.9 cm LVPW Systolic Thickness 1.0 cm LVOT Diameter 1.8 cm LV Ejection Fraction 2D Teich 53.3 % LV Ejection Fraction MOD 2C 61.4 % LV Ejection Fraction 2C AL 63.4 % LA Diameter 3.9 cm IVC Diameter 2.9 cm M-MODE Aortic Annulus Diameter 2.6 cm LA Ao Ratio MM 1.6 MV E Point Septal Separation 0.5 cm DOPPLER AV Peak Velocity 171.0 cm/s LVOT Peak Velocity 119.0 cm/s AV Area Cont Eq vti 1.8 cm squared AV Area Cont Eq pk 1.8 cm squared MV Area PHT 5.0 cm squared Mitral E to A Ratio 1.1 MV E' Velocity 45.5 cm/s Mitral E to MV E' Ratio 9.3 Mitral E to LV E' Lateral Ratio 8.6 Mitral E to LV E' Septal Ratio 10.3 TV Peak E Velocity 63.0 cm/s PV Peak Velocity 65.0 cm/s FINDINGS Left Ventricle Normal left ventricular size and systolic function, EF 58 %. No regional wall motion abnormalities. Right Ventricle Mildly increased right ventricular size. Normal right ventricular systolic function. Right Atrium Mildly increased right atrial size. Left Atrium Normal left atrial size. Mitral Valve No gross abnormalities noted Aortic Valve No gross abnormalities noted Tricuspid Valve No gross abnormalities noted Pulmonic Valve Pulmonic valve not well visualized. Pericardium No pericardial effusion. Aorta Normal aortic annulus size. IVC Normal inferior vena cava. Inferior vena cava not visualized. CONCLUSIONS Normal left ventricular size and systolic function, EF 58 %. No regional wall motion abnormalities. Normal cardiac chamber sizes. No significant valvular abnormalities. There is no pericardial effusion. Dr Sonia Murrell MD FACC (Electronically Signed) Final Date: 09 March 2023 15:24 S
[2023-03-09 20:01] LABS: Glucose Point of Care 130 mg/dL (70-110)
[2023-03-09] MEDS: propofol 1,000 MG/100 ML INJ 24.96 MG IV (21:55)
[2023-03-10] VITALS (73 sets, daily range): BP systolic 84–135; BP diastolic 53–83; PULSE 60–96; RESP 17–28; TEMP 36.4–37.1; O2SAT 90–100; BMI 25.5
[2023-03-10] MEDS: chlorhexidine gluconate 4% Btl 118 mL 1 APPLIC TOPICAL (01:55)
[2023-03-10] MEDS: propofol 1,000 MG/100 ML INJ 21.39 MG IV ×5 (02:24→21:35)
[2023-03-10] MEDS: dextrose 5%-sod chloride 0.9% 1,000 ML 100 ML IV ×2 (02:24→12:21)
[2023-03-10] MEDS: ipratropium-albuterol 3 mL Neb INHALATION ×6 (03:59→23:09)
[2023-03-10] MEDS: piperacillin-tazobactam 3.375 GM in sodium chloride 0.9% (plus) 50 ML IV ×2 (04:26→11:50)
[2023-03-10 05:59] LABS: ABG PCO2 49.7 mmHg (35-45); ABG PH Result 7.28 (7.35-7.45); Arterial Blood Gas Hematocrit 44.1 % (37-47); Base Excess ABG -3.9 mmol/L (-2.0-2.0); Blood Gas Operator Identificat JB; Blood Gas Sample Site Brachial, left; Blood Gas Sample Type Arterial; Blood Gas Tidal Volume 0.45; Carboxyhemoglobin 1.2 %THgb (0.4-20.1); HCO3 ABG 23.3 mmol/L (22-26); HGB O2 Sat 93.6 % (95-100); Ionized Calcium Level - ABG 1.3 mmol/L (1.1-1.4); Methemoglobin 0.2 % (0.4-1.5); Oxygen Device VENT; PO2 ABG 73.5 mmHg (80.0-100.0); Potassium Level - ABG 3.3 mmol/L (3.5-5.0); Total Hemoglobin 14.4 g/dL (12-16)
--- NOTE | 2023-03-10 06:00 | XRR_ITS ---
PROCEDURE INFORMATION: Exam: XR Chest Exam date and time: 03/10/2023 5:46 AM Age: 52 years old Clinical indication: Patient HX: F/u resp failure. Intubated. TECHNIQUE: Imaging protocol: Radiologic exam of the chest. Views: 1 view. COMPARISON: CR (CHEST, ) 03/09/2023 6:18 AM FINDINGS: Tubes, catheters and devices: Endotracheal tube, nasogastric tube, and right PICC line are in place Lungs: Unremarkable. No consolidation. Pleural spaces: Unremarkable. No pleural effusion. No pneumothorax. Heart/Mediastinum: Unremarkable. No cardiomegaly. Bones/joints: Unremarkable. XR/XR chest 1V portable [id number] IMPRESSION: Lines and tubes in stable position. No acute pulmonary disease process
[2023-03-10] MEDS: heparin 5,000 unit/mL INJ 1 mL 5000 UNIT SUBCUT ×2 (06:02→18:31)
[2023-03-10 06:12] LABS: Hemoglobin 15.2 g/dL (11.5-15.3); Red Blood Count 4.44 10^6/uL (4.1-5.3); White Blood Count 5.5 10^3/uL (4.0-10.0)
[2023-03-10 06:13] LABS: Basophils # 0.1 10^3/uL (0.0-0.1); Basophils % 1.5 %; Eosinophils # 0.2 10^3/uL (0.0-0.8); Eosinophils % 2.9 %; Hematocrit 44.9 % (37.0-47.0); Lymphocytes # 2.4 10^3/uL (0.8-4.8); Lymphocytes % 44.8 %; Mean Corpuscular HGB Conc 33.9 g/dL (30.0-36.0); Mean Corpuscular Hemoglobin 34.2 pg (28.0-34.0); Mean Corpuscular Volume 101.1 fl (81-99); Mean Platelet Volume 9.2 fL (7.4-10.4); Monocytes # 0.3 10^3/uL (0.2-0.9); Monocytes % 6.2 %; Neutrophils # 2.42 10^3/uL (1.8-7.7); Neutrophils % 44.4 %; Nucleated Red Blood Cells % 0 %; Platelet Count 253 10^3/cmm (130-400); Red Cell Distribution Width 11.9 % (12.1-15.1)
[2023-03-10 06:40] LABS: Alanine Aminotransferase 15 U/L (0-33); Alkaline Phosphatase 87 U/L (35-105); Anion Gap 10.5 (5-19); Aspartate Amino Transferase 20 U/L (0-32); Blood Urea Nitrogen 9 mg/dL (6-20); Calcium 7.5 mg/dL (8.5-10.5); Carbon Dioxide 22 mmol/L (22-29); Chloride 112 mmol/L (98-107); Globulin 2.2 g/dL (1.3-4.6); Glucose 97 mg/dL (65-115); Osmolality Calculated 291 mOsm/kg (285-295); Potassium 3.5 mmol/L (3.5-5.1); Sodium 141 mmol/L (136-145); Total Bilirubin 0.2 mg/dL (0.15-1.2); Total Protein 5.2 g/dL (6.6-8.7)
--- NOTE | 2023-03-10 06:42 | PC.NURSE ---
CBC/CMP No cbc or cmp ordered for this morning. Dr. Jacobs contacted and orders received for these labs.
[2023-03-10] MEDS: pantoprazole 40 mg SDV IVP ×2 (08:08→17:18)
--- NOTE | 2023-03-10 08:46 | PC.NURSE ---
when sedation lowered has jerking movents arms and legs sits upright in bed but not follow commands thrashing around noted . moves all extremities pupils reactive agitated with any stimulation
--- NOTE | 2023-03-10 14:09 | P.PN_ITS ---
Subjective Subjective: Patient was showing signs of agitation, biting the tube, ABG reviewed FiO2 30% PEEP 8 Levophed running at 2 mics Propofol running at 60, fentanyl at 100 Patient is stacking her breath Tried to contact for an update it is going straight to voicemail Vitals/I&O/Wt Last Vital Signs Temp 97.5 F L 03/10/23 11:30 Pulse 86 03/10/23 11:30 Resp 18 03/10/23 13:48 BP 104/69 03/10/23 11:30 Pulse Ox 98 03/10/23 13:48 O2 Del Method Mechanical Ventilation 03/10/23 11:24 O2 Flow Rate 40 03/09/23 03:00 FiO2 35 03/10/23 14:00 03/09/23 03/10/23 03/10/23 22:59 06:59 14:59 Intake Total 337.295 / 4788.617 6206.406 / 2760.406 1379.194 / 1379.194 Output Total 650 / 650 Balance 337.295 / 1437.000 673.406 / 2110.406 1379.194 / 1379.194 Weight last 48 hrs Weight 67.495 kg Weight 59.421 kg Physical Exam Narrative: Patient is intubated and sedated Arousable Clinically euvolemic Assisted bilateral breath sounds Levophed running at 2 mics Propofol and fentanyl at the bedside PEEP 8 FiO2 30% Tidal volume 450-minute ventilation 7-8 Looks dry Abdomen soft Neuro exam limited S1, S2 sinus rhythm Urinary Catheter Management: Rhodes: Cath Placed During This Visit: yes Reason for Continuing Indwelling Catheter: Accurate Measurement of Urinary Out put in Critically Ill Patients Urinary Catheter Date of Insertion: 03/08/23 Urinary Catheter Time of Insertion: 18:32 Data 03/10/23 05:55 03/10/23 05:55 Micro: Microbiology 03/08/23 21:10 Gram Stain - Final Sputum - Endotracheal Tube Aspirate Sputum Culture - Preliminary 03/08/23 18:31 Urine Culture - Final Urine,Clean Catch A&P Assessment and plan (1) Baclofen overdose: Qualifiers: Encounter type: initial encounter (2) Major depressive disorder, recurrent episode, in partial remission: (3) Generalized anxiety disorder: (4) Drug overdose: (5) Migraine: Plan Respiratory failure required mechanical ventilation for airway protection after baclofen overdose Patient still trying to fight the vent I have asked ICU nurse to increase dose of fentanyl She is checking her breath which shows hypercapnic findings Yesterday with better sedation her ABG improved Afebrile, no worsening of leukocytosis Sedation vacation, weaning trial starting today Avoid putting tube feeding because patient is requiring Levophed I am hoping will be able to extubate her in next 24 hours Hypovolemic shock Patient clinically looks dehydrated Start normal saline wean off Levophed No active signs of sepsis, no signs of heart failure, it is a combination of hypovolemia and polypharmacy Patient has been requiring Levophed since intubation She received Zosyn from day 1 Concern for aspiration pneumonia: Continue Zosyn for now, chest x-ray does not show active consolidation I will keep her on IV antibiotics until the day of extubation I will change her antibiotics to meropenem since she carries history of ESBL UTI Hypokalemia: Replenish potassium Preserved ejection fraction EF 58% no regional wall motion abnormality cultures negative to date Full code N.p.o. Sedation location, weaning trial starting today Patient will go to n.p.u. after extubation , it was considered an accidental overdose of baclofen Attestations Medical Necessity Statement*: Patient will go to n.p.u. likely next 24 to 48 hours Diagnoses Baclofen overdose T42.8X1A Encounter type: initial encounter Major depressive disorder, recurrent episode, in partial remission F33.41 Generalized anxiety disorder F41.1 Drug overdose T50.901A Migraine G43.909
[2023-03-10] MEDS: meropenem 500 MG in sodium chloride 0.9% (plus) 50 ML 100 MG IV ×2 (15:36→22:02)
[2023-03-10] MEDS: sodium chloride 0.9% 1,000 ML 100 ML IV (15:36)
[2023-03-10 16:57] LABS: ABG PCO2 43.6 mmHg (35-45); ABG PH Result 7.35 (7.35-7.45); Alveolar-Arterial Oxygen Gradi 11.8 mmHg (5-10); Arterial Blood Gas Hematocrit 41.9 % (37-47); Base Excess ABG -1.6 mmol/L (-2.0-2.0); Blood Gas Operator Identificat AMH; Blood Gas Sample Site Brachial, left; Blood Gas Sample Type Arterial; Carboxyhemoglobin 1.3 %THgb (0.4-20.1); HCO3 ABG 24.1 mmol/L (22-26); Ionized Calcium Level - ABG 1.2 mmol/L (1.1-1.4); Methemoglobin 0.7 % (0.4-1.5); Oxygen Device VENT; Oxygen Saturation ABG 94.9; PO2 ABG 68.6 mmHg (80.0-100.0); Potassium Level - ABG 3.1 mmol/L (3.5-5.0); Total Hemoglobin 13.7 g/dL (12-16)
[2023-03-11] VITALS (61 sets, daily range): BP systolic 88–153; BP diastolic 56–82; PULSE 75–96; RESP 14–22; TEMP 36.7–37.2; O2SAT 88–97; BMI 26.5
[2023-03-11] MEDS: propofol 1,000 MG/100 ML INJ 21.39 MG IV (02:39)
[2023-03-11] MEDS: sodium chloride 0.9% 1,000 ML 100 ML IV ×2 (03:09→10:48)
[2023-03-11 03:21] LABS: ABG PCO2 36.8 mmHg (35-45); ABG PH Result 7.42 (7.35-7.45); Arterial Blood Gas Hematocrit 41.9 % (37-47); Base Excess ABG -0.6 mmol/L (-2.0-2.0); Blood Gas Allen Test Pos; Blood Gas Sample Site Radial, right; Blood Gas Sample Type Arterial; HCO3 ABG 23.6 mmol/L (22-26); Oxygen Device VENT; PO2 ABG 63.3 mmHg (80.0-100.0)
[2023-03-11 04:07] LABS: Basophils % 0.4 %; Eosinophils # 0.4 10^3/uL (0.0-0.8); Eosinophils % 3.8 %; Hemoglobin 12.5 g/dL (11.5-15.3); Lymphocytes # 2.1 10^3/uL (0.8-4.8); Lymphocytes % 22.8 %; Mean Corpuscular HGB Conc 34.7 g/dL (30.0-36.0); Mean Corpuscular Hemoglobin 34.5 pg (28.0-34.0); Mean Corpuscular Volume 99.4 fl (81-99); Mean Platelet Volume 11.7 fL (7.4-10.4); Monocytes # 0.9 10^3/uL (0.2-0.9); Monocytes % 9.6 %; Neutrophils # 5.79 10^3/uL (1.8-7.7); Neutrophils % 63.3 %; Nucleated Red Blood Cells % 0 %; Platelet Count 177 10^3/cmm (130-400); Red Blood Count 3.62 10^6/uL (4.1-5.3); White Blood Count 9.2 10^3/uL (4.0-10.0)
[2023-03-11 04:28] LABS: Anion Gap 11.1 (5-19); Blood Urea Nitrogen 7 mg/dL (6-20); Calcium 7.8 mg/dL (8.5-10.5); Carbon Dioxide 23 mmol/L (22-29); Chloride 106 mmol/L (98-107); Glucose 68 mg/dL (65-115); Osmolality Calculated 280 mOsm/kg (285-295); Potassium 3.1 mmol/L (3.5-5.1); Sodium 137 mmol/L (136-145)
--- NOTE | 2023-03-11 06:00 | XR_ITS ---
WS: [id number] Exam: XR chest 1V portable [id number] Date/Time of Exam: 03/11/2023 5:27 AM Reason For Exam: intubated Comparison 03/10/2023. The lungs are clear and fully expanded. Normal cardiomediastinal silhouette. ET tube ends about 4 cm above the tani in satisfactory position. An NG tube in place barely entering the stomach. The side- port of the tube ends in the lower esophagus. Right-sided PICC line ends in the lower one third of th e SVC. XR/XR chest 1V portable [id number] IMPRESSION: 1. No acute cardiopulmonary finding. 2. NG tube barely entering the stomach. The side-port of the tube ends in the l ower esophagus. It is recommended to be advanced another 5 to 6 cm for optimal position.
[2023-03-11] MEDS: heparin 5,000 unit/mL INJ 1 mL 5000 UNIT SUBCUT ×2 (06:09→18:17)
[2023-03-11] MEDS: meropenem 500 MG in sodium chloride 0.9% (plus) 50 ML 100 MG IV ×3 (06:09→22:04)
--- NOTE | 2023-03-11 07:08 | PC.NURSE ---
Potassium Patient's potassium level 3.1. Dr. Jacobs notified and order received for 40 meq potassium chloride IV once. See MAR
[2023-03-11] MEDS: potassium chloride premix 200 ML 50 MEQ IV (07:47)
[2023-03-11] MEDS: ipratropium-albuterol 3 mL Neb INHALATION ×4 (07:57→19:24)
[2023-03-11] MEDS: propofol 1,000 MG/100 ML INJ 17.83 MG IV ×2 (08:08→12:35)
[2023-03-11] MEDS: pantoprazole 40 mg SDV IVP ×2 (08:35→17:11)
--- NOTE | 2023-03-11 10:08 | PC.CHAP ---
Pastoral Care Encounter/Spiritual Assessment Type of Contact [] Declined match up worker visit [] Patient/Family/Request visit [] Outpatient visit [] Follow-up visit [] Physician referral [] Code/Alert [x] Routine visit [] Staff referral [] Actively dying [x] Patient sleeping [] Family support [] [] Out of room [] Palliative care [] [] Receiving care in room [] Pre-surgical visit [] Trauma [] Long length of stay [] ICU visit [x] Other: vetn... setter waiting for vent to be removed... and will remain with patient Relational/Emotional Strength [] Patient feels connected with others/family/visitors/staff [] Distress [] Loneliness/isolation [] Abandonment Spirituality of Patient [] Person of Gavi [] Attends Zoroastrianism of their Gavi [] Believes in Prayer [] Reads Bible or Synagogue materials [] There are Spiritual issues to be addressed Balloon Artist Interventions [x] Prayer [] Active listening [] Non-anxious presence [] Spiritual/emotional support [] Crisis/trauma care [] Spiritual counseling [] Bereavement support [] Provided bereavement packet [] Provided Bible/devotional materials [] Provided toy/stuffed animal, coloring book to patient or family member [] Provided Communion [] Anointing/[place] [] Salvation [x] Completed spiritual assessment [] Other: Impact on Illness or Injury [] Angry [] Fearful [] Anxious [] Often cries [] Exhaustion [] Unable to work [] Unable to attend episcopal [] Unable to walk/stand [] Unable to read [] Unable to drive [] Unable to eat/drink [] Unable to sleep [] Unable to be with family [] Patient intubated [] Other: Summary Time spent with patient
--- NOTE | 2023-03-11 10:29 | PC.SOCIAL ---
IMM update IMM updated. Copy PG 2 at bedside. Patient currently intubated. Initialled, dated, timed, and placed in chart.
[2023-03-11] MEDS: dexmedetomidine 400 MCG in sodium chloride 0.9% (100 ml) 100 ML IV (11:05)
--- NOTE | 2023-03-11 16:33 | PC.NURSE ---
Patient extubated at 1615 without complication per physician order. Patient then placed on 3L NC
--- NOTE | 2023-03-11 17:33 | PC.NURSE ---
Addendum entered by Lizandro Jones RN 03/11/23 17:44: Witnessed Waste Original Note: Fentanyl 26ml and Propofol 82 ml wasted witnessed by Lizandro Jones RN
[2023-03-11] MEDS: dexmedetomidine 400 MCG in sodium chloride 0.9% (100 ml) 100 ML 9.28 MCG IV (17:39)
[2023-03-11] MEDS: acetaminophen 500 mg Tablet PO (19:18)
--- NOTE | 2023-03-11 20:02 | P.PN_ITS ---
Subjective Subjective: Earlier this morning, agitated still requiring sedation. Later on in the early afternoon calmer, initially lethargic, then waking up, following directions. Denies pain. Squeezes both hands. Discussed with her consideration of extubation in case things continue to improve. Vitals/I&O/Wt Last Vital Signs Temp 98.1 F 03/11/23 19:57 Pulse 88 03/11/23 19:57 Resp 16 03/11/23 19:57 BP 102/56 03/11/23 19:57 Pulse Ox 90 03/11/23 19:57 O2 Del Method Nasal Cannula 03/11/23 19:57 O2 Flow Rate 3 03/11/23 19:57 FiO2 30 03/11/23 16:02 03/11/23 03/11/23 03/11/23 06:59 14:59 22:59 Intake Total 1284.300 / 3099.785 1227.085 / 1227.085 82.701 / 1309.786 Output Total 525 / 1925 1700 / 1700 Balance 759.300 / 8875.805 4515.085 / 1227.085 -1617.299 / -390.214 Weight last 48 hrs Weight 70.216 kg Weight 67.495 kg Physical Exam Const: GENERAL APPEARANCE: cooperative and patient mechanically ventilated HENMT: COMMON NORMALS: oropharynx normal Neck/C-Spine: COMMON NORMALS: no JVD Resp: COMMON NORMALS: normal respiratory effort and clear to auscultation bilaterally AUSCULTATION: clear to auscultation bilaterally Cardio: COMMON NORMALS: no JVD, regular rhythm, S1 normal heart sound present, S2 normal heart sound present and No murmurs present (Cardio) RHYTHM: regular rhythm HEART SOUNDS: S1 normal heart sound present and S2 normal heart sound present GI: COMMON NORMALS: Normal to inspection, nondistended, normoactive bowel sounds present, Soft to palpation and non-tender PALPATION: Yes Soft to palpation Extremity: COMMON NORMALS: no pedal edema Neuro: COMMON NORMALS: moves all extremities Urinary Catheter Management: Rhodes: Cath Placed During This Visit: yes Reason for Continuing Indwelling Catheter: Accurate Measurement of Urinary Output in Critically Ill Patients Urinary Catheter Date of Insertion: 03/08/23 Urinary Catheter Time of Insertion: 18:32 Data 03/11/23 03:35 03/11/23 03:35 Micro: Microbiology 03/08/23 21:10 Gram Stain - Final Sputum - Endotracheal Tube Aspirate Sputum Culture - Final A&P Assessment and plan (1) Baclofen overdose: Qualifiers: Encounter type: initial encounter (2) Major depressive disorder, recurrent episode, in partial remission: (3) Generalized anxiety disorder: (4) Drug overdose: (5) Migraine: Plan Respiratory failure required mechanical ventilation for airway protection after baclofen overdose Respiratory failure with improvement, she is down on 30% FiO2 during the time of my visit. Does have some rhonchi, with consideration of possible aspiration pneumonitis/pneumonia, although is without leukocytosis, afebrile. Pulmonary toilet performed by RT. Continues empirically on meropenem for now. Acute encephalopathy with agitation this morning, possibly weaning from sedation, possibly related to medication overdose, later during early afternoon, waking up, calm, following directions. Did well during breathing trial. Extubated to 3 L nasal cannula. Medication overdose: Resulting in acute toxic encephalopathy on presentation. Encephalopathy currently with improvement. Discussed with psychiatry. Consu ltation placed. Hypovolemic shock: Resolved. Weaned off pressor. Hold further IV fluid. Monitor blood pressure. Echocardiogram noted with normal EF, no RWMA, unremarkable. Concern for aspiration pneumonia: Continue meropenem for now Possible UTI: History of ESBL infection. Was started on on meropenem. Urine culture without growth. Low likelihood of UTI. Hypokalemia: Received additional potassium. Follow-up potassium, magnesium. Preserved ejection fraction EF 58% no regional wall motion abnormality Attestations Medical Necessity Statement*: Continue for assessment/management following acute encephalopathy, agitation with medication overdose, aspiration pneumonitis, respiratory failure. Coding Level of Care Code Critical Care >/= 30 minutes Critical care time (in minutes): 45 The high probability of a clinically significant, sudden or life threatening deterioration, as referenced in this documentation, required my full and direct attention, intervention and personal management. The critical care time shown is in addition to time spent performing any reported separately billable procedures and includes the following: [x] Data and vital sign review and interpretation [x ] Patient assessment, examination and intervention [x] Medication orders and management [x] Patient/Family updates as able [x] Care Coordination and Documen tation. Diagnoses Baclofen overdose T42.8X1A Encounter type: initial encounter Major depressive disorder, recurrent episode, in partial remission F33.41 Generalized anxiety disorder F41.1 Drug overdose T50.901A Migraine G43.909
[2023-03-11 22:45] LABS: Glucose Point of Care 86 mg/dL (70-110)
[2023-03-11 22:54] LABS: Glucose Point of Care 94 mg/dL (70-110)
[2023-03-12] VITALS (57 sets, daily range): BP systolic 107–152; BP diastolic 61–90; PULSE 78–103; RESP 14–36; TEMP 36.4–37.2; O2SAT 90–96
[2023-03-12] MEDS: trazodone 50 mg Tablet PO ×2 (01:00→20:58)
[2023-03-12 03:21] LABS: Glucose Point of Care 87 mg/dL (70-110)
[2023-03-12] MEDS: acetaminophen 500 mg Tablet PO ×2 (04:26→16:14)
[2023-03-12 04:42] LABS: Basophils % 0.2 %; Eosinophils # 0.3 10^3/uL (0.0-0.8); Hemoglobin 13.4 g/dL (11.5-15.3); Lymphocytes # 1.1 10^3/uL (0.8-4.8); Lymphocytes % 10.4 %; Mean Corpuscular HGB Conc 37.2 g/dL (30.0-36.0); Mean Corpuscular Hemoglobin 36.6 pg (28.0-34.0); Mean Corpuscular Volume 98.4 fl (81-99); Mean Platelet Volume 11.6 fL (7.4-10.4); Monocytes # 0.8 10^3/uL (0.2-0.9); Monocytes % 7.5 %; Neutrophils # 8.24 10^3/uL (1.8-7.7); Neutrophils % 78.6 %; Nucleated Red Blood Cells % 0 %; Platelet Count 188 10^3/cmm (130-400); Red Blood Count 3.66 10^6/uL (4.1-5.3); Red Cell Distribution Width 14.6 % (12.1-15.1); White Blood Count 10.5 10^3/uL (4.0-10.0)
[2023-03-12 05:15] LABS: Alanine Aminotransferase 12 U/L (0-33); Albumin Level 2.8 g/dL (3.5-5.2); Alkaline Phosphatase 100 U/L (35-105); Anion Gap 15.3 (5-19); Aspartate Amino Transferase 16 U/L (0-32); Blood Urea Nitrogen 6 mg/dL (6-20); Calcium 8.2 mg/dL (8.5-10.5); Carbon Dioxide 23 mmol/L (22-29); Chloride 106 mmol/L (98-107); Glucose 72 mg/dL (65-115); Magnesium 1.8 mg/dL (1.7-2.3); Osmolality Calculated 288 mOsm/kg (285-295); Potassium 3.3 mmol/L (3.5-5.1); Sodium 141 mmol/L (136-145); Total Bilirubin 0.8 mg/dL (0.15-1.2); Total Protein 4.8 g/dL (6.6-8.7)
[2023-03-12] MEDS: meropenem 500 MG in sodium chloride 0.9% (plus) 50 ML 100 MG IV ×3 (06:04→22:25)
[2023-03-12] MEDS: heparin 5,000 unit/mL INJ 1 mL 5000 UNIT SUBCUT ×2 (06:14→18:06)
[2023-03-12] MEDS: potassium chloride ER 20 mEq Tablet 40 MEQ PO (06:15)
--- NOTE | 2023-03-12 08:56 | P.PN_ITS ---
Subjective Subjective: She reports she feels she is improving. She is coughing some. But breathing has been improving. Coming down on oxygen requirement. Requests to restart her home medications. Vitals/I&O/Wt Last Vital Signs Temp 98.4 F 03/12/23 04:42 Pulse 90 03/12/23 06:30 Resp 18 03/12/23 05:30 BP 140/81 03/12/23 06:30 Pulse Ox 91 03/12/23 06:30 O2 Del Method Nasal Cannula 03/12/23 05:30 O2 Flow Rate 4 03/12/23 05:30 FiO2 30 03/11/23 16:02 03/11/23 03/12/23 03/12/23 22:59 06:59 14:59 Intake Total 124.189 / 1351.274 105.800 / 1457.074 Output Total 2100 / 2100 2325 / 4425 Balance -1975.811 / -748.726 -2219.200 / -2967.926 Weight last 48 hrs Weight 61.235 kg Weight 70.216 kg Physical Exam Narrative: Sitting up in chair. Const: GENERAL APPEARANCE: cooperative and patient mechanically ventilated HENMT: COMMON NORMALS: oropharynx normal Neck/C-Spine: COMMON NORMALS: no JVD Resp: COMMON NORMALS: normal respiratory effort and clear to auscultation bilaterally AUSCULTATION: clear to auscultation bilaterally Cardio: COMMON NORMALS: no JVD, regular rhythm, S1 normal heart sound present, S2 normal heart sound present and No murmurs present (Cardio) RHYTHM: regular rhythm HEART SOUNDS: S1 normal heart sound present and S2 normal heart sound present GI: COMMON NORMALS: Normal to inspection, nondistended, normoactive bowel sounds present, Soft to palpation and non-tender PALPATION: Yes Soft to palpation Extremity: COMMON NORMALS: no pedal edema Neuro: COMMON NORMALS: moves all extremities Urinary Catheter Management: Rhodes: Cath Placed During This Visit: yes Reason for Continuing Indwelling Catheter: Accurate Measurement of Urinary Output in Critically Ill Patients Urinary Catheter Date of Insertion: 03/08/23 Urinary Catheter Time of Insertion: 18:32 Data 03/12/23 04:09 03/12/23 04:09 Micro: Microbiology 03/08/23 21:10 Gram Stain - Final Sputum - Endotracheal Tube Aspirate Sputum Culture - Final A&P Assessment and plan (1) Baclofen overdose: Qualifiers: Encounter type: initial encounter (2) Major depressive disorder, recurrent episode, in partial remission: (3) Generalized anxiety disorder: (4) Drug overdose: (5) Migraine: Plan Respiratory failure required mechanical ventilation for airway protection after baclofen overdose Improving. Extubated last night, maintain on 2 L nasal cannula, currently maintaining saturation well in mid 90s. May have room to go down on oxygen supplementation. Continue to wean as tolerating. We will discontinue her ICU medications no longer used, sedatives, pressor. Noted WBC 10.5, predominantly neutrophilic 8.24. She is otherwise afebrile. Meropenem for now but should be able to transition to Augmentin in case of admission to neuropsychiatric unit for aspiration pneumonia. Acute encephalopathy with agitation resolved. Medication overdose: Resulting in acute toxic encephalopathy on presentation. Possibly secondary to severe anxiety, however, pending psychiatric evaluation to assess for any possible suicidal intent. Would benefit from psychiatric evaluation on neuropsychiatric unit. Encephalopathy currently resolved. Discussed with her pending psychiatric evaluation to which she is agreeable. Requesting to confirm home medications to allow for resumption. Hypovolemic shock: Resolved. Weaned off pressor. Hold further IV fluid. Monitor blood pressure. Echocardiogram noted with normal EF, no RWMA, unremarkable. Concern for aspiration pneumonia: meropenem, transition to Augmentin in case of admission to neuropsychiatric unit. Possible UTI: History of ESBL infection. Was started on on meropenem. Urine culture without growth. Low likelihood of UTI. Hypokalemia: Potassium noted 3.3. Received additional potassium. Follow-up c hemistry requested. Magnesium noted 1.8. We will give 1 g IV replacement. Preserved ejection fraction EF 58% no regional wall motion abnormality Discussed with case management. Attestations Medical Necessity Statement*: Continue admission for assessment management following baclofen overdose, aspiration pneumonitis/possible pneumonia. Diagnoses Baclofen overdose T42.8X1A Encounter type: initial encounter Major depressive disorder, recurrent episode, in partial remission F33.41 Generalized anxiety disorder F41.1 Drug overdose T50.901A Migraine G43.909
[2023-03-12] MEDS: ipratropium-albuterol 3 mL Neb INHALATION ×5 (09:20→23:20)
[2023-03-12] MEDS: pantoprazole 40 mg SDV IVP ×2 (09:37→18:05)
--- NOTE | 2023-03-12 11:03 | PC.NURSE ---
1000 Discontinued meyer catheter as ordered. Keya well.
--- NOTE | 2023-03-12 15:57 | PC.NURSE ---
1530 Patient up to bedside commode,voided and had moderate soft bm. Ambulated in room x 20 foot with assistance. No c/o's. Back to bedside chair and diet cola given. Tolerating liquids well.
--- NOTE | 2023-03-12 17:54 | P.NPUHP_ITS ---
Providers/Chief Complaint Admitting Physician: Mckay Woods MD Primary Care Provider: Harpal Gross Chief Complaint: overdose HPI NPU History of Present Illness Kaylie Edwards is a 52 year old female who presented to the emergency department with the following report: Chief Complaint: Overdose Stated Complaint: overdose Time Seen by Provider: 03/08/23 15:39 History of Present Illness: Patient presents to the ER by EMS with complaints of baclofen overdose. This was called for patient for shortness of breath. When they arrived there they were told that patient took approximately 30 10 mg baclofen because she was anxious. EMS states patient did walk to the ambulance but when she got in the ambulance she started getting agitated and having abnormal behaviors. EMS then gave her 50 mg of ketamine IV to calm her down. When patient arrived at the ER she was in a sedated state. Patient is responsive to sternal rub and moves all extremities. Previous records show patient does have a history of acute encephalopathy, drug overdose, COPD. She was admitted to the ICU for definitive treatment of those issues. After she was extubated a psychiatric consult was requested for definitive treatment of those issues. Patient presents today reporting that she is feeling tired but acknowledging that she had what was a intentional intake of the medication but not seeming to want to discuss whether it was the fact an overdose attempt. We discussed the need for us to restart her medications as appropriate and work with her on safety measures for discharge. We discussed the risk benefits and alternatives of transferring her to the neuropsychiatric unit for definitive treatment of these issues and she understood and agreed to proceed as is documented in this note. An excerpt of the discharge summary from earlier this year is included below for historical context as she denies any significant changes. Per her 10/10/2022 [facility] inpatient psychiatric discharge summary: Discharge Diagnosis (1) Major depressive disorder, recurrent: Status: Acute (2) Fibromyalgia: Status: Resolved (3) Generalized anxiety disorder: Status: Acute Reason for Visit Reason for Visit: possible OD Brief History: History of Present Illness Kaylie Edwards is a 52 year old female who presented to the emergency department with the following report: Chief Complaint: ER Hold Stated Complaint: possible OD Time Seen by Provider: 09/30/22 09:19 Source: patient Mode of arrival: ambulatory History of Present Illness: 52-year-old female presents emergency room after having taking Xarelto in 20-25 5 or 10 mg baclofen tablets last night around 1030. Patient is denying she did this in attempt to harm herself states she was just very anxious could not sleep and wanted to be able to sleep she is been ho spitalized in the past after similar episodes which she admits were attempts to harm her self she has also done this in the past where she was not hospitalized. She denies any injury at this time she is awake and alert answers questions appropriately. She denies taking anything else to harm herself MD complaint: intentional overdose Onset (ago): hour(s) Time: 22:30 Intent: wanted to go to sleep and wanted to escape Associated symptoms: depression Treatments Prior to Arrival: none She was admitted to the neuropsychiatric unit for definitive treatment of those issues. She is currently on Lyrica, Venlafaxine, Seroquel, Trazodone, and Baclofen three times a day. She presents today after her took her to the hospital after she told that she took a bunch of pills again and was presenting physical symptoms of an overdose. She has been psychiatrically hospitalized 4 times, last of which was July 2022 a week after she reports taking a bunch of pills. She has been to [facility] for outpatient services, and has been on medications in the past. She endorses a pack of tobacco a day, denies alcohol, denies marijuana, and endorses opiates for 10 years before she quit in 2008. She has been to rehab 2 times, endorses having a DUI, and denies any other drug and alcohol related charges. Her specific mental health issues began presenting a week ago, and she reports being really down, irritated, and angry for no reason. She reports that her brain doesn?t shut off when she forgoes sleep for a few days. She endorses that the reason that she took so many pills was that she wanted to sleep and denies suicidal intent behind her recent overdose. She reports taking a quick look at the handful that she poured out and estimating it was about 20 pills before she threw them in her mouth at once. She denies telling her how many pills she took but thinks that he could tell that she was not feeling good and that she was having physical symptoms. She reports admitting that she had taken a lot of pills after which he took her to the hospital because he was worried. She endorses that her mind is always thinking negatively and she has a hard time being positive, and that her mind stays negative until it?s too late. She reports that her wrapper caser is suggesting journaling to find out what?s triggering her. She reports that she lives in a camper with her and that living in such a confined space in the winter can be a stressor, but that they are moving into a cabin next week for more room. Excerpt from July, below for context denying substantive changes.. Psychiatric History: As above. Substance Abuse History: As above. Per her 07/31/2022 [facility] inpatient psychiatric discharge summary: Discharge Diagnosis (1) Major depressive disorder, recurrent: Status: Acute (2) Fibromyalgia: Status: Resolved (3) Generalized anxiety disorder: Status: Acute Reason for Visit Reason for Visit: SI Brief History: History of Present Illness Kaylie Edwards is a 52 year old female who presented to the emergency department with the following report: Chief Complaint: Pediatric General Medical Stated Complaint: SI Time Seen by Provider: 07/27/22 18:45 Source: patient History of Present Illness: 52-year-old female who was recently discharged from the neuropsychiatric unit at this facility. She returns to the emergency department stating that she is still having problems, and is feeling like harming her self. She believes she would cut her wrist this time. She has had attempts in the past evidently, and has a significant history. She also states that she was diagnosed with the flu here, and has been on antibiotics and steroids, and is still having some coughing and wheezing. No fever. MD complaint: suicidal ideation and feels depressed Onset (ago): day(s) Duration: constant History of same: Yes Relieving factors: none Exacerbating factors: none Context: significant life stressor and other Associated psychiatric symptoms: depression Associated symptoms: Reports depression and suicidal ideation; Deny auditory hallucinations, visual hallucinations or homicidal ideation Treatments prior to arrival: none If self harm: admits thoughts of self harm. She was admitted to the neuropsychiatric unit for definitive treatment of those issues. She is known to this instructional writer from past inpatient hospitalization earlier this year. And had just left the hospital less than a week ago. She presents today reporting that she continues to live in a camper with her off the grid. She reports that she was doing okay when she first left the hospital but very quickly she started having thoughts to commit suicide. She reports she is having thoughts of taking her pills and that when she contacted a friend who suggested that she come back. She referred to the wrapper caser and a therapist. Her is employed and she denies any clear marital or financial stressors. She reports that she struggles this time of year currently. We discussed people having seasonal aspects to the depression and the possibility of a light box. Additionally we agreed to get some collateral information to try to understand why she is struggling with her depression and feelings and thoughts of lethality. She denied any addiction issues and denied any substantive changes since her last day and so an excerpt of her discharge summary from last week is included below for context. Hospital Course Discharge Summary: During the hospitalization, patient had routine laboratory studies which were within normal limits except for few outliers. Additionally there was a general medical evaluation which was also within normal limits and revealed no new acute processes. At the time of discharge, lethality was denied and psychosis was resolving. Mood and anxiety were well managed. Patient endorsed a plan to avoid all drugs of abuse and follow-up with the aftercare recommendations of the treatment team. Patient was evaluated and deemed to be absent credible lethality, and had achieved the maximum benefit from an inpatient hospitalization, so was discharged. Changes made during her hospital stay was increasing Effexor to 300mg daily, adding Buspar 10mg twice a day and increasing Seroquel to 200mg at night. It was also recommended that the patient increase communication with wrapper caser and increased attendance in afternoon program to help manage loneliness. Meds NPU Home Medications Medication Instructions Recorded Confirmed Last Taken Type albuterol sulfate 90 mcg/actuation 2 puff inhalation QID PRN 10/25/21 03/08/23 Unknown History aerosol inhaler Shortness Of Breath budesonide 160 mcg-glycopyr 9 2 inh inhalation BID 10/25/21 03/08/23 09/29/22 History mcg-formot 4.8 mcg/actuation HFA inhaler (Breztri Aerosphere) pregabalin 200 mg capsule 200 mg PO TID #90 caps 12/15/21 03/08/23 09/29/22 Rx baclofen 10 mg tablet 10 mg PO TID PRN Pain 07/16/22 03/08/23 09/30/22 History 20-25 albuterol sulfate 90 mcg/actuation 1 puff inhalation Q4H PRN wheezing 07/23/22 03/08/23 Unknown Rx aerosol inhaler (Ventolin HFA) #6.7 grams buspirone 10 mg tablet 10 mg PO BID #60 tabs 02/14/23 03/08/23 Unknown Rx quetiapine 100 mg tablet 200 mg PO BEDTIME #60 tabs 02/14/23 03/08/23 Unknown Rx trazodone 50 mg tablet 50 mg PO BEDTIME PRN Sleep #30 tabs 02/14/23 03/08/23 Unknown Rx venlafaxine 150 mg 300 mg PO DAILY #60 caps 02/14/23 03/08/23 Unknown Rx capsule,extended release 24 hr Allergies Allergy/AdvReac Type Severity Reaction Status Date / Time amitriptyline [From Elavil] Allergy hallucenate Verified 02/14/23 12:54 Sulfa (Sulfonamide Allergy hives Verified 02/14/23 12:54 Antibiotics) PFSH NPU PFSH: Medical History Anxiety Bone loss Chronic pain Fibromyalgia Major depressive disorder, recurrent episode, in partial remission Migraine Psychiatric care Surgical History H/O neck surgery H/O shoulder surgery History of back surgery Family History Father No problems noted. Mother COPD (chronic obstructive pulmonary disease) Chronic emphysema syndrome Social History Smoking and tobacco status: current every day smoker Second hand smoke exposure: Yes Alcohol intake: never Substance/Drug Use: never Adopted: No Caregiver/support person: No Lives independently: Yes Household members: spouse Housing: House Marital status: Number of children: 2 Highest education level completed: Bachelor's Degree service: No Current occupational status: disabled Mental Status Exam MSE Comments: This is a slender, well-developed white female looking older than her stated age with hospital gown on sitting out of the ICU with limited grooming and adequate eye contact. No abnormal movements except for psychomotor retardation.? Cooperative with exam in mild distress. Speech was decreased rate and volume. Mood described as tired, affect congruent. Thought process organized. Thought content: patient denied current suicidal or homicidal ideation, there were no delusions reported or noted, she denied any auditory or visual hallucinations.? Attention and concentration were intact and memory appears mostly reliable but none were formally tested.? She was alert and oriented x3.? Insight and judgment appear limited, impulse control impaired. Vitals/I&O/Wt Last Vital Signs Temp 98.9 F 03/12/23 19:00 Pulse 91 03/12/23 19:00 Resp 20 H 03/12/23 19:00 BP 129/80 03/12/23 19:00 Pulse Ox 94 03/12/23 19:00 O2 Del Method Nasal Cannula 03/12/23 19:00 O2 Flow Rate 2 03/12/23 19:00 FiO2 30 03/11/23 16:02 l Weight last 48 hrs Weight 61.235 kg Weight 61.235 kg Physical Exam Urinary Catheter Management: Rhodes: Cath Placed During This Visit: yes, but has since been removed by the nurse Reason for Continuing Indwelling Catheter: Accurate Measurement of Urinary Output in Critically Ill Patients Urinary Catheter Date of Insertion: 03/08/23 Urinary Catheter Time of Insertion: 18:32 Date Urinary Catheter Removed: 03/12/23 Time Urinary Catheter Discontinued: 10:00 Data NPU 03/13/23 03:33 03/13/23 03:33 Micro: Microbiology 03/10/23 15:45 Urine Culture - Final Urine Catheterized Microbiology 03/10/23 15:45 Urine Catheterized Urine Culture - Final A&P Assessment and plan (1) Major depressive disorder, recurrent: Qualifiers: Active/Remission status: currently active Major depression episode severity: moderate Qualified Code(s): F33.1 - Major depressive disorder, recurrent, moderate (2) Fibromyalgia: (3) Generalized anxiety disorder: Plan The patient has a 52-year-old white female with history of depression and anxiety and previous overdoses on medications with evidence of suicidal intent who presented to the ICU after an overdose of questionable intent after a reported panic attack. 1. Continue current medications. Transfer to NPU for medication management and stabilization. 2. Encourage individual group and milieu therapy. 3. Start 15-minute med minute checks for safety on the unit. 4. Recommend sober living treatment at the highest level of care to which the patient is willing to commit. 5. Obtain collateral information on the triggering issues. Involuntary Hold Information 96 Hour Hold: 96 Hour Involuntary Admission: No Attestations NPU 2 Medical Necessity Statement*: Inpatient hospitalization is medically necessary and clinically appropriate intervention at this time. We will monitor medications and make changes as indicated. The patient will be in the hospital for at least 2 midnights. Pili bean length of stay 3-5 days. Coding Level of Care Code Acute Code for [facility] Diagnoses Major depressive disorder, recurrent F33.1 Active/Remission status: currently active Major depression episode severity: moderate Fibromyalgia M79.7 Generalized anxiety disorder F41.1
[2023-03-13] VITALS (54 sets, daily range): BP systolic 111–139; BP diastolic 58–81; PULSE 20–102; RESP 14–34; O2SAT 87–98
[2023-03-13] MEDS: ipratropium-albuterol 3 mL Neb INHALATION ×4 (03:11→21:59)
[2023-03-13 03:59] LABS: Basophils % 0.2 %; Eosinophils # 0.1 10^3/uL (0.0-0.8); Eosinophils % 0.7 %; Hematocrit 37.2 % (37.0-47.0); Hemoglobin 12.9 g/dL (11.5-15.3); Lymphocytes # 1.2 10^3/uL (0.8-4.8); Lymphocytes % 12.8 %; Mean Corpuscular HGB Conc 34.7 g/dL (30.0-36.0); Mean Corpuscular Hemoglobin 32.2 pg (28.0-34.0); Mean Corpuscular Volume 92.8 fl (81-99); Mean Platelet Volume 11.1 fL (7.4-10.4); Monocytes # 0.9 10^3/uL (0.2-0.9); Monocytes % 9.4 %; Neutrophils # 7.22 10^3/uL (1.8-7.7); Neutrophils % 76.5 %; Nucleated Red Blood Cells % 0 %; Platelet Count 205 10^3/cmm (130-400); Red Blood Count 4.01 10^6/uL (4.1-5.3); Red Cell Distribution Width 13.6 % (12.1-15.1); White Blood Count 9.5 10^3/uL (4.0-10.0)
[2023-03-13 04:37] LABS: Alanine Aminotransferase 11 U/L (0-33); Albumin Level 3.3 g/dL (3.5-5.2); Alkaline Phosphatase 103 U/L (35-105); Anion Gap 15.1 (5-19); Aspartate Amino Transferase 16 U/L (0-32); Blood Urea Nitrogen 7 mg/dL (6-20); Calcium 8.6 mg/dL (8.5-10.5); Carbon Dioxide 26 mmol/L (22-29); Chloride 103 mmol/L (98-107); Globulin 1.9 g/dL (1.3-4.6); Glucose 90 mg/dL (65-115); Magnesium 1.8 mg/dL (1.7-2.3); Osmolality Calculated 290 mOsm/kg (285-295); Potassium 3.1 mmol/L (3.5-5.1); Sodium 141 mmol/L (136-145); Total Bilirubin 0.6 mg/dL (0.15-1.2); Total Protein 5.2 g/dL (6.6-8.7)
--- NOTE | 2023-03-13 05:43 | PC.NURSE ---
Patient has remained calm and cooperative through this nurse's shift. Patient was able to perform self bath from chair without issue. Patient is able to ambulate to bathroom however Sp02 does drop into the low 80s upon ambulation. Patient Saturates well with 2L NC at rest.
[2023-03-13] MEDS: meropenem 500 MG in sodium chloride 0.9% (plus) 50 ML 100 MG IV ×3 (06:24→21:49)
[2023-03-13] MEDS: heparin 5,000 unit/mL INJ 1 mL 5000 UNIT SUBCUT ×2 (06:24→18:17)
[2023-03-13] MEDS: pantoprazole 40 mg SDV IVP ×2 (07:57→17:33)
[2023-03-13] MEDS: pregabalin 100 mg Capsule 200 MG PO ×3 (10:48→21:50)
[2023-03-13] MEDS: potassium chloride ER 20 mEq Tablet 40 MEQ PO (10:49)
[2023-03-13] MEDS: BuSPIRONE 10 mg Tablet PO ×2 (10:49→17:33)
[2023-03-13] MEDS: magnesium oxide 400 mg tablet PO (10:49)
--- NOTE | 2023-03-13 12:08 | PC.SOCIAL ---
IMM update IMM updated with patient. Verbalized an understanding. Copy pg 2 provided. Initialled, dated, timed, and placed in chart.
--- NOTE | 2023-03-13 17:20 | P.PN_ITS ---
Subjective Subjective: Having productive cough. Has been seen by psychiatry. She is agreeable with admission to neuropsychiatric unit for additional assessment and management. Vitals/I&O/Wt Last Vital Signs Temp 98.9 F 03/12/23 19:00 Pulse 88 03/13/23 15:55 Resp 16 03/13/23 15:40 BP 118/70 03/13/23 06:00 Pulse Ox 92 03/13/23 15:40 O2 Del Method Nasal Cannula 03/13/23 15:40 O2 Flow Rate 3 03/13/23 15:40 FiO2 30 03/11/23 16:02 03/13/23 03/13/23 03/13/23 06:59 14:59 22:59 Intake Total 450 / 1082 600 / 600 Output Total 1000 / 1950 Balance -550 / -868 600 / 600 Weight last 48 hrs Weight 61.235 kg Weight 61.235 kg Physical Exam Narrative: Sitting up in chair. Const: GENERAL APPEARANCE: cooperative and patient mechanically ventilated HENMT: COMMON NORMALS: oropharynx normal Neck/C-Spine: COMMON NORMALS: no JVD Resp: COMMON NORMALS: normal respiratory effort and clear to auscultation bilaterally AUSCULTATION: clear to auscultation bilaterally Cardio: COMMON NORMALS: no JVD, regular rhythm, S1 normal heart sound present, S2 normal heart sound present and No murmurs present (Cardio) RHYTHM: regular rhythm HEART SOUNDS: S1 normal heart sound present and S2 normal heart sound present GI: COMMON NORMALS: Normal to inspection, nondistended, normoactive bowel sounds present, Soft to palpation and non-tender PALPATION: Yes Soft to palpation Extremity: COMMON NORMALS: no pedal edema Neuro: COMMON NORMALS: moves all extremities Urinary Catheter Management: Rhodes: Cath Placed During This Visit: yes, but has since been removed by the nurse Reason for Continuing Indwelling Catheter: Accurate Measurement of Urinary Output in Critically Ill Patients Urinary Catheter Date of Insertion: 03/08/23 Urinary Catheter Time of Insertion: 18:32 Date Urinary Catheter Removed: 03/12/23 Time Urinary Catheter Discontinued: 10:00 Data 03/13/23 03:33 03/13/23 03:33 A&P Assessment and plan (1) Baclofen overdose: Qualifiers: Encounter type: initial encounter (2) Major depressive disorder, recurrent episode, in partial remission: (3) Generalized anxiety disorder: (4) Drug overdose: (5) Migraine: Plan Respiratory failure required mechanical ventilation for airway protection after baclofen overdose Gradually improving. Still on 2-3 L nasal cannula. Does desaturate with exertion. At rest she is doing well. Continue antibiotic coverage for as piration pneumonia. Discussed with psychiatry, consideration of transfer to neuropsychiatric unit ve rsus going to medical surgical floor with one-to-one sitter before moving to neuropsychiatric unit, psychiatrist is looking into staffing to make sure her needs can be accommodated. As per discussion also okay to resume her home medications. Resumed venlafaxine, quetiapine, continue buspirone, trazodone. Leukocytosis noted resolved. She is otherwise afebrile. Meropenem for now but should be able to transition to Augmentin in case of admission to neuropsychiatric unit for aspiration pneumonia. Acute encephalopathy with agitation resolved. Discussed with case management. Medication overdose: Resulting in acute toxic encephalopathy on presentation. Possibly secondary to severe anxiety, however, pending psychiatric evaluation to assess for any possible suicidal intent. Psychiatry documentation reviewed. Would benefit from additional psychiatric assessment management. In case moving to medical surgical floor would need one-to-one sitter. Discussed with nursing staff, she is agreeable with admission to the psychiatric unit. In case this is changed should not discharged without approval by psychiatrist. Encephalopathy currently resolved. Hypovolemic shock: Resolved. Weaned off pressor. Hold further IV fluid. Monitor blood pressure. Echocardiogram noted with normal EF, no RWMA, unremarkable. Concern for aspiration pneumonia: meropenem, transition to Augmentin in case of admission to neuropsychiatric unit. Possible UTI: History of ESBL infection. Was started on on meropenem. Urine culture without growth. Low likelihood of UTI. Hypokalemia: Potassium noted 3.1. Given additional potassium. Follow-up chemistry requested. Magnesium noted 1.8. Add oral mag oxide replacement. Recheck magnesium. Preserved ejection fraction EF 58% no regional wall motion abnormality Attestations Medical Necessity Statement*: Continue admission for assessment management following baclofen overdose, aspiration pneumonitis/possible pneumonia. Diagnoses Baclofen overdose T42.8X1A Encounter type: initial encounter Major depressive disorder, recurrent episode, in partial remission F33.41 Generalized anxiety disorder F41.1 Drug overdose T50.901A Migraine G43.909
--- NOTE | 2023-03-13 18:46 | W.PM.NPUPNS ---
Subjective NPU Subjective: Patient presented today reporting that she is still having shortness of breath and that she understands why they did not transfer her today. She reports that she is okay with being transferred once she is medically cleared. We discussed restarting her medications and beginning the process of trying to understand the circumstance that continues to create this challenge. Otherwise she reports she is doing much better than when she arrived. Mental Status Exam MSE Comments: This is a slender, well-developed white female looking older than her stated age with hospital gown on sitting out of the ICU with limited grooming and adequate eye contact. No abnormal movements except for psychomotor retardation.? Cooperative with exam in mild distress. Speech was decreased rate and volume. Mood described as tired, affect congruent. Thought process organized. Thought content: patient denied current suicidal or homicidal ideation, there were no delusions reported or noted, she denied any auditory or visual hallucinations.? Attention and concentration were intact and memory appears mostly reliable but none were formally tested.? She was alert and oriented x3.? Insight and judgment appear limited, impulse control impaired. Vitals/I&O/Wt Last Vital Signs Temp 98.9 F 03/12/23 19:00 Pulse 88 03/13/23 21:30 Resp 27 03/13/23 21:30 BP 124/81 03/13/23 19:00 Pulse Ox 96 03/13/23 21:30 O2 Del Method Nasal Cannula 03/13/23 21:30 O2 Flow Rate 2 03/13/23 21:30 FiO2 30 03/11/23 16:02 03/13/23 14:59 Intake Total 650 / 650 Output Total Balance 650 / 650 Weight last 48 hrs Weight 61.235 kg Weight 61.235 kg Physical Exam Urinary Catheter Management: Rhodes: Cath Placed During This Visit: yes, but has since been removed by the nurse Reason for Continuing Indwelling Catheter: Accurate Measurement of Urinary Output in Critically Ill Patients Urinary Catheter Date of Insertion: 03/08/23 Urinary Catheter Time of Insertion: 18:32 Date Urinary Catheter Removed: 03/12/23 Time Urinary Catheter Discontinued: 10:00 Data NPU 03/14/23 03:48 03/14/23 03:48 A&P Assessment and plan (1) Major depressive disorder, recurrent: Qualifiers: Active/Remission status: currently active Major depression episode severity: moderate Qualified Code(s): F33.1 - Major depressive disorder, recurrent, moderate (2) Fibromyalgia: (3) Generalized anxiety disorder: Plan The patient has a 52-year-old white female with history of depression and anxiety and previous overdoses on medications with evidence of suicidal intent who presented to the ICU after an overdose of questionable intent after a reported panic attack. 1. Continue current medications. Transfer to NPU for medication management and stabilization once she is medically cleared. Restart home medications. 2. Encourage individual group and milieu therapy. 3. Start 15-minute med minute checks for safety on the unit. 4. Recommend sober living treatment at the highest level of care to which the patient is willing to commit. 5. Obtain collateral information on the triggering issues. Involuntary Hold Information 96 Hour Hold: 96 Hour Involuntary Admission: No Attestations NPU Medical Necessity Statement*: Inpatient hospitalization is medically necessary and clinically appropriate intervention at this time. We will monitor medications and make changes as indicated. Likely length of stay 3-5 days. Coding Level of Care Code Acute Code for [facility] Diagnoses Major depressive disorder, recurrent F33.1 Active/Remission status: currently active Major depression episode severity: moderate Fibromyalgia M79.7 Generalized anxiety disorder F41.1
[2023-03-13] MEDS: quetiapine 100 mg Tablet 200 MG PO (21:50)
[2023-03-13] MEDS: trazodone 50 mg Tablet PO (21:56)
[2023-03-14] VITALS (39 sets, daily range): BP systolic 108–121; BP diastolic 67–81; PULSE 83–101; RESP 18–47; TEMP 36.6–36.8; O2SAT 83–95; BMI 23.1
[2023-03-14 04:42] LABS: Alanine Aminotransferase 10 U/L (0-33); Albumin Level 3.1 g/dL (3.5-5.2); Alkaline Phosphatase 86 U/L (35-105); Anion Gap 14.3 (5-19); Aspartate Amino Transferase 14 U/L (0-32); Blood Urea Nitrogen 9 mg/dL (6-20); Calcium 8.5 mg/dL (8.5-10.5); Carbon Dioxide 29 mmol/L (22-29); Chloride 103 mmol/L (98-107); Glucose 74 mg/dL (65-115); Magnesium 1.9 mg/dL (1.7-2.3); Osmolality Calculated 293 mOsm/kg (285-295); Potassium 3.3 mmol/L (3.5-5.1); Sodium 143 mmol/L (136-145); Total Bilirubin 0.3 mg/dL (0.15-1.2); Total Protein 5.1 g/dL (6.6-8.7)
--- NOTE | 2023-03-14 04:59 | PC.NURSE ---
Patient has remained calm and cooperative throughout shift. Still reliant on 2L nasal cannula. Dr. Lisa rounded and stated he was good to admit patient if cleared medical provided there is a sitter if oxygen is still required.
[2023-03-14 05:09] LABS: Basophils % 0.4 %; Eosinophils # 0.1 10^3/uL (0.0-0.8); Eosinophils % 1.5 %; Hematocrit 39.1 % (37.0-47.0); Hemoglobin 13.2 g/dL (11.5-15.3); Lymphocytes # 2.5 10^3/uL (0.8-4.8); Lymphocytes % 32.3 %; Mean Corpuscular HGB Conc 33.8 g/dL (30.0-36.0); Mean Corpuscular Hemoglobin 31.3 pg (28.0-34.0); Mean Corpuscular Volume 92.7 fl (81-99); Mean Platelet Volume 11.6 fL (7.4-10.4); Monocytes # 1.2 10^3/uL (0.2-0.9); Monocytes % 15.1 %; Neutrophils % 50.3 %; Nucleated Red Blood Cells % 0 %; Platelet Count 230 10^3/cmm (130-400); Red Blood Count 4.22 10^6/uL (4.1-5.3); Red Cell Distribution Width 13.9 % (12.1-15.1); White Blood Count 7.8 10^3/uL (4.0-10.0)
[2023-03-14] MEDS: meropenem 500 MG in sodium chloride 0.9% (plus) 50 ML 100 MG IV ×2 (06:16→14:50)
[2023-03-14] MEDS: heparin 5,000 unit/mL INJ 1 mL 5000 UNIT SUBCUT ×2 (06:17→20:04)
[2023-03-14] MEDS: BuSPIRONE 10 mg Tablet PO ×2 (08:16→18:29)
[2023-03-14] MEDS: pregabalin 100 mg Capsule 200 MG PO ×3 (08:16→20:04)
[2023-03-14] MEDS: pantoprazole 40 mg SDV IVP (08:16)
[2023-03-14] MEDS: venlafaxine ER (24HR) 150 mg Capsule 300 MG PO (08:16)
[2023-03-14] MEDS: magnesium oxide 400 mg tablet PO (08:16)
[2023-03-14] MEDS: ipratropium-albuterol 3 mL Neb INHALATION ×3 (09:25→19:30)
--- NOTE | 2023-03-14 11:06 | PM.PN ---
Subjective Subjective: She states she feels she is improving. She still having some cough, but she is now not quite as dyspneic with getting around the room. Feels better after taking a bath this morning. Vitals/I&O/Wt Last Vital Signs Temp 97.9 F 03/14/23 08:00 Pulse 97 03/14/23 09:33 Resp 18 03/14/23 09:25 BP 116/75 03/14/23 08:00 Pulse Ox 95 03/14/23 09:25 O2 Del Method Nasal Cannula 03/14/23 09:25 O2 Flow Rate 2 03/14/23 09:25 FiO2 30 03/11/23 16:02 03/13/23 03/14/23 03/14/23 22:59 06:59 14:59 Intake Total 530 / 1180 180 / 1360 240 / 240 Output Total 400 / 400 Balance 130 / 780 180 / 960 240 / 240 Weight last 48 hrs Weight 61.235 kg Weight 61.235 kg Physical Exam Narrative: Sitting up in chair. Const: GENERAL APPEARANCE: cooperative and patient mechanically ventilated HENMT: COMMON NORMALS: oropharynx normal Neck/C-Spine: COMMON NORMALS: no JVD Resp: COMMON NORMALS: normal respiratory effort and clear to auscultation bilaterally AUSCULTATION: clear to auscultation bilaterally Cardio: COMMON NORMALS: no JVD, regular rhythm, S1 normal heart sound present, S2 normal heart sound present and No murmurs present (Cardio) RHYTHM: regular rhythm HEART SOUNDS: S1 normal heart sound present and S2 normal heart sound present GI: COMMON NORMALS: Normal to inspection, nondistended, normoactive bowel sounds present, Soft to palpation and non-tender PALPATION: Yes Soft to palpation Extremity: COMMON NORMALS: no pedal edema Neuro: COMMON NORMALS: moves all extremities Urinary Catheter Management: Rhodes: Cath Placed During This Visit: yes, but has since been removed by the nurse Reason for Continuing Indwelling Catheter: Accurate Measurement of Urinary Output in Critically Ill Patients Urinary Catheter Date of Insertion: 03/08/23 Urinary Catheter Time of Insertion: 18:32 Date Urinary Catheter Removed: 03/12/23 Time Urinary Catheter Discontinued: 10:00 Data 03/14/23 03:48 03/14/23 03:48 A&P Assessment and plan (1) Baclofen overdose: Qualifiers: Encounter type: initial encounter (2) Major depressive disorder, recurrent episode, in partial remission: (3) Generalized anxiety disorder: (4) Drug overdose: (5) Migraine: Plan Respiratory failure required mechanical ventilation for airway protection after baclofen overdose Respiratory failure resolved. Aspiration pneumonia continues to gradually improve. Still on 2 L nasal cannula but not getting quite as dyspneic with exertion. Reports still some coughing, but lungs now sound clear. Continues to wean oxygen. Switch antibiotic to Augmentin. Discussed with psychiatry, transfer for continued care on NPU. Discussed with case management. Mild leukocytosis noted resolved, WBC now normal. Acute encephalopathy with agitation resolved. Medication overdose: Resulting in acute toxic encephalopathy on presentation. Possibly secondary to severe anxiety, however, pending psychiatric evaluation to assess for any possible suicidal intent. Psychiatry note from today reviewed. Would benefit from additional psychiatric assessment management due to possible risk to self. Hypovolemic shock: Resolved. Weaned off pressor. Hold further IV fluid. Monitor blood pressure. Kidney function noted WNL, BUN 9, creatinine 0.9. Transaminases WNL. Echocardiogram noted with normal EF, no RWMA, unremarkable. Concern for aspiration pneumonia: Switch to Augmentin with admission to neuropsychiatric unit. Possible UTI: History of ESBL infection. Was started on on meropenem. Urine culture without growth. Low likelihood of UTI. Hypokalemia: Potassium today 3.3. Give additional replacement. Magnesium noted at 1.9, continue oral replacement. Follow-up chemistry requested. Magnesium noted 1.9. Continue oral replacement. Preserved ejection fraction EF 58% no regional wall motion abnormality Attestations Medical Necessity Statement*: Continue admission on neuropsychiatric unit for additional evaluation following medication overdose, severe anxiety, concern for possible self-harm, treatment of pneumonia. Diagnoses Baclofen overdose T42.8X1A Encounter type: initial encounter Major depressive disorder, recurrent episode, in partial remission F33.41 Generalized anxiety disorder F41.1 Drug overdose T50.901A Migraine G43.909
[2023-03-14] MEDS: potassium chloride ER 20 mEq Tablet 40 MEQ PO (14:51)
--- NOTE | 2023-03-14 16:56 | PC.NURSE ---
PT taken to NPU on 2L NC with all belongings including, rings, bracelet, necklace, phone, books, pen and shoes.
[2023-03-14] MEDS: nicotine 2 mg Gum BUCCAL ×2 (18:01→20:02)
--- NOTE | 2023-03-14 18:19 | PC.NURSE ---
Patient states she was at home, helping her put up a wire fence around the garden when she began having a panic attack. She says she is unsure why the panic attack started and wasn't able to list anything she thought may have triggered it. Patient states she then took 30 tablets of 10mg baclofen in a panic because she just wanted the panic attack to stop. She denies that it was in an attempt to end her life, but does say she understands why it might look that way. Patient states she attends a psychosocial rehab in [place] and has a piano case maker named Kevin. She denies avh and si/hi at this time. Patient calm and cooperative. Patient is on 1L of O2 via nasal cannula and currently has a sitter with her.
[2023-03-14] MEDS: amoxicillin-clav 875-125 mg Tablet 1 TAB PO (18:29)
--- NOTE | 2023-03-14 18:36 | P.NPUPN_ITS ---
Subjective NPU Subjective: Patient presented today reporting that she is doing okay. We have a long discussion about her suicide attempts and whether or not she is figured out how to avoid these situations. We discussed the issue with her and she reports that he now does not drive truck across the road but has a job in town in the local [facility]. We discussed that that previously had been considered the main issue in his absence but she does report that he was in the cabin and she was in the RV/trailer and that she had this panic attack that was overwhelming but she reports that he is agreeing to manage her medications. We discussed the fact that it is a challenge that the only way for her to avoid suicide attempt is for someone to hold her medication. 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 Mental Status Exam MSE Comments: This is a slender, well-developed white female looking older than her stated age in hospital scrubs with adequate and eye contact. No abnormal movements except for mild psychomotor retardation.? Cooperative with exam in mild distress. Speech was decreased rate and volume. Mood described as a little better, affect congruent. Thought process organized. Thought content: patient denied current suicidal or homicidal ideation, there were no delusions reported or noted, she denied any auditory or visual hallucinations.? Attention and concentration were intact and memory appears mostly reliable but none were formally tested.? She was alert and oriented x3.? Insight and judgment appear limited, impulse control impaired. Vitals/I&O/Wt Last Vital Signs Temp 98.3 F 03/14/23 16:57 Pulse 86 03/14/23 20:42 Resp 18 03/14/23 20:42 BP 112/75 03/14/23 16:57 Pulse Ox 91 03/14/23 20:42 O2 Del Method Nasal Cannula 03/14/23 20:42 O2 Flow Rate 1 03/14/23 20:42 FiO2 30 03/11/23 16:02 03/14/23 14:59 Intake Total 480 / 480 Balance 480 / 480 Weight last 48 hrs Weight 61.235 kg Weight 61.235 kg Physical Exam Urinary Catheter Management: Rhodes: Cath Placed During This Visit: yes, but has since been removed by the nurse Reason for Continuing Indwelling Catheter: Accurate Measurement of Urinary Out put in Critically Ill Patients Urinary Catheter Date of Insertion: 03/08/23 Urinary Catheter Time of Insertion: 18:32 Date Urinary Catheter Removed: 03/12/23 Time Urinary Catheter Discontinued: 10:00 Data NPU 03/14/23 03:48 03/14/23 03:48 A&P Assessment and plan (1) Major depressive disorder, recurrent: Qualifiers: Active/Remission status: currently active Major depression episode severity: moderate Qualified Code(s): F33.1 - Major depressive disorder, recurrent, moderate (2) Fibromyalgia: (3) Generalized anxiety disorder: Plan The patient has a 52-year-old white female with history of depression and anxiety and previous overdoses on medications with evidence of suicidal intent who presented to the ICU after an overdose of questionable intent after a reported panic attack. 1. Continue current medications. 2. Encourage individual group and milieu therapy. 3. Start 15-minute med minute checks for safety on the unit. 4. Recommend sober living treatment at the highest level of care to which the patient is willing to commit. 5. Obtain collateral information on the triggering issues. Involuntary Hold Information 96 Hour Hold: 96 Hour Involuntary Admission: No Attestations NPU Medical Necessity Statement*: Inpatient hospitalization is medically necessary and clinically appropriate intervention at this time. We will monitor medications and make changes as indicated. Likely length of stay 3-5 days. Coding Level of Care Code Acute Code for [facility] Fwd Diagnoses Major depressive disorder, recurrent F33.1 Active/Remission status: currently active Major depression episode severity: moderate Fibromyalgia M79.7 Generalized anxiety disorder F41.1
[2023-03-14] MEDS: quetiapine 100 mg Tablet 200 MG PO (20:03)
[2023-03-14] MEDS: trazodone 50 mg Tablet PO (20:04)
[2023-03-15 04:33] VITALS: PULSE 89; RESP 18; O2SAT 81
[2023-03-15] MEDS: nicotine 2 mg Gum BUCCAL ×7 (05:19→19:40)
[2023-03-15 06:00] VITALS: BP 129/80; PULSE 95; RESP 16; TEMP 36.9; O2SAT 90
[2023-03-15] MEDS: heparin 5,000 unit/mL INJ 1 mL 5000 UNIT SUBCUT (06:13)
[2023-03-15] MEDS: magnesium oxide 400 mg tablet PO (09:02)
[2023-03-15] MEDS: BuSPIRONE 10 mg Tablet PO ×2 (09:02→17:26)
[2023-03-15] MEDS: pregabalin 100 mg Capsule 200 MG PO ×3 (09:02→20:16)
[2023-03-15] MEDS: amoxicillin-clav 875-125 mg Tablet 1 TAB PO ×2 (09:02→17:26)
[2023-03-15] MEDS: pantoprazole DR 40 mg Tablet PO ×2 (09:02→17:26)
[2023-03-15] MEDS: venlafaxine ER (24HR) 150 mg Capsule 300 MG PO (09:03)
[2023-03-15 10:26] LABS: Basophils % 0.5 %; Eosinophils # 0.3 10^3/uL (0.0-0.8); Eosinophils % 3.6 %; Hematocrit 32.7 % (37.0-47.0); Lymphocytes # 2.2 10^3/uL (0.8-4.8); Lymphocytes % 26.1 %; Mean Corpuscular HGB Conc 42.8 g/dL (30.0-36.0); Mean Corpuscular Hemoglobin 42.7 pg (28.0-34.0); Mean Corpuscular Volume 99.7 fl (81-99); Mean Platelet Volume 10.9 fL (7.4-10.4); Monocytes # 0.7 10^3/uL (0.2-0.9); Monocytes % 8.1 %; Neutrophils % 61.5 %; Nucleated Red Blood Cells % 0 %; Platelet Count 250 10^3/cmm (130-400); Red Blood Count 3.28 10^6/uL (4.1-5.3); Red Cell Distribution Width 14.3 % (12.1-15.1); White Blood Count 8.3 10^3/uL (4.0-10.0)
[2023-03-15 10:37] LABS: Anion Gap 13.7 (5-19); Blood Urea Nitrogen 14 mg/dL (6-20); Calcium 9.4 mg/dL (8.5-10.5); Carbon Dioxide 29 mmol/L (22-29); Chloride 102 mmol/L (98-107); Glomerular Filtration Rate 129.1 mL/min (90-130); Glucose 115 mg/dL (65-115); Osmolality Calculated 293 mOsm/kg (285-295); Potassium 3.7 mmol/L (3.5-5.1); Sodium 141 mmol/L (136-145)
[2023-03-15 10:45] LABS: Slide Review Slide Review Perform
[2023-03-15] MEDS: acetaminophen 325 mg Tablet 650 MG PO ×2 (12:46→17:26)
[2023-03-15 13:52] VITALS: PULSE 94; RESP 16; O2SAT 94
[2023-03-15] MEDS: ipratropium-albuterol 3 mL Neb INHALATION ×2 (13:52→21:25)
[2023-03-15 14:00] VITALS: BP 119/75; PULSE 91; RESP 20; TEMP 36.9; O2SAT 90
--- NOTE | 2023-03-15 18:10 | P.NPUPN_ITS ---
Subjective NPU Subjective: Patient presented today reporting that she is feeling better in general. She continues to be incapable of explaining how she gets to these suicidal events. Staff spoke with and he continues to be confused in the fondled about these continued events and seems to have some level of exasperation as to what to do next. We discussed discharge likely at the beginning of the week but ou tside of instituting a locked box significant concern over providing enough outpatient support given what she is currently doing to constitute a increase in the level of care. Mental Status Exam MSE Comments: This is a slender, well-developed white female looking older than her stated age in hospital scrubs with adequate and eye contact. No abnormal movements except for mild psychomotor retardation.? Cooperative with exam in no acute distress. Speech was decreased rate and volume. Mood described as a little better, affect congruent. Thought process organized. Thought content: patient denied current suicidal or homicidal ideation, there were no delusions reported or noted, she denied any auditory or visual hallucinations.? Attention and concentration were intact and memory appears mostly reliable but none were formally tested.? She was alert and oriented x3.? Insight and judgment appear limited, impulse control impaired. Vitals/I&O/Wt Last Vital Signs Temp 98.1 F 03/15/23 20:30 Pulse 91 03/15/23 20:30 Resp 18 03/15/23 20:30 BP 101/70 03/15/23 20:30 Pulse Ox 92 03/15/23 20:30 O2 Del Method Nasal Cannula 03/15/23 20:30 O2 Flow Rate 2 03/15/23 20:30 FiO2 30 03/11/23 16:02 Weight last 48 hrs Weight 61.235 kg Physical Exam Urinary Catheter Management: Rhodes: Cath Placed During This Visit: yes, but has since been removed by the nurse Reason for Continuing Indwelling Catheter: Accurate Measurement of Urinary Output in Critically Ill Patients Urinary Catheter Date of Insertion: 03/08/23 Urinary Catheter Time of Insertion: 18:32 Date Urinary Catheter Removed: 03/12/23 Time Urinary Catheter Discontinued: 10:00 Data NPU 03/15/23 10:04 03/15/23 10:04 A&P Assessment and plan (1) Major depressive disorder, recurrent: Qualifiers: Active/Remission status: currently active Major depression episode severity: moderate Qualified Code(s): F33.1 - Major depressive disorder, recurrent, moderate (2) Fibromyalgia: (3) Generalized anxiety disorder: Plan The patient has a 52-year-old white female with history of depression and anxiety and previous overdoses on medications with evidence of suicidal intent who presented to the ICU after an overdose of questionable intent after a reported panic attack. 1. Continue current medications. 2. Encourage individual group and milieu therapy. 3. Continue one-to-one on unit given need for oxygen tubing 4. Recommend sober living treatment at the highest level of care to which the patient is willing to commit. 5. Obtain collateral information on the triggering issues. Involuntary Hold Information 96 Hour Hold: 96 Hour Involuntary Admission: No Attestations NPU Medical Necessity Statement*: Inpatient hospitalization is medically necessary and clinically appropriate intervention at this time. We will monitor medications and make changes as indicated. Likely length of stay 3-5 days. Coding Level of Care Code Acute Code for [facility] Fwd Diagnoses Major depressive disorder, recurrent F33.1 Active/Remission status: currently active Major depression episode severity: moderate Fibromyalgia M79.7 Generalized anxiety disorder F41.1
[2023-03-15] MEDS: trazodone 50 mg Tablet PO (20:16)
[2023-03-15] MEDS: quetiapine 100 mg Tablet 200 MG PO (20:16)
[2023-03-15 20:30] VITALS: BP 101/70; PULSE 91; RESP 18; TEMP 36.7; O2SAT 92
--- NOTE | 2023-03-15 20:32 | P.PN_ITS ---
Subjective Subjective: Overall better compared to several days ago but she is still coughing. Gets dyspneic with exertion. Later on in the day saturation without oxygen at room air noted 87%, with exertion down to 82%. Vitals/I&O/Wt Last Vital Signs Temp 98.1 F 03/15/23 20:30 Pulse 91 03/15/23 20:30 Resp 18 03/15/23 20:30 BP 101/70 03/15/23 20:30 Pulse Ox 92 03/15/23 20:30 O2 Del Method Room Air 03/15/23 20:30 O2 Flow Rate 2 03/15/23 14:00 FiO2 30 03/11/23 16:02 Weight last 48 hrs Weight 61.235 kg Weight 61.235 kg Physical Exam Narrative: Ambulates with portable oxygen tank. Const: GENERAL APPEARANCE: cooperative and patient mechanically ventilated HENMT: COMMON NORMALS: oropharynx normal Neck/C-Spine: COMMON NORMALS: no JVD Resp: COMMON NORMALS: normal respiratory effort and clear to auscultation bilaterally AUSCULTATION: clear to auscultation bilaterally Cardio: COMMON NORMALS: no JVD, regular rhythm, S1 normal heart sound present, S2 normal heart sound present and No murmurs present (Cardio) RHYTHM: regular rhythm HEART SOUNDS: S1 normal heart sound present and S2 normal heart sound present GI: COMMON NORMALS: Normal to inspection, nondistended, normoactive bowel lonnie nds present, Soft to palpation and non-tender PALPATION: Yes Soft to palp ation Extremity: COMMON NORMALS: no pedal edema Neuro: COMMON NORMALS: moves all extremities Urinary Catheter Management: Rhodes: Cath Placed During This Visit: yes, but has since been removed by the nurse Reason for Continuing Indwelling Catheter: Accurate Measurement of Urinary Output in Critically Ill Patients Urinary Catheter Date of Insertion: 03/08/23 Urinary Catheter Time of Insertion: 18:32 Date Urinary Catheter Removed: 03/12/23 Time Urinary Catheter Discontinued: 10:00 Data 03/15/23 10:04 03/15/23 10:04 A&P Assessment and plan (1) Baclofen overdose: Qualifiers: Encounter type: initial encounter (2) Major depressive disorder, recurrent episode, in partial remission: (3) Generalized anxiety disorder: (4) Drug overdose: (5) Migraine: Plan Respiratory failure required mechanical ventilation for airway protection after baclofen overdose resolved. Aspiration pneumonia versus, still coughing, productive cough. Still requiring oxygen desaturating down to 87% without oxygen on room air, down to 82% with exertion. Discussing with nursing staff we are adding incentive spirometer, as well as adding scheduled DuoNebs. Noted afebrile, WBC normal. Continue Augmentin. Medication overdose: Continue assessment and management on NPU with concern for risk to self, suicidal intent. Psychiatry documentation noted. Hypovolemic shock: Resolved. Weaned off pressor. Monitor blood pressure. Kidney function noted WNL, BUN 14, creatinine 0.5. Echocardiogram noted with normal EF, no RWMA, unremarkable. Possible UTI: History of ESBL infection. Was started on on meropenem. Urine culture without growth. Low likelihood of UTI. Hypokalemia: Potassium noted, hypokalemia resolved. Follow-up chemistry requested. Will not repeat magnesium for now. Preserved ejection fraction EF 58% no regional wall motion abnormality Attestations Medical Necessity Statement*: Continue admission for assessment management following medication overdose, suicidal intent, treatment of aspiration pneumonia, hypoxia. Diagnoses Baclofen overdose T42.8X1A Encounter type: initial encounter Major depressive disorder, recurrent episode, in partial remission F33.41 Generalized anxiety disorder F41.1 Drug overdose T50.901A Migraine G43.909
--- NOTE | 2023-03-15 21:01 | PC.NURSE ---
CONTINUES TO HAVE ONE ON ONE SITTER AT BEDSIDE FOR CONTINOUS OXYGEN USE TO ENSURE PATIENT SAFETY. PT IS ON 2L O2 VIA NC AND ON PORTABLE TANK. SPO2 93%. DENIES PAIN. DENIES SI/HI AND AVH AT THIS TIME. LAST BM 03/17/23. LUNGS DIMINISHED THROUGHOUT, RIGHT SIDE WORSE THAN LEFT. EXPIRATORY WHEEZES NOTED IN UPPER BILAT LUNG LOBES, COUGHS EVERYTIME SHE IS ASKED TO BREATH IN WHILE LISTENING TO LUNGS. COUGHING UP WHITE/YELLOW TINGED SPUTUM. NEEDS MET.
[2023-03-15 21:25] VITALS: PULSE 84; RESP 16; O2SAT 90
--- NOTE | 2023-03-15 22:27 | PC.NURSE ---
PT REQUESTED TRAZODONE TO HELP WITH SLEEP TONIGHT. TRAZODONE 50 MG WAS GIVEN ORDERED WITH PTS NIGHT MEDICATIONS. PT HAS BEEN IN BED SLEEPING SINCE APPROXIMATELY 2144. MEDICATION EFFECTIVE.
[2023-03-16] VITALS (7 sets, daily range): BP systolic 104–120; BP diastolic 70–78; PULSE 57–96; RESP 16–18; TEMP 36.6–36.9; O2SAT 90–95
[2023-03-16] MEDS: acetaminophen 500 mg Tablet PO ×2 (04:57→20:15)
[2023-03-16] MEDS: nicotine 2 mg Gum BUCCAL ×8 (04:57→20:16)
[2023-03-16] MEDS: venlafaxine ER (24HR) 150 mg Capsule 300 MG PO (07:40)
[2023-03-16] MEDS: magnesium oxide 400 mg tablet PO (07:40)
[2023-03-16] MEDS: pregabalin 100 mg Capsule 200 MG PO ×3 (07:40→20:16)
[2023-03-16] MEDS: amoxicillin-clav 875-125 mg Tablet 1 TAB PO ×2 (07:41→16:59)
[2023-03-16] MEDS: pantoprazole DR 40 mg Tablet PO ×2 (07:41→16:59)
--- NOTE | 2023-03-16 08:16 | W.PM.NPUPNS ---
Subjective NPU Subjective: Patient presented today reporting that things are going fine. She reported that she and her have been in communication and he reported that this is not going to happen again. It was unclear whether this meant he had a plan or he was not going to tolerate it. She continued to have limited explanation for her behaviors and much like her previous hospitalizations does not look like a person who recently tried to kill herself. We discussed making it through the weekend and working with the social work team at the beginning of the week to look at discharge planning and to consider if there are any increases in services, i.e. [facility] or partial hospital programs that might decrease risk and help work on this impulsivity. Mental Status Exam MSE Comments: This is a slender, well-developed white female looking older than her stated age in hospital scrubs with adequate and eye contact. No abnormal movements except for mild psychomotor retardation.? Cooperative with exam in no acute distress. Speech was decreased rate and volume. Mood described as a little better, affect congruent. Thought process organized. Thought content: patient denied current suicidal or homicidal ideation, there were no delusions reported or noted, she denied any auditory or visual hallucinations.? Attention and concentration were intact and memory appears mostly reliable but none were formally tested.? She was alert and oriented x3.? Insight and judgment appear limited, impulse control impaired. Vitals/I&O/Wt Last Vital Signs Temp 98.1 F 03/15/23 20:30 Pulse 82 03/16/23 06:00 Resp 17 03/16/23 06:00 BP 104/70 03/16/23 06:00 Pulse Ox 90 03/16/23 06:00 O2 Del Method Nasal Cannula 03/16/23 06:00 O2 Flow Rate 2 03/16/23 07:50 FiO2 30 03/11/23 16:02 Weight last 48 hrs Weight 61.235 kg Physical Exam Urinary Catheter Management: Rhodes: Cath Placed During This Visit: yes, but has since been removed by the nurse Reason for Continuing Indwelling Catheter: Accurate Measurement of Urinary Output in Critically Ill Patients Urinary Catheter Date of Insertion: 03/08/23 Urinary Catheter Time of Insertion: 18:32 Date Urinary Catheter Removed: 03/12/23 Time Urinary Catheter Discontinued: 10:00 Data NPU 03/15/23 10:04 03/16/23 18:43 A&P Assessment and plan (1) Major depressive disorder, recurrent: Qualifiers: Active/Remission status: currently active Major depression episode severity: moderate Qualified Code(s): F33.1 - Major depressive disorder, recurrent, moderate (2) Fibromyalgia: (3) Generalized anxiety disorder: Plan The patient has a 52-year-old white female with history of depression and anxiety and previous overdoses on medications with evidence of suicidal intent who presented to the ICU after an overdose of questionable intent after a reported panic attack. 1. Continue current medications. 2. Encourage individual group and milieu therapy. 3. Continue one-to-one on unit given need for oxygen tubing 4. Recommend sober living treatment at the highest level of care to which the patient is willing to commit. 5. Obtain collateral information on the triggering issues. Involuntary Hold Information 96 Hour Hold: 96 Hour Involuntary Admission: No Attestations NPU Medical Necessity Statement*: Inpatient hospitalization is medically necessary and clinically appropriate intervention at this time. We will monitor medications and make changes as indicated. Likely length of stay 2-4 days. Coding Level of Care Code Acute Code for [facility] Diagnoses Major depressive disorder, recurrent F33.1 Active/Remission status: currently active Major depression episode severity: moderate Fibromyalgia M79.7 Generalized anxiety disorder F41.1
[2023-03-16] MEDS: BuSPIRONE 10 mg Tablet PO ×2 (09:09→16:59)
[2023-03-16] MEDS: acetaminophen 325 mg Tablet 650 MG PO (09:36)
--- NOTE | 2023-03-16 09:39 | PC.NURSE ---
Patient reporting pain behind her right knee. This nurse looked at back of leg and palpated area. No heat, swelling or tenderness. Patient suspects pain is from sitting on the chairs in the dayroom with the back of her knees pressed against the seat of the chairs.
[2023-03-16] MEDS: ipratropium-albuterol 3 mL Neb INHALATION ×3 (13:30→19:54)
[2023-03-16 19:32] LABS: Anion Gap 18.2 (5-19); Blood Urea Nitrogen 14 mg/dL (6-20); Calcium 9.6 mg/dL (8.5-10.5); Carbon Dioxide 28 mmol/L (22-29); Chloride 94 mmol/L (98-107); Glomerular Filtration Rate 104.6 mL/min (90-130); Glucose 107 mg/dL (65-115); Osmolality Calculated 283 mOsm/kg (285-295); Potassium 4.2 mmol/L (3.5-5.1); Sodium 136 mmol/L (136-145)
[2023-03-16] MEDS: trazodone 50 mg Tablet PO (20:16)
[2023-03-16] MEDS: quetiapine 100 mg Tablet 200 MG PO (20:16)
--- NOTE | 2023-03-16 21:13 | PM.PN ---
Subjective Subjective: She is doing better today. Still coughing. Still bringing up phlegm. Comfortable getting around the unit with portable oxygen. No other new complaints. Vitals/I&O/Wt Last Vital Signs Temp 98.4 F 03/16/23 20:32 Pulse 91 03/16/23 20:32 Resp 18 03/16/23 20:32 BP 120/78 03/16/23 20:32 Pulse Ox 94 03/16/23 20:32 O2 Del Method Room Air 03/16/23 20:32 O2 Flow Rate 2 03/16/23 20:00 FiO2 30 03/11/23 16:02 03/16/23 03/16/23 03/16/23 06:59 14:59 22:59 Intake Total 240 / 240 Output Total 925 / 925 Balance -685 / -685 Weight last 48 hrs Weight 70.035 kg Physical Exam Narrative: Ambulates with portable oxygen tank. Const: GENERAL APPEARANCE: cooperative and patient mechanically ventilated HENMT: COMMON NORMALS: oropharynx normal Neck/C-Spine: COMMON NORMALS: no JVD Resp: COMMON NORMALS: normal respiratory effort and clear to auscultation bilaterally AUSCULTATION: clear to auscultation bilaterally Cardio: COMMON NORMALS: no JVD, regular rhythm, S1 normal heart sound present, S2 normal heart sound present and No murmurs present (Cardio) RHYTHM: regular rhythm HEART SOUNDS: S1 normal heart sound present and S2 normal heart sound present GI: COMMON NORMALS: Normal to inspection, nondistended, normoactive bowel sounds present, Soft to palpation and non-tender PALPATION: Yes Soft to palpation Extremity: COMMON NORMALS: no pedal edema Neuro: COMMON NORMALS: moves all extremities Urinary Catheter Management: Rhodes: Cath Placed During This Visit: yes, but has since been removed by the nurse Reason for Continuing Indwelling Catheter: Accurate Measurement of Urinary Output in Critically Ill Patients Urinary Catheter Date of Insertion: 03/08/23 Urinary Catheter Time of Insertion: 18:32 Date Urinary Catheter Removed: 03/12/23 Time Urinary Catheter Discontinued: 10:00 Data 03/15/23 10:04 03/16/23 18:43 A&P Assessment and plan (1) Baclofen overdose: Qualifiers: Encounter type: initial encounter (2) Major depressive disorder, recurrent episode, in partial remission: (3) Generalized anxiety disorder: (4) Drug overdose: (5) Migraine: Plan Aspiration pneumonia versus, still coughing, productive cough. Continue nasal cannula oxygen support, continue to wean down over next several days anticipate should continue to improve. Continue Augmentin, continue breathing treatments, add guaifenesin. Noted afebrile, WBC normal. Continue Augmentin. Medication overdose: Psychiatry note reviewed. Continue treatment on n.p.u. Continue assessment and management on NPU with concern for risk to self, suicidal intent. Psychiatry documentation noted. Respiratory failure required mechanical ventilation for airway protection after baclofen overdose resolved. Hypovolemic shock: Resolved. Weaned off pressor. Monitor blood pressure. Kidney function noted WNL, BUN 14, creatinine 0.6. Echocardiogram noted with normal EF, no RWMA, unremarkable. Possible UTI: History of ESBL infection. Was started on on meropenem. Urine culture without growth. Low likelihood of UTI. Hypokalemia: Resolved. Follow-up chemistry requested. Preserved ejection fraction EF 58% no regional wall motion abnormality Attestations Medical Necessity Statement*: Continue admission for assessment management following medication overdose, suicidal intent, treatment of aspiration pneumonia, hypoxia. Diagnoses Baclofen overdose T42.8X1A Encounter type: initial encounter Major depressive disorder, recurrent episode, in partial remission F33.41 Generalized anxiety disorder F41.1 Drug overdose T50.901A Migraine G43.909
[2023-03-16] MEDS: guaiFENesin 600 mg Tablet PO (22:34)
[2023-03-17] VITALS (7 sets, daily range): BP systolic 116–127; BP diastolic 73–80; PULSE 79–90; RESP 16–20; TEMP 36.6–37; O2SAT 92–98
[2023-03-17] MEDS: acetaminophen 500 mg Tablet PO ×2 (05:37→19:41)
[2023-03-17] MEDS: nicotine 2 mg Gum BUCCAL ×8 (05:37→19:41)
[2023-03-17] MEDS: ipratropium-albuterol 3 mL Neb INHALATION ×3 (07:34→20:53)
--- NOTE | 2023-03-17 08:08 | P.NPUPN_ITS ---
Subjective NPU Subjective: Patient presented today reporting that she is feeling better. Still having some shortness of breath and we discussed the possibility of turning down her O2 to 1 L sometime tomorrow. She reports she is religiously using the incentive spirometer. She reports she can tell that it is helpful but she is having some shortness of breath as she is walking in the hallway with the one-to-one staff. We continue to discuss the challenges with her situation and asked reaching out to the outpatient team to make sure we have some sense about how we will do this differently to avoid another suicide attempt. We discussed the likelihood that we should meet with her prior to discharge. Mental Status Exam MSE Comments: This is a slender, well-developed white female looking older than her stated age in hospital scrubs with adequate and eye contact. No abnormal movements except for resolving mild psychomotor retardation.? Cooperative with exam in no acute distress. Speech was decreased rate and volume. Mood described as better, affect congruent. Thought process organized. Thought content: patient denied current suicidal or homicidal ideation, there were no delusions reported or noted, she denied any auditory or visual hallucinations.? Attention and concentration were intact and memory appears mostly reliable but none were formally tested.? She was alert and oriented x3.? Insight and judgment appear limited, impulse control impaired. Vitals/I&O/Wt Last Vital Signs Temp 98.4 F 03/16/23 20:32 Pulse 79 03/17/23 07:42 Resp 16 03/17/23 07:36 BP 124/75 03/17/23 06:00 Pulse Ox 92 03/17/23 06:00 O2 Del Method Nasal Cannula 03/17/23 07:36 O2 Flow Rate 95 03/17/23 07:36 FiO2 2 03/17/23 07:36 Weight last 48 hrs Weight 70.035 kg Physical Exam Urinary Catheter Management: Rhodes: Cath Placed During This Visit: yes, but has since been removed by the nurse Reason for Continuing Indwelling Catheter: Accurate Measurement of Urinary Output in Critically Ill Patients Urinary Catheter Date of Insertion: 03/08/23 Urinary Catheter Time of Insertion: 18:32 Date Urinary Catheter Removed: 03/12/23 Time Urinary Catheter Discontinued: 10:00 Data NPU 03/15/23 10:04 03/17/23 12:47 A&P Assessment and plan (1) Major depressive disorder, recurrent: Qualifiers: Active/Remission status: currently active Major depression episode severity: moderate Qualified Code(s): F33.1 - Major depressive disorder, recurrent, moderate (2) Fibromyalgia: (3) Generalized anxiety disorder: Plan The patient has a 52-year-old white female with history of depression and anxie ty and previous overdoses on medications with evidence of suicidal intent who presented to the ICU after an overdose of questionable intent after a reported panic attack. 1. Continue current medications. 2. Encourage individual group and milieu therapy. 3. Continue one-to-one on unit given need for oxygen tubing 4. Recommend sober living treatment at the highest level of care to which the p atient is willing to commit. 5. Obtain collateral information on the triggering issues. Involuntary Hold Information 96 Hour Hold: 96 Hour Involuntary Admission: No Attestations NPU Medical Necessity Statement*: Inpatient hospitalization is medically necessary and clinically appropriate intervention at this time. We will monitor medications and make changes as indicated. Likely length of stay 1-3 days. Coding Level of Care Code Acute Code for [facility] Diagnoses Major depressive disorder, recurrent F33.1 Active/Remission status: currently active Major depression episode severity: moderate Fibromyalgia M79.7 Generalized anxiety disorder F41.1
[2023-03-17] MEDS: BuSPIRONE 10 mg Tablet PO ×2 (08:24→17:25)
[2023-03-17] MEDS: pantoprazole DR 40 mg Tablet PO ×2 (08:24→17:25)
[2023-03-17] MEDS: guaiFENesin 600 mg Tablet PO ×2 (08:24→17:25)
[2023-03-17] MEDS: pregabalin 100 mg Capsule 200 MG PO ×3 (08:24→20:47)
[2023-03-17] MEDS: ibuprofen 600 mg Tablet PO ×2 (08:24→16:47)
[2023-03-17] MEDS: magnesium oxide 400 mg tablet PO (08:24)
[2023-03-17] MEDS: amoxicillin-clav 875-125 mg Tablet 1 TAB PO ×2 (08:24→17:25)
[2023-03-17] MEDS: venlafaxine ER (24HR) 150 mg Capsule 300 MG PO (08:24)
[2023-03-17 14:18] LABS: Blood Urea Nitrogen 15 mg/dL (6-20); Calcium 9.2 mg/dL (8.5-10.5); Carbon Dioxide 30 mmol/L (22-29); Chloride 96 mmol/L (98-107); Glomerular Filtration Rate 104.6 mL/min (90-130); Glucose 92 mg/dL (65-115); Osmolality Calculated 280 mOsm/kg (285-295); Sodium 135 mmol/L (136-145)
[2023-03-17 14:40] LABS: Anion Gap 13.2 (5-19); Potassium 4.2 mmol/L (3.5-5.1)
[2023-03-17] MEDS: quetiapine 100 mg Tablet 200 MG PO (20:47)
[2023-03-17] MEDS: trazodone 50 mg Tablet PO (20:47)
--- NOTE | 2023-03-17 21:24 | PC.NURSE ---
PT DENIES SI/HI AND AVH AT TIME OF ASSESSMENT. PT DOES REPORT RIGHT KNEE PAIN 6/10 AND WAS GIVEN TYLENOL ORDERED. PT KNEE WAS ASSESSED AND IT IS OBSERVED TO HAVE SWELLING. PT CONTINUES O2 AT 2L VIA NC AND HAS SITTER AT SIDE. PT REQUEST MEDS TO ASSIST WITH HER SLEEP. PT WAS GIVEN TRAZODONE 50 MG ORDERED FOR SLEEP. RESPIRATORY RATE EVEN AND UNLABORED. LUNG LOBES THROUGHOUT ARE NOTED TO BE COARSE WITH EXPIRATORY WHEEZES, DIMINISHED IN THE BASES. PT HAS AN INCENTIVE SPIROMETER AND IS ENCOURAGE DO IT HOURLY WELL COUGH AND DEEP BREATH. PT VERBALIZED UNDERSTANDING AND DEMONSTRATES USE OF SPIROMETER. PT HAS GOTTEN UP TO 2700 ENCOURAGED TO REACH 3000. EDUCATION ON QUITTING SMOKING WAS ALSO GIVEN AND RECEIVED. PT STATES SHE IS GOING TO CONTINUE WITH THE NICOTINE GUM AND NOT SMOKE WHEN SHE LEAVES. ALL QUESTIONS ANSWERED AND SUPPORT WAS VOICED.
[2023-03-18] MEDS: nicotine 2 mg Gum BUCCAL ×8 (05:08→19:17)
[2023-03-18 06:00] VITALS: BP 117/78; PULSE 77; RESP 16; O2SAT 93
[2023-03-18] MEDS: ibuprofen 600 mg Tablet PO (06:12)
[2023-03-18] MEDS: pregabalin 100 mg Capsule 200 MG PO ×3 (08:13→20:31)
[2023-03-18] MEDS: pantoprazole DR 40 mg Tablet PO ×2 (08:13→17:09)
[2023-03-18] MEDS: magnesium oxide 400 mg tablet PO (08:13)
[2023-03-18] MEDS: BuSPIRONE 10 mg Tablet PO ×2 (08:13→20:32)
[2023-03-18] MEDS: amoxicillin-clav 875-125 mg Tablet 1 TAB PO ×2 (08:13→20:31)
[2023-03-18] MEDS: guaiFENesin 600 mg Tablet PO ×2 (08:13→20:31)
[2023-03-18] MEDS: venlafaxine ER (24HR) 150 mg Capsule 300 MG PO (08:13)
[2023-03-18] MEDS: ipratropium-albuterol 3 mL Neb INHALATION ×2 (09:02→13:34)
[2023-03-18 09:04] VITALS: PULSE 77; RESP 18; O2SAT 96
--- NOTE | 2023-03-18 12:18 | W.PM.NPUPNS ---
Subjective NPU Subjective: Patient presented today reporting that she is feeling better. She is open to discharge but we discussed in treatment team and with her that we would like to have a family meeting with her and the social work case manager so that we can make sure that there is nothing that were missing that there is nothing there were not understanding as a contributing factor and to try to plan for her discharge with as much greater support as possible. She seemed to be open to this idea and she denied any issues with her medication and still having some difficulty with breathing on 2 L of O2 but we discussed the possibility of trying a 1 L in hopes of being close to being off of the O2 at discharge. Mental Status Exam MSE Comments: This is a slender, well-developed white female looking older than her stated age in hospital scrubs with adequate and eye contact. No abnormal movements except for resolving mild psychomotor retardation.? Cooperative with exam in no acute distress. Speech was decreased rate and volume. Mood described as better, affect congruent. Thought process organized. Thought content: patient denied current suicidal or homicidal ideation, there were no delusions reported or noted, she denied any auditory or visual hallucinations.? Attention and concentration were intact and memory appears mostly reliable but none were formally tested.? She was alert and oriented x3.? Insight and judgment appear limited, impulse control impaired. Vitals/I&O/Wt Last Vital Signs Temp 97.9 F 03/17/23 19:36 Pulse 77 03/18/23 09:04 Resp 18 03/18/23 09:04 BP 117/78 03/18/23 06:00 Pulse Ox 96 03/18/23 09:04 O2 Del Method Room Air 03/18/23 09:04 O2 Flow Rate 2 03/18/23 02:13 FiO2 2 03/17/23 07:36 Weight last 48 hrs Weight 70.035 kg Physical Exam Urinary Catheter Management: Rhodes: Cath Placed During This Visit: yes, but has since been removed by the nurse Reason for Continuing Indwelling Catheter: Accurate Measurement of Urinary Output in Critically Ill Patients Urinary Catheter Date of Insertion: 03/08/23 Urinary Catheter Time of Insertion: 18:32 Date Urinary Catheter Removed: 03/12/23 Time Urinary Catheter Discontinued: 10:00 Data NPU 03/15/23 10:04 03/17/23 12:47 A&P Assessment and plan (1) Major depressive disorder, recurrent: Qualifiers: Active/Remission status: currently active Major depression episode severity: moderate Qualified Code(s): F33.1 - Major depressive disorder, recurrent, moderate (2) Fibromyalgia: (3) Generalized anxiety disorder: Plan The patient has a 52-year-old white female with history of depression and anxiety and previous overdoses on medications with evidence of suicidal intent who presented to the ICU after an overdose of questionable intent after a reported panic attack. 1. Continue current medications. 2. Encourage individual group and milieu therapy. 3. Continue one-to-one on unit given need for oxygen tubing 4. Recommend sober living treatment at the highest level of care to which the patient is willing to commit. 5. Obtain collateral information on the triggering issues. Involuntary Hold Information 96 Hour Hold: 96 Hour Involuntary Admission: No Attestations NPU Medical Necessity Statement*: Inpatient hospitalization is medically necessary and clinically appropriate intervention at this time. We will monitor medications and make changes as indicated. Likely length of stay 1-3 days. Coding Level of Care Code Acute Code for [facility] Diagnoses Major depressive disorder, recurrent F33.1 Active/Remission status: currently active Major depression episode severity: moderate Fibromyalgia M79.7 Generalized anxiety disorder F41.1
[2023-03-18 13:34] VITALS: PULSE 86; RESP 18; O2SAT 94
[2023-03-18 14:00] VITALS: BP 115/58; PULSE 84; RESP 16; TEMP 36.5; O2SAT 94
[2023-03-18 19:45] VITALS: BP 139/85; PULSE 85; RESP 16; TEMP 36.9; O2SAT 91
[2023-03-18] MEDS: trazodone 50 mg Tablet PO (20:30)
[2023-03-18] MEDS: quetiapine 100 mg Tablet 200 MG PO (20:31)
[2023-03-19] VITALS (8 sets, daily range): BP systolic 116–127; BP diastolic 77–95; PULSE 76–100; RESP 15–18; TEMP 36.4–36.6; O2SAT 91–97
[2023-03-19] MEDS: nicotine 2 mg Gum BUCCAL ×8 (05:41→19:42)
[2023-03-19] MEDS: amoxicillin-clav 875-125 mg Tablet 1 TAB PO ×2 (07:43→19:41)
[2023-03-19] MEDS: pantoprazole DR 40 mg Tablet PO ×2 (07:44→17:50)
[2023-03-19] MEDS: venlafaxine ER (24HR) 150 mg Capsule 300 MG PO (07:44)
[2023-03-19] MEDS: guaiFENesin 600 mg Tablet PO ×2 (07:44→19:41)
[2023-03-19] MEDS: BuSPIRONE 10 mg Tablet PO ×2 (07:44→19:42)
[2023-03-19] MEDS: pregabalin 100 mg Capsule 200 MG PO ×3 (07:44→19:41)
[2023-03-19] MEDS: magnesium oxide 400 mg tablet PO (07:45)
[2023-03-19] MEDS: ipratropium-albuterol 3 mL Neb INHALATION ×2 (09:11→13:01)
--- NOTE | 2023-03-19 12:10 | W.PM.NPUPNS ---
Subjective NPU Subjective: Patient presented today continuing to report improvement. We discussed having a family meeting with her and the case maker later today if possible. She seemed to be open to this idea and she denied any issues with her medication and still having some difficulty with breathing on 2 L of O2 she may have to do continued O2 after discharge. Mental Status Exam MSE Comments: This is a slender, well-developed white female looking older than her stated age in hospital scrubs with adequate and eye contact. No abnormal movements except for resolving mild psychomotor retardation.? Cooperative with exam in no acute distress. Speech was decreased rate and volume. Mood described as better, affect congruent. Thought process organized. Thought content: patient denied current suicidal or homicidal ideation, there were no delusions reported or noted, she denied any auditory or visual hallucinations.? Attention and concentration were intact and memory appears mostly reliable but none were formally tested.? She was alert and oriented x3.? Insight and judgment appear limited, impulse control impaired. Vitals/I&O/Wt Last Vital Signs Temp 98.5 F 03/18/23 19:45 Pulse 77 03/19/23 09:14 Resp 16 03/19/23 09:11 BP 118/84 03/19/23 06:00 Pulse Ox 97 03/19/23 09:12 O2 Del Method Nasal Cannula 03/19/23 09:12 O2 Flow Rate 2 03/19/23 09:12 FiO2 2 03/17/23 07:36 Physical Exam Urinary Catheter Management: Rhodes: Cath Placed During This Visit: yes, but has since been removed by the nurse Reason for Continuing Indwelling Catheter: Accurate Measurement of Urinary Output in Critically Ill Patients Urinary Catheter Date of Insertion: 03/08/23 Urinary Catheter Time of Insertion: 18:32 Date Urinary Catheter Removed: 03/12/23 Time Urinary Catheter Discontinued: 10:00 Data NPU 03/15/23 10:04 03/17/23 12:47 A&P Assessment and plan (1) Major depressive disorder, recurrent: Qualifiers: Active/Remission status: currently active Major depression episode severity: moderate Qualified Code(s): F33.1 - Major depressive disorder, recurrent, moderate (2) Fibromyalgia: (3) Generalized anxiety disorder: Plan The patient has a 52-year-old white female with history of depression and anxiety and previous overdoses on medications with evidence of suicidal intent who presented to the ICU after an overdose of questionable intent after a reported panic attack. 1. Continue current medications. 2. Encourage individual group and milieu therapy. 3. Continue one-to-one on unit given need for oxygen tubing 4. Recommend sober living treatment at the highest level of care to which the patient is willing to commit. 5. We will work on a family meeting for today or tomorrow. Involuntary Hold Information 96 Hour Hold: 96 Hour Involuntary Admission: No Attestations NPU Medical Necessity Statement*: Inpatient hospitalization is medically necessary and clinically appropriate intervention at this time. We will monitor medications and make changes as indicated. Likely length of stay 1-3 days. Coding Level of Care Code Acute Code for [facility] Diagnoses Major depressive disorder, recurrent F33.1 Active/Remission status: currently active Major depression episode severity: moderate Fibromyalgia M79.7 Generalized anxiety disorder F41.1
[2023-03-19] MEDS: quetiapine 100 mg Tablet 200 MG PO (19:42)
[2023-03-20 02:00] VITALS: PULSE 72; RESP 16; O2SAT 95
[2023-03-20] MEDS: ipratropium-albuterol 3 mL Neb INHALATION ×3 (04:56→14:18)
[2023-03-20 06:00] VITALS: BP 100/66; PULSE 76; RESP 14; O2SAT 92
[2023-03-20] MEDS: nicotine 2 mg Gum BUCCAL ×4 (06:31→14:22)
[2023-03-20 08:00] VITALS: PULSE 88; RESP 16; O2SAT 93
[2023-03-20] MEDS: pregabalin 100 mg Capsule 200 MG PO ×2 (08:36→14:22)
[2023-03-20] MEDS: pantoprazole DR 40 mg Tablet PO (08:36)
[2023-03-20] MEDS: magnesium oxide 400 mg tablet PO (08:37)
[2023-03-20] MEDS: venlafaxine ER (24HR) 150 mg Capsule 300 MG PO (08:37)
[2023-03-20] MEDS: amoxicillin-clav 875-125 mg Tablet 1 TAB PO (09:04)
[2023-03-20] MEDS: guaiFENesin 600 mg Tablet PO (09:04)
[2023-03-20] MEDS: BuSPIRONE 10 mg Tablet PO (09:04)
[2023-03-20 14:00] VITALS: BP 127/79; PULSE 86; PULSE 87; RESP 16; TEMP 36.7; O2SAT 91; O2SAT 93
[2023-03-20 14:20] VITALS: O2SAT 91; O2SAT 93
--- NOTE | 2023-03-20 14:56 | P.NPUDS_ITS ---
Diagnoses at Discharge Discharge Diagnosis (1) Major depressive disorder, recurrent: Status: Chronic Qualifiers: Active/Remission status: currently active Major depression episode severity: moderate Qualified Code(s): F33.1 - Major depressive disorder, recurrent, moderate (2) Fibromyalgia: Status: Resolved (3) Generalized anxiety disorder: Status: Chronic Reason for Visit Reason for Visit: overdose Brief History: History of Present Illness Kaylie Edwards is a 52 year old female who presented to the emergency department with the following report: Chief Complaint: Overdose Stated Complaint: overdose Time Seen by Provider: 03/08/23 15:39 History of Present Illness: ? Patient presents to the ER by EMS with complaints of baclofen overdose.? This was called for patient for shortness of breath.? When they arrived there they were told that patient took approximately 30 10 mg baclofen because she was anxious.? EMS states patient did walk to the ambulance but when she got in the ambulance she started getting agitated and having abnormal behaviors.? EMS then gave her 50 mg of ketamine IV to calm her down.? When patient arrived at the ER she was in a sedated state.? Patient is responsive to sternal rub and moves all extremities.? Previous records show patient does have a history of acute encephalopathy, drug overdose, COPD. She was admitted to the ICU for definitive treatment of those issues.? After she was extubated a psychiatric consult was requested for definitive treatment of those issues.? Patient presents today reporting that she is feeling tired but acknowledging that she had what was a intentional intake of the medication but not seeming to want to discuss whether it was the fact an overdose attempt.? We discussed the need for us to restart her medications as appropriate and work with her on safety measures for discharge.? We discussed the risk benefits and alternatives of transferring her to the neuropsychiatric unit for definitive treatment of these issues and she understood and agreed to proceed as is documented in this note.? An excerpt of the discharge summary from earlier this year is included below for historical context as she denies any significant changes. Per her 10/10/2022 [facility] inpatient psychiatric discharge summary: Discharge Diagnosis (1) Major depressive disorder, recurrent: ? ? ? Status: Acute (2) Fibromyalgia: ? ? ? Status: Resolved (3) Generalized anxiety disorder: ? ? ? Status: Acute Reason for Visit Reason for Visit: ? possible OD? Brief History: History of Present Illness Kaylie Edwards is a 52 year old female who presented to the emergency department with the following report: Chief Complaint: ER Hold Stated Complaint: possible OD Time Seen by Provider: 09/30/22 09:19 Source: patient Mode of arrival: ambulatory History of Present Illness: ? 52-year-old female presents emergency room after having taking Xarelto in 20-25 5 or 10 mg baclofen tablets last night around 1030.? Patient is denying she did this in attempt to harm herself states she was just very anxious could not sleep and wanted to be able to sleep she is been hospitalized in the past after similar episodes which she admits were attempts to harm her self she has also done this in the past where she was not hospitalized.? She denies any injury at this time she is awake and alert answers questions appropriately.? She denies taking anything else to harm herself MD complaint: intentional overdose Onset (ago): hour(s) Time: 22:30 ? Intent: wanted to go to sleep and wanted to escape? Associated symptoms: depression? Treatments Prior to Arrival: none She was admitted to the neuropsychiatric unit for definitive treatment of those issues. She is currently on Lyrica, Venlafaxine, Seroquel, Trazodone, and Baclofen three times a day. She presents today after her took her to the hospital after she told that she took a bunch of pills again and was presenting physical symptoms of an overdose. She has been psychiatrically hospitalized 4 times, last of which was July 2022 a week after she reports taking a bunch of pills. She has been to [facility] [place] for outpatient services, and has been on medications in the past. She endorses a pack of tobacco a day, denies alcohol, denies marijuana, and endorses opiates for 10 years before she quit in 2008. She has been to rehab 2 times, endorses having a DUI, and denies any other drug and alcohol related charges. Her specific mental health issues began presenting a week ago, and she reports being really down, irritated, and angry for no reason. She reports that her brain doesn?t shut off when she forgoes sleep for a few days. She endorses that the reason that she took so many pills was that she wanted to sleep and denies suicidal intent behind her recent overdose. She reports taking a quick look at the handful that she poured out and estimating it was about 20 pills before she threw them in her mouth at once. She denies telling her how many pills she took but thinks that he could tell that she was not feeling good and that she was having physical symptoms. She reports admitting that she had taken a lot of pills after which he took her to the hospital because he was worried. She endorses that her mind is always thinking negatively and she has a hard time being positive, and that her mind stays negative until it?s too late. She reports that her shoe parts caser is suggesting journaling to find out what?s triggering her. She reports that she lives in a camper with her and that living in such a confined space in the winter can be a stressor, but that they are moving into a cabin next week for more room. Excerpt from July, below for context denying substantive changes.. Psychiatric History: As above. Substance Abuse History: As above. Per her 07/31/2022 [facility] inpatient psychiatric discharge summary: Discharge Diagnosis (1) Major depressive disorder, recurrent: ? ? ? Status: Acute (2) Fibromyalgia: ? ? ? Status: Resolved (3) Generalized anxiety disorder: ? ? ? Status: Acute Reason for Visit Reason for Visit: ? SI? Brief History: History of Present Illness Kaylie Edwards is a 52 year old female who presented to the emergency department with the following report: Chief Complaint: Pediatric General Medical Stated Complaint: SI Time Seen by Provider: 07/27/22 18:45 Source: patient History of Present Illness: ? 52-year-old female who was recently discharged from the neuropsychiatric unit at this facility.? She returns to the emergency department stating that she is still having problems, and is feeling like harming her self.? She believes she would cut her wrist this time.? She has had attempts in the past evidently, and has a significant history. She also states that she was diagnosed with the flu here, and has been on antibiotics and steroids, and is still having some coughing and wheezing.? No fever. MD complaint: suicidal ideation and feels depressed Onset (ago): day(s) Duration: constant History of same: Yes Relieving factors: none Exacerbating factors: none Context: significant life stressor and other Associated psychiatric symptoms: depression Associated symptoms: Reports depression and suicidal ideation; Deny auditory hallucinations, visual hallucinations or homicidal ideation Treatments prior to arrival: none If self harm: admits thoughts of self harm. She was admitted to the neuropsychiatric unit for definitive treatment of those issues.? She is known to this pattern chart writer from past inpatient hospitalization earlier this year.? And had just left the hospital less than a week ago.? She presents today reporting that she continues to live in a camper with her off the grid. ? She reports that she was doing okay when she first left the hospital but very quickly she started having thoughts to commit suicide.? She reports she is having thoughts of taking her pills and that when she contacted a friend who suggested that she come back.? She referred to the shoe parts caser and a therapist.? Her is employed and she denies any clear marital or financial stressors.? She reports that she struggles this time of year currently.? We discussed people having seasonal aspects to the depression and the possibility of a light box.? Additionally we agreed to get some collateral information to try to understand why she is struggling with her depression and feelings and thoughts of lethality.? She denied any addiction issues and denied any substantive changes since her last day and so an excerpt of her discharge summary from last week is included below for context. Hospital Course Discharge Summary: During the hospitalization, patient had routine laboratory studies which were within normal limits except for few outliers.? Additionally there was a general medical evaluation which was also within normal limits and revealed no new acute processes. At the time of discharge, lethality was denied and psychosis was resolving.? Mood and anxiety were well managed.? Patient endorsed a plan to avoid all drugs of abuse and follow-up with the aftercare recommendations of the treatment team.? Patient was evaluated and deemed to be absent credible lethality, and had achieved the maximum benefit from an inpatient hospitalization, so was discharged.? Changes made during her hospital stay was increasing Effexor to 300mg daily, adding Buspar 10mg twice a day and increasing Seroquel to 200mg at night.? It was also recommended that the patient increase communication with shoe parts caser and increased attendance in afternoon program to help manage loneliness. Hospital Course Hospital Course She slowly acclimated to the individual, group milieu therapies provided.? She presented struggling with mood dysregulation and suicidality. She presented much like she had from previous hospitalizations with a suicide attempt that felt out of the blue and not predictable. She identified that she was having a panic attack and that she cannot manage panic attacks which led to the suicide attempt by overdose. After stay in [facility] ICU [facility] Medications were not changed except for not including baclofen which was the source of the overdose in her medications. After a prolonged stay with significant psychosocial interventions and work with the different therapy modalities on the unit we did conclude with a family meeting to make sure that all providers inpatient, outpatient and supports which included her are on the same page as to what the triggers are and what the appropriate measures would be to combat those triggers. We also has a significant discussion to ensure there were not any unknowns that were not acknowledged this across all teams. She did endorse significant reduction in symptoms and worked with the social work team on her aftercare and follow-up treatment. She had significant improvement during the stay and they were able to get her appropriate follow-up. She was able to contract for safety outside of the hospital prior to discharge.? During the hospitalization, patient had ro utine laboratory studies which were within normal limits except for few outliers.? Additionally there was a general medical evaluation which was also within normal limits and revealed no new acute processes. All issues stemming from the overdose and problematic labs were managed by the hospitalist both during her ICU stay and on the neuropsychiatric unit. At the time of discharge, she denies psychosis or lethality.? Mood and anxiety were well managed.? Patient endorsed a plan to avoid all drugs of abuse and follow-up with the aftercare recommendations of the treatment team.? Patient was evaluated and deemed to be absent credible lethality, and was a voluntary patient no longer desiring inpatient hospitalization, so she was discharged. Involuntary Hold Information 96 Hour Hold: 96 Hour Involuntary Admission: No Mental Status Exam MSE Comments: This is a slender, well-developed white female looking older than her stated age in hospital scrubs with adequate and eye contact. No abnormal movements except for resolving mild psychomotor retardation.? Cooperative with exam in no acute distress. Speech was decreased rate and volume. Mood described as better, affect congruent. Thought process organized. Thought content: patient denied current suicidal or homicidal ideation, there were no delusions reported or noted, she denied any auditory or visual hallucinations.? Attention and concentration were intact and memory appears mostly reliable but none were formally tested.? She was alert and oriented x3.? Insight and judgment appear limited, impulse control limited. Physical Exam Urinary Catheter Management: Rhodes: Cath Placed During This Visit: yes, but has since been removed by the nurse Reason for Continuing Indwelling Catheter: Accurate Measurement of Urinary Output in Critically Ill Patients Urinary Catheter Date of Insertion: 03/08/23 Urinary Catheter Time of Insertion: 18:32 Date Urinary Catheter Removed: 03/12/23 Time Urinary Catheter Discontinued: 10:00 Discharge Data Studies Completed and Pending: Completed Studies During Hospitalization Category Date Time Status CT head wo con* [id number] Stat Cat Scan 03/08/23 17:00 Completed XR chest 1V rony ble [id number] QAM Exams 03/09/23 06:00 Completed XR chest 1V rony ble [id number] QAM Exams 03/10/23 06:00 Completed XR chest 1V rony ble [id number] QAM Exams 03/11/23 06:00 Completed XR chest 1V rony ble [id number] Stat Exams 03/08/23 15:39 Completed XR chest 1V rony ble [id number] Stat Exams 03/08/23 21:04 Completed XR chest 1V rony ble [id number] Stat Exams 03/08/23 23:21 Completed CV. echo complete * [id number] Routine Ultrasound 03/09/23 18:58 Completed Radiology Impressions Head CT 03/08/23 17:00 IMPRESSION: 1. Right frontal scalp swelling. No associated calvarial fracture. 2. No acute intracranial abnormality demonstrated. 3. There is no interval change from the prior examination. Chest X-Ray 03/11/23 06:00 IMPRESSION: 1. No acute cardiopulmonary finding. 2. NG tube barely entering the stomach. The side-port of the tube ends in the lower esophagus. It is recommended to be advanced another 5 to 6 cm for optimal position. Laboratory Results WBC 8.3 10^3/uL (4.0- 10.0) 03/15/23 10:04 RBC 3.28 10^6/uL (4.1 -5.3) L 03/15/23 10:04 Hgb 14.0 g/dL (11.5-1 5.3) 03/15/23 10:04 Hct 32.7 % (37.0-47.0 ) L 03/15/23 10:04 MCV 99.7 fl (81-99) H 03/15/23 10:04 MCH 42.7 pg (28.0-34. 0) H 03/15/23 10:04 MCHC 42.8 g/dL (30.0-3 6.0) H 03/15/23 10:04 RDW 14.3 % (12.1-15.1 ) 03/15/23 10:04 Plt Count 250 10^3/cmm (130 -400) 03/15/23 10:04 MPV 10.9 fL (7.4-10.4 ) H 03/15/23 10:04 Neut % (Auto) 61.5 % 03/15/23 10:04 Lymph % (Auto) 26.1 % 03/15/23 10:04 [place] % (Auto) 8.1 % 03/15/23 10:04 Eos % (Auto) 3.6 % 03/15/23 10:04 Baso % (Auto) 0.5 % 03/15/23 10:04 Neut # (Auto) 5.10 10^3/uL (1.8 -7.7) 03/15/23 10:04 Lymph # (Auto) 2.2 10^3/uL (0.8- 4.8) 03/15/23 10:04 [place] # (Auto) 0.7 10^3/uL (0.2- 0.9) 03/15/23 10:04 Eos # (Auto) 0.3 10^3/uL (0.0- 0.8) 03/15/23 10:04 Baso # (Auto) 0.0 10^3/uL (0.0- 0.1) 03/15/23 10:04 Nucleated RBC % (a uto) 0 % 03/15/23 10:04 Nucleated RBCs # 0.0 /100WBC 03/15/23 10:04 Specimen Type Arterial 03/11/23 04:00 Sample Site Radial, right 03/11/23 04:00 ABG pH 7.42 (7.35-7.45) 03/11/23 04:00 ABG pCO2 36.8 mmHg (35-45) 03/11/23 04:00 ABG pO2 63.3 mmHg (80.0-1 00.0) L 03/11/23 04:00 ABG HCO3 23.6 mmol/L (22-2 6) 03/11/23 04:00 ABG O2 Saturation 94.9 03/10/23 16:45 ABG Base Excess -0.6 mmol/L (-2.0 -2.0) 03/11/23 04:00 Fabrizio Test Pos 03/11/23 04:00 A-a O2 Gradient 11.8 mmHg (5-10) H 03/10/23 16:45 Hematocrit 41.9 % (37-47) 03/11/23 04:00 Hgb O2 Saturation 93.0 % (95-100) L 03/10/23 16:45 Carboxyhemoglobin 1.3 %THgb (0.4-20 .1) 03/10/23 16:45 Methemoglobin 0.7 % (0.4-1.5) 03/10/23 16:45 Total Hemoglobin 13.7 g/dL (12-16) 03/10/23 16:45 Sodium 138.0 mmol/L (131 -143) 03/10/23 16:45 Potassium 3.1 mmol/L (3.5-5 .0) L 03/10/23 16:45 Glucose 85.0 mg/dL (70-11 5) 03/10/23 16:45 Ionized Calcium 1.2 mmol/L (1.1-1 .4) 03/10/23 16:45 O2 Delivery Device Vent 03/11/23 04:00 FiO2 30.0 % 03/11/23 04:00 Tidal Volume 0.50 03/11/23 04:00 PEEP 8.0 cmH20 03/11/23 04:00 Boiler Water Tester ID berna 03/11/23 04:00 Sodium 135 mmol/L (136-1 45) L 03/17/23 12:47 Potassium 4.2 mmol/L (3.5-5 .1) 03/17/23 12:47 Chloride 96 mmol/L (98-107 ) L 03/17/23 12:47 Carbon Dioxide 30 mmol/L (22-29) H 03/17/23 12:47 Anion Gap 13.2 (5-19) 03/17/23 12:47 BUN 15 mg/dL (6-20) 03/17/23 12:47 Creatinine 0.6 mg/dL (0.5-0. 9) 03/17/23 12:47 GFR Calculation 104.6 mL/min (90- 130) 03/17/23 12:47 Glucose 92 mg/dL (65-115) 03/17/23 12:47 POC Glucose 87 mg/dL (70-110) 03/12/23 03:17 Calculated Osmolal ity 280 mOsm/kg (285- 295) L 03/17/23 12:47 Calcium 9.2 mg/dL (8.5-10 .5) 03/17/23 12:47 Magnesium 1.9 mg/dL (1.7-2. 3) 03/14/23 03:48 Total Bilirubin 0.3 mg/dL (0.15-1 .2) 03/14/23 03:48 AST 14 U/L (0-32) 03/14/23 03:48 ALT 10 U/L (0-33) 03/14/23 03:48 Alkaline Phosphata se 86 U/L (35-105) 03/14/23 03:48 Creatine Kinase 46 U/L (26-192) 03/08/23 16:05 Troponin T Baselin e 8 ng/L (0-10) 03/08/23 16:05 Troponin T 120 Min [place] 6.00 ng/L (0-10) 03/08/23 20:03 Delta Troponin T -2 ABS# (0-10) L 03/08/23 20:03 Troponin T Hi Sens 6Hr 6.00 ng/L (0-10) 03/09/23 00:40 Troponin T Hi Sens 6Hr Delta -2 ng/L (0-12) L 03/09/23 00:40 C-Reactive Protein 3.0 mg/L (0.0-4.9 ) 03/09/23 00:40 Total Protein 5.1 g/dL (6.6-8.7 ) L 03/14/23 03:48 Albumin 3.1 g/dL (3.5-5.2 ) L 03/14/23 03:48 Globulin 2.0 g/dL (1.3-4.6 ) 03/14/23 03:48 TSH 1.45 uIU/mL (0.27 -4.20) 03/08/23 16:05 Urine Color Yellow (Yellow) 03/08/23 18:31 Urine Appearance Clear (CLEAR) 03/08/23 18:31 Urine pH 6.5 (5-7) 03/08/23 18:31 Ur Specific Gravit y 1.025 (1.005-1.0 30) 03/08/23 18:31 Urine Protein 2+ (Negative) H 03/08/23 18:31 Urine Glucose (UA) Trace (Normal) H 03/08/23 18:31 Urine Ketones Negative (Negati ve) 03/08/23 18:31 Urine Blood 2+ (Negative) H 03/08/23 18:31 Urine Nitrate Positive (Negati ve) H 03/08/23 18:31 Urine Bilirubin 1+ (Negative) H 03/08/23 18:31 Urine Urobilinogen 1 mg/dL (Negative ) H 03/08/23 18:31 Ur Leukocyte Michelle ase 2+ (Negative) H 03/08/23 18:31 Urine RBC 5-10 /hpf (0-2) H 03/08/23 18:31 Urine WBC 5-10 /hpf (0-5) H 03/08/23 18:31 Ur Squamous Epith Cells None /hpf (0-5) 03/08/23 18:31 Amorphous Sediment Not Reportable 03/08/23 18:31 Urine Bacteria None /hpf (NONE) 03/08/23 18:31 Hyaline Casts 10-15 /lpf H 03/08/23 18:31 Urine Mucus 4+ /hpf 03/08/23 18:31 Salicylates < 0.3 mg/dL (3-10 ) L 03/08/23 16:05 Urine Opiates Scre en Negative ng/mL (N egative) 03/08/23 18:31 Acetaminophen < 5.0 ug/mL (10-3 0) L 03/08/23 16:05 Ur Barbiturates Sc reen Negative ng/mL (N egative) 03/08/23 18:31 Ur Phencyclidine S crn Negative ng/mL (N egative) 03/08/23 18:31 Ur Amphetamines Sc reen Negative ng/mL (N egative) 03/08/23 18:31 U Benzodiazepines Scrn Negative ng/mL (N egative) 03/08/23 18:31 Urine Cocaine Scre en Negative ng/mL (N egative) 03/08/23 18:31 U Marijuana (THC) Screen Positive ng/mL (N egative) H 03/08/23 18:31 Ethyl Alcohol < 10 mg/dL (0-10) 03/08/23 16:05 Vitals: Last Vital Signs Temp 98.0 F 03/20/23 14:00 Pulse 87 03/20/23 14:00 Resp 16 03/20/23 14:00 BP 127/79 03/20/23 14:00 Pulse Ox 93 03/20/23 14:20 O2 Del Method Room Air 03/20/23 14:00 O2 Flow Rate 2 03/20/23 08:00 FiO2 2 03/17/23 07:36 Discharge Plan Discharge Patient Disposition: Home Condition: Stable Prescriptions: New Mucinex 600 mg Tablet Extended Release 12hr 600 mg PO 0900,2100 30 Days Qty: 60 0RF magnesium oxide 400 mg (241.3 mg magnesium) Tablet 400 mg PO DAILY 30 Days Qty: 30 1RF Continued venlafaxine 150 mg capsule,extended release 24hr 300 mg PO DAILY Qty: 60 2RF trazodone 50 mg tablet 50 mg PO BEDTIME PRN (Reason: Sleep) Qty: 30 2RF quetiapine 100 mg tablet 200 mg PO BEDTIME Qty: 60 2RF buspirone 10 mg tablet 10 mg PO BID Qty: 60 2RF albuterol sulfate 90 mcg/actuation HFA aerosol inhaler 2 puff INHALATION QID PRN (Reason: Shortness Of Breath) Breztri Aerosphere 160-9-4.8 mcg/actuation Hfa Aerosol Inhaler 2 inh INHALATION BID pregabalin 200 mg capsule 200 mg PO TID Qty: 90 0RF baclofen 10 mg tablet 10 mg PO TID PRN (Reason: Pain) albuterol sulfate [Ventolin HFA] 90 mcg/actuation Hfa Aerosol Inhaler 1 puff inhalation Q4H PRN (Reason: wheezing) Qty: 6.7 1RF Discharge Orders: Discharge Order (Routine); Ordered 03/20/23 Ordered By: Manolo Lisa Referrals: Yanci Hennessy APRN [Nurse Practitioner] - 03/25/23 10:15 am (Follow up) Ezekiel Ibrahim LPC [Therapist] - 03/27/23 10:45 am (Follow up) Harpal Gross [Primary Care Provider] - 03/22/23 9:40 am (Appointment scheduled with Gena Oliveira.) Discharge Diet: Regular Discharge Activity: Resume usual activity Patient Instructions: Opioid Safety Discharge Attestations NPU Time Spent in Discharge Care*: greater than 30 min Specific Discharge Activities: Specific discharge activities: educating patient, educating and/or supporting family/caregiver, discussing with pcp/other providers, discussing with shoe caser/social workers/dc planners, documenting/other paperwork and evaluating patient/reviewing data Coding Level of Care Code Acute Chg FW DC note Diagnoses Major depressive disorder, recurrent F33.1 Active/Remission status: currently active Major depression episode severity: moderate Fibromyalgia M79.7 Generalized anxiety disorder F41.1
[2023-03-20 15:00] VITALS: BP 127/79; PULSE 87; RESP 16; TEMP 36.7; O2SAT 93
--- NOTE | 2023-03-20 16:18 | PC.NURSE ---
written discharge instruction discussed and left with patient. pt leaving with spouse in pov. pt states understanding of discharge instructions and compliance.
== END 2023-03-20 16:19 | disposition home or self-care (01) | DRG 917 ==
LOC: ER 15:53 → ICU 19:28 → NP 03-15 07:36
PROVIDERS: Internal Medicine; Student in an Organized Health Care Education/Training Program; Admitting Provider Internal Medicine; Emergency Provider Emergency Medicine; PCP Family Medicine; Visit Provider Psychiatry & Neurology Psychiatry
DX: T42.8X2A Poisoning by antiparkinsonism drugs and other central muscle-tone depressants, intentional self-harm, initial encounter (principal); G92.8 Other toxic encephalopathy; J96.00 Acute respiratory failure, unspecified whether with hypoxia or hypercapnia; J69.0 Pneumonitis due to inhalation of food and vomit; R57.1 Hypovolemic shock; F33.1 Major depressive disorder, recurrent, moderate; F41.1 Generalized anxiety disorder; G89.29 Other chronic pain; M79.7 Fibromyalgia; F17.210 Nicotine dependence, cigarettes, uncomplicated; F43.10 Post-traumatic stress disorder, unspecified; I95.2 Hypotension due to drugs; T50.915A Adverse effect of multiple unspecified drugs, medicaments and biological substances, initial encounter; J44.9 Chronic obstructive pulmonary disease, unspecified; E87.6 Hypokalemia; E86.0 Dehydration
CPT/HCPCS: 31500; 36415; 36416; 36569; 36592; 36600; 51702; 70450; 71045; 80048; 80051; 80053; 80306; 80307; 81001; 82330; 82550; 82803; 82805; 82962; 83735; 84443; 84484; 85025; 86140; 87070; 87086; 87205; 92523; 92526; 92610; 93005; 93306; 94002; 94003; 94640; 94664; 94760; 94799; 96360; 96372; 96376; 97150; 97165; 99239; 99285; C1751; C9113; J0330; J1644; J2185; J2543; J2704; J3010; J3475; J3480; J3486; J3490; J7030; J7042; J7060

== ENCOUNTER 2023-11-22 22:25 | Emergency (ER) | payer MEDICARE, SELFPAY ==
[2023-06-14 07:44] VITALS: BP 123/79; BMI 23.6
[2023-11-22 22:28] VITALS: BP 142/84; PULSE 94; RESP 16; TEMP 36.6; O2SAT 94
--- NOTE | 2023-11-22 23:19 | ED_ITS ---
Documented by User: MANUEL Sinha 11/23/23 00:02 HPI - Burn/Smoke Inhalation General: Chief complaint: Burn/Smoke Inhalation Stated complaint: Upper leg pain Time Seen by Provider: 11/22/23 22:58 Source: patient Mode of arrival: ambulatory Limitations: no limitations History of Present Illness: Patient is a 53-year-old female presents the emergency department complaining of burn to bilateral extremities. Patient states that around 1000 this morning, she was boiling water when she accidentally spilled it on herself. She notes kaye to the medial aspect of both of the right and left valle. She notes that the pain has steadily worsened throughout the day, and she had began to notice skin peeling. Other than the pain, she denies any other symptoms at this time. MD Complaint: burn Onset (ago): hour(s) Type of Exposure: hot liquid Smoke Inhalation: none Place: home Location - Extremities: Bilateral: lower leg Associated symptoms: Reports no associated symptoms; Deny chest pain, fever(s), headache(s), nausea, neck pain or vomiting Review of Systems General: Reports: 10 or more systems reviewed and unremarkable except in HPI and below Const: Denies: fever(s), chills or fatigue Eyes: Denies: change in vision ENMT: Denies: throat pain, ear or mastoid pain or nasal discharge Card: Denies: chest pain, palpitations, swelling of feet/ankles or lightheadedness Resp: Denies: dyspnea, productive cough or wheezing GI: Denies: abdominal pain, nausea, vomiting, diarrhea or constipation : Denies: flank pain, difficulty voiding, dysuria or urinary frequency Musc: Denies: neck pain, back pain or joint pain Skin/Breast: Reports: skin pain, skin tenderness and new lesions (Burn to bilateral lower extremities); Denies: rash Neuro: Denies: headache(s), numbness in extremities or weakness in extremities PFSH ED PFSH: Medical History Major depressive disorder in partial remission Major depressive disorder, recurrent episode, in partial remission Psychiatric care Depression Migraine Anxiety Fibromyalgia Chronic pain Bone loss Surgical History H/O neck surgery History of back surgery H/O shoulder surgery Family History Father No problems noted. Mother COPD (chronic obstructive pulmonary disease) Chronic emphysema syndrome Social History Smoking and tobacco/nicotine status: current every day tobacco/nicotine user Second hand smoke exposure: Yes Alcohol intake: never Substance/Drug Use: never Adopted: No Caregiver/support person: No Lives independently: Yes Household members: spouse Housing: House Marital status: Number of children: 2 Highest education level completed: Bachelor's Degree service: No Current occupational status: disabled Physical Exam Const: COMMON NORMALS: no acute distress, patient oriented x3 and no limitations GENERAL APPEARANCE: cooperative, comfortable and well developed ORIENTATION/CONSCIOUSNESS: Yes awake, Yes oriented to person, Yes oriented to place and Yes oriented to time HENMT: COMMON NORMALS: normocephalic, atraumatic and hearing grossly normal bilaterally HEAD & SCALP: normocephalic and atraumatic Eye: COMMON NORMALS: Equal, round and reactive pupils present, EOMs intact bilaterally and conjunctivae normal CONJUNCTIVA: Yes conjunctivae normal PUPIL: Yes Equal, round and reactive pupils present Neck/C-Spine: COMMON NORMALS: full ROM, supple and no JVD Resp: COMMON NORMALS: normal respiratory effort, No retractions, No use of accessory muscles and clear to auscultation bilaterally AUSCULTATION: clear to auscultation bilaterally Cardio: COMMON NORMALS: no JVD, regular rate, regular rhythm, No clicks present (Cardio), No murmurs present (Cardio) and No rub (Cardio) RATE: regular rate RHYTHM: regular rhythm Extremity: COMMON NORMALS: full ROM and capillary refill normal NARRATIVE EXTREMITY EXAM: There are large areas of erythema, consistent with first-degree kaye, to the medial aspect of both lower legs, right appears to be worse than left. No noticeable blistering or dermal involvement. The areas are tender to the touch. Distal neurovascular exam unremarkable. Neuro: COMMON NORMALS: patient oriented x3, moves all extremities, no focal motor deficits and no sensory deficits noted SENSORIUM/ORIENTATION: Yes oriented to person, Yes oriented to place and Yes oriented to time Psych: COMMON NORMALS: mental status grossly normal and Normal thought process present THOUGHT PROCESS: Normal thought process present Skin: COMMON NORMALS: no rashes or lesions noted GENERAL SKIN EXAM: no rashes or lesions noted Course Vital Signs: Vital signs: Vital Signs Temperature 97.8 F 11/22/23 22:28 Pulse Rate 84 11/22/23 23:28 Respiratory Rate 14 11/22/23 23:28 Blood Pressure 135/81 11/22/23 23:28 Pulse Oximetry 92 11/22/23 23:28 Oxygen Delivery Me thod Room Air 11/22/23 22:28 MDM - Burn/Smoke Inhalation Medical Decision Making This patient presented to the emergency department for a burn suffered earlier today. Patient states that her concern is the worsening of pain. Vitals normal on arrival. Exam remarkable for kaye to lower legs, appears to be first- degree. Informed the patient that treatment will be consistent with treating a sunburn, with ice to the areas for added relief as well as ibuprofen. I will also send her home with some bacitracin for prophylactic wound care. Patient agrees with this plan and return precautions are given. No radiology studies performed this visit Discharge Plan Discharge Patient Disposition: Home Clinical Impression: Superficial burn of right lower leg, Superficial burn of left lower leg Condition: Stable Prescriptions: New bacitracin 500 unit/gram ointment 1 applic topical BID Qty: 1022.4 0RF No Action venlafaxine 150 mg capsule,extended release 24hr 300 mg PO QAM Qty: 60 1RF Rx Instructions: Take two capsules by mouth every morning trazodone 100 mg tablet 100 mg PO DAILY Qty: 30 1RF Rx Instructions: Take one tablet daily at bedtime quetiapine 100 mg tablet 200 mg PO BEDTIME Qty: 60 1RF Rx Instructions: Take two tablets daily at bedtime albuterol sulfate 90 mcg/actuation HFA aerosol inhaler 2 puff INHALATION QID PRN (Reason: Shortness Of Breath) Breztri Aerosphere 160-9-4.8 mcg/actuation Hfa Aerosol Inhaler 2 inh INHALATION BID pregabalin 200 mg capsule 200 mg PO TID Qty: 90 0RF albuterol sulfate [Ventolin HFA] 90 mcg/actuation Hfa Aerosol Inhaler 1 puff inhalation Q4H PRN (Reason: wheezing) Qty: 6.7 1RF Discharge Orders: Discharge ED (Routine); Ordered 11/22/23 Ordered By: Gentry Peck Referrals: Harpal Gross [Primary Care Provider] - Discharge Diet: Usual diet Discharge Activity: Increase activity as tolerated Patient Instructions: Superficial Burn (ED) Activity Restrictions/Additional Instructions: Apply bacitracin as directed. Ice for added relief. Ibuprofen. Return with any new or concerning symptoms. Coding Level of Care Code ED Operations Logistics Analyst for [facility] Documented by User: Donaldo Kramer DO 11/29/23 11:00 HPI - Burn/Smoke Inhalation General: Chief complaint: Burn/Smoke Inhalation Stated complaint: Upper leg pain Time Seen by Provider: 11/22/23 22:58 PFSH ED PFSH: Medical History Major depressive disorder in partial remission Major depressive disorder, recurrent episode, in partial remission Psychiatric care Depression Migraine Anxiety Fibromyalgia Chronic pain Bone loss Surgical History H/O neck surgery History of back surgery H/O shoulder surgery Family History Father No problems noted. Mother COPD (chronic obstructive pulmonary disease) Chronic emphysema syndrome Social History Smoking and tobacco/nicotine status: current every day tobacco/nicotine user Second hand smoke exposure: Yes Alcohol intake: never Substance/Drug Use: never Adopted: No Caregiver/support person: No Lives independently: Yes Household members: spouse Housing: House Marital status: Number of children: 2 Highest education level completed: Bachelor's Degree service: No Current occupational status: disabled Course Vital Signs: Vital signs: Vital Signs Temperature 97.8 F 11/22/23 22:28 Pulse Rate 84 11/22/23 23:28 Respiratory Rate 14 11/22/23 23:28 Blood Pressure 135/81 11/22/23 23:28 Pulse Oximetry 92 11/22/23 23:28 Oxygen Delivery Me thod Room Air 11/22/23 22:28 MDM - Burn/Smoke Inhalation Medical Decision Making This patient presented to the emergency department for a burn suffered earlier today. Patient states that her concern is the worsening of pain. Vitals normal on arrival. Exam remarkable for kaye to lower legs, appears to be first- degree. Informed the patient that treatment will be consistent with treating a sunburn, with ice to the areas for added relief as well as ibuprofen. I will also send her home with some bacitracin for prophylactic wound care. Patient agrees with this plan and return precautions are given. Chart reviewed Discharge Plan Discharge Patient Disposition: Home Clinical Impression: Superficial burn of right lower leg, Superficial burn of left lower leg Condition: Stable Prescriptions: New bacitracin 500 unit/gram ointment 1 applic topical BID Qty: 1022.4 0RF No Action venlafaxine 150 mg capsule,extended release 24hr 300 mg PO QAM Qty: 60 1RF Rx Instructions: Take two capsules by mouth every morning trazodone 100 mg tablet 100 mg PO DAILY Qty: 30 1RF Rx Instructions: Take one tablet daily at bedtime quetiapine 100 mg tablet 200 mg PO BEDTIME Qty: 60 1RF Rx Instructions: Take two tablets daily at bedtime albuterol sulfate 90 mcg/actuation HFA aerosol inhaler 2 puff INHALATION QID PRN (Reason: Shortness Of Breath) Breztri Aerosphere 160-9-4.8 mcg/actuation Hfa Aerosol Inhaler 2 inh INHALATION BID pregabalin 200 mg capsule 200 mg PO TID Qty: 90 0RF albuterol sulfate [Ventolin HFA] 90 mcg/actuation Hfa Aerosol Inhaler 1 puff inhalation Q4H PRN (Reason: wheezing) Qty: 6.7 1RF Discharge Orders: Discharge ED (Routine); Ordered 11/22/23 Ordered By: Gentry Peck Referrals: Harpal Gross [Primary Care Provider] - Discharge Diet: Usual diet Discharge Activity: Increase activity as tolerated Patient Instructions: Superficial Burn (ED) Activity Restrictions/Additional Instructions: Apply bacitracin as directed. Ice for added relief. Ibuprofen. Return with any new or concerning symptoms. Coding Level of Care Code ED Operations Logistics Analyst for Nasima Sheriff
[2023-11-22 23:28] VITALS: BP 135/81; PULSE 84; RESP 14; O2SAT 92
== END 2023-11-22 23:32 | disposition home or self-care (01) ==
PROVIDERS: Emergency Provider Physician Assistant; PCP Family Medicine
DX: T24.131A Burn of first degree of right lower leg, initial encounter (principal); T24.132A Burn of first degree of left lower leg, initial encounter; X12.XXXA Contact with other hot fluids, initial encounter; Z72.0 Tobacco use
CPT/HCPCS: 99283

== ENCOUNTER → 2024-03-03 09:30 | Outpatient (BNVA) | payer OTHER, SELFPAY ==
[2024-02-24 10:16] VITALS: BP 123/79; BMI 23.6
== END ==
PROVIDERS: PCP Family Medicine; Visit Provider Nurse Practitioner Psychiatric/Mental Health
DX: Z79.899 Other long term (current) drug therapy (principal)
CPT/HCPCS: 80053; 80061; 83036

== ENCOUNTER → 2024-12-08 13:58 | Outpatient (BNVA) | payer MEDICARE, SELFPAY ==
[2024-12-02 07:59] VITALS: BP 121/79; BMI 27.7
== END ==
PROVIDERS: PCP Family Medicine; Visit Provider Nurse Practitioner Psychiatric/Mental Health
DX: Z79.899 Other long term (current) drug therapy (principal)
CPT/HCPCS: 80306

== ENCOUNTER → 2024-12-16 09:50 | Outpatient (BNVA) | payer OTHER, SELFPAY ==
[2024-12-02 07:59] VITALS: BP 121/79; BMI 27.7
== END ==
PROVIDERS: PCP Family Medicine; Visit Provider Nurse Practitioner Psychiatric/Mental Health
DX: Z03.89 Encounter for observation for other suspected diseases and conditions ruled out (principal)
CPT/HCPCS: 80306